=== PATIENT | female | born 1970 | race Caucasian/White ===

== ENCOUNTER → 2016-08-19 | Outpatient (CLI) | payer OTHER ==
--- NOTE | 2016-08-19 14:10 | MM ---
Reason for exam: history of breast augmentation, asymptomatic. Last mammogram was performed 2 years and 6 months ago. History: Family history of breast cancer in aunt at age 55. Pre-pectoral silicone gel implants, 1990. Took hormonal contraceptives for 3 months beginning at age 18. Physical Findings: Nurse did not find any significant physical abnormalities on exam. MG Diag Mamm Implants IRVIN w CAD Bilateral CC and MLO view(s) were taken. ID view(s) were taken of the right breast. Prior study comparison: February 04, 2014, bilateral MG screening mammo w CAD. There are scattered fibroglandular densities. There is chronic nodularity bilaterally, greater in the left breast. Implants are calcified. There is increased density in the left breast, can be compatible with ruptured implant, this is stable from 2013. These results were verbally communicated with the patient and result sheet given to the patient on 08/19/16. ASSESSMENT: Benign, BI-RAD 2 RECOMMENDATION: Routine screening mammogram of both breasts in 1 year.
== END | disposition home or self-care (01) ==
LOC: RADMAMWWP 13:03
PROVIDERS: ATTEND Family Medicine
DX: R92.8 Other abnormal and inconclusive findings on diagnostic imaging of breast (principal); T85.41XA Breakdown (mechanical) of breast prosthesis and implant, initial encounter; Z98.82 Breast implant status

== ENCOUNTER 2017-08-30 08:10 | Inpatient (IN) | payer OTHER ==
[2017-08-30] MEDS ORDERED: SODIUM CHLORIDE 0.9% 1,000 ML IV STA (08:13)
[2017-08-30] MEDS ORDERED: PANTOPRAZOLE 40 MG/10 ML VIAL IVP STA (08:13)
[2017-08-30 08:36] LABS: Basophils % (A) 0 %; Eosinophils # (A) 0.1 k/uL (0-0.7); Eosinophils % (A) 0 %; HCT 22.7 % (34.0-46.0); HGB 7.7 gm/dL (11.4-16.0); Lymphocytes # (A) 4.1 k/uL (1.0-4.8); Lymphocytes % (A) 17 %; MCH 31.7 pg (25.0-35.0); MCHC 33.7 g/dL (31.0-37.0); MCV 94.1 fL (80.0-100.0); Mean Platelet Volume 8.5; Monocytes # (A) 0.7 k/uL (0-1.0); Monocytes % (A) 3 %; Neutrophils # (A) 19.5 k/uL (1.3-7.7); Neutrophils % (A) 80 %; Platelet Count 301 k/uL (150-450); RBC 2.42 m/uL (3.80-5.40); WBC 24.6 k/uL (3.8-10.6)
--- NOTE | 2017-08-30 08:38 | ED ---
General Adult HPI - General Stated complaint: GI Bleed Time Seen by Provider: 08/30/17 08:10 Source: RN notes reviewed - History of Present Illness Initial comments: This is a 47-year-old female who presents to the emergency department complaining of having black stool since last evening. Patient states her abdomen is mildly tender but no specific area of tenderness. Patient denies any nausea or vomiting. Patient states she has never had any rectal bleeding before. Patient denies being any blood thinners. Patient denies smoking marijuana. Patient denies any history of having a colonoscopy. Patient denies any chest pain difficult breathing or shortness of breath. Patient has not had any recent antibiotics patient is not any recent fever or chills. Patient has not had any recent diarrhea - Related Data Home Medications Medication Instructions Recorded Confirmed ARIPiprazole [Abilify] 5 mg PO DAILY 02/27/17 08/30/17 Ascorbic Acid [Vitamin C] 500 mg PO DAILY 02/27/17 08/30/17 Desvenlafaxine Succinate [Pristiq] 100 mg PO DAILY 02/27/17 08/30/17 HYDROcodone/APAP 7.5-325MG [[place] 1 tab PO QID PRN 02/27/17 08/30/17 7.5-325] LORazepam [Ativan] 2 mg PO TID 02/27/17 08/30/17 Pseudoephedrine 12Hr [Sudafed 12Hr] 120 mg PO Q12H PRN 08/30/17 08/30/17 Allergies Allergy/AdvReac Type Severity Reaction Status Date / Time lamotrigine [From Lamictal] Allergy Unknown Verified 08/30/17 10:19 lavender (Lavandula Allergy Unknown Verified 08/30/17 08:43 angustifolia) Sulfa (Sulfonamide Allergy Unknown Verified 08/30/17 08:43 Antibiotics) Review of Systems ROS Statement: Those systems with pertinent positive or pertinent negative responses have been documented in the HPI. ROS Other: All systems not noted in ROS Statement are negative. Past Medical History Past Medical History: No Reported History History of Any Multi-Drug Resistant Organisms: None Reported Past Surgical History: Breast Surgery, Section Past Psychological History: Anxiety, Depression Smoking Status: Current every day smoker Past Alcohol Use History: Abuse Past Drug Use History: None Reported General Exam - General Exam Comments Initial Comments: GENERAL: Patient is well-developed and well-nourished. Patient is nontoxic and well- hydrated and is in mild distress. ENT: Neck is soft and supple. No significant lymphadenopathy is noted. Oropharynx is clear. Moist mucous membranes. EYES: The sclera were anicteric and conjunctiva were pink and moist. Extraocular movements were intact and pupils were equal round and reactive to light. Eyelids were unremarkable. PULMONARY: Unlabored respirations. Good breath sounds bilaterally. No audible rales rhonchi or wheezing was noted. CARDIOVASCULAR: There is a regular rate and rhythm without any murmurs gallops or rubs. ABDOMEN: Soft and nontender with normal bowel sounds. SKIN: Skin is very pale. NEUROLOGIC: Patient is alert and oriented x3. Cranial nerves II through XII are grossly intact. Motor and sensory are also intact. Normal speech, volume and content. Symmetrical smile. MUSCULOSKELETAL: Normal extremities with adequate strength and full range of motion. No lower extremity swelling or edema. No calf tenderness. LYMPHATICS: No significant lymphadenopathy is noted PSYCHIATRIC: Normal psychiatric evaluation. Normal interpersonal interactions appears functionally intact in deals appropriately with others. No signs of depression. No signs of anxiety. Course Vital Signs 08/30/17 08/30/17 08/30/17 08:13 08:34 09:24 Temperature 97.2 F L 97.2 F L Pulse Rate 110 H 112 H 108 H Respiratory 17 17 17 Rate Blood Pressure 125/74 115/54 145/59 O2 Sat by Pulse 96 100 100 Oximetry 08/30/17 08/30/17 08/30/17 09:35 09:45 10:15 Temperature 97.2 F L 97.3 F L 97.5 F L Pulse Rate 107 H 107 H 110 H Respiratory 17 16 16 Rate Blood Pressure 135/63 122/72 175/98 O2 Sat by Pulse 100 100 100 Oximetry 08/30/17 10:57 Temperature Pulse Rate 125 H Respiratory 17 Rate Blood Pressure 158/65 O2 Sat by Pulse 100 Oximetry Medical Decision Making - Medical Decision Making EKG shows sinus tachycardia at 112 bpm MO interval is 128 QRS 78 QT interval 350 QTC is 477. Patient's EKG shows no ST elevation or depression or T wave abnormalities are noted. Patient received one unit of blood in the emergency department secondary to the fact that she was having black stools which were guaiac positive. Patient also received 2 L of normal saline. Patient's blood pressure remained within normal range throughout her stay in the emergency department. Patient also is tachycardic and feeling very weak. I spoke with [facility] admit the patient I wrote admitting orders I consult the GI and he continued doing serial CBCs. CT showed no acute abnormality. - Lab Data Result diagrams: 08/30/17 08:20 08/30/17 08:20 Lab Results 08/30/17 08/30/17 08/30/17 Range/Units 08:20 08:20 08:20 WBC 24.6 H (3.8-10.6) k/uL RBC 2.42 L (3.80-5.40) m/uL Hgb 7.7 L (11.4-16.0) gm/dL Hct 22.7 L (34.0-46.0) % MCV 94.1 (80.0-100.0) fL MCH 31.7 (25.0-35.0) pg MCHC 33.7 (31.0-37.0) g/dL RDW 13.0 (11.5-15.5) % Plt Count 301 (150-450) k/uL Neutrophils % 80 % Lymphocytes % 17 % Monocytes % 3 % Eosinophils % 0 % Basophils % 0 % Neutrophils # 19.5 H (1.3-7.7) k/uL Lymphocytes # 4.1 (1.0-4.8) k/uL Monocytes # 0.7 (0-1.0) k/uL Eosinophils # 0.1 (0-0.7) k/uL Basophils # 0.0 (0-0.2) k/uL PT (9.0-12.0) sec INR (<1.2) APTT (22.0-30.0) sec Sodium (137-145) mmol/L Potassium (3.5-5.1) mmol/L Chloride (98-107) mmol/L Carbon Dioxide (22-30) mmol/L Anion Gap mmol/L BUN (7-17) mg/dL Creatinine (0.52-1.04) mg/dL Est GFR (CKD-EPI)AfAm (>60 ml/min/1.73 sqM) Est GFR (CKD-EPI)NonAf (>60 ml/min/1.73 sqM) Glucose (74-99) mg/dL Calcium (8.4-10.2) mg/dL Magnesium (1.6-2.3) mg/dL Total Bilirubin (0.2-1.3) mg/dL AST (14-36) U/L ALT (9-52) U/L Alkaline Phosphatase (38-126) U/L Total Creatine Kinase 48 (30-135) U/L CK-MB (CK-2) 1.5 (0.0-2.4) ng/mL CK-MB (CK-2) Rel Index 3.1 Troponin I 0.039 H* (0.000-0.034) ng/mL Total Protein (6.3-8.2) g/dL Albumin (3.5-5.0) g/dL Stool Occult Blood (Negative) Blood Type O Negative Blood Type Recheck No Antibody Screen NEGATIVE Crossmatch See Detail Spec Expiration Date 09/02/2017 - 231908/30/17 08/30/17 08/30/17 Range/Units 08:20 08:20 08:25 WBC (3.8-10.6) k/uL RBC (3.80-5.40) m/uL Hgb (11.4-16.0) gm/dL Hct (34.0-46.0) % MCV (80.0-100.0) fL MCH (25.0-35.0) pg MCHC (31.0-37.0) g/dL RDW (11.5-15.5) % Plt Count (150-450) k/uL Neutrophils % % Lymphocytes % % Monocytes % % Eosinophils % % Basophils % % Neutrophils # (1.3-7.7) k/uL Lymphocytes # (1.0-4.8) k/uL Monocytes # (0-1.0) k/uL Eosinophils # (0-0.7) k/uL Basophils # (0-0.2) k/uL PT 10.2 (9.0-12.0) sec INR 1.0 (<1.2) APTT 19.0 L (22.0-30.0) sec Sodium 140 (137-145) mmol/L Potassium 3.6 (3.5-5.1) mmol/L Chloride 101 (98-107) mmol/L Carbon Dioxide 21 L (22-30) mmol/L Anion Gap 18 mmol/L BUN 54 H (7-17) mg/dL Creatinine 0.85 (0.52-1.04) mg/dL Est GFR (CKD-EPI)AfAm >90 (>60 ml/min/1.73 sqM) Est GFR (CKD-EPI)NonAf 81 (>60 ml/min/1.73 sqM) Glucose 132 H (74-99) mg/dL Calcium 8.8 (8.4-10.2) mg/dL Magnesium 2.0 (1.6-2.3) mg/dL Total Bilirubin 0.1 L (0.2-1.3) mg/dL AST 19 (14-36) U/L ALT 16 (9-52) U/L Alkaline Phosphatase 46 (38-126) U/L Total Creatine Kinase (30-135) U/L CK-MB (CK-2) (0.0-2.4) ng/mL CK-MB (CK-2) Rel Index Troponin I (0.000-0.034) ng/mL Total Protein 5.1 L (6.3-8.2) g/dL Albumin 3.3 L (3.5-5.0) g/dL Stool Occult Blood Positive H (Negative) Blood Type Blood Type Recheck Antibody Screen Crossmatch Spec Expiration Date Critical Care Time Critical Care Time: Yes Total Critical Care Time: 35 Disposition Clinical Impression: GI bleed Disposition: ADMITTED IP TO THIS [facility] Referrals: Bjorn Joy III, MD [Primary Care Provider] - 1-2 days Time of Disposition: 09:52
[2017-08-30 08:48] LABS: ALT 16 U/L (9-52); AST 19 U/L (14-36); Albumin 3.3 g/dL (3.5-5.0); Alkaline Phosphatase 46 U/L (38-126); Anion Gap 18 mmol/L; Blood Urea Nitrogen 54 mg/dL (7-17); Calcium 8.8 mg/dL (8.4-10.2); Carbon Dioxide 21 mmol/L (22-30); Chloride 101 mmol/L (98-107); Glucose 132 mg/dL (74-99); Potassium 3.6 mmol/L (3.5-5.1); Sodium 140 mmol/L (137-145); Total Bilirubin 0.1 mg/dL (0.2-1.3); Total Protein 5.1 g/dL (6.3-8.2)
[2017-08-30 08:51] LABS: Prothrombin Time 10.2 sec (9.0-12.0)
[2017-08-30 09:04] LABS: Creatine Kinase MB 1.5 ng/mL (0.0-2.4)
[2017-08-30 09:10] LABS: Troponin I 0.039 ng/mL (0.000-0.034)
[2017-08-30] MEDS ORDERED: RX INFO: IV CONTRAST WAS GIVEN 1 EACH MISC MISCELLANE PRN (09:55)
--- NOTE | 2017-08-30 10:58 | CT ---
EXAMINATION TYPE: CT abdomen pelvis w con DATE OF EXAM: 08/30/2017 COMPARISON: NONE HISTORY: GI bleed CT DLP: 915.60 mGycm CONTRAST: CT scan of the abdomen and pelvis is performed without Oral Contrast and with IV Contrast, patient in jected with 100 ml mL of Isovue 300. FINDINGS: LUNG BASES-: No visible nodule. No infiltrate. LIVER/GB: No calcified gallstones. No space occupying hepatic lesion. Biliary tree is of normal ca liber. PANCREAS: No inflammation. No distinct mass. SPLEEN: No splenic enlargement. No lesion seen. ADRENALS: Left adrenal nodule measuring 2.2 cm is nonspecific. Right adrenal gland is unremarkable. C orrelate for adenoma. KIDNEYS/BLADDER: No hydronephrosis. No nephrolithiasis. No distinct renal mass. Urinary bladder g rossly unremarkable. BOWEL: Normal appendix. Mild distention of jejunal loops of wall thickening may reflect enteritis. Th e remainder of the small and large bowel appear to be unremarkable. There is scattered colonic divert iculosis without diverticulitis. GENITAL ORGANS: No gross abnormality. LYMPH NODES: No greater than 1cm abdominal or pelvic lymph nodes are appreciated. AORTA: No significant abnormality. OSSEOUS STRUCTURES: No significant abnormality is seen. OTHER: No significant additional abnormality is seen. IMPRESSION: 1. Correlate for jejunal enteritis. 2. Scattered colonic diverticulosis without diverticulitis. 3. Left adrenal nodule may reflect adenoma.
[2017-08-30] MEDS ORDERED: SODIUM CHLORIDE 0.9% 1,000 ML IV ONE (11:05)
[2017-08-30 12:18] VITALS: BMI 30.4
[2017-08-30] MEDS: DESVENLAFAXINE SUCCINATE 50 MG TAB.ER.24H PO SCH (17:53)
[2017-08-30] MEDS: ARIPiprazole 5 MG TAB PO SCH (17:53)
[2017-08-30] MEDS: LORazepam 1 MG TAB PO PRN (18:08)
[2017-08-30] MEDS: SODIUM CHLORIDE 0.9% 1,000 ML IV SCH (18:10)
[2017-08-30 18:43] LABS: Anisocytosis Slight; HCT 23.3 % (34.0-46.0); HGB 8.1 gm/dL (11.4-16.0); MCH 30.8 pg (25.0-35.0); MCHC 34.9 g/dL (31.0-37.0); Mean Platelet Volume 8.5; Platelet Count 229 k/uL (150-450); RBC 2.63 m/uL (3.80-5.40); WBC 19.2 k/uL (3.8-10.6)
[2017-08-30 18:50] LABS: MCV 88.4 fL (80.0-100.0)
[2017-08-30] MEDS: HYDROcodone/APAP 7.5-325MG 1 EACH TAB PO PRN (19:41)
[2017-08-30] MEDS: PANTOPRAZOLE 40 MG/10 ML VIAL IVP SCH (21:13)
[2017-08-30 21:40] LABS: Basophils % (A) 0 %; Eosinophils # (A) 0.1 k/uL (0-0.7); Eosinophils % (A) 1 %; Lymphocytes # (A) 4.6 k/uL (1.0-4.8); Lymphocytes % (A) 35 %; MCH 29.8 pg (25.0-35.0); MCHC 34.1 g/dL (31.0-37.0); MCV 87.4 fL (80.0-100.0); Mean Platelet Volume 7.8; Monocytes # (A) 0.4 k/uL (0-1.0); Monocytes % (A) 3 %; Neutrophils # (A) 7.8 k/uL (1.3-7.7); Neutrophils % (A) 59 %; Platelet Count 195 k/uL (150-450); RBC 2.16 m/uL (3.80-5.40); WBC 13.2 k/uL (3.8-10.6)
[2017-08-30 21:45] LABS: HGB 6.4 gm/dL (11.4-16.0)
[2017-08-30 21:46] LABS: HCT 18.8 % (34.0-46.0)
[2017-08-30] MEDS ORDERED: FUROSEMIDE 10 MG/ML 2 ML VIAL IV PRN ×2 (21:53)
[2017-08-30] MEDS ORDERED: LORazepam 1 MG TAB PO SCH (22:00)
--- NOTE | 2017-08-30 22:21 | HP ---
HISTORY AND PHYSICAL DATE OF SERVICE: 08/30/2017. CHIEF COMPLAINT: GI bleed and anemia. HISTORY OF PRESENT ILLNESS: This 47-year-old woman with a past medical history of multiple medical problems including history of anxiety and depression, being followed by Dr. Joy in the outpatient setting, also had breast surgery and section also. The patient apparently had diarrhea for 3 to 4 days. Subsequently patient was vomiting and subsequently patient noted black tarry stools. The patient came to [facility]. Hemoglobin was found to be 7.7 and then subsequently 8.1. WBC 24.6. CT scan showed possible enteritis. Troponin inconclusive. The patient was complaining of tiredness and weakness. The patient was admitted for further evaluation and treatment. Gastroenterology evaluation is in progress at this time. PAST MEDICAL HISTORY: History of anxiety and depression, history of nicotine dependence and breast surgery, history of section. MEDICATIONS: 1. Sudafed 120 mg p.o. b.i.d. 2. Ativan 0 2 mg t.i.d. 3. [place] 7.5 q.i.d. p.r.n. 4. Pristiq 100 mg daily. 5. Vitamin C 575 mg p.o. daily. 6. Abilify 5 mg daily. ALLERGIES: Lamictal, lavender, sulfa. FAMILY HISTORY: History of Crohn disease. SOCIAL HISTORY: History of smoking. No history of alcohol intake. REVIEW OF SYSTEMS: ENT: No diminished vision. CARDIOVASCULAR: No angina. RESPIRATORY: No cough. GI: As mentioned earlier. : No dysuria. NERVOUS SYSTEM: No numbness or weakness. ALLERGY: None. MUSCULOSKELETAL: As mentioned earlier. HEMATOLOGY/ONCOLOGY: No history of anemia. ENDOCRINE: No history of diabetes. CONSTITUTIONAL: No fever. DERMATOLOGY: None. PSYCH: As mentioned earlier. PHYSICAL EXAM: Alert, oriented x3. Pulse is 118, blood pressure 148/60, respirations 16, temperature 97 degrees, pulse ox 97% on room air. HEENT: Conjunctivae normal. Oral mucosa moist. NECK: No jugular venous distention. No lymph node enlargement. CARDIOVASCULAR: S1 and S2. LUNGS: Breath sounds diminished at the bases. No rhonchi no crackles. ABDOMEN: Soft, nontender. No mass palpable. LEGS: No edema. NERVOUS SYSTEM: Higher functions as mentioned. No focal motor deficits. LYMPHATIC: No lymph nodes palpable. SKIN: No ulcer, rash or bleeding. LABS: WBC 19.8, hemoglobin is 8.1. Troponin noted. ASSESSMENT: 1. Lower gastrointestinal bleeding with acute blood loss anemia with a hemoglobin of 7.7. 2. Increased WBC. 3. Possibly jejunal enteritis. 4. Troponin 0.039, indeterminate. 5. Anxiety and depression. 6. History of nicotine dependence. 7. History of EtOH. RECOMMENDATIONS: This 47-year-old gentleman with multiple complex medical issues, will monitor the patient closely, continue the current management, GI evaluation. Possible endoscope. Monitor closely. Avoid antiplatelet agents. Resume the home medications. Otherwise we will follow the patient closely. Further recommendations to follow. Proton pump inhibitors will be given also. I would also recommend a sedimentation rate and CRP also. MMODL / IJN: [id number] /
[2017-08-30 22:22] LABS: Erythrocyte Sedimentation Rate 3 mm/hr (0-20)
[2017-08-31] MEDS: HYDROcodone/APAP 7.5-325MG 1 EACH TAB PO PRN ×4 (00:44→22:08)
[2017-08-31] MEDS: LORazepam 1 MG TAB PO PRN ×3 (02:28→22:08)
[2017-08-31] MEDS: SODIUM CHLORIDE 0.9% 1,000 ML IV SCH (06:13)
[2017-08-31] MEDS ORDERED: SODIUM CHLORIDE 0.9% 1,000 ML IV SCH (06:15)
--- NOTE | 2017-08-31 07:33 | P.CONS ---
History of Present Illness - Reason for Consult Consult date: 08/31/17 GI bleed melena and anemia Requesting physician: Jeremías Motta - History of Present Illness 47-year-old female admitted with hematemesis and black colored bowel movements that started Tuesday. Tuesday evening should increased nausea with multiple emesis that were red blood-tinged followed by multiple black colored bowel movements. Her last black colored bowel movement was yesterday afternoon. She had increased shortness of breath fatigue weakness but denies chest pain. No history of GI bleed. No history of peptic ulcer disease. No NSAIDs aspirin or alcohol. Denies fever or chills. Denies hematochezia. No history of EGD colonoscopy. Admission hemoglobin 7.7 decreased to 6.4 yesterday evening she's received a total of 2 units of blood. Platelet 195. INR 1.0. BUN 54. Creatinine 0.8. White 24.6 presently 13.2. Denies epigastric abdominal pain. No history of gastric or bowel surgeries. CT abdomen and pelvis colonic diverticulosis without diverticulitis. Possible jejunal enteritis. Review of Systems Constitutional: Denies fever, chills, sweats, weight gain, or loss. HEENT: Negative for migraines, blurred vision or loss, earaches, drainage, tinnitus, oral mucosal lesions, dysphagia, or odynophagia. CARDIAC: Negative for chest pain, arrhythmias, or palpitation. RESPIRATORY: Admitted with shortness of breath, denies hemoptysis, cough, or sputum production. GI: See HPI for pertinent findings. : Negative for hematuria, urgency, frequency, polyuria, or dysuria. GYNc: Denies possibility of . Negative vaginal discharge. MUSCULOSKELETAL: Negative for muscle aches, swelling, arthritis, and arthralgias. NEUROLOGIC: Negative for stroke or TIA. ENDOCRINE: Negative for thyroid problems. SKIN: Negative for rash or itching. PSYCHIATRIC: Negative history for depression and anxiety Past Medical History Past Medical History: No Reported History History of Any Multi-Drug Resistant Organisms: None Reported Past Surgical History: Breast Surgery, Section Past Psychological History: Anxiety, Depression Smoking Status: Current every day smoker Past Alcohol Use History: Abuse Past Drug Use History: None Reported - Past Family History Son(s) Additional Family Medical History / Comment(s): at at 18 years from crohns Medications and Allergies Home Medications Medication Instructions Recorded Confirmed Type ARIPiprazole [Abilify] 5 mg PO DAILY 02/27/17 08/30/17 History Ascorbic Acid [Vitamin C] 500 mg PO DAILY 02/27/17 08/30/17 History Desvenlafaxine Succinate [Pristiq] 100 mg PO DAILY 02/27/17 08/30/17 History HYDROcodone/APAP 7.5-325MG [[place] 1 tab PO QID PRN 02/27/17 08/30/17 History 7.5-325] LORazepam [Ativan] 2 mg PO TID 02/27/17 08/30/17 History Pseudoephedrine 12Hr [Sudafed 12Hr] 120 mg PO Q12H PRN 08/30/17 08/30/17 History Allergies Allergy/AdvReac Type Severity Reaction Status Date / Time lamotrigine [From Lamictal] Allergy chávez Verified 08/30/17 12:02 [place] lavender (Lavandula Allergy Itching Verified 08/30/17 12:02 angustifolia) Sulfa (Sulfonamide Allergy Swelling Verified 08/30/17 12:02 Antibiotics) Physical Exam Vitals: Vital Signs Temp Pulse Pulse Resp BP BP Pulse Ox 08/31/17 06:11 98.7 F 99 20 105/57 98 08/31/17 05:38 97.2 F L 103 H 18 110/58 98 08/31/17 03:38 98.0 F 100 20 116/55 100 08/31/17 03:18 98.5 F 95 20 117/60 98 08/31/17 03:08 97.6 F 95 20 115/59 99 08/31/17 02:33 97.7 F 101 H 20 112/50 100 08/30/17 23:40 97.9 F 99 20 110/50 100 08/30/17 23:20 98.1 F 98 20 115/52 100 08/30/17 23:10 97.7 F 100 20 115/53 99 08/30/17 22:45 98.6 F 103 H 18 105/64 100 08/30/17 15:00 98.2 F 115 H 20 133/66 100 08/30/17 13:21 97.0 F L 115 H 16 140/81 97 08/30/17 12:26 97.0 F L 118 H 16 140/81 08/30/17 11:54 97.0 F L 118 H 16 140/81 99 08/30/17 11:29 98.9 F 123 H 17 129/76 100 08/30/17 10:57 125 H 17 158/65 100 08/30/17 10:15 97.5 F L 110 H 16 175/98 100 08/30/17 09:45 97.3 F L 107 H 16 122/72 100 08/30/17 09:35 97.2 F L 107 H 17 135/63 100 08/30/17 09:24 97.2 F L 108 H 17 145/59 100 08/30/17 08:34 112 H 17 115/54 100 08/30/17 08:13 97.2 F L 110 H 17 125/74 96 Intake and Output 08/30/17 08/31/17 08/31/17 22:59 06:59 14:59 Intake Total 620 Balance 620 Intake: Blood Product 620 Rc As-3 Unit 310 [id number] Rc Pheresis 2 As3 Unit 310 [id number] Other: Voiding Method Toilet # Voids 1 3 General appearance: The patient is alert, oriented, in no acute distress. HET: Head is normocephalic and atraumatic. Pupils are equal and reactive. Oropharynx is clear without lesions. Neck: Supple without lymphadenopathy. Trachea midline. Heart: S1 S2. Regular rate and rhythm. Lungs: No crackles or wheezes are heard. Abdomen: Soft, nontender, nondistended with bowel sounds. No peritoneal signs. No palpable organomegaly or masses. Extremities: Normal skin color and turgor. No cyanosis, rash, ulceration, clubbing, or edema. Radial and pedal pulses are 2/4 bilaterally. Neurological: No focal deficits. Strength and sensation are grossly intact. Results CBC & Chem 7: 08/30/17 21:32 08/30/17 08:20 Labs: Abnormal Lab Results - Last 24 Hours (Table) 08/30/17 08/30/17 08/30/17 Range/Units 08:20 08:20 08:20 WBC 24.6 H (3.8-10.6) k/uL RBC 2.42 L (3.80-5.40) m/uL Hgb 7.7 L (11.4-16.0) gm/dL Hct 22.7 L (34.0-46.0) % RDW (11.5-15.5) % Neutrophils # 19.5 H (1.3-7.7) k/uL APTT (22.0-30.0) sec Carbon Dioxide (22-30) mmol/L BUN (7-17) mg/dL Glucose (74-99) mg/dL Total Bilirubin (0.2-1.3) mg/dL Troponin I 0.039 H* (0.000-0.034) ng/mL C-Reactive Protein (<10.0) mg/L Total Protein (6.3-8.2) g/dL Albumin (3.5-5.0) g/dL Stool Occult Blood (Negative) Crossmatch See Detail 08/30/17 08/30/17 08/30/17 Range/Units 08:20 08:20 08:20 WBC (3.8-10.6) k/uL RBC (3.80-5.40) m/uL Hgb (11.4-16.0) gm/dL Hct (34.0-46.0) % RDW (11.5-15.5) % Neutrophils # (1.3-7.7) k/uL APTT 19.0 L (22.0-30.0) sec Carbon Dioxide 21 L (22-30) mmol/L BUN 54 H (7-17) mg/dL Glucose 132 H (74-99) mg/dL Total Bilirubin 0.1 L (0.2-1.3) mg/dL Troponin I (0.000-0.034) ng/mL C-Reactive Protein 42.1 H (<10.0) mg/L Total Protein 5.1 L (6.3-8.2) g/dL Albumin 3.3 L (3.5-5.0) g/dL Stool Occult Blood (Negative) Crossmatch 08/30/17 08/30/17 08/30/17 Range/Units 08:25 18:21 21:32 WBC 19.2 H 13.2 H (3.8-10.6) k/uL RBC 2.63 L 2.16 L (3.80-5.40) m/uL Hgb 8.1 L 6.4 L* D (11.4-16.0) gm/dL Hct 23.3 L 18.8 L* (34.0-46.0) % RDW 16.0 H 16.0 H (11.5-15.5) % Neutrophils # 7.8 H (1.3-7.7) k/uL APTT (22.0-30.0) sec Carbon Dioxide (22-30) mmol/L BUN (7-17) mg/dL Glucose (74-99) mg/dL Total Bilirubin (0.2-1.3) mg/dL Troponin I (0.000-0.034) ng/mL C-Reactive Protein (<10.0) mg/L Total Protein (6.3-8.2) g/dL Albumin (3.5-5.0) g/dL Stool Occult Blood Positive H (Negative) Crossmatch CT scan - abdomen: report reviewed (Dr. Andrade) Assessment and Plan (1) Hematemesis with nausea Narrative/Plan: Possible peptic ulcer disease Current Visit: Yes Status: Acute Code(s): K92.0 - HEMATEMESIS SNOMED Code( s): 0569270 (2) Melena Current Visit: Yes Status: Acute Code(s): K92.1 - MELENA SNOMED Code(s): 7122444 (3) Acute blood loss anemia Current Visit: Yes Status: Acute Code(s): D62 - ACUTE POSTHEMORRHAGIC ANEMIA SNOMED Code(s): 413571450 (4) Symptomatic anemia Current Visit: Yes Status: Acute Code(s): D64.9 - ANEMIA, UNSPECIFIED SNOMED Code(s): 462761194 (5) GI bleed Current Visit: Yes Status: Acute Code(s): K92.2 - GASTROINTESTINAL HEMORRHAGE, UNSPECIFIED SNOMED Code(s): 20971539 Plan: 1. Nothing by mouth except medications. EGD evaluation. Protonix 40 mg IV every 12. CBC every 6 hours. The clinical trials nurse has discussed the risks, benefits and alternative therapies for the above-mentioned procedure and for both sedation/analgesia as well as necessary blood product administration, if indicated, as they pertain to this patient. The patient has indicated understanding and acceptance of the risks and procedures discussed. Thank you for this kind referral and the opportunity to participate in the care of your patient. This consultation was discussed with Dr. Andrade. The impression and plan of care have been directed as dictated.
[2017-08-31 08:05] LABS: Anisocytosis Slight; Basophils % (A) 0 %; Eosinophils # (A) 0.1 k/uL (0-0.7); Eosinophils % (A) 1 %; HCT 29.3 % (34.0-46.0); Lymphocytes # (A) 2.9 k/uL (1.0-4.8); Lymphocytes % (A) 29 %; MCH 29.9 pg (25.0-35.0); MCHC 34.5 g/dL (31.0-37.0); MCV 86.6 fL (80.0-100.0); Mean Platelet Volume 7.8; Monocytes # (A) 0.4 k/uL (0-1.0); Monocytes % (A) 4 %; Neutrophils # (A) 6.5 k/uL (1.3-7.7); Neutrophils % (A) 66 %; Platelet Count 188 k/uL (150-450); RBC 3.38 m/uL (3.80-5.40); RDW 16.3 % (11.5-15.5); WBC 9.9 k/uL (3.8-10.6)
[2017-08-31 08:10] LABS: HGB 10.1 gm/dL (11.4-16.0)
[2017-08-31] MEDS: ARIPiprazole 5 MG TAB PO SCH (08:11)
[2017-08-31] MEDS: DESVENLAFAXINE SUCCINATE 50 MG TAB.ER.24H PO SCH (08:11)
[2017-08-31] MEDS: PANTOPRAZOLE 40 MG/10 ML VIAL IVP SCH ×2 (08:12→20:25)
[2017-08-31 08:21] LABS: Anion Gap 11 mmol/L; Blood Urea Nitrogen 12 mg/dL (7-17); Calcium 8.1 mg/dL (8.4-10.2); Carbon Dioxide 27 mmol/L (22-30); Chloride 103 mmol/L (98-107); Glucose 96 mg/dL (74-99); Potassium 3.1 mmol/L (3.5-5.1); Sodium 141 mmol/L (137-145)
[2017-08-31] MEDS ORDERED: IV FLUID CONTINUATION 1,000 ML IV ONE (11:56)
[2017-08-31] MEDS ORDERED: LIDOCAINE 1% INJ 10MG/ML (20 ML MDV) ONE (12:01)
[2017-08-31] MEDS ORDERED: MIDAZOLAM 2 MG/2 ML VIAL ONE (12:01)
[2017-08-31] MEDS ORDERED: PROPOFOL 10 MG/ML 20 ML VIAL IV ONE (12:01)
--- NOTE | 2017-08-31 12:14 | P.PCN ---
Date of Procedure: 08/31/17 Procedure(s) Performed: BRIEF HISTORY: Patient is a 47-year-old, pleasant, white female, admitted to the hospital with hematemesis and black tarry stools of 2 days' duration. Her hemoglobin was 6.5 g/dL requiring 2 units of blood transfusion. She is hence scheduled for an upper endoscopy to evaluate further. PROCEDURE PERFORMED: Esophagogastroduodenoscopy with biopsy. PREOPERATIVE DIAGNOSIS: Acute upper GI bleed. IV sedation per anesthesia. PROCEDURE: After informed consent was obtained, the patient was brought into the endoscopy unit. IV sedation was administered by Anesthesia under continuous monitoring. Initially the Olympus GIF-140 video endoscope was inserted into the mouth. Esophagus intubated without any difficulty. It was gradually advanced into the stomach and duodenum and carefully examined. The bulb and the second part of the duodenum appeared normal. The scope at this time was withdrawn to the stomach, adequately insufflated with air, and upon careful examination, mucosa of the antrum, had scattered erosions but no active bleeding. Biopsies were done from antrum. The body, cardia and the fundus appeared normal. The scope was then withdrawn into the esophagus. The GE junction was located at 39 cm from the incisors. There was a isolated deep linear ulceration in the distal esophagus extending from 37-39 cm from the incisors with no active bleeding but appears to be the source of recent bleed. The rest of the esophagus appeared normal and the patient tolerated the procedure well. IMPRESSION: 1. 2 cm linear deep ulceration in the distal esophagus with no active bleeding. 2. Antral erosive gastritis. RECOMMENDATIONS: The findings of this examination were discussed with the patient. She was advised to follow with the biopsy results. She will continue with Protonix 40 mg twice daily and diet will be advanced as tolerated.
[2017-08-31] MEDS ORDERED: Potassium Replacement Protocol 1 EACH MISC MISCELLANE PRN (12:42)
[2017-08-31] MEDS: ASCORBIC ACID 500 MG TAB PO SCH (12:45)
[2017-08-31] MEDS: POTASSIUM CHLORIDE ER 20 MEQ TAB.ER PO SCH ×2 (13:07→15:43)
--- NOTE | 2017-08-31 13:36 | P.CRDCN ---
History of Present Illness Consult date: 08/31/17 History of present illness: Mrs. Moncada is a pleasant 47-year-old female past medical history significant for anxiety, depression, contained dependence. She denies history of coronary artery disease, hypertension, dyslipidemia or diabetes. Patient has to see her in consultation secondary to elevated troponin. She presented to the hospital yesterday morning after having black stools multiple times starting on Tuesday. She states she is also been vomiting dark red colored emesis. She states that she when she initially presented to the hospital she was extremely short of breath and felt as if her chest was tight. She has experienced symptoms like this in the past with shortness of breath and chest tightness and typically takes ativan and the symptoms subside. she was found to have hgb 7.7 and was quiac positive. She has received 3 units of PRBC's with hgg going down as low as 6.4 last night. This morning is 10.1. GI has been consulted and is planning for EGD today. She has had no further symptoms of chest pain or shortness of breath since admission. EKG reveals sinus tachycardia with no acute ST abnormalities and non-specific T- wave abnormalities. CT abdomen and pelvis related for jejunal enteritis, scattered colonic diverticulosis without diverticulitis and left adrenal nodule. Laboratory data reviewed, hemoglobin today 10.1, platelets 188, sodium 141, INR 1.0, potassium 3.1, creatinine 0.52, troponin on admission 0.039, CRP 42.1. Review of Systems At the time of my exam: CONSTITUTIONAL: Denies fever. Denies chills. EYES: Denies blurred vision. Denies vision changes. Denies eye pain. EARS, NOSE, MOUTH & THROAT: Denies headache. Denies sore throat. Denies ear pain. CARDIOVASCULAR: Denies chest pain. Denies shortness of breath. Denies orthopnea. Denies PND. Denies palpitations. RESPIRATORY: Denies cough. GASTROINTESTINAL: Denies abdominal pain. Denies diarrhea. Denies constipation. Denies nausea. Denies vomiting. MUSCULOSKELETAL: Denies myalgias. INTEGUMENTARY: Denies pruitis. Denies rash. NEUROLOGIC: Denies numbness. Denies tingling. Denies weakness. PSYCHIATRIC: Denies anxiety. Denies depression. ENDOCRINE: Denies fatigue. Denies weight change. Denies polydipsia. Denies polyurina. GENITOURINARY: Denies burning, hematuria or urgency with micturation. HEMATOLOGIC: Denies history of anemia. Complains of rectal bleeding. Past Medical History Past Medical History: No Reported History History of Any Multi-Drug Resistant Organisms: None Reported Past Surgical History: Breast Surgery, Section Past Psychological History: Anxiety, Depression Smoking Status: Current every day smoker Past Alcohol Use History: Abuse Past Drug Use History: None Reported - Past Family History Son(s) Additional Family Medical History / Comment(s): at at 18 years from crohns Medications and Allergies Home Medications Medication Instructions Recorded Confirmed Type ARIPiprazole [Abilify] 5 mg PO DAILY 02/27/17 08/30/17 History Ascorbic Acid [Vitamin C] 500 mg PO DAILY 02/27/17 08/30/17 History Desvenlafaxine Succinate [Pristiq] 100 mg PO DAILY 02/27/17 08/30/17 History HYDROcodone/APAP 7.5-325MG [[place] 1 tab PO QID PRN 02/27/17 08/30/17 History 7.5-325] LORazepam [Ativan] 2 mg PO TID 02/27/17 08/30/17 History Pseudoephedrine 12Hr [Sudafed 12Hr] 120 mg PO Q12H PRN 08/30/17 08/30/17 History Allergies Allergy/AdvReac Type Severity Reaction Status Date / Time lamotrigine [From Lamictal] Allergy chávez Verified 08/30/17 12:02 johnsons lavender (Lavandula Allergy Itching Verified 08/30/17 12:02 angustifolia) Sulfa (Sulfonamide Allergy Swelling Verified 08/30/17 12:02 Antibiotics) Physical Exam Vitals: Vital Signs Temp Pulse Pulse Resp BP BP Pulse Ox 08/31/17 06:11 98.7 F 99 20 105/57 98 08/31/17 05:38 97.2 F L 103 H 18 110/58 98 08/31/17 03:38 98.0 F 100 20 116/55 100 08/31/17 03:18 98.5 F 95 20 117/60 98 08/31/17 03:08 97.6 F 95 20 115/59 99 08/31/17 02:33 97.7 F 101 H 20 112/50 100 05/08/18 23:40 97.9 F 99 20 110/50 100 08/30/17 23:20 98.1 F 98 20 115/52 100 08/30/17 23:10 97.7 F 100 20 115/53 99 08/30/17 22:45 98.6 F 103 H 18 105/64 100 08/30/17 15:00 98.2 F 115 H 20 133/66 100 08/30/17 13:21 97.0 F L 115 H 16 140/81 97 08/30/17 12:26 97.0 F L 118 H 16 140/81 08/30/17 11:54 97.0 F L 118 H 16 140/81 99 08/30/17 11:29 98.9 F 123 H 17 129/76 100 Intake and Output 08/30/17 08/31/17 08/31/17 22:59 06:59 14:59 Intake Total 620 Balance 620 Intake: Blood Product 620 Rc As-3 Unit 310 [id number] Rc Pheresis 2 As3 Unit 310 [id number] Other: Voiding Method Toilet # Voids 1 3 Blood pressure 105/57 heart rate 99 afebrile maintaining oxygen saturation on room air GENERAL: This is a 47-year-old female in no apparent distress at the time of my examination. Obese. HEENT: Head is atraumatic, normocephalic. Pupils are equal, round. Sclerae anicteric. Conjunctivae are clear. Mucous membranes of the mouth are moist. Neck is supple. There is no jugular venous distention. No carotid bruit is heard. LUNGS: Clear to auscultation no wheezes, rales or rhonchi. No chest wall tenderness is noted on palpation or with deep breathing. HEART: Regular rate and rhythm without murmurs, rubs or gallops. S1 and S2 heard. ABDOMEN: Soft, nontender. Bowel sounds are heard. No organomegaly noted. EXTREMITIES: No evidence of peripheral edema and no calf tenderness noted. VASCULAR: Radial and dorsalis pedis pulses palpated, no evidence of clubbing. NEUROLOGIC: Patient is awake, alert and oriented x3. Results 08/31/17 07:56 08/31/17 07:51 CBC 08/30/17 08/30/17 08/31/17 Range/Units 18:21 21:32 07:56 WBC 19.2 H 13.2 H 9.9 (3.8-10.6) k/uL RBC 2.63 L 2.16 L 3.38 L (3.80-5.40) m/uL Hgb 8.1 L 6.4 L* D 10.1 L D (11.4-16.0) gm/dL Hct 23.3 L 18.8 L* 29.3 L (34.0-46.0) % Plt Count 229 195 188 (150-450) k/uL Comprehensive Metabolic Panel 08/31/17 Range/Units 07:51 Sodium 141 (137-145) mmol/L Potassium 3.1 L (3.5-5.1) mmol/L Chloride 103 (98-107) mmol/L Carbon Dioxide 27 (22-30) mmol/L BUN 12 (7-17) mg/dL Creatinine 0.52 (0.52-1.04) mg/dL Glucose 96 (74-99) mg/dL Calcium 8.1 L (8.4-10.2) mg/dL Current Medications Generic Name Dose Route Start Last Admin Trade Name Freq PRN Reason Stop Dose Admin Hydrocodone Bitart/Acetaminophen 1 each 08/30/17 16:46 08/31/17 08:11 [place] 7.5-325 PO 1 each QID PRN Administration Pain Aripiprazole 5 mg 08/30/17 17:00 08/31/17 08:11 Abilify PO 5 mg DAILY VANESSA Administration Ascorbic Acid 500 mg 08/31/17 09:00 Vitamin C PO DAILY VANESSA Desvenlafaxine Succinate 100 mg 08/30/17 17:00 08/31/17 08:11 Pristiq Er PO 100 mg DAILY VANESSA Administration Sodium Chloride 1,000 mls @ 60 mls/hr 08/31/17 06:15 08/31/17 08:17 Saline 0.9% IV 60 mls/hr .[id number] VANESSA Administration Lorazepam 2 mg 08/30/17 18:01 08/31/17 02:28 Ativan PO 2 mg TID PRN Administration Anxiety Miscellaneous Information 1 each 08/30/17 09:55 Rx Info: Iv Contrast Was Given MISCELLANE 09/01/17 09:55 DAILY PRN Per Protocol Pantoprazole Sodium 40 mg 08/30/17 21:00 08/31/17 08:12 Protonix IVP 40 mg BID VANESSA Administration Intake and Output 08/30/17 08/31/17 08/31/17 22:59 06:59 14:59 Intake Total 620 Balance 620 Intake: Blood Product 620 Rc As-3 Unit 310 [id number] Rc Pheresis 2 As3 Unit 310 [id number] Other: Voiding Method Toilet # Voids 1 3 08/31/17 07:56 08/31/17 07:51 Assessment and Plan Assessment: ASSESSMENT 1. Mild troponin leak 2. Hematemesis 3. Melena 4. Symptomatic anemia secondary to melena and hematemesis 5. History of anxiety 6. Nicotine dependence PLAN Mild troponin elevation is not indicative of acute coronary event in the picture of acute blood loss anemia. This is most likely secondary to the acute blood loss. Obtain 2-D echocardiogram and Doppler study to assess cardiac structure and function. Ongoing medical management of GI bleeding. Thank you kindly for this consultation. Nurse Practitioner note has been reviewed, I agree with a documented findings and plan of care. Patient was seen and examined.
[2017-08-31] MEDS ORDERED: POTASSIUM CHLORIDE ER 20 MEQ TAB.ER PO STA (14:29)
[2017-08-31] MEDS ORDERED: SODIUM CHLORIDE 0.9% 1,000 ML with POTASSIUM CHLORIDE 40 MEQ IV SCH ×2 (14:30)
--- NOTE | 2017-08-31 15:31 | PN ---
PROGRESS NOTE DATE OF SERVICE: 08/31/2017 INTERVAL HISTORY: This 47-year-old woman was admitted with GI bleed, had multiple transfusions and the hemoglobin has come up to 10.1 after 2 transfusions from 6.4. The patient has significant severe symptomatic anemia. Dr. Andrade performed an EGD, showed a 2 cm linear deep ulceration in the distal esophagus with no active bleeding and erosive gastritis also noted. No chest pain. No palpitations. No fever. PHYSICAL EXAM: Alert and oriented x3. On exam, alert and oriented x3, pulse 103, blood pressure 110/50, respiration 18, temperature 97.8, pulse ox 98% on room air. HEENT: Conjunctivae normal. NECK: No jugular venous distension. CARDIOVASCULAR: S1, S2 was normal. NECK: No jugular venous distension. RESPIRATORY: Breath sounds diminished at the bases, no rhonchi, no crackles. Abdomen is soft, nontender. LEGS: No edema. NERVOUS SYSTEM: No focal deficits. LABS WBC 9.2, hemoglobin is 10.8, potassium 3.1. ASSESSMENT: 1. Upper gastrointestinal bleeding with acute blood loss anemia, status post EGD showing 2 cm linear deep ulceration of the distal esophageal hiatus with no active bleeding with antral erosive gastritis. 2. Increased WBC. 3. Possible jejunal enteritis. 4. Troponin 0.039 indeterminate. 5. Anxiety, depression. 6. History of nicotine dependence. 7. History of remote history of EtOH. RECOMMENDATION: Recommend to continue current medications, monitor symptomatic treatment. Otherwise at this time, I would recommend follow the patient closely and now avoid NSAIDs. Continue with Protonix. Otherwise, repeat labs are ordered. Guarded prognosis. Further recommendations to follow. MMODL / IJN: [id number] /
--- NOTE | 2017-08-31 15:39 | ECHOF ---
Referral Reason:sob MEASUREMENTS -------- HEIGHT: 162.6 cm WEIGHT: 78.0 kg BP: RVIDd: 2.9 cm (< 3.3) IVSd: 0.9 cm (0.6 - 1.1) LVIDd: 3.9 cm (3.9 - 5.3) LVPWd: 1.0 cm (0.6 - 1.1) IVSs: 1.3 cm LVIDs: 2.9 cm LVPWs: 1.0 cm LA Diam: 2.9 cm (2.7 - 3.8) Ao Diam: 3.2 cm (2.0 - 3.7) AV Cusp: 1.7 cm (1.5 - 2.6) LA Diam: 2.4 cm (2.7 - 3.8) MV EXCURSION: 15.618 mm (> 18.000) MV EF SLOPE: 90 mm/s (70 - 150) EPSS: 0.2 cm MV E Yunior: 0.91 m/s MV DecT: 228 ms MV A Yunior: 0.78 m/s MV E/A Ratio: 1.16 AR PHT: 377 ms FINDINGS -------- Sinus rhythm. This was a technically good study. LV size, wall thickness and systolic function are normal, with an EF greater than 55%. The left ishmael tricular size is normal. The right ventricle is normal in size. The left atrial size is normal. The right atrial size is normal. There is mild aortic regurgitation. Mild mitral annular calcification present. Mild mitral regurgitation is present. No regurgitation noted There is no evidence of pulmonary hypertension. The right ventricular syst olic pressure, as measured by Doppler, is {RVSP}. There is no pulmonic regurgitation present. The aortic root size is normal. There is no pericardial effusion. CONCLUSIONS -------- 1. LV size, wall thickness and systolic function are normal, with an EF greater than 55%. 2. The left ventricular size is normal. 3. There is mild aortic regurgitation. 4. Mild mitral annular calcification present. 5. Mild mitral regurgitation is present. 6. No regurgitation noted 7. There is no evidence of pulmonary hypertension. 8. The right ventricular systolic pressure, as measured by Doppler, is {RVSP}. 9. There is no pulmonic regurgitation present. 10. The aortic root size is normal. 11. There is no pericardial effusion. LOCAL [employer]IVER: Cleo Lovelace RDCS
[2017-08-31] MEDS: 0.9% NACL WITH KCL 40 MEQ/L 1,000 ML IV SCH (15:43)
[2017-08-31] MEDS: SUCRALFATE 1 GM TAB PO SCH ×2 (16:58→20:25)
[2017-09-01 01:16] VITALS: RESP 20
[2017-09-01] MEDS: LORazepam 1 MG TAB PO PRN (06:25)
[2017-09-01] MEDS: HYDROcodone/APAP 7.5-325MG 1 EACH TAB PO PRN (06:25)
[2017-09-01 06:35] VITALS: BP 137/69; PULSE 86; TEMP 97.5
[2017-09-01] MEDS: DESVENLAFAXINE SUCCINATE 50 MG TAB.ER.24H PO SCH (07:38)
[2017-09-01] MEDS: PANTOPRAZOLE 40 MG/10 ML VIAL IVP SCH (07:38)
[2017-09-01] MEDS: ARIPiprazole 5 MG TAB PO SCH (07:39)
[2017-09-01] MEDS: ASCORBIC ACID 500 MG TAB PO SCH (07:39)
[2017-09-01] MEDS: SUCRALFATE 1 GM TAB PO SCH ×2 (07:39→11:27)
[2017-09-01] MEDS: 0.9% NACL WITH KCL 40 MEQ/L 1,000 ML IV SCH (08:14)
[2017-09-01 10:07] LABS: Anisocytosis Slight; Basophils % (A) 0 %; Eosinophils # (A) 0.1 k/uL (0-0.7); Eosinophils % (A) 2 %; HCT 28.1 % (34.0-46.0); HGB 9.3 gm/dL (11.4-16.0); Lymphocytes # (A) 2.4 k/uL (1.0-4.8); Lymphocytes % (A) 30 %; MCH 29.4 pg (25.0-35.0); MCHC 33.1 g/dL (31.0-37.0); MCV 88.9 fL (80.0-100.0); Mean Platelet Volume 9.5; Monocytes # (A) 0.3 k/uL (0-1.0); Monocytes % (A) 4 %; Neutrophils # (A) 5.1 k/uL (1.3-7.7); Neutrophils % (A) 64 %; Platelet Count 190 k/uL (150-450); RBC 3.16 m/uL (3.80-5.40); RDW 16.1 % (11.5-15.5)
[2017-09-01 10:17] LABS: Anion Gap 14 mmol/L; Blood Urea Nitrogen 4 mg/dL (7-17); Carbon Dioxide 20 mmol/L (22-30); Chloride 108 mmol/L (98-107); Glucose 109 mg/dL (74-99); Sodium 142 mmol/L (137-145)
--- NOTE | 2017-09-01 11:05 | P.PN ---
Subjective Mrs. Moncada is a pleasant 47-year-old female past medical history significant for anxiety, depression, contained dependence. She denies history of coronary artery disease, hypertension, dyslipidemia or diabetes. Patient has to see her in consultation secondary to elevated troponin. She presented to the hospital yesterday morning after having black stools multiple times starting on Tuesday. She states she is also been vomiting dark red colored emesis. She states that she when she initially presented to the hospital she was extremely short of breath and felt as if her chest was tight. She has experienced symptoms like this in the past with shortness of breath and chest tightness and typically takes ativan and the symptoms subside. she was found to have hgb 7.7 and was quiac positive. She has received 3 units of PRBC's with hgg going down as low as 6.4 last night. This morning is 10.1. GI has been consulted and is planning for EGD today. She has had no further symptoms of chest pain or shortness of breath since admission. EKG reveals sinus tachycardia with no acute ST abnormalities and non-specific T- wave abnormalities. CT abdomen and pelvis related for jejunal enteritis, scattered colonic diverticulosis without diverticulitis and left adrenal nodule. Laboratory data reviewed, hemoglobin today 10.1, platelets 188, sodium 141, INR 1.0, potassium 3.1, creatinine 0.52, troponin on admission 0.039, CRP 42.1. 09/01/2017 Mrs. Moncada is seen and examined today in follow-up. She underwent EGD yesterday that revealed erosive gastritis and a deep ulceration of the distal esophagus with no active bleedings. Echocardiogram was obtained yesterday that reveals preserved LV systolic function with EF 55%, mild AR, mild MR. Blood pressure 137/69 heart rate 86 afebrile maintaining oxygen saturation on room air. She denies any further bleeding in the stool or vomiting. She denies symptoms of chest pain, shortness of breath, dizziness, diaphoresis or palpitations. Hgb 9.3, plt 190, potassium 4.0, sodium 142. Objective - Vital Signs Vital signs: Vital Signs Temp 97.5 F L 09/01/17 06:00 Pulse 86 09/01/17 06:00 Resp 20 09/01/17 06:00 BP 137/69 09/01/17 06:00 Pulse Ox 97 09/01/17 06:00 Intake & Output 08/31/17 09/01/17 09/01/17 18:59 06:59 18:59 Intake Total 100 500 600 Balance 100 500 600 Intake: IV 100 Oral 500 600 Other: Voiding Method Toilet # Voids 1 1 - Exam GENERAL: Well-appearing, well-nourished and in no acute distress. NECK: Supple without JVD or thyromegaly. LUNGS: Breath sounds clear to auscultation bilaterally. Respiration equal and unlabored. No wheezes, rales or rhonchi. HEART: Regular rate and rhythm without murmurs, rubs or gallops. S1 and S2 heard. EXTREMITIES: Normal range of motion, no edema. No clubbing or cyanosis. Peripheral pulses intact and strong. - Labs CBC & Chem 7: 09/01/17 08:07 09/01/17 08:07 Labs: Abnormal Lab Results - Last 24 Hours (Table) 09/01/17 09/01/17 Range/Units 08:07 08:07 RBC 3.16 L (3.80-5.40) m/uL Hgb 9.3 L (11.4-16.0) gm/dL Hct 28.1 L (34.0-46.0) % RDW 16.1 H (11.5-15.5) % Chloride 108 H (98-107) mmol/L Carbon Dioxide 20 L (22-30) mmol/L BUN 4 L (7-17) mg/dL Creatinine 0.50 L (0.52-1.04) mg/dL Glucose 109 H (74-99) mg/dL Calcium 8.0 L (8.4-10.2) mg/dL Assessment and Plan Assessment: ASSESSMENT 1. Mild troponin leak 2. Hematemesis 3. Melena 4. Symptomatic anemia secondary to melena and hematemesis 5. History of anxiety 6. Nicotine dependence PLAN Stable from a cardiac perspective. Follow up with Dr. Mccoy in 2-3 weeks for outpatient stress testing. Nurse Practitioner note has been reviewed, I agree with a documented findings and plan of care. Patient was seen and examined.
--- NOTE | 2017-09-01 11:47 | P.PN ---
Subjective Progress Note Date: 09/01/17 Principal diagnosis: GI bleed Status post EGD to [facility] [place] linear deep ulceration midesophagus with no active bleeding. No recurrent melena or hematemesis. Feels well. Interest pain discharge. Tolerating regular diet. Hemoglobin 9.3. Denies abdominal pain. Afebrile. Objective - Vital Signs Vital signs: Vital Signs Temp 97.5 F L 09/01/17 06:00 Pulse 86 09/01/17 06:00 Resp 20 09/01/17 06:00 BP 137/69 09/01/17 06:00 Pulse Ox 97 09/01/17 06:00 Intake & Output 08/31/17 09/01/17 09/01/17 18:59 06:59 18:59 Intake Total 100 500 600 Balance 100 500 600 Intake: IV 100 Oral 500 600 Other: Voiding Method Toilet # Voids 1 1 - Exam General appearance: The patient is alert, oriented, in no acute distress. HET: Head is normocephalic and atraumatic. Pupils are equal and reactive. Oropharynx is clear without lesions. Neck: Supple without lymphadenopathy. Trachea midline. Heart: S1 S2. Regular rate and rhythm. Lungs: No crackles or wheezes are heard. Abdomen: Soft, nontender, nondistended with bowel sounds. No peritoneal signs. No palpable organomegaly or masses. Extremities: Normal skin color and turgor. No cyanosis, rash, ulceration, clubbing, or edema. Radial and pedal pulses are 2/4 bilaterally. Neurological: No focal deficits. Strength and sensation are grossly intact. - Labs CBC & Chem 7: 09/01/17 08:07 09/01/17 08:07 Labs: Abnormal Lab Results - Last 24 Hours (Table) 09/01/17 09/01/17 Range/Units 08:07 08:07 RBC 3.16 L (3.80-5.40) m/uL Hgb 9.3 L (11.4-16.0) gm/dL Hct 28.1 L (34.0-46.0) % RDW 16.1 H (11.5-15.5) % Chloride 108 H (98-107) mmol/L Carbon Dioxide 20 L (22-30) mmol/L BUN 4 L (7-17) mg/dL Creatinine 0.50 L (0.52-1.04) mg/dL Glucose 109 H (74-99) mg/dL Calcium 8.0 L (8.4-10.2) mg/dL Assessment and Plan (1) Hematemesis with nausea Narrative/Plan: Esophageal ulceration Current Visit: Yes Status: Acute Code(s): K92.0 - HEMATEMESIS SNOMED Code( s): 3894447 (2) Melena Current Visit: Yes Status: Acute Code(s): K92.1 - MELENA SNOMED Code(s): 5406402 (3) Acute blood loss anemia Current Visit: Yes Status: Acute Code(s): D62 - ACUTE POSTHEMORRHAGIC ANEMIA SNOMED Code(s): 611329054 (4) Symptomatic anemia Current Visit: Yes Status: Acute Code(s): D64.9 - ANEMIA, UNSPECIFIED SNOMED Code(s): 972409756 (5) GI bleed Current Visit: Yes Status: Acute Code(s): K92.2 - GASTROINTESTINAL HEMORRHAGE, UNSPECIFIED SNOMED Code(s): 80806396 Plan: 1. Discharge per medicine. Protonix 20 mg twice daily. Return to office in 2- 3 weeks for reevaluation. Assessment and plan a care discussed with Dr. Andrade
--- NOTE | 2017-09-01 23:08 | DS ---
DISCHARGE SUMMARY DATE OF SERVICE: 09/01/2017 FINAL DIAGNOSES: 1. Upper gastrointestinal bleeding with acute blood loss anemia, status post esophagogastroduodenoscopy showing a 2 cm linear deep ulceration of the distal esophagus and hiatus with no active bleeding and antral erosive gastritis. 2. Increased white count. 3. Possible jejunal enteritis. 4. Troponin 0.039, indeterminate. 5. Anxiety and depression. 6. History of nicotine dependence. 7. Remote history of ethanol. DISCHARGE DISPOSITION: The patient will be discharged in stable condition with guarded prognosis. HISTORY OF PRESENT ILLNESS: This 47-year-old woman with a past medical history of multiple medical problems was admitted with GI bleed. The EGD showed a 2 cm linear deep ulceration. Treated symptomatically. Improved significantly. Gastroenterology cleared the patient for discharge. On exam, vitals are stable. CARDIOVASCULAR SYSTEM: S1, S2 muffled. ABDOMEN: Soft. NERVOUS SYSTEM: No focal deficit. Hemoglobin is 9.3 at the time of discharge. DISCHARGE ADVICE AND MEDICATIONS: 1. Diet is cardiac. 2. Activity limited until followup. 3. Follow up with Dr. Joy in 2-3 days. 4. Follow up with Dr. Andrade and Dr. Mccoy as advised. 5. Avoid antiplatelets, anticoagulants, NSAIDs. 6. Abilify 5 mg p.o. daily. 7. Pristiq 100 mg p.o. daily. 8. [place] 7.5 q.i.d. p.r.n. 9. Ativan 2 mg p.o. t.i.d. 10.Protonix 40 mg p.o. b.i.d. 11.Pseudoephedrine (Sudafed) 120 mg p.o. b.i.d. 12.Carafate 1 gram p.o. with each meal and at bedtime. 13.Follow-up labs with Dr. Joy, CBC, BMP. MMODL / IJN: [id number] /
[2017-09-02] MEDS ORDERED: PANTOPRAZOLE 40 MG TABLET PO SCH (09:00)
== END 2017-09-01 13:36 | disposition home or self-care (01) | DRG 381 ==
LOC: EC 08:10 → 4MS4W 11:05
PROVIDERS: ADMIT Hospitalist; ATTEND Hospitalist
PROC: 0DB78ZX Excision of Stomach, Pylorus, Via Natural or Artificial Opening Endoscopic, Diagnostic (ICD-10-PCS; principal; 2017-08-31 07:50)
DX: K22.10 Ulcer of esophagus without bleeding (principal); D62 Acute posthemorrhagic anemia; F17.200 Nicotine dependence, unspecified, uncomplicated; F32.9 Major depressive disorder, single episode, unspecified; F41.9 Anxiety disorder, unspecified; K29.60 Other gastritis without bleeding; K52.9 Noninfective gastroenteritis and colitis, unspecified; K57.30 Diverticulosis of large intestine without perforation or abscess without bleeding; Z79.899 Other long term (current) drug therapy; Z79.891 Long term (current) use of opiate analgesic; Z88.2 Allergy status to sulfonamides; Z88.8 Allergy status to other drugs, medicaments and biological substances; Z91.09 Other allergy status, other than to drugs and biological substances
CPT/HCPCS: 36415; 43239; 74177; 80048; 80053; 81025; 82272; 82550; 82553; 83735; 84484; 85025; 85027; 85610; 85652; 85730; 86140; 86850; 86900; 86901; 86920; 88305; 88342; 93005; 93306; 96361; 96374; 99291

== ENCOUNTER → 2018-11-03 | Day surgery (SDC) | payer OTHER ==
[2018-11-01 11:49] VITALS: BMI 31.8
[~2018-11-03] MED LIST: LIDOCAINE 1% 20 ML VIAL (10MG/ML) FOR IV START INTRADERMA ONE; LIDOCAINE 1% INJ 10MG/ML (20 ML MDV) ONE; MIDAZOLAM 2 MG/2 ML VIAL ONE; PROPOFOL 10 MG/ML 20 ML VIAL IV ONE
[2018-11-03 12:34] VITALS: TEMP 97.6
[2018-11-03] MEDS: LACTATED RINGERS 1,000 ML IV SCH ×2 (12:48→13:00)
--- NOTE | 2018-11-03 13:29 | P.PCN ---
Date of Procedure: 11/03/18 Procedure(s) Performed: BRIEF HISTORY: Patient is a 48-year-old pleasant female, scheduled for an elective colonoscopy as a part of screening for colorectal neoplasia. PROCEDURE PERFORMED: Colonoscopy. PREOPERATIVE DIAGNOSIS: Screening for colon cancer. IV sedation per Anesthesia. PROCEDURE: After informed consent was obtained, the patient, was brought into the endoscopy unit. IV sedation was administered by Anesthesia under continuous monitoring. Digital rectal examination was normal. Initially the Olympus CF-160 flexible video colonoscope was then inserted in the rectum, gradually advanced into the cecum without any difficulty. Careful examination was performed as the scope was gradually being withdrawn. Ileocecal valve and the appendiceal orifice were visualized and appeared normal. Prep was excellent. Mucosa of the cecum, ascending colon, transverse colon, descending colon, sigmoid colon, and rectum appeared normal. Scattered sigmoid diverticulosis seen. Retroflexion was performed in the rectum and no lesions were seen. The patient tolerated the procedure well. IMPRESSION: Normal-appearing colon from rectum to cecum with no evidence of colorectal neoplasia Scattered sigmoid diverticulosis. RECOMMENDATIONS: Findings of this examination were discussed with the patient a s well as her family. She was advised to have a repeat screening colonoscopy in 10 years..
[2018-11-03 13:46] VITALS: BP 122/72; PULSE 72; RESP 17
== END ==
LOC: ORWHC2ENDO 11:57
PROVIDERS: ATTEND Internal Medicine Gastroenterology
DX: Z12.11 Encounter for screening for malignant neoplasm of colon (principal); K57.30 Diverticulosis of large intestine without perforation or abscess without bleeding; F32.9 Major depressive disorder, single episode, unspecified; Z87.891 Personal history of nicotine dependence; Z79.899 Other long term (current) drug therapy; Z88.2 Allergy status to sulfonamides; Z88.8 Allergy status to other drugs, medicaments and biological substances
CPT/HCPCS: 45378; 81025; J2250; J2001; J2704

== ENCOUNTER 2019-06-10 09:02 | Emergency (ER) | payer OTHER ==
[2019-06-10] MEDS ORDERED: MORPHINE SULFATE 4 MG/ML SYRINGE IV STA (09:24)
[2019-06-10] MEDS ORDERED: IPRATROPIUM-ALBUTEROL 3 ML NEB INHALATION STA (09:24)
--- NOTE | 2019-06-10 09:27 | ED ---
General Adult HPI - General Chief complaint: Upper Respiratory Infection Stated complaint: SOB Time Seen by Provider: 06/10/19 09:11 Source: patient, family, RN notes reviewed Mode of arrival: wheelchair Limitations: no limitations - History of Present Illness Initial comments: Patient is a pleasant 48-year-old female presenting to the emergency Department with cough and congestion. Symptoms have been occurring for over 2 weeks now. Patient states she has had myalgias and subjective fevers as she feels hot and cold. Patient does have cough with chest congestion however cough is nonproductive. Patient also has sinus congestion and sore throat and nasal drainage. Patient does have some discomfort of her right upper back with cough only. No chest pain. No leg pain or leg swelling. - Related Data Home Medications Medication Instructions Recorded Confirmed ARIPiprazole [Abilify] 5 mg PO HS 02/27/17 11/03/18 Desvenlafaxine Succinate [Pristiq] 100 mg PO DAILY 02/27/17 11/03/18 HYDROcodone/APAP 7.5-325MG [[place] 1 tab PO QID PRN 02/27/17 11/03/18 7.5-325] LORazepam [Ativan] 2 mg PO TID 02/27/17 11/03/18 Pantoprazole [Protonix] 40 mg PO DAILY 11/01/18 11/03/18 Sucralfate [Carafate] 1 gm PO BID 11/01/18 11/03/18 Previous Rx's Medication Instructions Recorded Albuterol Inhaler [Ventolin Hfa 2 puff INHALATION Q4HR PRN #1 06/10/19 Inhaler] inhaler predniSONE [Deltasone] 20 mg PO BID #10 tab 06/10/19 Allergies Allergy/AdvReac Type Severity Reaction Status Date / Time lamotrigine [From Lamictal] Allergy chávez Verified 06/10/19 09:06 johnsons lavender (Lavandula Allergy Itching Verified 06/10/19 09:06 angustifolia) Sulfa (Sulfonamide Allergy Swelling Verified 06/10/19 09:06 Antibiotics) Review of Systems ROS Statement: Those systems with pertinent positive or pertinent negative responses have been documented in the HPI. ROS Other: All systems not noted in ROS Statement are negative. Constitutional: Reports: as per HPI, fever Eyes: Denies: eye pain ENT: Denies: ear pain Respiratory: Reports: cough, dyspnea Cardiovascular: Denies: chest pain Endocrine: Denies: fatigue Gastrointestinal: Denies: abdominal pain Genitourinary: Denies: dysuria Musculoskeletal: Reports: as per HPI Skin: Denies: rash Neurological: Denies: weakness Past Medical History Past Medical History: GERD/Reflux Additional Past Medical History / Comment(s): HX GASTRIC BLEED 2017 History of Any Multi-Drug Resistant Organisms: None Reported Past Surgical History: Breast Surgery, Section Additional Past Surgical History / Comment(s): BREAT IMPLANTS AGE 19. RT KNEE SX X 3 Past Anesthesia/Blood Transfusion Reactions: No Reported Reaction Additional Past Anesthesia/Blood Transfusion Reaction / Comment(s): HAD BLOOD TRANSFUSION 08/2017 NO PROBLEMS Past Psychological History: Anxiety, Depression Smoking Status: Former smoker Past Alcohol Use History: None Reported Past Drug Use History: None Reported - Past Family History Son(s) Additional Family Medical History / Comment(s): at AGE 20 years from crohns General Exam Limitations: no limitations General appearance: alert, in no apparent distress Head exam: Present: normocephalic Eye exam: Present: normal appearance, PERRL ENT exam: Present: other (Mild pharyngeal erythema) Neck exam: Present: normal inspection Respiratory exam: Present: rhonchi. Absent: respiratory distress Cardiovascular Exam: Present: regular rate, normal rhythm Expanded Peripheral pulses: 2+: Radial (R), Radial (L), Posterior Tibialis (R), Posterior Tibialis (L), Dorsalis Pedis (R), Dorsalis Pedis (L) GI/Abdominal exam: Present: soft. Absent: tenderness Extremities exam: Present: normal inspection. Absent: pedal edema, calf tenderness Back exam: Present: normal inspection. Absent: tenderness Neurological exam: Present: alert Psychiatric exam: Present: normal affect, normal mood Skin exam: Present: normal color Course Vital Signs 06/10/19 06/10/19 06/10/19 09:06 09:45 09:50 Temperature 97.8 F Pulse Rate 101 H 82 Respiratory 18 26 H Rate Blood Pressure 171/109 O2 Sat by Pulse 98 Oximetry 06/10/19 06/10/19 09:55 10:00 Temperature 98.7 F Pulse Rate 90 98 Respiratory 26 H Rate Blood Pressure 171/110 O2 Sat by Pulse 94 L Oximetry Medical Decision Making - Medical Decision Making Patient reevaluated and resting comfortably in bed. Patient did get improvement. Patient and family updated on results. - Lab Data Lab Results 06/10/19 06/10/19 06/10/19 Range/Units 09:33 09:33 09:33 D-Dimer 0.27 (<0.60) mg/L FEU Influenza Type A RNA Not Detected (Not Detectd) Influenza Type B (PCR) Not Detected (Not Detectd) Group A Strep Rapid Negative (Negative) - Radiology Data Radiology results: image reviewed (Chest x-ray shows no acute process) Disposition Clinical Impression: Bronchitis Disposition: HOME SELF-CARE Condition: Stable Instructions (If sedation given, give patient instructions): Acute Bronchitis (ED) Additional Instructions: Please follow-up with primary care physician in the next couple days for recheck. Return for difficulty breathing, uncontrolled fevers, worsening symptoms or other concerns. Prescription sent to [facility] pharmacy Prescriptions: predniSONE [Deltasone] 20 mg PO BID #10 tab Albuterol Inhaler [Ventolin Hfa Inhaler] 2 puff INHALATION Q4HR PRN #1 inhaler PRN Reason: Dyspnea Is patient prescribed a controlled substance at d/c from ED?: No Referrals: Bjorn Joy III, MD [Primary Care Provider] - 1-2 days Time of Disposition: 10:28
[2019-06-10 10:01] VITALS: TEMP 98.7
--- NOTE | 2019-06-10 10:13 | XR ---
EXAMINATION TYPE: XR chest 2V DATE OF EXAM: 06/10/2019 HISTORY: Cough and dyspnea. REFERENCE: NONE. FINDINGS: The lungs are clear. Pleural space are clear. The heart is not enlarged. IMPRESSION: NO ACTIVE INTRATHORACIC DISEASE.
[2019-06-10] MEDS ORDERED: ENALAPRILAT 1.25 MG/ML 1 ML VIAL IVP STA (10:40)
[2019-06-10 10:45] VITALS: RESP 20
[2019-06-10 10:52] VITALS: BP 154/78; PULSE 85
== END 2019-06-10 10:48 | disposition home or self-care (01) ==
LOC: EC 09:02
DX: J40 Bronchitis, not specified as acute or chronic (principal); F41.9 Anxiety disorder, unspecified; F32.9 Major depressive disorder, single episode, unspecified; K21.9 Gastro-esophageal reflux disease without esophagitis; Z79.899 Other long term (current) drug therapy; Z88.2 Allergy status to sulfonamides; Z91.048 Other nonmedicinal substance allergy status; Z88.8 Allergy status to other drugs, medicaments and biological substances; Z87.19 Personal history of other diseases of the digestive system; Z87.891 Personal history of nicotine dependence
CPT/HCPCS: 36415; 94640; 85379; 87081; 87430; 87502; 71046; 99285; 96374; J2270

== ENCOUNTER 2020-05-25 12:30 | Emergency (ER) | payer OTHER ==
[2020-05-25] MEDS ORDERED: SODIUM CHLORIDE 0.9% 1,000 ML IV STA (12:49)
[2020-05-25] MEDS ORDERED: LORazepam 2 MG/ML INJ IV STA (12:49)
--- NOTE | 2020-05-25 13:04 | ED ---
Anxiety HPI - General Chief Complaint: Anxiety Stated Complaint: anxiety Time Seen by Provider: 05/25/20 12:37 Source: patient Mode of arrival: ambulatory - History of Present Illness Initial Comments: Patient is a 49-year-old female presenting to the emergency Department with co mplaints of anxiety. Patient states she takes Ativan for anxiety and has done so for couple years now. Patient states she ran out about 4 days ago and is experiencing increasing anxiety, tension, nausea. She is complaining of some chest tightness as well. She states she feels mildly short of breath but she just feels like it's from the anxiety. She denies any fever or chills, no coughing or congestion. She denies any abdominal pain, no vomiting or diarrhea. Patient states she is unable to refill her Ativan prescription for 2 more days. She has no further complaints at this time. Upon arrival to the ER, she has tachycardia at 118, blood pressure is up at 174/108, rest of vitals are normal. - Related Data Home Medications: Home Medications Medication Instructions Recorded Confirmed Desvenlafaxine Succinate [Pristiq] 100 mg PO DAILY 02/27/17 05/25/20 HYDROcodone/APAP 7.5-325MG [[place] 1 tab PO QID PRN 02/27/17 05/25/20 7.5-325] Pantoprazole [Protonix] 40 mg PO DAILY 11/01/18 05/25/20 Sucralfate [Carafate] 1 gm PO BID-W/MEALS 11/01/18 05/25/20 ARIPiprazole [Abilify] 15 mg PO DAILY 05/25/20 05/25/20 Melatonin 10 mg PO HS 05/25/20 05/25/20 Mirtazapine [Remeron] 30 mg PO DAILY 05/25/20 05/25/20 Previous Rx's Medication Instructions Recorded LORazepam [Ativan] 2 mg PO QID PRN #6 tab 05/25/20 Allergies/Adverse Reactions: Allergies Allergy/AdvReac Type Severity Reaction Status Date / Time lamotrigine [From Lamictal] Allergy chávez Verified 05/25/20 13:26 johnsons lavender (Lavandula Allergy Itching Verified 05/25/20 13:26 angustifolia) Sulfa (Sulfonamide Allergy Swelling Verified 01/31/21 13:26 Antibiotics) Review of Systems ROS Statement: Those systems with pertinent positive or pertinent negative responses have been documented in the HPI. ROS Other: All systems not noted in ROS Statement are negative. Past Medical History Past Medical History: GERD/Reflux Additional Past Medical History / Comment(s): HX GASTRIC BLEED 2017, History of Any Multi-Drug Resistant Organisms: None Reported Past Surgical History: Breast Surgery, Section Additional Past Surgical History / Comment(s): BREAT IMPLANTS AGE 19. RT KNEE SX X 3 Past Anesthesia/Blood Transfusion Reactions: No Reported Reaction Additional Past Anesthesia/Blood Transfusion Reaction / Comment(s): HAD BLOOD TRANSFUSION 08/2017 NO PROBLEMS Past Psychological History: Anxiety, Depression Smoking Status: Former smoker Past Alcohol Use History: None Reported Past Drug Use History: None Reported - Past Family History Son(s) Additional Family Medical History / Comment(s): at AGE 20 years from crohns General Exam - General Exam Comments Initial Comments: GENERAL: Patient is well-developed and well-nourished. Patient is nontoxic and in no acute distress, does appear anxious.. HEAD: Atraumatic, normocephalic. EYES: Pupils equal round and reactive to light, extraocular movements intact, sclera anicteric, conjunctiva are normal. Eyelids were unremarkable. ENT: TMs normal, nares patent, oropharynx clear without exudates. Moist mucous membranes. NECK: Normal range of motion, supple without lymphadenopathy or JVD. LUNGS: Unlabored respirations. Breath sounds clear to auscultation bilaterally and equal. No wheezes rales or rhonchi. HEART: Tachycardia rate and rhythm without murmurs, rubs or gallops. ABDOMEN: Soft, nontender, normoactive bowel sounds. No guarding, no rebound. No masses appreciated. : Deferred MUSCULOSKELETAL: Normal extremities with adequate strength and normal range of motion, no pitting or edema. No clubbing or cyanosis. NEUROLOGICAL: Patient is alert and oriented x 3. Motor and sensory are also intact. Cranial nerves II through XII grossly intact. Symmetrical smile. Normal speech, normal gait. PSYCH: Normal mood, anxiety SKIN: Warm, Dry, normal turgor, no rashes or lesions noted. Limitations: no limitations Course Vital Signs 05/25/20 05/25/20 05/25/20 12:33 13:05 14:00 Temperature 97.6 F Pulse Rate 118 H 102 H 95 Respiratory 20 18 20 Rate Blood Pressure 174/108 160/100 162/79 O2 Sat by Pulse 99 96 Oximetry Medical Decision Making - Medical Decision Making Patient is a 49-year-old female with history of anxiety presenting with increasing anxiety. She ran out of her Ativan medication about 4 days ago and her symptoms have been progressing. She is unable to refill her prescription for another 2 days. She is afebrile. EKG shows sinus tach, no other acute abnormalities. Labs show slight leukocytosis, at 14, symmetrically reactive. Patient's sodium is lower at 127, she states this has happened in the past. Give her 1 L of fluids here in the ER. Rest the patient's labs are stable, troponin 0.016. Patient received fluids and Ativan reports improvement in her symptoms. I discussed these findings with the patient. The patient is stable for discharge at this time. I do recommend following up with her PCP in one to 3 days to recheck sodium levels. Patient is in agreement with this plan and care. I'll also give her a few tablets of Ativan to go home with until she can refill her prescription in 2 days. Strict return parameters were discussed with the patient and she verbalized understanding. Case discussed with Dr. Cuello who is in agreement with this plan of care. - Lab Data Result diagrams: 05/25/20 12:56 05/25/20 12:56 Lab Results 05/25/20 05/25/20 05/25/20 Range/Units 12:56 12:56 12:56 WBC 14.0 H (3.8-10.6) k/uL RBC 4.91 (3.80-5.40) m/uL Hgb 15.4 (11.4-16.0) gm/dL Hct 43.7 (34.0-46.0) % MCV 89.0 (80.0-100.0) fL MCH 31.4 (25.0-35.0) pg MCHC 35.3 (31.0-37.0) g/dL RDW 13.6 (11.5-15.5) % Plt Count 345 (150-450) k/uL MPV 7.5 Neutrophils % 72 % Lymphocytes % 22 % Monocytes % 3 % Eosinophils % 1 % Basophils % 0 % Neutrophils # 10.1 H (1.3-7.7) k/uL Lymphocytes # 3.1 (1.0-4.8) k/uL Monocytes # 0.5 (0-1.0) k/uL Eosinophils # 0.1 (0-0.7) k/uL Basophils # 0.0 (0-0.2) k/uL Sodium 127 L (137-145) mmol/L Potassium 3.6 (3.5-5.1) mmol/L Chloride 83 L (98-107) mmol/L Carbon Dioxide 29 (22-30) mmol/L Anion Gap 15 mmol/L BUN 6 L (7-17) mg/dL Creatinine 0.49 L (0.52-1.04) mg/dL Est GFR (CKD-EPI)AfAm >90 (>60 ml/min/1.73 sqM) Est GFR (CKD-EPI)NonAf >90 (>60 ml/min/1.73 sqM) Glucose 129 H (74-99) mg/dL Calcium 10.9 H (8.4-10.2) mg/dL Total Bilirubin 0.7 (0.2-1.3) mg/dL AST 34 (14-36) U/L ALT 33 (4-34) U/L Alkaline Phosphatase 92 (38-126) U/L Troponin I 0.016 (0.000-0.034) ng/mL Total Protein 8.8 H (6.3-8.2) g/dL Albumin 5.2 H (3.5-5.0) g/dL - EKG Data EKG Comments: Sinus tachycardia, no signs of an acute ischemia. Ventricular rate 107, RI interval 142, QT 360. Similar to previous EKG and 08/30/2017. Disposition Clinical Impression: Acute anxiety, Hyponatremia Disposition: HOME SELF-CARE Condition: Stable Instructions (If sedation given, give patient instructions): Generalized Anxi ety Disorder (ED) Additional Instructions: Please return to the Emergency Department if symptoms worsen or any other concerns. Please make sure to drink plenty of fluids, regular diet. Follow-up with your PCP in 1-3 days to recheck sodium levels. Prescriptions: LORazepam [Ativan] 2 mg PO QID PRN #6 tab PRN Reason: Anxiety Is patient prescribed a controlled substance at d/c from ED?: Yes When asked, does pt state using other controlled substances?: No If prescribed controlled substance>3 days was MAPS reviewed?: Prescribed <3 Days Referrals: Bjorn Joy III, MD [Primary Care Provider] - 1-2 days
[2020-05-25 13:16] LABS: Basophils % (A) 0 %; Eosinophils # (A) 0.1 k/uL (0-0.7); Eosinophils % (A) 1 %; HCT 43.7 % (34.0-46.0); HGB 15.4 gm/dL (11.4-16.0); Lymphocytes # (A) 3.1 k/uL (1.0-4.8); Lymphocytes % (A) 22 %; MCH 31.4 pg (25.0-35.0); MCHC 35.3 g/dL (31.0-37.0); Mean Platelet Volume 7.5; Monocytes # (A) 0.5 k/uL (0-1.0); Monocytes % (A) 3 %; Neutrophils # (A) 10.1 k/uL (1.3-7.7); Neutrophils % (A) 72 %; Platelet Count 345 k/uL (150-450); RBC 4.91 m/uL (3.80-5.40); RDW 13.6 % (11.5-15.5)
[2020-05-25 13:25] LABS: ALT 33 U/L (4-34); AST 34 U/L (14-36); African American GFR (CKD) >90 (>60 ml/min/1.73 sqM); Albumin 5.2 g/dL (3.5-5.0); Alkaline Phosphatase 92 U/L (38-126); Anion Gap 15 mmol/L; Blood Urea Nitrogen 6 mg/dL (7-17); Calcium 10.9 mg/dL (8.4-10.2); Carbon Dioxide 29 mmol/L (22-30); Chloride 83 mmol/L (98-107); Glucose 129 mg/dL (74-99); Non-African American GFR(CKD) >90 (>60 ml/min/1.73 sqM); Potassium 3.6 mmol/L (3.5-5.1); Sodium 127 mmol/L (137-145); Total Bilirubin 0.7 mg/dL (0.2-1.3); Total Protein 8.8 g/dL (6.3-8.2)
--- NOTE | 2020-05-25 13:27 | XR ---
EXAMINATION TYPE: XR chest 2V DATE OF EXAM: 05/25/2020 COMPARISON: NONE HISTORY: Chest pain TECHNIQUE: Frontal and lateral views of the chest are obtained. FINDINGS: There is no focal air space opacity, pleural effusion, or pneumothorax seen. The cardiac silhouette size is within normal limits. The osseous structures are intact. IMPRESSION: No acute cardiopulmonary process.
[2020-05-25 14:02] VITALS: RESP 20
[2020-05-25 15:42] VITALS: BP 155/88; PULSE 90; TEMP 98.1
== END 2020-05-25 14:40 | disposition home or self-care (01) ==
LOC: EC 12:30
DX: F41.9 Anxiety disorder, unspecified (principal); E87.1 Hypo-osmolality and hyponatremia; R06.02 Shortness of breath; R00.0 Tachycardia, unspecified; K21.9 Gastro-esophageal reflux disease without esophagitis; F32.9 Major depressive disorder, single episode, unspecified; Z79.899 Other long term (current) drug therapy; Z88.2 Allergy status to sulfonamides; Z88.8 Allergy status to other drugs, medicaments and biological substances; Z91.048 Other nonmedicinal substance allergy status; Z87.891 Personal history of nicotine dependence
CPT/HCPCS: 36415; 93005; 80053; 84484; 85025; 71046; 99283; 96374; 96361; J2060

== ENCOUNTER → 2021-12-02 | Outpatient (CLI) | payer OTHER ==
--- NOTE | 2021-12-02 16:21 | NM ---
EXAMINATION TYPE: NM stress cardiolite complete DATE OF EXAM: 12/02/2021 COMPARISON: NONE HISTORY: Chest pain TECHNIQUE: After the intravenous administration of 9.54 mCi Tc 99m Sestamibi - Cardiolite resting SP ECT images acquired 45 minutes post injection. At peak stress 26.1 mCi Tc 99m Sestamibi - Stress images obtained 25 minutes post injection The patient was stressed with 0.4mg Lexiscan. FINDINGS: There is some mild inferior wall diminished radiotracer accumulation on both resting and stress image s this appears to be matched. Artifact is suspected in the diaphragm. Prior infarct could be consider ed. Correlate EKG changes. No reversible stress defects on Spect images Wall motion is normal Ejection fraction is calculated to be 59 %. IMPRESSION: 1. Suspected artifact inferior wall. Prior infarct could be considered. 2. No suspicious stress-induced ischemic changes current exam.
== END | disposition home or self-care (01) ==
LOC: RADNMMAIN 08:24
PROVIDERS: ATTEND Family Medicine
DX: R07.9 Chest pain, unspecified (principal)
CPT/HCPCS: 93017; 78452; A9500

== ENCOUNTER → 2022-01-25 | Outpatient (CLI) | payer OTHER ==
--- NOTE | 2022-01-25 08:16 | MM ---
Reason for Exam: Clinical finding. Last mammogram was performed 5 year(s) and 6 month(s) ago. Patient History: Menarche at age 12. First Full-Term at age 17. Hormonal Contraceptives for 3 months starting at age 18. 1990, Implant(s). Maternal aunt had breast cancer, age 55. Risk Values: Analy 5 year model risk: 0.7%. NCI Lifetime model risk: 5.7%. Prior Study Comparison: 01/25/2008 Bilateral Diagnostic Mammogram, [facility]. 02/04/2014 Bilateral Screening Mammogram, [facility]. 08/19/2016 Bilateral Diagnostic Mammogram, [facility]. Tissue Density: The breast tissue is heterogeneously dense. This may lower the sensitivity of mammography. Findings: Analyzed By CAD. Bilateral silicone breast implants. Previous left breast silicone rupture as seen on prior imaging. Multiple calcifications are seen along the capsule most pronounced on the right. Slightly deformed contour to the left implant. Overall Assessment: Benign, BI-RAD 2 Management: Screening Mammogram of both breasts in 1 year. A clinical breast exam by your physician is recommended on an annual basis and results should be correlated with mammographic findings. This exam should not preclude additional follow-up of suspicious palpable abnormalities. Results were given to the patient verbally at the time of exam. Electronically signed and approved by: Manan Husain DO
--- NOTE | 2022-01-25 08:47 | USB ---
Patient History: Menarche at age 12. First Full-Term at age 17. Hormonal Contraceptives for 3 months starting at age 18. 1991, Implant(s). Maternal aunt had breast cancer, age 55. Risk Values: Naaly 5 year model risk: 0.7%. NCI Lifetime model risk: 5.7%. Prior Study Comparison: 01/25/2008 Bilateral Diagnostic Mammogram, [facility]. 02/04/2014 Bilateral Screening Mammogram, [facility]. 08/19/2016 Bilateral Diagnostic Mammogram, [facility]. Findings: The area of palpable concern of the right breast, the axilla of the right breast and the retroareolar of the right breast were scanned. A complete US of all four quadrants of the breast and retro-areolar region were reviewed. Right breast in the area of palpable abnormality at 4:00 4 cm from the nipple demonstrates a 7 mm anechoic cyst with posterior acoustic enhancement. Additional smaller anechoic cystic areas are also seen measuring up to 4 mm with posterior acoustic enhancement at the 5:00 and 3 submitted images from the nipple. Overall Assessment: Benign, BI-RAD 2 Management: Screening Mammogram of both breasts in 1 year. A clinical breast exam by your physician is recommended on an annual basis and results should be correlated with mammographic findings. Electronically signed and approved by: Manan Husain DO
== END | disposition home or self-care (01) ==
LOC: RADMAMWWP 07:29
PROVIDERS: ATTEND Family Medicine
DX: N63.14 Unspecified lump in the right breast, lower inner quadrant (principal); Z80.3 Family history of malignant neoplasm of breast
CPT/HCPCS: 77066

== ENCOUNTER 2022-03-21 12:18 | Emergency (ER) | payer OTHER ==
[2022-03-21 12:24] VITALS: BP 181/88; PULSE 119; RESP 24; TEMP 98.5
--- NOTE | 2022-03-21 12:51 | ED ---
General Adult HPI - General Chief complaint: Anxiety Stated complaint: Med refill, anxiety Time Seen by Provider: 03/21/22 12:25 Source: patient Mode of arrival: ambulatory Limitations: no limitations - History of Present Illness Initial comments: Dictation was produced using [employer] dictation software. please excuse any grammatical, word or spelling errors. Chief Complaint: 51-year-old female presents emergency department for running out of [place] and Ativan History of Present Illness: 51-year-old female she has multiple comorbidities fishes history chronic pain and anxiety. She ran out of her prescribed [place]'s and Ativan's 3 or 4 days ago. These medications are prescribed by her pharmacist. Patient has no other complaints per she has an appointment with her primary care doctor tomorrow. The ROS documented in this emergency department record has been reviewed and confirmed by me. Those systems with pertinent positive or negative responses have been documented in the HPI. All other systems are other negative and/or noncontributory. PHYSICAL EXAM: General Impression: Alert and oriented x3, not in acute distress HEENT: Normocephalic atraumatic, extra-ocular movements intact, pupils equal and reactive to light bilaterally, mucous membranes moist. Cardiovascular: Heart regular rate and rhythm Chest: Able to complete full sentences, no retractions, no tachypnea Musculoskeletal: no peripheral edema Motor: no focal deficits noted Neurological: CN II-XII grossly intact, no focal motor or sensory deficits noted Skin: Intact with no visualized rashes Psych: Normal affect and mood ED course: 51-year-old female presents to the emergency department for running out of her [place] and Ativan prescriptions. She has an appointment with a primary care doctor tomorrow. MAPS report was reviewed. Patient was prescribed 30 day supply of [place] on February 19. She is also prescribed 30 day supply of lorazepam on February 18. Patient given one day supply discharge. Told to follow up with primary care doctor. Chart review was performed Critical Care: no Critical Care time: n/a - Related Data Home Medications Medication Instructions Recorded Confirmed Desvenlafaxine Succinate [Pristiq] 100 mg PO DAILY 02/27/17 05/25/20 HYDROcodone/APAP 7.5-325MG [[place] 1 tab PO QID PRN 02/27/17 05/25/20 7.5-325] Pantoprazole [Protonix] 40 mg PO DAILY 11/01/18 05/25/20 Sucralfate [Carafate] 1 gm PO BID-W/MEALS 11/01/18 05/25/20 ARIPiprazole [Abilify] 15 mg PO DAILY 05/25/20 05/25/20 Melatonin [Melatonin ER] 10 mg PO HS 05/25/20 05/25/20 Mirtazapine [Remeron] 30 mg PO DAILY 05/25/20 05/25/20 Previous Rx's Medication Instructions Recorded LORazepam [Ativan] 2 mg PO QID PRN #6 tab 05/25/20 HYDROcodone/APAP 7.5-325MG [[place] 1 tab PO Q6HR PRN 1 Days #6 tab 03/21/22 7.5-325] LORazepam 2 mg PO ONCE PRN 1 Days #1 tab 03/21/22 Allergies Allergy/AdvReac Type Severity Reaction Status Date / Time lamotrigine [From Lamictal] Allergy chávez Verified 03/21/22 12:23 johnsons lavender (Lavandula Allergy Itching Verified 03/21/22 12:23 angustifolia) Sulfa (Sulfonamide Allergy Swelling Verified 03/21/22 12:23 Antibiotics) Review of Systems ROS Statement: Those systems with pertinent positive or pertinent negative responses have been documented in the HPI. ROS Other: All systems not noted in ROS Statement are negative. Past Medical History Past Medical History: GERD/Reflux Additional Past Medical History / Comment(s): HX GASTRIC BLEED 2017, History of Any Multi-Drug Resistant Organisms: None Reported Past Surgical History: Breast Surgery, Section, Orthopedic Surgery Additional Past Surgical History / Comment(s): BREAT IMPLANTS AGE 19. RT KNEE SX X 3 Past Anesthesia/Blood Transfusion Reactions: No Reported Reaction Additional Past Anesthesia/Blood Transfusion Reaction / Comment(s): HAD BLOOD TRANSFUSION 08/2017 NO PROBLEMS Past Psychological History: Anxiety, Depression Smoking Status: Former smoker Past Alcohol Use History: None Reported Past Drug Use History: None Reported - Past Family History Son(s) Additional Family Medical History / Comment(s): at AGE 20 years from crohns General Exam Limitations: no limitations Course Vital Signs 03/21/22 12:19 Temperature 98.5 F Pulse Rate 119 H Respiratory 24 Rate Blood Pressure 181/88 O2 Sat by Pulse 98 Oximetry Disposition Clinical Impression: Medication refill Disposition: HOME SELF-CARE Condition: Good Instructions (If sedation given, give patient instructions): Generalized Anxiety Disorder (ED) Prescriptions: LORazepam 2 mg PO ONCE PRN 1 Days #1 tab PRN Reason: Anxiety HYDROcodone/APAP 7.5-325MG [[place] 7.5-325] 1 tab PO Q6HR PRN 1 Days #6 tab PRN Reason: Pain Is patient prescribed a controlled substance at d/c from ED?: Yes If prescribed controlled substance>3 days was MAPS reviewed?: Prescribed <3 Days Referrals: Bjorn Joy III, MD [Primary Care Provider] - 1-2 days Time of Disposition: 12:51
== END 2022-03-21 13:43 | disposition home or self-care (01) ==
LOC: EC 12:18
DX: F41.9 Anxiety disorder, unspecified (principal); F32.A Depression, unspecified; K21.9 Gastro-esophageal reflux disease without esophagitis; Z76.0 Encounter for issue of repeat prescription; Z79.1 Long term (current) use of non-steroidal anti-inflammatories (NSAID); Z88.8 Allergy status to other drugs, medicaments and biological substances; Z91.048 Other nonmedicinal substance allergy status; Z88.2 Allergy status to sulfonamides; Z87.891 Personal history of nicotine dependence
CPT/HCPCS: 99282

== ENCOUNTER 2022-04-24 16:29 | Emergency (ER) | payer OTHER ==
[2022-04-24 16:34] VITALS: TEMP 96.8
[2022-04-24] MEDS ORDERED: LORazepam 1 MG TAB PO STA ×3 (17:03→19:23)
--- NOTE | 2022-04-24 17:07 | ED ---
Chest Pain HPI - General Chief Complaint: Chest Pain Stated Complaint: Med refill, Confusion, chest pressure Time Seen by Provider: 04/24/22 16:52 Source: patient, RN notes reviewed Mode of arrival: ambulatory Limitations: no limitations - History of Present Illness Initial Comments: 51 3 days ago and will not be able get a prescription until 2 days from now who presents with complaints of feeling very anxious some chest discomfort she feels like she is withdrawing from the lorazepam. No fevers chills nausea vomiting sweats no cough some shakiness. MD Complaint: chest pain - Related Data Home Medications Medication Instructions Recorded Confirmed Desvenlafaxine Succinate [Pristiq] 100 mg PO DAILY 02/27/17 05/25/20 HYDROcodone/APAP 7.5-325MG [[place] 1 tab PO QID PRN 02/27/17 05/25/20 7.5-325] Pantoprazole [Protonix] 40 mg PO DAILY 11/01/18 05/25/20 Sucralfate [Carafate] 1 gm PO BID-W/MEALS 11/01/18 05/25/20 ARIPiprazole [Abilify] 15 mg PO DAILY 05/25/20 05/25/20 Melatonin [Melatonin ER] 10 mg PO HS 05/25/20 05/25/20 Mirtazapine [Remeron] 30 mg PO DAILY 05/25/20 05/25/20 Previous Rx's Medication Instructions Recorded LORazepam [Ativan] 2 mg PO QID PRN #6 tab 05/25/20 HYDROcodone/APAP 7.5-325MG [[place] 1 tab PO Q6HR PRN 1 Days #6 tab 03/21/22 7.5-325] LORazepam 2 mg PO ONCE PRN 1 Days #1 tab 03/21/22 Allergies Allergy/AdvReac Type Severity Reaction Status Date / Time lamotrigine [From Lamictal] Allergy chávez Verified 04/24/22 16:34 johnsons lavender (Lavandula Allergy Itching Verified 04/24/22 16:34 angustifolia) Sulfa (Sulfonamide Allergy Swelling Verified 04/24/22 16:34 Antibiotics) Review of Systems ROS Statement: Those systems with pertinent positive or pertinent negative responses have been documented in the HPI. ROS Other: All systems not noted in ROS Statement are negative. EKG Findings - EKG Results: EKG: interpreted by ERMD (EKG interpreted by me shows normal sinus rhythm of 70 and appear interval 156 QRS duration 80 daily since QTC 42/[address]-T wave changes some artifact present) Past Medical History Past Medical History: GERD/Reflux Additional Past Medical History / Comment(s): HX GASTRIC BLEED 2017, History of Any Multi-Drug Resistant Organisms: None Reported Past Surgical History: Breast Surgery, Section, Orthopedic Surgery Additional Past Surgical History / Comment(s): BREAT IMPLANTS AGE 19. RT KNEE SX X 3 Past Anesthesia/Blood Transfusion Reactions: No Reported Reaction Additional Past Anesthesia/Blood Transfusion Reaction / Comment(s): HAD BLOOD TRANSFUSION 08/2017 NO PROBLEMS Past Psychological History: Anxiety, Depression Smoking Status: Former smoker Past Alcohol Use History: None Reported Past Drug Use History: None Reported - Past Family History Son(s) Additional Family Medical History / Comment(s): at AGE 20 years from crohns General Exam - General Exam Comments Initial Comments: This is a follow-up well-nourished awake alert oriented 2 female Limitations: no limitations General appearance: alert, anxious Head exam: Present: atraumatic, normocephalic, normal inspection Eye exam: Present: normal appearance, PERRL, EOMI. Absent: scleral icterus, conjunctival injection, periorbital swelling ENT exam: Present: normal exam, mucous membranes moist Neck exam: Present: normal inspection, full ROM, other (No stridor JVD or bruits). Absent: tenderness, meningismus, lymphadenopathy Respiratory exam: Present: normal lung sounds bilaterally. Absent: respiratory distress, wheezes, rales, rhonchi, stridor, chest wall tenderness Cardiovascular Exam: Present: regular rate, normal rhythm, normal heart sounds. Absent: systolic murmur, diastolic murmur, rubs, gallop, clicks GI/Abdominal exam: Present: soft, normal bowel sounds. Absent: distended, tenderness, guarding, rebound, rigid Extremities exam: Present: normal inspection, full ROM, normal capillary refill. Absent: tenderness, pedal edema, joint swelling, calf tenderness Back exam: Present: normal inspection Neurological exam: Present: alert, oriented X3, CN II-XII intact Psychiatric exam: Present: normal affect, anxious Skin exam: Present: warm, dry, intact, normal color. Absent: rash Course Vital Signs 04/24/22 16:30 Temperature 96.8 F L Pulse Rate 93 Respiratory 16 Rate Blood Pressure 154/90 O2 Sat by Pulse 99 Oximetry Chest Pain MDM - MDM Imaging interpreted by me shows no acute findings. Patient's presentation is consistent with withdrawal reaction to Ativan. She will she was given oral medication here she will be able to crop picker her prescription in 2 days. She is in agreement with this. Was pt. sent in by a medical professional or institution? @ No-[by , [facility], ZIPPER REPAIRER, urgent care, hospital, or halfway] Did you speak to anyone other than the patient for history? @ No -[EMS, parent, family, police, friend?] Did you review nursing and triage notes? @ Yes I agree -[agree or disagree, why?] Were old charts reviewed? @ No-[outside hosp., previous admissions, EMS record, old EKG, old radiological studies, urgent care reports/EKGs, halfway records?] Differential Diagnosis? @ Chest pain secondary to pulmonary disease, coronary artery disease, withdrawal reaction-[chest pain, altered mental status abdominal pain women, abdominal pain men, vaginal bleeding, weakness, fever, dyspnea, syncope, headache, dizziness, GI bleed, back pain, seizure] EKG interpreted by me (3pts min.)? @ Yes read by me normal sinus-[none] X-rays interpreted by me (1pt min.)? @ Yes interpreted by me normal-[none] CT interpreted by me (1pt min.)? @ -[none] U/S interpreted by me (1pt. min.)? @ -[none] What testing was considered but not performed? (CT, X-rays, U/S, labs)? Why? @ No [CT, X-rays, U/S, labs? Why?] What meds were considered but not given? Why? @ -[none] Did you discuss the management of the patient with other professionals? @ No-[professionals i.e. [facility]SON Galvez, ZIPPER REPAIRER, Lab, RT, Psych Nurse, Revenue Audit Clerk, Fabrication Supervisor, Teacher, All Source Intelligence Technician, manager case management? Give summary] Did you reconcile home meds? @ -[none] Was smoking cessation discussed for >3mins.? @ -[none] Was critical care preformed (if so, how long)? @ -[none] Were there social determinants of health that impacted care today? How? (Homelessness, low income, unemployed, alcoholism, drug addiction, transportation, low edu. Level, literacy, decrease access to med. care, halfway, rehab)? @ No-[Homelessness, low income, unemployed, alcoholism, drug addiction, transportation, low edu. Level, literacy, decrease access to med. care, halfway, rehab?] Was there de-escalation of care discussed even if they declined? (Discuss DNR or withdrawal of care, Hospice)? @ -[Discuss DNR or withdrawal of care, Hospice?] What co-morbidities impacted this encounter? (DM, HTN, Smoking, COPD, CAD, Cancer, CVA, Hep., AIDS, mental health diagnosis, sleep apnea, morbid obesity)? @ Not applicable-[DM, HTN, Smoking, COPD, CAD, Cancer, CVA, Hep., AIDS, mental health diagnosis, sleep apnea, morbid obesity?] Was patient admitted / discharged? @ No patient was discharged-[hospital course] Undiagnosed new problem with uncertain prognosis? @ No-[none] Drug Therapy requiring intensive monitoring for toxicity (Heparin, Nitro, Insulin, Cardizem)? @ -[none] Were any procedures done? @ -[none] Diagnosis/symptom? @ Atypical chest pain, benzodiazepine withdrawal-[default] Acute, or Chronic, or Acute on Chronic? @ -[default] Uncomplicated (without systemic symptoms) or Complicated (systemic symptoms)? @ -[default] Side effects of treatment? @ -[none] Exacerbation, Progression, or Severe Exacerbation] @ -[no] Poses a threat to life or bodily function? @ -[no] Disposition Clinical Impression: Atypical chest pain, Benzodiazepine withdrawal Disposition: HOME SELF-CARE Condition: Good Instructions (If sedation given, give patient instructions): Chest Pain (ED) Additional Instructions: Picture. Prescription as planned in 2 days Is patient prescribed a controlled substance at d/c from ED?: No Referrals: Bjorn Joy III, MD [Primary Care Provider] - 1-2 days Decision Date: 04/24/22 Decision Time: 19:23
[2022-04-24 17:38] LABS: Basophils % (A) 1 %; Eosinophils # (A) 0.2 k/uL (0-0.7); Eosinophils % (A) 4 %; HGB 12.3 gm/dL (11.4-16.0); Lymphocytes # (A) 2.2 k/uL (1.0-4.8); Lymphocytes % (A) 35 %; MCH 31.4 pg (25.0-35.0); MCHC 34.1 g/dL (31.0-37.0); MCV 92.2 fL (80.0-100.0); Monocytes # (A) 0.2 k/uL (0-1.0); Monocytes % (A) 4 %; Neutrophils # (A) 3.3 k/uL (1.3-7.7); Neutrophils % (A) 55 %; Platelet Count 276 k/uL (150-450); RBC 3.91 m/uL (3.80-5.40); RDW 13.1 % (11.5-15.5); WBC 6.1 k/uL (3.8-10.6)
[2022-04-24 17:50] LABS: ALT 23 U/L (4-34); AST 25 U/L (14-36); African American GFR (CKD) >90 (>60 ml/min/1.73 sqM); Albumin 4.2 g/dL (3.5-5.0); Alkaline Phosphatase 82 U/L (38-126); Anion Gap 6 mmol/L; Blood Urea Nitrogen 6 mg/dL (7-17); Calcium 8.6 mg/dL (8.4-10.2); Carbon Dioxide 29 mmol/L (22-30); Chloride 98 mmol/L (98-107); Glucose 82 mg/dL (74-99); Lipase 33 U/L (23-300); Magnesium 2.2 mg/dL (1.6-2.3); Non-African American GFR(CKD) >90 (>60 ml/min/1.73 sqM); Sodium 133 mmol/L (137-145); Total Bilirubin 0.2 mg/dL (0.2-1.3); Total Protein 6.6 g/dL (6.3-8.2)
[2022-04-24 18:00] LABS: INR 0.9 (<1.2); Partial Thromboplastin Time 27.3 sec (22.0-30.0); Prothrombin Time 9.6 sec (9.0-12.0)
--- NOTE | 2022-04-24 18:18 | XR ---
EXAMINATION TYPE: XR chest 2V DATE OF EXAM: 04/24/2022 COMPARISON: 05/25/2020 HISTORY: Chest pain TECHNIQUE: FINDINGS: There is no heart failure. There is mild atelectasis right lung base. Left lung is clear. T here are chest leads. Bony thorax is intact. IMPRESSION: Mild atelectasis at the right lung base which is similar to old exam. Normal heart.
[2022-04-24 20:06] VITALS: BP 143/90; PULSE 89; RESP 18
== END 2022-04-24 20:08 | disposition home or self-care (01) ==
LOC: EC 16:29
DX: R07.89 Other chest pain (principal); F13.239 Sedative, hypnotic or anxiolytic dependence with withdrawal, unspecified; K21.9 Gastro-esophageal reflux disease without esophagitis; F32.A Depression, unspecified; F41.9 Anxiety disorder, unspecified; Z88.1 Allergy status to other antibiotic agents; Z88.2 Allergy status to sulfonamides; Z87.891 Personal history of nicotine dependence; Z79.899 Other long term (current) drug therapy
CPT/HCPCS: 36415; 71046; 80053; 83690; 83735; 83880; 84484; 85025; 85379; 85610; 85730; 93005; 99285

== ENCOUNTER 2022-07-28 13:32 | Emergency (ER) | payer OTHER ==
[2022-07-28 13:43] VITALS: PULSE 97; RESP 18; TEMP 97.9
[2022-07-28] MEDS ORDERED: HYDROcodone/APAP 7.5-325MG 1 EACH TAB PO ONE ×2 (13:46→14:01)
--- NOTE | 2022-07-28 14:01 | ED ---
General Adult HPI - General Chief complaint: Recheck/Abnormal Lab/Rx Stated complaint: medication needed Time Seen by Provider: 07/28/22 13:45 Source: patient, RN notes reviewed, old records reviewed Mode of arrival: ambulatory - History of Present Illness Initial comments: 51-year-old female with chronic pain presenting for medication refill. Patient was informed by her primary care physician that her prescription for Media had been called in. When she spoke with the pharmacy they indicated that that prescription was not available and her doctor's office was closed today. She does have chronic knee pain which is unchanged, no recent fall. She also has hypertension and takes her blood pressure pills in the evening. She has not taken them yet today and her blood pressure is quite high in the emergency department. no Chest pain, no difficulty breathing. - Related Data Home Medications Medication Instructions Recorded Confirmed Desvenlafaxine Succinate [Pristiq] 100 mg PO DAILY 02/27/17 05/25/20 HYDROcodone/APAP 7.5-325MG [[place] 1 tab PO QID PRN 02/27/17 05/25/20 7.5-325] Pantoprazole [Protonix] 40 mg PO DAILY 11/01/18 05/25/20 Sucralfate [Carafate] 1 gm PO BID-W/MEALS 11/01/18 05/25/20 ARIPiprazole [Abilify] 15 mg PO DAILY 05/25/20 05/25/20 Melatonin [Melatonin ER] 10 mg PO HS 05/25/20 05/25/20 Mirtazapine [Remeron] 30 mg PO DAILY 05/25/20 05/25/20 Previous Rx's Medication Instructions Recorded LORazepam [Ativan] 2 mg PO QID PRN #6 tab 05/25/20 HYDROcodone/APAP 7.5-325MG [[place] 1 tab PO Q6HR PRN 1 Days #6 tab 03/21/22 7.5-325] LORazepam 2 mg PO ONCE PRN 1 Days #1 tab 03/21/22 Allergies Allergy/AdvReac Type Severity Reaction Status Date / Time lamotrigine [From Lamictal] Allergy chávez Verified 07/28/22 13:43 johnsons lavender (Lavandula Allergy Itching Verified 07/28/22 13:43 angustifolia) Sulfa (Sulfonamide Allergy Swelling Verified 07/28/22 13:43 Antibiotics) Review of Systems ROS Statement: Those systems with pertinent positive or pertinent negative responses have been documented in the HPI. ROS Other: All systems not noted in ROS Statement are negative. Past Medical History Past Medical History: GERD/Reflux Additional Past Medical History / Comment(s): HX GASTRIC BLEED 2017, History of Any Multi-Drug Resistant Organisms: None Reported Past Surgical History: Breast Surgery, Section, Orthopedic Surgery Additional Past Surgical History / Comment(s): BREAT IMPLANTS AGE 19. RT KNEE SX X 3 Past Anesthesia/Blood Transfusion Reactions: No Reported Reaction Additional Past Anesthesia/Blood Transfusion Reaction / Comment(s): HAD BLOOD TRANSFUSION 08/2017 NO PROBLEMS Past Psychological History: Anxiety, Depression Smoking Status: Former smoker Past Alcohol Use History: None Reported Past Drug Use History: None Reported - Past Family History Son(s) Additional Family Medical History / Comment(s): at AGE 20 years from crohns General Exam General appearance: alert, in no apparent distress Head exam: Present: atraumatic, normocephalic Eye exam: Present: normal appearance, PERRL Neck exam: Present: normal inspection. Absent: tenderness, meningismus Respiratory exam: Present: normal lung sounds bilaterally. Absent: respiratory distress, wheezes Cardiovascular Exam: Present: regular rate, normal rhythm GI/Abdominal exam: Present: soft. Absent: distended, tenderness Extremities exam: Present: normal inspection, normal capillary refill. Absent: pedal edema Back exam: Present: normal inspection Neurological exam: Present: alert, oriented X3, CN II-XII intact. Absent: motor sensory deficit, reflexes normal Psychiatric exam: Present: normal affect, normal mood Skin exam: Present: warm, dry, intact. Absent: cyanosis, diaphoretic Course Vital Signs 07/28/22 13:37 Temperature 97.9 F Pulse Rate 97 Respiratory 18 Rate Blood Pressure 181/119 O2 Sat by Pulse 99 Oximetry Medical Decision Making - Medical Decision Making 51-year-old female for medication refill. Was pt. sent in by a medical professional or institution (, PA, DATABASE PROGRAMMER ANALYST, urgent care, hospital, or skilled nursing...) When possible be specific @ -No Did you speak to anyone other than the patient for history (EMS, parent, family, police, friend...)? What history was obtained from this source @ -No Did you review nursing and triage notes (agree or disagree)? Why? @ -I reviewed and agree with nursing and triage notes Were old charts reviewed (outside hosp., previous admission, EMS record, old EKG, old radiological studies, urgent care reports/EKG's, skilled nursing records)? Report findings @ -No old charts were reviewed Differential Diagnosis (chest pain, altered mental status, abdominal pain women, abdominal pain men, vaginal bleeding, weakness, fever, dyspnea, syncope, headache, dizziness, GI bleed, back pain, seizure, CVA, palpatations, mental health, musculoskeletal)? @ -Medication refill, chronic pain EKG interpreted by me (3pts min.). @ -As above X-rays interpreted by me (1pt min.). @ -None done CT interpreted by me (1pt min.). @ -None done U/S interpreted by me (1pt. min.). @ -None done What testing was considered but not performed or refused? (CT, X-rays, U/S, labs)? Why? @ -None What meds were considered but not given or refused? Why? @ -None Did you discuss the management of the patient with other professionals (professionals i.e. , PA, DATABASE PROGRAMMER ANALYST, lab, RT, psych nurse, social work professor, crusher loader equipment operator, teacher, aviation ordnance officer, case technician)? Give summary @ -No Was smoking cessation discussed for >3mins.? @ -No Was critical care preformed (if so, how long)? @ -No Were there social determinants of health that impacted care today? How? (Homelessness, low income, unemployed, alcoholism, drug addiction, transportation, low edu. Level, literacy, decrease access to med. care, [facility], rehab)? @ -No Was there de-escalation of care discussed even if they declined (Discuss DNR or withdrawal of care, Hospice)? DNR status @ -No What co-morbidities impacted this encounter? (DM, HTN, Smoking, COPD, CAD, Cancer, CVA, ARF, Chemo, Hep., AIDS, mental health diagnosis, sleep apnea, morbid obesity)? @ -None Was patient admitted / discharged? Hospital course, mention meds given and route, prescriptions, significant lab abnormalities, going to OR and other pertinent info. @ -51-year-old female with chronic pain requesting medication refill. Patient given 1 dose in the emergency department and given a second dose to go home with for this evening. She can contact her doctor tomorrow morning which she is planning on doing. Her blood pressure is elevated but this is likely secondary to pain and there is no other acute issues. She will monitor closely at home. Undiagnosed new problem with uncertain prognosis? @ -No Drug Therapy requiring intensive monitoring for toxicity (Heparin, Nitro, Insulin, Cardizem)? @ -No Were any procedures done? @ -No Diagnosis/symptom? @ -[chronic pain Acute, or Chronic, or Acute on Chronic? @ -Chronic Uncomplicated (without systemic symptoms) or Complicated (systemic symptoms)? @ -Uncomplicated Side effects of treatment? @ -No Exacerbation, Progression, or Severe Exacerbation? @ -No Poses a threat to life or bodily function? How? (Chest pain, [place], [place], pneumonia, PE, COPD, DKA, ARF, appy, cholecystitis, CVA, Diverticulitis, Homicidal, Suicidal, threat to staff... and all critical care pts) @ -No Disposition Clinical Impression: Encounter for medication refill Disposition: HOME SELF-CARE Condition: Fair Instructions (If sedation given, give patient instructions): Medicine Refill (ED), Chronic Pain (ED) Is patient prescribed a controlled substance at d/c from ED?: No Referrals: Bjorn Joy III, MD [Primary Care Provider] - 1-2 days Time of Disposition: 14:01
[2022-07-28 14:47] VITALS: BP 141/82
== END 2022-07-28 14:58 | disposition home or self-care (01) ==
LOC: EC 13:32
DX: Z76.0 Encounter for issue of repeat prescription (principal); I10 Essential (primary) hypertension; K21.9 Gastro-esophageal reflux disease without esophagitis; F32.A Depression, unspecified; F41.9 Anxiety disorder, unspecified; Z87.891 Personal history of nicotine dependence; Z79.899 Other long term (current) drug therapy; Z88.1 Allergy status to other antibiotic agents; Z88.2 Allergy status to sulfonamides
CPT/HCPCS: 99283

== ENCOUNTER 2022-07-30 10:50 | Emergency (ER) | payer OTHER ==
[2022-07-30 11:11] VITALS: RESP 18; TEMP 98
[2022-07-30] MEDS ORDERED: HYDROcodone/APAP 7.5-325MG 1 EACH TAB PO ONE (11:45)
--- NOTE | 2022-07-30 12:22 | ED ---
General Adult HPI - General Chief complaint: Recheck/Abnormal Lab/Rx Stated complaint: medication refill Time Seen by Provider: 07/30/22 11:34 Source: patient Mode of arrival: ambulatory Limitations: no limitations - History of Present Illness Initial comments: Patient is a 51-year-old female who presents to the emergency department for medication refill. Patient was here 2 days ago for this same request. States Dr. Joy prescribes her [place] every month. This month her prescription was sent to [facility] and she had issues with her insurance when she went to pick it up. Patient states on Tuesday she called Dr. Joy's office to get the prescription sent to [facility]. She was told her prescription will be available for pickup on however it was not there. She states she called Dr. Joy's office today with no answer. She then drove to the office and saw a closed for Easter sign on the door. Patient is seeking [place] prescription for her chronic knee pain. She states she has been taking the Estherwood as directed. She denies any new injury or falls. Patient is very anxious about getting through the weekend without her Estherwood as she has been prescribed this medication for a long time. - Related Data Home Medications Medication Instructions Recorded Confirmed Desvenlafaxine Succinate [Pristiq] 100 mg PO DAILY 02/27/17 05/25/20 HYDROcodone/APAP 7.5-325MG [[place] 1 tab PO QID PRN 02/27/17 05/25/20 7.5-325] Pantoprazole [Protonix] 40 mg PO DAILY 11/01/18 05/25/20 Sucralfate [Carafate] 1 gm PO BID-W/MEALS 11/01/18 05/25/20 ARIPiprazole [Abilify] 15 mg PO DAILY 05/25/20 05/25/20 Melatonin [Melatonin ER] 10 mg PO HS 05/25/20 05/25/20 Mirtazapine [Remeron] 30 mg PO DAILY 05/25/20 05/25/20 Previous Rx's Medication Instructions Recorded LORazepam [Ativan] 2 mg PO QID PRN #6 tab 05/25/20 HYDROcodone/APAP 7.5-325MG [[place] 1 tab PO Q6HR PRN 1 Days #6 tab 03/21/22 7.5-325] LORazepam 2 mg PO ONCE PRN 1 Days #1 tab 03/21/22 Cyclobenzaprine [Flexeril] 5 mg PO TID PRN #15 tablet 07/30/22 HYDROcodone/APAP 7.5-325MG [[place] 1 tab PO Q4HR PRN 2 Days #12 tab 07/30/22 7.5-325] Allergies Allergy/AdvReac Type Severity Reaction Status Date / Time lamotrigine [From Lamictal] Allergy chávez Verified 07/30/22 11:11 johnsons lavender (Lavandula Allergy Itching Verified 07/30/22 11:11 angustifolia) Sulfa (Sulfonamide Allergy Swelling Verified 07/30/22 11:11 Antibiotics) Review of Systems ROS Statement: Those systems with pertinent positive or pertinent negative responses have been documented in the HPI. ROS Other: All systems not noted in ROS Statement are negative. Past Medical History Past Medical History: GERD/Reflux Additional Past Medical History / Comment(s): HX GASTRIC BLEED 2017, History of Any Multi-Drug Resistant Organisms: None Reported Past Surgical History: Breast Surgery, Section, Orthopedic Surgery Additional Past Surgical History / Comment(s): BREAT IMPLANTS AGE 19. RT KNEE SX X 3 Past Anesthesia/Blood Transfusion Reactions: No Reported Reaction Additional Past Anesthesia/Blood Transfusion Reaction / Comment(s): HAD BLOOD TRANSFUSION 08/2017 NO PROBLEMS Past Psychological History: Anxiety, Depression Smoking Status: Former smoker Past Alcohol Use History: None Reported Past Drug Use History: None Reported - Past Family History Son(s) Additional Family Medical History / Comment(s): at AGE 20 years from [place] General Exam Limitations: no limitations General appearance: alert, in no apparent distress Head exam: Present: atraumatic, normocephalic, normal inspection Respiratory exam: Present: normal lung sounds bilaterally. Absent: respiratory distress, wheezes, rales, rhonchi, stridor Cardiovascular Exam: Present: regular rate, normal rhythm, normal heart sounds. Absent: systolic murmur, diastolic murmur, rubs, gallop, clicks Extremities exam: Present: normal inspection, full ROM. Absent: tenderness Neurological exam: Present: alert, oriented X3, CN II-XII intact Psychiatric exam: Present: normal affect, normal mood Skin exam: Present: warm, dry, intact, normal color. Absent: rash Course Vital Signs 07/30/22 07/30/22 11:05 12:51 Temperature 98 F Pulse Rate 101 H 88 Respiratory 18 18 Rate Blood Pressure 172/89 133/91 O2 Sat by Pulse 95 97 Oximetry Medical Decision Making - Medical Decision Making Was pt. sent in by a medical professional or institution (JACKSON Wallace, EYELET ROW MARKER, urgent care, hospital, or long-term...) When possible be specific @ -No Did you speak to anyone other than the patient for history (EMS, parent, family, police, friend...)? What history was obtained from this source @ -No Did you review nursing and triage notes (agree or disagree)? Why? @ -I reviewed and agree with nursing and triage notes Were old charts reviewed (outside hosp., previous admission, EMS record, old EKG, old radiological studies, urgent care reports/EKG's, long-term records)? Report findings @ -No old charts were reviewed Differential Diagnosis (chest pain, altered mental status, abdominal pain women, abdominal pain men, vaginal bleeding, weakness, fever, dyspnea, syncope, headache, dizziness, GI bleed, back pain, seizure, CVA, palpatations, mental health)? @ -not applicable EKG interpreted by me (3pts min.). @ -As above X-rays interpreted by me (1pt min.). @ -None done CT interpreted by me (1pt min.). @ -None done U/S interpreted by me (1pt. min.). @ -None done What testing was considered but not performed or refused? (CT, X-rays, U/S, labs)? Why? @ -None What meds were considered but not given or refused? Why? @ -None Did you discuss the management of the patient with other professionals (professionals i.e. JACKSON Wallace, EYELET ROW MARKER, lab, RT, psych nurse, social media assistant, barrel lathe operator inside, teacher, credit compliance officer, community case manager)? Give summary @ -No Was smoking cessation discussed for >3mins.? @ -No Was critical care preformed (if so, how long)? @ -No Were there social determinants of health that impacted care today? How? (Homelessness, low income, unemployed, alcoholism, drug addiction, transportation, low edu. Level, literacy, decrease access to med. care, shelter, rehab)? @ -No Was there de-escalation of care discussed even if they declined (Discuss DNR or withdrawal of care, Hospice)? DNR status @ -No What co-morbidities impacted this encounter? (DM, HTN, Smoking, COPD, CAD, Cancer, CVA, ARF, Chemo, Hep., AIDS, mental health diagnosis, sleep apnea, morbid obesity)? @ -None Was patient admitted / discharged? Hospital course, mention meds given and route, prescriptions, significant lab abnormalities, going to OR and other pertinent info. @Patient presenting for medication refill, I called [facility] personally who does not have patient's Esther[place] prescription. I then called [facility]. [facility] does have the prescription however they state per Dr. Joy the prescription cannot be filled after 07/25 and as today is 07/30, the prescription has . I did review patient's MAPS score. Patient is prescribed Estherwood monthly. It does not appear that she gets her prescriptions from other providers. There is no evidence of patient abusing her Estherwood prescription. With this as well as is taking opioid withdrawal into consideration, I will prescribe patient 2 days worth of Estherwood. Patient is aware that she will need to use these sparingly. She will need to follow up with Dr. Joy in the office on Tuesday and we cannot continue to give her this medication in the emergency department. Patient verbalizes understanding and is satisfied with today's visit. Undiagnosed new problem with uncertain prognosis? @ -No Drug Therapy requiring intensive monitoring for toxicity (Heparin, Nitro, Insulin, Cardizem)? @ -No Were any procedures done? @ -No Diagnosis/symptom? @ -encounter medication refill Acute, or Chronic, or Acute on Chronic? @acute Uncomplicated (without systemic symptoms) or Complicated (systemic symptoms)? @ -uncomplicated Side effects of treatment? @ -No Exacerbation, Progression, or Severe Exacerbation? @ -No Poses a threat to life or bodily function? How? (Chest pain, USA, [place], pneumonia, PE, COPD, DKA, ARF, appy, cholecystitis, CVA, Diverticulitis, Homicidal, Suicidal, threat to staff... and all critical care pts) @ -[No] Dr. Guzman is my attending Disposition Clinical Impression: Encounter for medication refill Disposition: HOME SELF-CARE Condition: Good Instructions (If sedation given, give patient instructions): Narcotic Safety (ED) Additional Instructions: Take medication as directed. Do not take Esther[place] and Flexeril together as they can cause drowsiness. Do not drive or drink alcohol while taking either of these medications. Follow-up with Dr. Joy on Tuesday as planned. Return to emergency department if you experience new, concerning, or worsening symptoms. Prescriptions: Cyclobenzaprine [Flexeril] 5 mg PO TID PRN #15 tablet PRN Reason: Muscle Spasm HYDROcodone/APAP 7.5-325MG [Esther[place] 7.5-325] 1 tab PO Q4HR PRN 2 Days #12 tab PRN Reason: Pain Is patient prescribed a controlled substance at d/c from ED?: No Referrals: Bjorn Joy III, MD [Primary Care Provider] - 1-2 days
[2022-07-30 12:53] VITALS: BP 133/91; PULSE 88
== END 2022-07-30 12:52 | disposition home or self-care (01) ==
LOC: EC 10:50
DX: Z76.0 Encounter for issue of repeat prescription (principal); K21.9 Gastro-esophageal reflux disease without esophagitis; F41.9 Anxiety disorder, unspecified; F32.A Depression, unspecified; Z88.2 Allergy status to sulfonamides; Z87.891 Personal history of nicotine dependence
CPT/HCPCS: 99283

== ENCOUNTER → 2022-08-19 | Outpatient (CLI) | payer OTHER ==
--- NOTE | 2022-08-24 08:10 | MR ---
EXAMINATION TYPE: MR ankle LT wo con DATE OF EXAM: 08/19/2022 COMPARISON: NONE HISTORY: 52-year-old female S86.312A STRAIN MUSC/TEND PERONEAL GROUP AT LOW LEG, Left ankle pain x 3 mos, hx plantar fasciitis. TECHNIQUE: Multiplanar, multisequence images of the left ankle were obtained without IV contrast. FINDINGS: There is focal moderate to severe osteoarthritic change at the level of the medial cuneiform navicula r joint with reactive subchondral marrow signal change. There is also mild edema involving a qixfc-hn-exfizguk sized plantar heel spur and adjacent soft tiss ues where the origin of the plantar fascia is thickened up to 7 mm and shows a small partial-thicknes s tear of the deep fibers of just under 50% thickness. Smooth delineation of the Achilles tendon. Small tibiotalar joint effusion, likely physiologic. There is a small 4 x 3 mm focal area of osteoart hritic change along the mid medial talar dome characterized by some overlying cartilage thinning and subchondral signal change. Subtalar joint is aligned. Preserved fatty signal within the sinus tarsi. The tarsal tunnel is clear. The anterior extensor tendons and syndesmosis are intact. The medial flexor tendons are intact but with mild tenosynovial fluid along the posterior tibial tend on. Deltoid spring ligament complex appears intact. The lateral ligamentous complex and peroneal tendons appear intact though also with mild thecal synov ial fluid along the tendon sheaths. Mild bimalleolar subcutaneous soft tissue swelling.. Subtalar joint is aligned. IMPRESSION: 1. Findings compatible with plantar fasciitis. Fascial origin thickened up to 7 mm with associated so ft tissue and mild osseous edema. Small partial-thickness tear of the deep fibers. 2. Small 4 x 3 mm area of focal osteoarthritic change along the mid medial talar dome. 3. 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 4. Mild tenosynovial fluid along the peroneal tendons as well as the posterior tibial tendon may be p hysiologic or could reflect mild tenosynovitis. 5. Mild bimalleolar subcutaneous soft tissue swelling.
== END | disposition home or self-care (01) ==
LOC: RADMRIMAIN 11:44
PROVIDERS: ATTEND Podiatrist Foot & Ankle Surgery
DX: S86.312A Strain of muscle(s) and tendon(s) of peroneal muscle group at lower leg level, left leg, initial encounter (principal); M19.072 Primary osteoarthritis, left ankle and foot; R60.0 Localized edema

== ENCOUNTER 2022-09-01 15:33 | Emergency (ER) | payer OTHER ==
[2022-09-01 15:40] VITALS: BP 173/85; PULSE 107; RESP 18; TEMP 98
--- NOTE | 2022-09-01 17:09 | ED ---
General Adult HPI - General Chief complaint: Recheck/Abnormal Lab/Rx Stated complaint: Medication issues Time Seen by Provider: 09/01/22 16:04 Source: patient, RN notes reviewed Mode of arrival: ambulatory Limitations: no limitations - History of Present Illness Initial comments: 52-year-old female presents to the emergency department chief complaint of being unable to fill her pain medication prescription. Patient states that she takes [place] 7.5 as needed for knee and back pain. This is managed by her primary care provider. Patient states that her normal pharmacy that she uses did not have the [place] in stock. She called Dr. Joy's office just to have the medication sent to another pharmacy which she states was going to but the medication was not at the new pharmacy. Based on the medication bottle, per the medication was last filled on and the patient is out of her medication. Patient has been here before for this same scenario. - Related Data Home Medications Medication Instructions Recorded Confirmed Desvenlafaxine Succinate [Pristiq] 100 mg PO DAILY 02/27/17 05/25/20 HYDROcodone/APAP 7.5-325MG [[place] 1 tab PO QID PRN 02/27/17 05/25/20 7.5-325] Pantoprazole [Protonix] 40 mg PO DAILY 11/01/18 05/25/20 Sucralfate [Carafate] 1 gm PO BID-W/MEALS 11/01/18 05/25/20 ARIPiprazole [Abilify] 15 mg PO DAILY 05/25/20 05/25/20 Melatonin [Melatonin ER] 10 mg PO HS 05/25/20 05/25/20 Mirtazapine [Remeron] 30 mg PO DAILY 05/25/20 05/25/20 Previous Rx's Medication Instructions Recorded LORazepam [Ativan] 2 mg PO QID PRN #6 tab 05/25/20 HYDROcodone/APAP 7.5-325MG [[place] 1 tab PO Q6HR PRN 1 Days #6 tab 03/21/22 7.5-325] LORazepam 2 mg PO ONCE PRN 1 Days #1 tab 03/21/22 Cyclobenzaprine [Flexeril] 5 mg PO TID PRN #15 tablet 07/30/22 HYDROcodone/APAP 7.5-325MG [[place] 1 tab PO Q4HR PRN 2 Days #12 tab 04/07/23 7.5-325] Allergies Allergy/AdvReac Type Severity Reaction Status Date / Time lamotrigine [From Lamictal] Allergy chávez Verified 09/01/22 15:40 johnsons lavender (Lavandula Allergy Itching Verified 09/01/22 15:40 angustifolia) Sulfa (Sulfonamide Allergy Swelling Verified 09/01/22 15:40 Antibiotics) Review of Systems ROS Statement: Those systems with pertinent positive or pertinent negative responses have been documented in the HPI. ROS Other: All systems not noted in ROS Statement are negative. Past Medical History Past Medical History: GERD/Reflux Additional Past Medical History / Comment(s): HX GASTRIC BLEED 2017, History of Any Multi-Drug Resistant Organisms: None Reported Past Surgical History: Breast Surgery, Section, Orthopedic Surgery Additional Past Surgical History / Comment(s): BREAT IMPLANTS AGE 19. RT KNEE SX X 3 Past Anesthesia/Blood Transfusion Reactions: No Reported Reaction Additional Past Anesthesia/Blood Transfusion Reaction / Comment(s): HAD BLOOD TRANSFUSION 08/2017 NO PROBLEMS Past Psychological History: Anxiety, Depression Smoking Status: Former smoker Past Alcohol Use History: None Reported Past Drug Use History: None Reported - Past Family History Son(s) Additional Family Medical History / Comment(s): at AGE 20 years from [place] General Exam Limitations: no limitations General appearance: alert, in no apparent distress Head exam: Present: atraumatic, normocephalic, normal inspection Eye exam: Present: normal appearance Neck exam: Present: normal inspection. Absent: tenderness, meningismus, lymphadenopathy Respiratory exam: Present: normal lung sounds bilaterally. Absent: respiratory distress, wheezes, rales, rhonchi, stridor Cardiovascular Exam: Present: regular rate, normal rhythm, normal heart sounds. Absent: systolic murmur, diastolic murmur, rubs, gallop, clicks GI/Abdominal exam: Present: soft, normal bowel sounds. Absent: distended, tend erness, guarding, rebound, rigid Extremities exam: Present: normal inspection, full ROM, normal capillary refill. Absent: tenderness, pedal edema, joint swelling, calf tenderness Back exam: Present: normal inspection Neurological exam: Present: alert, oriented X3 Psychiatric exam: Present: anxious Skin exam: Present: warm, dry, intact, normal color. Absent: rash Course Vital Signs 09/01/22 15:36 Temperature 98 F Pulse Rate 107 H Respiratory 18 Rate Blood Pressure 173/85 O2 Sat by Pulse 99 Oximetry Medical Decision Making - Medical Decision Making Was pt. sent in by a medical professional or institution (JACKSON Wallace, ASSURANCE ASSISTANT, urgent care, hospital, or custodial...) When possible be specific @ -No Did you speak to anyone other than the patient for history (EMS, parent, family, police, friend...)? What history was obtained from this source @ -No Did you review nursing and triage notes (agree or disagree)? Why? @ -I reviewed and agree with nursing and triage notes Were old charts reviewed (outside hosp., previous admission, EMS record, old EKG, old radiological studies, urgent care reports/EKG's, custodial records)? Report findings @ -No old charts were reviewed Differential Diagnosis (chest pain, altered mental status, abdominal pain women, abdominal pain men, vaginal bleeding, weakness, fever, dyspnea, syncope, headache, dizziness, GI bleed, back pain, seizure, CVA, palpatations, mental health, musculoskeletal)? @ -not applicable EKG interpreted by me (3pts min.). @ -None X-rays interpreted by me (1pt min.). @ -None done CT interpreted by me (1pt min.). @ -None done U/S interpreted by me (1pt. min.). @ -None done What testing was considered but not performed or refused? (CT, X-rays, U/S, labs)? Why? @ -None What meds were considered but not given or refused? Why? @ -None Did you discuss the management of the patient with other professionals (professionals i.e. JACKSON Wallace, ASSURANCE ASSISTANT, lab, RT, psych nurse, social work case manager, broom man, teacher, equal employment opportunity officer, case packer and sealer)? Give summary @ -No Was smoking cessation discussed for >3mins.? @ -No Was critical care preformed (if so, how long)? @ -No Were there social determinants of health that impacted care today? How? (Homelessness, low income, unemployed, alcoholism, drug addiction, transportation, low edu. Level, literacy, decrease access to med. care, [facility] [facility], rehab)? @ -No Was there de-escalation of care discussed even if they declined (Discuss DNR or withdrawal of care, Hospice)? DNR status @ -No What co-morbidities impacted this encounter? (DM, HTN, Smoking, COPD, CAD, Cancer, CVA, ARF, Chemo, Hep., AIDS, mental health diagnosis, sleep apnea, morbid obesity)? @ -Chronic pain Was patient admitted / discharged? Hospital course, mention meds given and route, prescriptions, significant lab abnormalities, going to OR and other pertinent info. @ -Discharged. Patient presented to emergency department with chief complaint of "I ran out of the medication." On examination, patient is well-appearing but anxious. Discussed with patient that we cannot continue to give her narcotic pain medication in the emergency department. Case was discussed with Dr. Amado who recommended that I not give her pain medication. Patient discharged stable condition Undiagnosed new problem with uncertain prognosis? @ -No Drug Therapy requiring intensive monitoring for toxicity (Heparin, Nitro, Insulin, Cardizem)? @ -No Were any procedures done? @ -No Diagnosis/symptom? @ -Medication management Acute, or Chronic, or Acute on Chronic? @ -Chronic Uncomplicated (without systemic symptoms) or Complicated (systemic symptoms)? @ -Uncomplicated Side effects of treatment? @ -No Exacerbation, Progression, or Severe Exacerbation? @ -No Poses a threat to life or bodily function? How? (Chest pain, [place], [place], pneumonia, PE, COPD, DKA, ARF, appy, cholecystitis, CVA, Diverticulitis, Homicidal, Suicidal, threat to staff... and all critical care pts) @ -No Disposition Clinical Impression: Encounter for medication refill Disposition: HOME SELF-CARE Condition: Stable Additional Instructions: Please return to the Emergency Department if symptoms worsen or any other concerns. Is patient prescribed a controlled substance at d/c from ED?: No Referrals: Bjorn Joy III, MD [Primary Care Provider] - 1-2 days Time of Disposition: 17:09
== END 2022-09-01 17:01 | disposition home or self-care (01) ==
LOC: EC 15:33
DX: Z76.0 Encounter for issue of repeat prescription (principal); K21.9 Gastro-esophageal reflux disease without esophagitis; F41.9 Anxiety disorder, unspecified; F32.A Depression, unspecified; Z87.891 Personal history of nicotine dependence; Z88.2 Allergy status to sulfonamides; Z91.048 Other nonmedicinal substance allergy status; Z88.8 Allergy status to other drugs, medicaments and biological substances; Z79.899 Other long term (current) drug therapy
CPT/HCPCS: 99281

== ENCOUNTER 2023-02-04 14:43 | Emergency (ER) | payer OTHER ==
[2023-02-04 14:53] VITALS: RESP 18
[2023-02-04] MEDS ORDERED: methylPREDNISolone SOD SUCCI 125 MG/2 ML VIAL IV STA (15:36)
[2023-02-04] MEDS ORDERED: diphenhydrAMINE 50 MG CAP PO STA (15:36)
[2023-02-04] MEDS ORDERED: SODIUM CHLORIDE 0.9% 1,000 ML IV STA (15:36)
[2023-02-04] MEDS ORDERED: KETOROLAC 15 MG/ML 1 ML VIAL IVP STA (15:36)
[2023-02-04] MEDS ORDERED: HYDROcodone/APAP 7.5-325MG 1 EACH TAB PO ONE (15:44)
--- NOTE | 2023-02-04 15:50 | ED ---
General Adult HPI - General Chief complaint: Recheck/Abnormal Lab/Rx Stated complaint: reaction to medication Time Seen by Provider: 02/04/23 15:21 Source: patient Mode of arrival: ambulatory - History of Present Illness Initial comments: Patient is a 52-year-old female who presents to the emergency department for possible medication reaction. Patient bleed she is having a reaction to Wellbutrin which she started on 01/26. States her mouth feels raw with significant pain and itching. She denies throat pain, upper respiratory symptoms. Denies fever and chills. Denies chest pain and shortness of breath. 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 Patient also expresses concern about home prescription of [place]. States Dr. Joy shut his practice down and she has been unable to get her [place] prescription. Patient reports chronic right knee pain after multiple surgeries. Denies reinjury states she has been unable to sleep due to pain. - Related Data Home Medications Medication Instructions Recorded Confirmed Desvenlafaxine Succinate [Pristiq] 100 mg PO HS 02/27/17 02/04/23 Pantoprazole [Protonix] 40 mg PO BID 11/01/18 02/04/23 Sucralfate [Carafate] 1 gm PO TID-W/MEALS 11/01/18 02/04/23 ARIPiprazole [Abilify] 15 mg PO HS 05/25/20 02/04/23 Albuterol Sulfate [Albuterol 2 puff PO RT-Q4H PRN 02/04/23 02/04/23 Sulfate Hfa] Cyclobenzaprine [Flexeril] 10 mg PO TID PRN 02/04/23 02/04/23 Fluticasone/Umeclidin/Vilanter 1 puff INHALATION RT-DAILY 02/04/23 02/04/23 [Trelegy Ellipta 100-62.5-25] LORazepam [Ativan] 2 mg PO TID PRN 02/04/23 02/04/23 Naloxone HCl [Narcan] 4 mg NASAL DIRECTED PRN 02/04/23 02/04/23 Olmesartan Medoxomil [Benicar] 20 mg PO HS 02/04/23 02/04/23 Previous Rx's Medication Instructions Recorded HYDROcodone/APAP 7.5-325MG [[place] 1 tab PO Q6HR PRN 1 Days #6 tab 03/21/22 7.5-325] HYDROcodone/APAP 5-325MG [[place] 5] 1 each PO Q6HR PRN #18 tab 02/04/23 Ibuprofen [Motrin] 800 mg PO Q8HR PRN #30 tab 02/04/23 Allergies Allergy/AdvReac Type Severity Reaction Status Date / Time bupropion [From Wellbutrin] Allergy fabian Verified 02/04/23 16:20 johnsons lamotrigine [From Lamictal] Allergy fabian Verified 02/04/23 16:20 johnsons lavender (Lavandula Allergy Itching Verified 02/04/23 16:20 angustifolia) Sulfa (Sulfonamide Allergy Swelling Verified 02/04/23 16:20 Antibiotics) sulfamethoxazole Allergy Swelling Verified 02/04/23 16:20 [From Bactrim] trimethoprim [From Bactrim] Allergy Swelling Verified 02/04/23 16:20 Review of Systems ROS Statement: Those systems with pertinent positive or pertinent negative responses have been documented in the HPI. ROS Other: All systems not noted in ROS Statement are negative. Past Medical History Past Medical History: GERD/Reflux Additional Past Medical History / Comment(s): HX GASTRIC BLEED 2017, History of Any Multi-Drug Resistant Organisms: None Reported Past Surgical History: Breast Surgery, Section, Orthopedic Surgery Additional Past Surgical History / Comment(s): BREAT IMPLANTS AGE 19. RT KNEE SX X 3 Past Anesthesia/Blood Transfusion Reactions: No Reported Reaction Additional Past Anesthesia/Blood Transfusion Reaction / Comment(s): HAD BLOOD TRANSFUSION 08/2017 NO PROBLEMS Past Psychological History: Anxiety, Depression Smoking Status: Former smoker Past Alcohol Use History: None Reported Past Drug Use History: None Reported - Past Family History Son(s) Additional Family Medical History / Comment(s): at AGE 20 years from [place] General Exam General appearance: alert, anxious Head exam: Present: atraumatic, normocephalic, normal inspection Eye exam: Present: normal appearance, PERRL, EOMI. Absent: scleral icterus, conjunctival injection, periorbital swelling ENT exam: Present: normal oropharynx Respiratory exam: Present: normal lung sounds bilaterally. Absent: respiratory distress, wheezes, rales, rhonchi, stridor Cardiovascular Exam: Present: regular rate, normal rhythm, normal heart sounds. Absent: systolic murmur, diastolic murmur, rubs, gallop, clicks Extremities exam: Present: normal inspection, full ROM, normal capillary refill. Absent: tenderness Neurological exam: Present: alert Psychiatric exam: Present: normal affect, anxious. Absent: normal mood Skin exam: Present: warm, dry, intact, normal color. Absent: rash Course Vital Signs 02/04/23 14:45 Temperature 98.1 F Pulse Rate 106 H Respiratory 18 Rate Blood Pressure 158/95 O2 Sat by Pulse 99 Oximetry Medical Decision Making - Medical Decision Making Was pt. sent in by a medical professional or institution (, [facility], SANDAL PARTS ASSEMBLER, urgent care, hospital, or usp...) When possible be specific @ -No Did you speak to anyone other than the patient for history (EMS, parent, family, police, friend...)? What history was obtained from this source @ -No Did you review nursing and triage notes (agree or disagree)? Why? @ -I reviewed and agree with nursing and triage notes Were old charts reviewed (outside hosp., previous admission, EMS record, old EKG, old radiological studies, urgent care reports/EKG's, usp records)? Report findings @ -No old charts were reviewed Differential Diagnosis (chest pain, altered mental status, abdominal pain women, abdominal pain men, vaginal bleeding, weakness, fever, dyspnea, syncope, headache, dizziness, GI bleed, back pain, seizure, CVA, palpatations, mental health)? @ - medication reaction, ALLERGIC reaction, EKG interpreted by me (3pts min.). @ -As above X-rays interpreted by me (1pt min.). @ -None done CT interpreted by me (1pt min.). @ -None done U/S interpreted by me (1pt. min.). @ -None done What testing was considered but not performed or refused? (CT, X-rays, U/S, labs)? Why? @ -None What meds were considered but not given or refused? Why? @ -None Did you discuss the management of the patient with other professionals (professionals i.e. [facility]SON Wallace, SANDAL PARTS ASSEMBLER, lab, RT, psych nurse, social worker delinquency prevention, data integration analyst, teacher, accounting officer, pillowcase maker)? Give summary @ -No Was smoking cessation discussed for >3mins.? @ -No Was critical care preformed (if so, how long)? @ -No Were there social determinants of health that impacted care today? How? (Homelessness, low income, unemployed, alcoholism, drug addiction, transportation, low edu. Level, literacy, decrease access to med. care, halfway, rehab)? @ -No Was there de-escalation of care discussed even if they declined (Discuss DNR or withdrawal of care, Hospice)? DNR status @ -No What co-morbidities impacted this encounter? (DM, HTN, Smoking, COPD, CAD, Cancer, CVA, ARF, Chemo, Hep., AIDS, mental health diagnosis, sleep apnea, morbid obesity)? @ -None Was patient admitted / discharged? Hospital course, mention meds given and route, prescriptions, significant lab abnormalities, going to OR and other per tinent info. @ 52-year-old presenting for possible medication reaction. No evidence of airway involvement. Patient given ALLERGIC reaction cocktail with improvement of symptoms. Patient in stable medical condition for discharge. She will stop taking Wellbutrin. Patient is trying to find a new primary care provider and is very anxious about chronic pain at home which has been refractory to Tylenol and Motrin. I will prescribe her a short course of [place] for severe pain which she'll use sparingly. Discussed sedating effects of [place]. Patient discharged in stable condition. Undiagnosed new problem with uncertain prognosis? @ -No Drug Therapy requiring intensive monitoring for toxicity (Heparin, Nitro, Insulin, Cardizem)? @ -No Were any procedures done? @ -No Diagnosis/symptom? @ -medication reaction, chronic pain Acute, or Chronic, or Acute on Chronic? @ -acute Uncomplicated (without systemic symptoms) or Complicated (systemic symptoms)? @ -uncomplicated Side effects of treatment? @ -No Exacerbation, Progression, or Severe Exacerbation? @ -No Poses a threat to life or bodily function? How? (Chest pain, USA, [place], pneumonia, PE, COPD, DKA, ARF, appy, cholecystitis, CVA, Diverticulitis, Homicidal, Suicidal, threat to staff... and all critical care pts) @ -No Dr. Edwards is my attending Disposition Clinical Impression: Medication reaction, Chronic pain Disposition: HOME SELF-CARE Condition: Good Instructions (If sedation given, give patient instructions): Chronic Pain (ED) Additional Instructions: Take medication as directed. Alternate Tylenol and Motrin every 3-4 hours for pain. Use [place] sparingly for severe pain. Do not drink alcohol or operate mac hinery while taking [place]. Take benadryl for itching. Follow up with primary care provider in one to 2 days. Return to the emergency department if you experience new concerning or worsening symptoms. Prescriptions: Ibuprofen [Motrin] 800 mg PO Q8HR PRN #30 tab PRN Reason: Pain HYDROcodone/APAP 5-325MG [[place] 5] 1 each PO Q6HR PRN #18 tab PRN Reason: Pain Is patient prescribed a controlled substance at d/c from ED?: Yes Referrals: Madyson Golden MD [STAFF PHYSICIAN] - 1-2 days Ney Garza MD [STAFF PHYSICIAN] - 1-2 days Hilary Garza DO [REFERRING] - 1-2 days Roberto Arguello MD [STAFF PHYSICIAN] - 1-2 days None,Stated [Primary Care Provider] - 1-2 days Ambreen Uribe MD [STAFF PHYSICIAN] - 1-2 days Ashwin Quintana DO [Doctor of Osteopathic Medicine] - 1-2 days Roberto Mcadams MD [STAFF PHYSICIAN] - 1-2 days Leonard Brown MD [STAFF PHYSICIAN] - 1-2 days Jeffery Vergara MD [REFERRING] - 1-2 days
[2023-02-04 17:23] VITALS: BP 137/84; PULSE 89; TEMP 98
== END 2023-02-04 17:10 | disposition home or self-care (01) ==
LOC: EC 14:43
DX: G89.29 Other chronic pain (principal); M25.561 Pain in right knee; L29.9 Pruritus, unspecified; T43.295A Adverse effect of other antidepressants, initial encounter; K21.9 Gastro-esophageal reflux disease without esophagitis; F32.A Depression, unspecified; F41.9 Anxiety disorder, unspecified; Z88.1 Allergy status to other antibiotic agents; Z88.2 Allergy status to sulfonamides; Z91.048 Other nonmedicinal substance allergy status; Z88.8 Allergy status to other drugs, medicaments and biological substances; Z79.899 Other long term (current) drug therapy; Z87.891 Personal history of nicotine dependence
CPT/HCPCS: 99283; 96374; 96375; 96361; J2930; J1885

== ENCOUNTER → 2023-02-14 | Outpatient (CLI) | payer OTHER ==
[2023-02-14 13:21] VITALS: BP 168/105; PULSE 111; RESP 16
--- NOTE | 2023-02-14 14:21 | P.PAINPG ---
PQRS Measure Charge Sheet Comment: HISTORY OF PRESENT ILLNESS: A 52 yr old female as a referral from Dr Tran presents today w severe and chronic R knee pain secondary to post arthroplasty for evaluation. Pt states pain level is provoked at 8/10 in intensity, constant, localized in the R knee, sharp in character without shooting pain. Pain is provoked by walking for periods of 20 min or more. Pain is alleviated by medications (Tyl, Ibu, [place] 7.5/325mg #120), PT integrated w massage x 10 wks in Oct 2022, ice, repositioning and rest. PMH: OA, GERD, GI Bleed (2017), MDD/ Anxiety PSH: Breast Implants (1989), Section, R Knee Surgery x3 SH: Former tobacco user, No ETOH abuse, No illicit drug use FH: Son- Crohn's Disease/ at age 20. All: See list Meds: See list REVIEW OF ORGAN SYSTEMS: CONSTITUTIONAL: No fevers or chills. No recent weight loss. NEUROLOGICAL: + numbness and tingling along the distal extremities. No seizure disorders or headaches. MUSCULOSKELETAL: + pain PSYCHIATRIC: Denies current depression or suicidal thoughts. Physical Examinations : Constitutional : Cooperative , not in acute distress . Neurologic : Cranial nerve II to XII intact. No focal neurological deficits. Psychiatric : alert & oriented x 3. Matching mood & appropriate affect. Judgment & insight intact. Musculoskeletal : Cervical Spine Motor strength in the deltoid and biceps: Normal right side. Normal Left side Motor strength biceps and the wrist extensors: Normal right side . Normal left side Motor strength in the triceps muscle: Normal right side. Normal left side Deep tendon reflexes: Normal at the biceps. Normal at Brachioradialis. Normal at triceps Vertebral body tenderness to deep palpation over Cervical facet loading test: positive bilaterally Spurling test: positive bilaterally Neck distraction test: positive bilaterally Trell sign: positive bilaterally Lumbar spine +R diffuse TTP, incisional scars intact Motor strength lower extremities ,thigh and legs 5/5 Right side , 5/5 Left side Deep tendon reflexes : Normal Knee Jerk. Normal Ankle Jerk Vertebral body tenderness over Elizondo Test positive Lumbar facet Loading Test: positive Right / positive Left Range of motion of the lumbar spine Flexion 30 degrees, extension 10 degrees Straight Leg Raise test: Left/ Right positive at degree Georgiana test: positive right / positive left. Severe tenderness over the Sacroiliac joint on the Right / Left sides Gaenslen test: positive bilaterally Seated flexion test: positive bilaterally. Sacral spine : Severe tenderness over the Sacroiliac joint: right side / left side Range of motion: Flexion of the lumbar spine <60 degrees Range of motion: Extension of the lumbar spine <20 degrees Gaenslen's Test positive Ho's Test positive Georgiana test: positive right side / left side Thigh Thrust Test Sacral Thrust Test Imaging: R knee x ray reviewed Assessment/ Plan : R knee post arthroplasty Recommendation of intraarticular injection however pt is interested in medication management instead. Risks, benefits of procedure discussed and patient verbalized understanding. All questions answered. I have spent greater than 30 minutes on patient care today. Dr Lizama was available by phone for the evaluation of this patient. The time was used to review the medical records including relevant urine studies and Prescription history (MAPs), review of the available imaging, evaluation and examination of the patient, coordination of care with the medical staff and if applicable referring physicians, as well as creation of the medical record PQRS Narrative: Smoking Status Former smoker Home Medications: Ambulatory Orders Desvenlafaxine Succinate [Pristiq] 100 mg PO HS 02/27/17 Pantoprazole [Protonix] 40 mg PO BID 11/01/18 Sucralfate [Carafate] 1 gm PO TID-W/MEALS 11/01/18 ARIPiprazole [Abilify] 15 mg PO HS 05/25/20 HYDROcodone/APAP 7.5-325MG [[place] 7.5-325] 1 tab PO Q6HR PRN 1 Days #6 tab 03/21/22 Albuterol Sulfate [Albuterol Sulfate Hfa] 2 puff PO RT-Q4H PRN 02/04/23 Cyclobenzaprine [Flexeril] 10 mg PO TID PRN 02/04/23 Fluticasone/Umeclidin/Vilanter [Trelegy Ellipta 100-62.5-25] 1 puff INHALATION RT-DAILY 02/04/23 HYDROcodone/APAP 5-325MG [[place] 5] 1 each PO Q6HR PRN #18 tab 02/04/23 Ibuprofen [Motrin] 800 mg PO Q8HR PRN #30 tab 02/04/23 LORazepam [Ativan] 2 mg PO TID PRN 02/04/23 Naloxone HCl [Narcan] 4 mg NASAL DIRECTED PRN 02/04/23 Olmesartan Medoxomil [Benicar] 20 mg PO HS 02/04/23 Controlled Substance Measures - Controlled Substance Measures Is patient prescribed a controlled substance at discharge?: No
== END ==
LOC: PNWHC3 08:00
PROVIDERS: ATTEND Specialist
DX: G89.4 Chronic pain syndrome (principal); M19.90 Unspecified osteoarthritis, unspecified site; K21.9 Gastro-esophageal reflux disease without esophagitis; F32.9 Major depressive disorder, single episode, unspecified; F41.9 Anxiety disorder, unspecified; Z87.891 Personal history of nicotine dependence; Z88.2 Allergy status to sulfonamides; Z91.041 Radiographic dye allergy status; Z88.1 Allergy status to other antibiotic agents; Z88.8 Allergy status to other drugs, medicaments and biological substances; Z96.651 Presence of right artificial knee joint
CPT/HCPCS: 99211

== ENCOUNTER 2023-02-16 15:07 | Emergency (ER) | payer OTHER ==
[2023-02-16] MEDS ORDERED: HYDROmorphone 1 MG/ML 1 ML SYRINGE IM STA (16:24)
[2023-02-16] MEDS ORDERED: diphenhydrAMINE 50 MG CAP PO STA (16:24)
[2023-02-16] MEDS ORDERED: diazePAM 5 MG TAB PO STA (16:24)
--- NOTE | 2023-02-16 16:26 | ED ---
Recheck HPI - General Chief Complaint: Recheck/Abnormal Lab/Rx Stated Complaint: withdrawl symp Time Seen by Provider: 02/16/23 15:47 Source: patient, RN notes reviewed, old records reviewed Mode of arrival: ambulatory Limitations: no limitations - History of Present Illness Initial Comments: This is a 52-year-old female DF for evaluation today. Patient Dese for evaluation medicine refill. She has no other complaints aside from pain chronic pain MD Complaint: medication refill request -: days(s) Returns Today for: persistent/worsening pain related to initial visit Symptoms Since Prior Visit: worsening pain Context: ran out of medication Treatments Prior to Arrival: other medications, Given Pain Meds on - Related Data Home Medications Medication Instructions Recorded Confirmed Desvenlafaxine Succinate [Pristiq] 100 mg PO HS 02/27/17 02/04/23 Pantoprazole [Protonix] 40 mg PO BID 11/01/18 02/04/23 Sucralfate [Carafate] 1 gm PO TID-W/MEALS 11/01/18 02/04/23 ARIPiprazole [Abilify] 15 mg PO HS 05/25/20 02/04/23 Albuterol Sulfate [Albuterol 2 puff PO RT-Q4H PRN 02/04/23 02/04/23 Sulfate Hfa] Cyclobenzaprine [Flexeril] 10 mg PO TID PRN 02/04/23 02/04/23 Fluticasone/Umeclidin/Vilanter 1 puff INHALATION RT-DAILY 02/04/23 02/04/23 [Trelegy Ellipta 100-62.5-25] LORazepam [Ativan] 2 mg PO TID PRN 02/04/23 02/04/23 Naloxone HCl [Narcan] 4 mg NASAL DIRECTED PRN 02/04/23 02/04/23 Olmesartan Medoxomil [Benicar] 20 mg PO HS 02/04/23 02/04/23 Previous Rx's Medication Instructions Recorded HYDROcodone/APAP 7.5-325MG [[place] 1 tab PO Q6HR PRN 1 Days #6 tab 03/21/22 7.5-325] HYDROcodone/APAP 5-325MG [[place] 5] 1 each PO Q6HR PRN #18 tab 02/04/23 Ibuprofen [Motrin] 800 mg PO Q8HR PRN #30 tab 02/04/23 HYDROcodone/APAP 7.5-325MG [[place] 1 tab PO Q6HR PRN #12 tab 02/16/23 7.5-325] HYDROcodone/APAP 7.5-325MG [[place] 1 tab PO Q6HR PRN 3 Days #12 tab 02/22/23 7.5-325] Allergies Allergy/AdvReac Type Severity Reaction Status Date / Time bupropion [From Wellbutrin] Allergy chávez Verified 02/22/23 19:54 johnsons lamotrigine [From Lamictal] Allergy chávez Verified 02/22/23 19:54 johnsons lavender (Lavandula Allergy Itching Verified 02/22/23 19:54 angustifolia) Sulfa (Sulfonamide Allergy Swelling Verified 02/22/23 19:54 Antibiotics) sulfamethoxazole Allergy Swelling Verified 02/22/23 19:54 [From Bactrim] trimethoprim [From Bactrim] Allergy Swelling Verified 02/22/23 19:54 Review of Systems ROS Statement: Those systems with pertinent positive or pertinent negative responses have been documented in the HPI. ROS Other: All systems not noted in ROS Statement are negative. Past Medical History Past Medical History: GERD/Reflux, Hypertension Additional Past Medical History / Comment(s): HX GASTRIC BLEED 2017, History of Any Multi-Drug Resistant Organisms: None Reported Past Surgical History: Breast Surgery, Section, Orthopedic Surgery Additional Past Surgical History / Comment(s): BREAT IMPLANTS AGE 19. RT KNEE SX X 3 Past Anesthesia/Blood Transfusion Reactions: No Reported Reaction Additional Past Anesthesia/Blood Transfusion Reaction / Comment(s): HAD BLOOD TRANSFUSION 08/2017 NO PROBLEMS Past Psychological History: Anxiety, Depression Smoking Status: Former smoker Past Alcohol Use History: None Reported Past Drug Use History: None Reported - Past Family History Son(s) Additional Family Medical History / Comment(s): at AGE 20 years from crohns General Exam Limitations: no limitations General appearance: alert, in no apparent distress, anxious Head exam: Present: atraumatic, normocephalic, normal inspection Eye exam: Present: normal appearance, PERRL, EOMI. Absent: scleral icterus, conjunctival injection, periorbital swelling ENT exam: Present: normal exam, mucous membranes moist Neck exam: Present: normal inspection. Absent: tenderness, meningismus, lymphadenopathy Respiratory exam: Present: normal lung sounds bilaterally. Absent: respiratory distress, wheezes, rales, rhonchi, stridor Cardiovascular Exam: Present: regular rate, normal rhythm, normal heart sounds. Absent: systolic murmur, diastolic murmur, rubs, gallop, clicks GI/Abdominal exam: Present: soft, normal bowel sounds. Absent: distended, tenderness, guarding, rebound, rigid Extremities exam: Present: normal inspection, full ROM, normal capillary refill. Absent: tenderness, pedal edema, joint swelling, calf tenderness Back exam: Present: normal inspection Neurological exam: Present: alert, oriented X3, CN II-XII intact Psychiatric exam: Present: normal affect, normal mood Skin exam: Present: warm, dry, intact, normal color. Absent: rash Course Vital Signs 02/16/23 02/16/23 02/16/23 15:18 16:43 17:08 Temperature 98.3 F 97.9 F Pulse Rate 108 H 104 H 92 Respiratory 18 20 18 Rate Blood Pressure 186/94 193/103 186/94 O2 Sat by Pulse 97 98 98 Oximetry - Reevaluation(s) Reevaluation #1: Medical record is reviewed Reevaluation #2: Patient symptoms are unchanged Reevaluation #3: Patient informed results and questions answered Reevaluation #4: Was pt. sent in by a medical professional or institution (, PA, GAS APPLIANCE ADJUSTER, urgent care, hospital, or residential...) When possible be specific @ -no Did you speak to anyone other than the patient for history (EMS, parent, family, police, friend...)? What history was obtained from this source @ -no Did you review nursing and triage notes (agree or disagree)? Why? @ -agree Are old charts reviewed (outside hosp., previous admission, EMS record, old EKG, old radiological studies, urgent care reports/EKG's, residential records)? Report findings @ -yes Differential Diagnosis (chest pain, altered mental status, abdominal pain women, abdominal pain men, vaginal bleeding, weakness, fever, dyspnea, syncope, headache, dizziness, GI bleed, back pain, seizure, CVA, palpatations, mental health, musculoskeletal)? @ -prior EKG interpreted by me (3pts min.). @ -yno X-rays interpreted by me (1pt min.). @ -no CT interpreted by me (1pt min.). @ -no U/S interpreted by me (1pt. min.). @ -no What testing was considered but not performed or refused? (CT, X-rays, U/S, labs)? Why? @ -none What meds were considered but not given or refused? Why? @ -none Did you discuss the management of the patient with other professionals (professionals i.e. , PA, GAS APPLIANCE ADJUSTER, lab, RT, psych nurse, director social service, special events manager, teacher, chief growth officer, director case)? Give summary @ -no Was smoking cessation discussed for >3mins.? @ -no Was critical care preformed (if so, how long)? @ -no Were there social determinants of health that impacted care today? How? (Homelessness, low income, unemployed, alcoholism, drug addiction, transportation, low edu. Level, literacy, decrease access to med. care, fpc, rehab)? @ -none Was there de-escalation of care discussed even if they declined (Discuss DNR or withdrawal of care, Hospice)? DNR status @ -no What co-morbidities impacted this encounter? (DM, HTN, Smoking, COPD, CAD, Cancer, CVA, ARF, Chemo, Hep., AIDS, mental health diagnosis, sleep apnea, morbid obesity)? @ -none Was patient admitted / discharged? Hospital course, mention meds given and route, prescriptions, significant lab abnormalities, going to OR and other pertinent info. @ - 52 female to the emergency department for evaluation for medicine refill. Patient will be prescribed her pain medications to be discharged home to follow- up as an outpatient for further management Discharge Undiagnosed new problem with uncertain prognosis? @ -no Drug Therapy requiring intensive monitoring for toxicity (Heparin, Nitro, Insulin, Cardizem)? @ -no Were any procedures done? @ -no Diagnosis/symptom? @ -Chronic pain, medicine refill Acute, or Chronic, or Acute on Chronic? @ -Acute Uncomplicated (without systemic symptoms) or Complicated (systemic symptoms)? @ -Complicated Side effects of treatment? @ -no Exacerbation, Progression, or Severe Exacerbation? @ -exacerbation Poses a threat to life or bodily function? How? (Chest pain, USA, [place], pneumonia, PE, COPD, DKA, ARF, appy, cholecystitis, CVA, Diverticulitis, Homicidal, Suicidal, threat to staff... and all critical care pts) @ -yes with medication withdrawal Medical Decision Making - Medical Decision Making 52 female to the emergency department for evaluation of medication refill. Patient has prescriptions refilled here in the ER and can be discharged home Disposition Clinical Impression: Encounter for medication refill Disposition: HOME SELF-CARE Condition: Fair Instructions (If sedation given, give patient instructions): Medicine Refill (ED) Prescriptions: HYDROcodone/APAP 7.5-325MG [[place] 7.5-325] 1 tab PO Q6HR PRN #12 tab PRN Reason: Pain Is patient prescribed a controlled substance at d/c from ED?: No Referrals: Margarita Tran [Primary Care Provider] - 1-2 days Ney Garza MD [STAFF PHYSICIAN] - 1-2 days Philip Singletary MD [REFERRING] - 1-2 days Time of Disposition: 16:25
[2023-02-16] MEDS ORDERED: PROCHLORPERAZINE 5 MG TAB PO STA (16:31)
[2023-02-16] MEDS ORDERED: cloNIDine 0.3 MG/24HR PATCH TRANSDERM STA (16:32)
[2023-02-16 17:25] VITALS: BP 186/94; PULSE 92; RESP 18; TEMP 97.9
== END 2023-02-16 17:08 | disposition home or self-care (01) ==
LOC: EC 15:07
DX: Z76.0 Encounter for issue of repeat prescription (principal); I10 Essential (primary) hypertension; K21.9 Gastro-esophageal reflux disease without esophagitis; F41.9 Anxiety disorder, unspecified; F32.A Depression, unspecified; Z87.891 Personal history of nicotine dependence; Z79.899 Other long term (current) drug therapy; Z88.2 Allergy status to sulfonamides; Z88.8 Allergy status to other drugs, medicaments and biological substances
CPT/HCPCS: 99284; 96372; S0183; J1170

== ENCOUNTER 2023-02-22 19:34 | Emergency (ER) | payer OTHER ==
[2023-02-22 20:06] VITALS: BP 131/68; PULSE 115; RESP 20; TEMP 98.2
--- NOTE | 2023-02-22 20:21 | ED ---
General Adult HPI - General Chief complaint: Recheck/Abnormal Lab/Rx Stated complaint: chronic pain Time Seen by Provider: 02/22/23 20:15 Source: patient Mode of arrival: ambulatory Limitations: no limitations - History of Present Illness Initial comments: A 52-year-old female presenting to the ED with a chief complaint of chronic pain. Patient notes she has chronic pain. Reports that she typically sees her physician Dr. Joy however notes that he recently retired. Notes that she is establishing primary care however is unable to follow with her new primary care provider. States that she has run out of her chronic pain medications. Also notes that she is attempting to find a touch up painter. At this time, reports pain that she is experiencing is consistent with her chronic pain. Denies any new pain. No chest pain or shortness of breath. No other complaints. - Related Data Home Medications Medication Instructions Recorded Confirmed Desvenlafaxine Succinate [Pristiq] 100 mg PO HS 02/27/17 02/04/23 Pantoprazole [Protonix] 40 mg PO BID 11/01/18 02/04/23 Sucralfate [Carafate] 1 gm PO TID-W/MEALS 11/01/18 02/04/23 ARIPiprazole [Abilify] 15 mg PO HS 05/25/20 02/04/23 Albuterol Sulfate [Albuterol 2 puff PO RT-Q4H PRN 02/04/23 02/04/23 Sulfate Hfa] Cyclobenzaprine [Flexeril] 10 mg PO TID PRN 02/04/23 02/04/23 Fluticasone/Umeclidin/Vilanter 1 puff INHALATION RT-DAILY 02/04/23 02/04/23 [Trelegy Ellipta 100-62.5-25] LORazepam [Ativan] 2 mg PO TID PRN 02/04/23 02/04/23 Naloxone HCl [Narcan] 4 mg NASAL DIRECTED PRN 02/04/23 02/04/23 Olmesartan Medoxomil [Benicar] 20 mg PO HS 02/04/23 02/04/23 Previous Rx's Medication Instructions Recorded HYDROcodone/APAP 7.5-325MG [Killdeer 1 tab PO Q6HR PRN 1 Days #6 tab 03/21/22 7.5-325] HYDROcodone/APAP 5-325MG [Kil[place]eer 5] 1 each PO Q6HR PRN #18 tab 02/04/23 Ibuprofen [Motrin] 800 mg PO Q8HR PRN #30 tab 02/04/23 HYDROcodone/APAP 7.5-325MG [[place] 1 tab PO Q6HR PRN #12 tab 02/16/23 7.5-325] HYDROcodone/APAP 7.5-325MG [[place]eer 1 tab PO Q6HR PRN 3 Days #12 tab 02/22/23 7.5-325] Allergies Allergy/AdvReac Type Severity Reaction Status Date / Time bupropion [From Wellbutrin] Allergy chávez Verified 02/22/23 19:54 johnsons lamotrigine [From Lamictal] Allergy chávez Verified 02/22/23 19:54 johnsons lavender (Lavandula Allergy Itching Verified 02/22/23 19:54 angustifolia) Sulfa (Sulfonamide Allergy Swelling Verified 02/22/23 19:54 Antibiotics) sulfamethoxazole Allergy Swelling Verified 02/22/23 19:54 [From Bactrim] trimethoprim [From Bactrim] Allergy Swelling Verified 02/22/23 19:54 Review of Systems ROS Statement: Those systems with pertinent positive or pertinent negative responses have been documented in the HPI. ROS Other: All systems not noted in ROS Statement are negative. Past Medical History Past Medical History: GERD/Reflux, Hypertension Additional Past Medical History / Comment(s): HX GASTRIC BLEED 2017, History of Any Multi-Drug Resistant Organisms: None Reported Past Surgical History: Breast Surgery, Section, Orthopedic Surgery Additional Past Surgical History / Comment(s): BREAT IMPLANTS AGE 19. RT KNEE SX X 3 Past Anesthesia/Blood Transfusion Reactions: No Reported Reaction Additional Past Anesthesia/Blood Transfusion Reaction / Comment(s): HAD BLOOD TRANSFUSION 08/2017 NO PROBLEMS Past Psychological History: Anxiety, Depression Smoking Status: Former smoker Past Alcohol Use History: None Reported Past Drug Use History: None Reported - Past Family History Son(s) Additional Family Medical History / Comment(s): at AGE 20 years from crohns General Exam Limitations: no limitations General appearance: alert, in no apparent distress Neck exam: Present: normal inspection Respiratory exam: Present: normal lung sounds bilaterally Cardiovascular Exam: Present: regular rate, normal rhythm GI/Abdominal exam: Present: soft Neurological exam: Present: alert, oriented X3 Skin exam: Present: warm, dry Course Vital Signs 02/22/23 19:52 Temperature 98.2 F Pulse Rate 115 H Respiratory 20 Rate Blood Pressure 131/68 O2 Sat by Pulse 96 Oximetry Medical Decision Making - Medical Decision Making Was pt. sent in by a medical professional or institution (, [place], LUMBER GRADER, urgent care, hospital, or fdc...) When possible be specific @ -No Did you speak to anyone other than the patient for history (EMS, parent, family, police, friend...)? What history was obtained from this source @ -No Did you review nursing and triage notes (agree or disagree)? Why? @ -I reviewed and agree with nursing and triage notes Were old charts reviewed (outside hosp., previous admission, EMS record, old EKG, old radiological studies, urgent care reports/EKG's, fdc records)? Report findings @ -No old charts were reviewed Differential Diagnosis (chest pain, altered mental status, abdominal pain women, abdominal pain men, vaginal bleeding, weakness, fever, dyspnea, syncope, headache, dizziness, GI bleed, back pain, seizure, CVA, palpatations, mental health, musculoskeletal)? @ -Differential Musculoskeletal Muscular strain, contusion, ligament sprain, fracture, arthritis, septic arthritis, bursitis, cellulitis, muscle spasm, nerve compression, DVT, arterial occlusion, herpes zoster, electrolyte abnormality, tumor.... This is not meant to be in all inclusive list EKG interpreted by me (3pts min.). @ -None X-rays interpreted by me (1pt min.). @ -None done CT interpreted by me (1pt min.). @ -None done U/S interpreted by me (1pt. min.). @ -None done What testing was considered but not performed or refused? (CT, X-rays, U/S, labs)? Why? @ -None What meds were considered but not given or refused? Why? @ -None Did you discuss the management of the patient with other professionals (professionals i.e. JACKSON Wallace, LUMBER GRADER, lab, RT, psych nurse, social worker psychiatric, attorney lawyer, teacher, policy officer, manager of case)? Give summary @ -No Was smoking cessation discussed for >3mins.? @ -No Was critical care preformed (if so, how long)? @ -No Were there social determinants of health that impacted care today? How? (Homelessness, low income, unemployed, alcoholism, drug addiction, transportation, low edu. Level, literacy, decrease access to med. care, alf, rehab)? @ -No Was there de-escalation of care discussed even if they declined (Discuss DNR or withdrawal of care, Hospice)? DNR status @ -No What co-morbidities impacted this encounter? (DM, HTN, Smoking, COPD, CAD, Cancer, CVA, ARF, Chemo, Hep., AIDS, mental health diagnosis, sleep apnea, morbid obesity)? @ -None Was patient admitted / discharged? Hospital course, mention meds given and route, prescriptions, significant lab abnormalities, going to OR and other pertinent info. @ -Discharge 52-year-old female with a past medical history significant for chronic pain presenting to the ED due to running out of pain medications. MAPS reviewed. Last prescribed Killdeer 7.5 on 02/17/23 for 3 day supply, consistent with patient's provided history. Provided three-day supply of Killdeer 7.5 and additional referral to see Dr. Lizama of pain management. Discharged home in stable condition. Discussed return precautions patient verbalizes agreement. Undiagnosed new problem with uncertain prognosis? @ -No Drug Therapy requiring intensive monitoring for toxicity (Heparin, Nitro, Insulin, Cardizem)? @ -No Were any procedures done? @ -No Diagnosis/symptom? @ -Chronic pain, medication refill Acute, or Chronic, or Acute on Chronic? @ -Chronic Uncomplicated (without systemic symptoms) or Complicated (systemic symptoms)? @ -Uncomplicated Side effects of treatment? @ -No Exacerbation, Progression, or Severe Exacerbation? @ -No Poses a threat to life or bodily function? How? (Chest pain, [place], [place], pneumonia, PE, COPD, DKA, ARF, appy, cholecystitis, CVA, Diverticulitis, Homicidal, Suicidal, threat to staff... and all critical care pts) @ -No Disposition Clinical Impression: Chronic pain Disposition: HOME SELF-CARE Condition: Good Additional Instructions: Please return to the Emergency Department if symptoms worsen or any other concerns. Please follow-up with pain management. Prescriptions: HYDROcodone/APAP 7.5-325MG [Killdeer 7.5-325] 1 tab PO Q6HR PRN 3 Days #12 tab PRN Reason: Pain Is patient prescribed a controlled substance at d/c from ED?: Yes When asked, does pt state using other controlled substances?: Yes If prescribed controlled substance>3 days was MAPS reviewed?: Prescribed <3 Days If opioid is for acute pain is fill amount 7 days or less?: Yes If Rx opioid, was Start Talking consent form obtained?: Yes Referrals: Margarita Tran [Primary Care Provider] - 1-2 days Melchor Lizama MD [STAFF PHYSICIAN] - 1-2 days Time of Disposition: 20:19
== END 2023-02-22 20:45 | disposition home or self-care (01) ==
LOC: EC 19:34
DX: G89.29 Other chronic pain (principal); K21.9 Gastro-esophageal reflux disease without esophagitis; I10 Essential (primary) hypertension; F32.A Depression, unspecified; F41.9 Anxiety disorder, unspecified; Z87.891 Personal history of nicotine dependence; Z88.2 Allergy status to sulfonamides; Z88.8 Allergy status to other drugs, medicaments and biological substances; Z79.899 Other long term (current) drug therapy
CPT/HCPCS: 99283

== ENCOUNTER → 2023-03-31 | Outpatient (CLI) | payer OTHER ==
--- NOTE | 2023-04-04 19:23 | MM ---
Reason for Exam: Screening (asymptomatic). Last mammogram was performed 1 year(s) and 2 month(s) ago. Patient History: Menarche at age 12. First Full-Term at age 17. Postmenopausal. Hormonal Contraceptives for 3 months starting at age 18. 1990, Implant(s). Maternal aunt had breast cancer, age 55. Risk Values: Analy 5 year model risk: 0.7%. NCI Lifetime model risk: 5.6%. Prior Study Comparison: 02/04/2014 Bilateral Screening Mammogram, LOCATED WITHIN [facility]. 08/19/2016 Bilateral Diagnostic Mammogram, LOCATED [facility]IN [facility]. 01/25/2022 Bilateral MG diag mamm implants IRVIN w CAD, LOCATED WITHIN [facility]. Tissue Density: The breast tissue is heterogeneously dense. This may lower the sensitivity of mammography. Findings: Analyzed By CAD. There are prepectoral silicone implants. Hypodensity adjacent to the bilateral implants compatible with extracapsular silicone rupture. On the right, the finding is new compared to the 2017 exam. On the left, the findings are more remote. The high density material limits the overall evaluation. There is no suspicious group of microcalcifications or new suspicious mass in either breast. Overall Assessment: Benign, BI-RAD 2 Management: Screening Mammogram of both breasts in 1 year. Note bilateral extracapsular silicone implant ruptures. Consider surgical evaluation. The high density material limits the overall evaluation. Patient should continue monthly self-breast exams. A clinical breast exam by your physician is recommended on an annual basis. This exam should not preclude additional follow-up of suspicious palpable abnormalities. Note on Analy scores and lifetime risk: 1. A Analy score greater than 3% is considered moderate risk. If this is the case, consider specialist referral to assess eligibility for a risk reducing agent. 2. If overall lifetime risk for the development of breast cancer is 20% or higher, the patient may qualify for future screening with alternating mammogram and breast MRI. Electronically signed and approved by: Daija Stevens M.D. Radiologist
== END | disposition home or self-care (01) ==
LOC: RADMAMWWP 15:04
PROVIDERS: ATTEND Student in an Organized Health Care Education/Training Program
DX: Z12.31 Encounter for screening mammogram for malignant neoplasm of breast (principal); Z80.3 Family history of malignant neoplasm of breast; Z78.0 Asymptomatic menopausal state; Z98.82 Breast implant status
CPT/HCPCS: 77063; 77067

== ENCOUNTER 2023-04-30 14:28 | Emergency (ER) | payer OTHER ==
--- NOTE | 2023-04-30 14:53 | ED ---
General Adult HPI <Son Cortés - Last Filed: 04/30/23 14:50> <Zac Ponce - Last Filed: 05/01/23 04:03> - General Stated complaint: rapid heart beat - History of Present Illness Initial comments: Quick note: Patient states she ran out of her Slocomb 2 days ago. She has been trying to call her doctor's office to get a refill but kept getting hung up on. Now she feels like her heart is beating quickly like it is going to pop through her chest and she is shaky and can't sleep. (Son Cortés) 52-year-old female requesting medication refill. Patient ran out of her Slocomb 2 days ago, which she takes for her chronic knee and back pain that has been difficult to tolerate these last 2 days. She states that she is prescribed this through her neurologist office, states that she was calling the office this week by they were not answering phones. Patient feels like she is withdrawing, which she has done in the past. States it feels like her heart is beating quickly and she is admitting to some chest discomfort. She admits to nausea with no vomiting. She states that she feels shaky and cannot sleep. No shortness of breath, fever, chills, cough, congestion, sore throat, vomiting, abdominal pain. (Zac Ponce) - Related Data Home Medications Medication Instructions Recorded Confirmed Desvenlafaxine Succinate [Pristiq] 100 mg PO HS 02/27/17 02/04/23 Pantoprazole [Protonix] 40 mg PO BID 11/01/18 02/04/23 Sucralfate [Carafate] 1 gm PO TID-W/MEALS 11/01/18 02/04/23 ARIPiprazole [Abilify] 15 mg PO HS 05/25/20 02/04/23 Albuterol Sulfate [Albuterol 2 puff PO RT-Q4H PRN 02/04/23 02/04/23 Sulfate Hfa] Cyclobenzaprine [Flexeril] 10 mg PO TID PRN 02/04/23 02/04/23 Fluticasone/Umeclidin/Vilanter 1 puff INHALATION RT-DAILY 02/04/23 02/04/23 [Trelegy Ellipta 100-62.5-25] LORazepam [Ativan] 2 mg PO TID PRN 02/04/23 02/04/23 Naloxone HCl [Narcan] 4 mg NASAL DIRECTED PRN 02/04/23 02/04/23 Olmesartan Medoxomil [Benicar] 20 mg PO HS 02/04/23 02/04/23 Previous Rx's Medication Instructions Recorded HYDROcodone/APAP 7.5-325MG [Slocomb 1 tab PO Q6HR PRN 1 Days #6 tab 03/21/22 7.5-325] HYDROcodone/APAP 5-325MG [Slocomb 5] 1 each PO Q6HR PRN #18 tab 02/04/23 Ibuprofen [Motrin] 800 mg PO Q8HR PRN #30 tab 02/04/23 HYDROcodone/APAP 7.5-325MG [[place] 1 tab PO Q6HR PRN #12 tab 02/16/23 7.5-325] HYDROcodone/APAP 7.5-325MG [S[place]omb 1 tab PO Q6HR PRN 3 Days #12 tab 02/22/23 7.5-325] HYDROcodone/APAP 7.5-325MG [Slocomb 1 tab PO TID PRN 3 Days #9 tab 04/30/23 7.5-325] Allergies Allergy/AdvReac Type Severity Reaction Status Date / Time bupropion [From Wellbutrin] Allergy chávez Verified 04/30/23 15:20 johnsons lamotrigine [From Lamictal] Allergy chávez Verified 04/30/23 15:20 johnsons lavender (Lavandula Allergy Itching Verified 04/30/23 15:20 angustifolia) Sulfa (Sulfonamide Allergy Swelling Verified 04/30/23 15:20 Antibiotics) sulfamethoxazole Allergy Swelling Verified 04/30/23 15:20 [From Bactrim] trimethoprim [From Bactrim] Allergy Swelling Verified 04/30/23 15:20 Review of Systems ROS Other: All systems not noted in ROS Statement are negative. <Son Cortés - Last Filed: 04/30/23 14:50> ROS Other: All systems not noted in ROS Statement are negative. <Zac Ponce - Last Filed: 05/01/23 04:03> ROS Statement: Those systems with pertinent positive or pertinent negative responses have been documented in the HPI. Past Medical History Past Medical History: GERD/Reflux, Hypertension Additional Past Medical History / Comment(s): HX GASTRIC BLEED 2017, History of Any Multi-Drug Resistant Organisms: None Reported Past Surgical History: Breast Surgery, Section, Orthopedic Surgery Additional Past Surgical History / Comment(s): BREAT IMPLANTS AGE 19. RT KNEE SX X 3 Past Anesthesia/Blood Transfusion Reactions: No Reported Reaction Additional Past Anesthesia/Blood Transfusion Reaction / Comment(s): HAD BLOOD TRANSFUSION 08/2017 NO PROBLEMS Past Psychological History: Anxiety, Depression Smoking Status: Former smoker Past Alcohol Use History: None Reported Past Drug Use History: None Reported - Past Family History Son(s) Additional Family Medical History / Comment(s): at AGE 20 years from crohns <Son Cortés - Last Filed: 04/30/23 14:50> General Exam <Son Cortés - Last Filed: 04/30/23 14:50> General appearance: alert, anxious Head exam: Present: atraumatic, normocephalic Eye exam: Present: normal appearance Neck exam: Present: normal inspection Respiratory exam: Present: normal lung sounds bilaterally. Absent: respiratory distress, wheezes, rales, rhonchi, stridor Cardiovascular Exam: Present: regular rate, normal rhythm, normal heart sounds. Absent: systolic murmur, diastolic murmur, rubs, gallop, clicks Neurological exam: Present: alert, oriented X3 Psychiatric exam: Present: anxious Skin exam: Present: warm, dry <Zac Ponce - Last Filed: 05/01/23 04:03> - General Exam Comments Initial Comments: Visual physical exam: well appearing, no acute distress. No respiratory distress, airways patent. (Son Cortés) Course Vital Signs 04/30/23 04/30/23 04/30/23 15:17 17:18 19:23 Temperature 98.4 F 98.1 F Pulse Rate 102 H 96 86 Respiratory 20 18 18 Rate Blood Pressure 155/94 164/101 O2 Sat by Pulse 96 98 99 Oximetry Medical Decision Making <Son Cortés - Last Filed: 04/30/23 14:50> - Lab Data Result diagrams: 04/30/23 17:30 04/30/23 17:30 <Zac Ponce - Last Filed: 05/01/23 04:03> - Medical Decision Making Verbally signed by Son Cortés 04/30/22 1452 (Son Cortés) Was pt. sent in by a medical professional or institution (JACKSON Wallace, TAIL WORKER, urgent care, hospital, or penitentiary...) When possible be specific @ -No Did you speak to anyone other than the patient for history (EMS, parent, family, police, friend...)? What history was obtained from this source @ -No Did you review nursing and triage notes (agree or disagree)? Why? @ -I reviewed and agree with nursing and triage notes Were old charts reviewed (outside hosp., previous admission, EMS record, old EKG, old radiological studies, urgent care reports/EKG's, penitentiary records)? Report findings @ -No old charts were reviewed Differential Diagnosis (chest pain, altered mental status, abdominal pain women, abdominal pain men, vaginal bleeding, weakness, fever, dyspnea, syncope, headache, dizziness, GI bleed, back pain, seizure, CVA, palpatations, mental health, musculoskeletal)? @ -Differential Palpitations Ventricular arrhythmias, atrial arrhythmias, myocardial infarction, anemia, thyrotoxicosis, electrolyte imbalance, hypokalemia, pulmonary embolism, pulmonary disease, drugs, alcohol, anxiety, stress.... This is not meant to be an all-inclusive list. EKG interpreted by me (3pts min.). @ -Sinus rhythm ventricular rate 98. NE interval 143. QRS 92. QT 334. QTc 389. X-rays interpreted by me (1pt min.). @ -Chest x-ray shows hyperinflation may related To inspiration her underlying emphysema. Otherwise no acute process seen. Bilateral breast implants. CT interpreted by me (1pt min.). @ -None done U/S interpreted by me (1pt. min.). @ -None done What testing was considered but not performed or refused? (CT, X-rays, U/S, labs)? Why? @ -None What meds were considered but not given or refused? Why? @ -None Did you discuss the management of the patient with other professionals (professionals i.e. JACKSON Wallace, TAIL WORKER, lab, RT, psych nurse, social media marketing specialist, electric detector operator, teacher, student liaison officer, case management director)? Give summary @ -No Was smoking cessation discussed for >3mins.? @ -No Was critical care preformed (if so, how long)? @ -No Were there social determinants of health that impacted care today? How? (Homelessness, low income, unemployed, alcoholism, drug addiction, transportation, low edu. Level, literacy, decrease access to med. care, senior living, rehab)? @ -No Was there de-escalation of care discussed even if they declined (Discuss DNR or withdrawal of care, Hospice)? DNR status @ -No What co-morbidities impacted this encounter? (DM, HTN, Smoking, COPD, CAD, Cancer, CVA, ARF, Chemo, Hep., AIDS, mental health diagnosis, sleep apnea, morbid obesity)? @ -None Was patient admitted / discharged? Hospital course, mention meds given and route, prescriptions, significant lab abnormalities, going to OR and other pertinent info. @ -52-year-old female requesting medication refill. Patient is out of her Slocomb which she takes for chronic knee and back pain, which has been difficult to tolerate. She states that she feels like she is withdrawing, she is familiar this sensation. She was to palpitations. History and physical exam were conducted. Lab work requires no action. Chest x-ray shows no acute process. EKG shows sinus rhythm with no ischemic changes. Heart score is 2, under 3 may follow up outpatient. Patient is provided with a short course of her pain medication. She is instructed to follow-up with her PCP and neurologist.Follow- up with PCP. Report back to ER with any new or worsening symptoms. Discussed return parameters and answered all questions. Patient conveyed verbal understanding and agreed to the plan. I discussed this case in detail with my attending Dr. Chaves Undiagnosed new problem with uncertain prognosis? @ -No Drug Therapy requiring intensive monitoring for toxicity (Heparin, Nitro, Insulin, Cardizem)? @ -No Were any procedures done? @ -No Diagnosis/symptom? @ -Medication refill, opioid withdrawal Acute, or Chronic, or Acute on Chronic? @ -Acute Uncomplicated (without systemic symptoms) or Complicated (systemic symptoms)? @ -Complicated Side effects of treatment? @ -No Exacerbation, Progression, or Severe Exacerbation? @ -No (Zac Ponce) - Lab Data Lab Results 04/30/23 04/30/23 04/30/23 Range/Units 17:30 17:30 17:30 WBC 7.9 (3.8-10.6) k/uL RBC 4.42 (3.80-5.40) m/uL Hgb 13.9 (11.4-16.0) gm/dL Hct 41.5 (34.0-46.0) % MCV 93.8 (80.0-100.0) fL MCH 31.5 (25.0-35.0) pg MCHC 33.6 (31.0-37.0) g/dL RDW 13.6 (11.5-15.5) % Plt Count 282 (150-450) k/uL MPV 7.6 Neutrophils % 74 % Lymphocytes % 20 % Monocytes % 3 % Eosinophils % 2 % Basophils % 0 % Neutrophils # 5.8 (1.3-7.7) k/uL Lymphocytes # 1.6 (1.0-4.8) k/uL Monocytes # 0.3 (0-1.0) k/uL Eosinophils # 0.1 (0-0.7) k/uL Basophils # 0.0 (0-0.2) k/uL PT 9.5 L (10.0-12.5) sec INR 0.8 (<1.2) APTT 24.8 (22.0-30.0) sec Sodium 134 L (137-145) mmol/L Potassium 4.4 (3.5-5.1) mmol/L Chloride 97 L (98-107) mmol/L Carbon Dioxide 24 (22-30) mmol/L Anion Gap 13 mmol/L BUN 7 (7-17) mg/dL Creatinine 0.50 L (0.52-1.04) mg/dL Est GFR (CKD-EPI)AfAm >90 (>60 ml/min/1.73 sqM) Est GFR (CKD-EPI)NonAf >90 (>60 ml/min/1.73 sqM) Glucose 111 H (74-99) mg/dL Calcium 9.9 (8.4-10.2) mg/dL Magnesium 2.1 (1.6-2.3) mg/dL Total Bilirubin 0.5 (0.2-1.3) mg/dL AST 26 (14-36) U/L ALT 33 (4-34) U/L Alkaline Phosphatase 123 (38-126) U/L Troponin I (0.000-0.034) ng/mL Total Protein 7.1 (6.3-8.2) g/dL Albumin 4.7 (3.5-5.0) g/dL 04/30/23 Range/Units 17:30 WBC (3.8-10.6) k/uL RBC (3.80-5.40) m/uL Hgb (11.4-16.0) gm/dL Hct (34.0-46.0) % MCV (80.0-100.0) fL MCH (25.0-35.0) pg MCHC (31.0-37.0) g/dL RDW (11.5-15.5) % Plt Count (150-450) k/uL MPV Neutrophils % % Lymphocytes % % Monocytes % % Eosinophils % % Basophils % % Neutrophils # (1.3-7.7) k/uL Lymphocytes # (1.0-4.8) k/uL Monocytes # (0-1.0) k/uL Eosinophils # (0-0.7) k/uL Basophils # (0-0.2) k/uL PT (10.0-12.5) sec INR (<1.2) APTT (22.0-30.0) sec Sodium (137-145) mmol/L Potassium (3.5-5.1) mmol/L Chloride (98-107) mmol/L Carbon Dioxide (22-30) mmol/L Anion Gap mmol/L BUN (7-17) mg/dL Creatinine (0.52-1.04) mg/dL Est GFR (CKD-EPI)AfAm (>60 ml/min/1.73 sqM) Est GFR (CKD-EPI)NonAf (>60 ml/min/1.73 sqM) Glucose (74-99) mg/dL Calcium (8.4-10.2) mg/dL Magnesium (1.6-2.3) mg/dL Total Bilirubin (0.2-1.3) mg/dL AST (14-36) U/L ALT (4-34) U/L Alkaline Phosphatase (38-126) U/L Troponin I <0.012 (0.000-0.034) ng/mL Total Protein (6.3-8.2) g/dL Albumin (3.5-5.0) g/dL Disposition <Son Cortés - Last Filed: 04/30/23 14:50> Is patient prescribed a controlled substance at d/c from ED?: Yes If prescribed controlled substance>3 days was MAPS reviewed?: Prescribed <3 Days Time of Disposition: 19:14 <Zac Ponce - Last Filed: 05/01/23 04:03> Clinical Impression: Medication refill, Opioid withdrawal Disposition: HOME SELF-CARE Condition: Fair Instructions (If sedation given, give patient instructions): Opioid Withdrawal (ED) Additional Instructions: Follow-up with PCP. Report back to ER with any new or worsening symptoms. Prescriptions: HYDROcodone/APAP 7.5-325MG [S[place]omb 7.5-325] 1 tab PO TID PRN 3 Days #9 tab PRN Reason: Pain Referrals: Margarita Tran [Primary Care Provider] - 1-2 days
[2023-04-30] MEDS ORDERED: SODIUM CHLORIDE 0.9% 1,000 ML IV STA (16:45)
[2023-04-30] MEDS ORDERED: ASPIRIN 81 MG PO STA (16:45)
[2023-04-30 17:36] VITALS: RESP 18; TEMP 98.1
[2023-04-30 18:01] LABS: Basophils % (A) 0 %; Eosinophils # (A) 0.1 k/uL (0-0.7); Eosinophils % (A) 2 %; HCT 41.5 % (34.0-46.0); HGB 13.9 gm/dL (11.4-16.0); Lymphocytes # (A) 1.6 k/uL (1.0-4.8); Lymphocytes % (A) 20 %; MCH 31.5 pg (25.0-35.0); MCHC 33.6 g/dL (31.0-37.0); MCV 93.8 fL (80.0-100.0); Mean Platelet Volume 7.6; Monocytes # (A) 0.3 k/uL (0-1.0); Monocytes % (A) 3 %; Neutrophils # (A) 5.8 k/uL (1.3-7.7); Neutrophils % (A) 74 %; Platelet Count 282 k/uL (150-450); RBC 4.42 m/uL (3.80-5.40); RDW 13.6 % (11.5-15.5); WBC 7.9 k/uL (3.8-10.6)
[2023-04-30 18:06] LABS: ALT 33 U/L (4-34); AST 26 U/L (14-36); African American GFR (CKD) >90 (>60 ml/min/1.73 sqM); Albumin 4.7 g/dL (3.5-5.0); Alkaline Phosphatase 123 U/L (38-126); Anion Gap 13 mmol/L; Blood Urea Nitrogen 7 mg/dL (7-17); Calcium 9.9 mg/dL (8.4-10.2); Carbon Dioxide 24 mmol/L (22-30); Chloride 97 mmol/L (98-107); Glucose 111 mg/dL (74-99); Magnesium 2.1 mg/dL (1.6-2.3); Non-African American GFR(CKD) >90 (>60 ml/min/1.73 sqM); Potassium 4.4 mmol/L (3.5-5.1); Sodium 134 mmol/L (137-145); Total Bilirubin 0.5 mg/dL (0.2-1.3); Total Protein 7.1 g/dL (6.3-8.2)
[2023-04-30 18:09] LABS: INR 0.8 (<1.2); Partial Thromboplastin Time 24.8 sec (22.0-30.0); Prothrombin Time 9.5 sec (10.0-12.5)
--- NOTE | 2023-04-30 18:38 | XR ---
EXAMINATION TYPE: XR chest 2V DATE OF EXAM: 04/30/2023 COMPARISON: 04/24/2022 HISTORY: 52-year-old female with chest pain TECHNIQUE: PA and lateral views FINDINGS: Heart normal size. Hyperinflation. Breast implants noted. No consolidation or pleural effusion. IMPRESSION: Hyperinflation may relate to depth of inspiration or underlying emphysema. Otherwise, no acute proces s seen. Bilateral breast implants.
[2023-04-30 19:45] VITALS: BP 164/101; PULSE 86
== END 2023-04-30 19:27 | disposition home or self-care (01) ==
LOC: EC 14:28
DX: F11.23 Opioid dependence with withdrawal (principal); Z76.0 Encounter for issue of repeat prescription; I10 Essential (primary) hypertension; K21.9 Gastro-esophageal reflux disease without esophagitis; F41.9 Anxiety disorder, unspecified; F32.A Depression, unspecified; Z87.891 Personal history of nicotine dependence; Z79.899 Other long term (current) drug therapy; Z88.2 Allergy status to sulfonamides; Z88.8 Allergy status to other drugs, medicaments and biological substances
CPT/HCPCS: 36415; 71046; 80053; 83735; 84484; 85025; 85610; 85730; 93005; 96360; 99285

== ENCOUNTER 2023-05-19 15:07 | Inpatient (IN) | payer MEDICAID, OTHER ==
--- NOTE | 2023-05-19 15:29 | ED ---
Psych HPI - General Source: patient, family, RN notes reviewed Mode of arrival: ambulatory Limitations: no limitations <Ashwin Cates - Last Filed: 05/19/23 15:27> - General Source: RN notes reviewed, old records reviewed Mode of arrival: ambulatory Limitations: no limitations - History of Present Illness MD Complaint: suicidal ideation, feels depressed, altered mental status Associated Psychiatric Symptoms: depression, suicidal ideation History of same: Yes Quality: constant Improves With: none Worsens With: none <Timoteo Mahmood - Last Filed: 05/23/23 07:51> - General Chief Complaint: Psychiatric Symptoms Stated Complaint: mental health Time Seen by Provider: 05/19/23 15:27 - History of Present Illness Initial Comments: 52-year-old female presents emergency department with chief complaint of depression, suicidal. Patient states she needs a psychiatric evaluation. She states 2 weeks ago she took over 100 pills of almost relaxer and something else. She states that she needs to be admitted to psychiatric services. Denies any physical complaints. She is very anxious, tearful. (Ashwin Cates) This is a 52-year-old female to ER with severe depression and suicidal thoughts here in the emergency room and taking an overdose about 2 weeks ago and has had persistent psychiatric and depression with suicidal thoughts (Timoteo Mahmood) - Related Data Home Medications Medication Instructions Recorded Confirmed Pantoprazole [Protonix] 40 mg PO BID 11/01/18 05/19/23 Sucralfate [Carafate] 1 gm PO TID-W/MEALS 11/01/18 05/19/23 Albuterol Sulfate [Albuterol 2 puff PO RT-Q4H PRN 02/04/23 05/19/23 Sulfate Hfa] Cyclobenzaprine [Flexeril] 10 mg PO BID PRN 02/04/23 05/19/23 Fluticasone/Umeclidin/Vilanter 1 puff INHALATION RT-DAILY 02/04/23 05/19/23 [Trelegy Ellipta 100-62.5-25] LORazepam [Ativan] 1 mg PO TID PRN 02/04/23 05/19/23 Olmesartan Medoxomil [Benicar] 20 mg PO HS 02/04/23 05/19/23 Albuterol Nebulized [Ventolin 2.5 mg INHALATION RT-Q6H PRN 05/19/23 05/19/23 Nebulized] Previous Rx's Medication Instructions Recorded HYDROcodone/APAP 7.5-325MG [[place] 1 tab PO Q6HR PRN 3 Days #12 tab 02/22/23 7.5-325] Allergies Allergy/AdvReac Type Severity Reaction Status Date / Time brexpiprazole [From Rexulti] Allergy mouth sores Verified 05/19/23 17:15 bupropion [From Wellbutrin] Allergy fabian Verified 05/19/23 17:15 johnsons lamotrigine [From Lamictal] Allergy fabian Verified 05/19/23 17:15 johnsons lavender (Lavandula Allergy Itching Verified 05/19/23 17:15 angustifolia) Sulfa (Sulfonamide Allergy Fabian-Raad Verified 05/19/23 17:15 Antibiotics) syndrome sulfamethoxazole Allergy Fabian-Raad Verified 05/19/23 17:15 [From Bactrim] syndrome trimethoprim [From Bactrim] Allergy Fabian-Raad Verified 05/19/23 17:15 syndrome vortioxetine Allergy joint Verified 05/19/23 17:15 [From Trintellix] pain, rash/hives Review of Systems ROS Other: All systems not noted in ROS Statement are negative. <Ashwin Cates - Last Filed: 05/19/23 15:27> ROS Other: All systems not noted in ROS Statement are negative. <Timoteo Mahmood - Last Filed: 05/23/23 07:51> ROS Statement: Those systems with pertinent positive or pertinent negative responses have been documented in the HPI. Past Medical History Past Medical History: GERD/Reflux, Hypertension Additional Past Medical History / Comment(s): HX GASTRIC BLEED 2017, History of Any Multi-Drug Resistant Organisms: None Reported Past Surgical History: Breast Surgery, Section, Orthopedic Surgery Additional Past Surgical History / Comment(s): BREAT IMPLANTS AGE 19. RT KNEE SX X 3 Past Anesthesia/Blood Transfusion Reactions: No Reported Reaction Additional Past Anesthesia/Blood Transfusion Reaction / Comment(s): HAD BLOOD TRANSFUSION 08/2017 NO PROBLEMS Past Psychological History: Anxiety, Depression Smoking Status: Former smoker Past Alcohol Use History: None Reported Past Drug Use History: None Reported - Past Family History Son(s) Additional Family Medical History / Comment(s): at AGE 20 years from crohns <LoanAshwin Xuan - Last Filed: 05/19/23 15:27> General Exam Limitations: no limitations <LoanAshwin Govea - Last Filed: 05/19/23 15:27> General appearance: alert, in no apparent distress Head exam: Present: atraumatic, normocephalic, normal inspection Eye exam: Present: normal appearance, PERRL, EOMI. Absent: scleral icterus, conjunctival injection, periorbital swelling ENT exam: Present: normal exam, mucous membranes moist Neck exam: Present: normal inspection. Absent: tenderness, meningismus, lymphadenopathy Respiratory exam: Present: normal lung sounds bilaterally. Absent: respiratory distress, wheezes, rales, rhonchi, stridor Cardiovascular Exam: Present: regular rate, normal rhythm, normal heart sounds. Absent: systolic murmur, diastolic murmur, rubs, gallop, clicks GI/Abdominal exam: Present: soft, normal bowel sounds. Absent: distended, tenderness, guarding, rebound, rigid Extremities exam: Present: normal inspection, full ROM, normal capillary refill. Absent: tenderness, pedal edema, joint swelling, calf tenderness Back exam: Present: normal inspection Neurological exam: Present: alert, oriented X3, CN II-XII intact Psychiatric exam: Present: normal affect, normal mood Skin exam: Present: warm, dry, intact, normal color. Absent: rash <Timoteo Mahmood - Last Filed: 05/23/23 07:51> - General Exam Comments Initial Comments: Visual Physical Exam Vital signs reviewed General: Well-appearing, nontoxic, no acute distress. Head: Normocephalic, atraumatic Eyes: PERRLA, EOMI ENT: Airway patent Chest: Nonlabored breathing Skin: No visual rash, normal skin tone Neuro: Alert and oriented 3 Musculoskeletal: No gross abnormalities (Ashwin Cates) Course <Timoteo Mahmood - Last Filed: 05/23/23 07:51> Vital Signs 05/19/23 05/19/23 15:23 21:09 Temperature 97.6 F 97.9 F Pulse Rate 114 H 118 H Respiratory 16 18 Rate Blood Pressure 133/77 195/96 O2 Sat by Pulse 94 L 97 Oximetry - Reevaluation(s) Reevaluation #1: 05/19/23 20:20 Medical records reviewed (Timoteo Mahmood) Reevaluation #2: 05/19/23 20:20 Medical clear for psychiatric evaluation (Timoteo Mahmood) Medical Decision Making <Ashwin Cates - Last Filed: 05/19/23 15:27> - Lab Data Result diagrams: 05/19/23 15:43 05/19/23 15:43 <Timoteo Mahmood - Last Filed: 05/23/23 07:51> - Medical Decision Making I completed the quick note portion of this chart signed Ashwin Cates PA-C (Ashwin Cates) 52 female will be admitted for psychiatric evaluation and treatment (Timoteo Mahmood) - Lab Data Lab Results 05/19/23 05/19/23 05/19/23 Range/Units 15:43 15:43 15:43 WBC 10.5 (3.8-10.6) k/uL RBC 4.47 (3.80-5.40) m/uL Hgb 13.6 (11.4-16.0) gm/dL Hct 41.7 (34.0-46.0) % MCV 93.2 (80.0-100.0) fL MCH 30.3 (25.0-35.0) pg MCHC 32.6 (31.0-37.0) g/dL RDW 13.9 (11.5-15.5) % Plt Count 490 H (150-450) k/uL MPV 8.0 Neutrophils % 60 % Lymphocytes % 31 % Monocytes % 5 % Eosinophils % 1 % Basophils % 0 % Neutrophils # 6.3 (1.3-7.7) k/uL Lymphocytes # 3.3 (1.0-4.8) k/uL Monocytes # 0.5 (0-1.0) k/uL Eosinophils # 0.1 (0-0.7) k/uL Basophils # 0.0 (0-0.2) k/uL Sodium 141 (137-145) mmol/L Potassium 4.3 (3.5-5.1) mmol/L Chloride 109 H (98-107) mmol/L Carbon Dioxide 23 (22-30) mmol/L Anion Gap 9 mmol/L BUN 6 L (7-17) mg/dL Creatinine 0.48 L (0.52-1.04) mg/dL Est GFR (CKD-EPI)AfAm >90 (>60 ml/min/1.73 sqM) Est GFR (CKD-EPI)NonAf >90 (>60 ml/min/1.73 sqM) Glucose 102 H (74-99) mg/dL Estimated Ave Glu mg/dL mg/dL Hemoglobin A1c (<=6.0) % Calcium 9.1 (8.4-10.2) mg/dL Total Bilirubin 0.2 (0.2-1.3) mg/dL AST 40 H (14-36) U/L ALT 37 H (4-34) U/L Alkaline Phosphatase 101 (38-126) U/L Total Protein 7.2 (6.3-8.2) g/dL Albumin 4.5 (3.5-5.0) g/dL TSH (0.465-4.680) mIU/L Urine Color Urine Appearance (Clear) Urine pH (5.0-8.0) Ur Specific [place] (1.001-1.035) Urine Protein (Negative) Urine Glucose (UA) (Negative) Urine Ketones (Negative) Urine Blood (Negative) Urine Nitrite (Negative) Urine Bilirubin (Negative) Urine Urobilinogen (<2.0) mg/dL Ur Leukocyte Esterase (Negative) Urine Opiates Screen (NotDetected) Ur Oxycodone Screen (NotDetected) Urine Methadone Screen (NotDetected) Ur Barbiturates Screen (NotDetected) U Tricyclic Antidepress (NotDetected) Ur Phencyclidine Scrn (NotDetected) Ur Amphetamines Screen (NotDetected) U Methamphetamines Scrn (NotDetected) U Benzodiazepines Scrn (NotDetected) Urine Cocaine Screen (NotDetected) U Marijuana (THC) Screen (NotDetected) SARS-CoV-2 (PCR) Not Detected (Not Detectd) 05/19/23 05/19/23 05/19/23 Range/Units 15:43 15:43 16:23 WBC (3.8-10.6) k/uL RBC (3.80-5.40) m/uL Hgb (11.4-16.0) gm/dL Hct (34.0-46.0) % MCV (80.0-100.0) fL MCH (25.0-35.0) pg MCHC (31.0-37.0) g/dL RDW (11.5-15.5) % Plt Count (150-450) k/uL MPV Neutrophils % % Lymphocytes % % Monocytes % % Eosinophils % % Basophils % % Neutrophils # (1.3-7.7) k/uL Lymphocytes # (1.0-4.8) k/uL Monocytes # (0-1.0) k/uL Eosinophils # (0-0.7) k/uL Basophils # (0-0.2) k/uL Sodium (137-145) mmol/L Potassium (3.5-5.1) mmol/L Chloride (98-107) mmol/L Carbon Dioxide (22-30) mmol/L Anion Gap mmol/L BUN (7-17) mg/dL Creatinine (0.52-1.04) mg/dL Est GFR (CKD-EPI)AfAm (>60 ml/min/1.73 sqM) Est GFR (CKD-EPI)NonAf (>60 ml/min/1.73 sqM) Glucose (74-99) mg/dL Estimated Ave Glu mg/dL 126 mg/dL Hemoglobin A1c 6.0 (<=6.0) % Calcium (8.4-10.2) mg/dL Total Bilirubin (0.2-1.3) mg/dL AST (14-36) U/L ALT (4-34) U/L Alkaline Phosphatase (38-126) U/L Total Protein (6.3-8.2) g/dL Albumin (3.5-5.0) g/dL TSH 0.564 (0.465-4.680) mIU/L Urine Color Colorless Urine Appearance Clear (Clear) Urine pH 5.5 (5.0-8.0) Ur Specific [place] 1.015 (1.001-1.035) Urine Protein Negative (Negative) Urine Glucose (UA) Negative (Negative) Urine Ketones Negative (Negative) Urine Blood Negative (Negative) Urine Nitrite Negative (Negative) Urine Bilirubin Negative (Negative) Urine Urobilinogen <2.0 (<2.0) mg/dL Ur Leukocyte Esterase Negative (Negative) Urine Opiates Screen Detected H (NotDetected) Ur Oxycodone Screen Not Detected (NotDetected) Urine Methadone Screen Not Detected (NotDetected) Ur Barbiturates Screen Not Detected (NotDetected) U Tricyclic Antidepress Detected H (NotDetected) Ur Phencyclidine Scrn Not Detected (NotDetected) Ur Amphetamines Screen Not Detected (NotDetected) U Methamphetamines Scrn Not Detected (NotDetected) U Benzodiazepines Scrn Not Detected (NotDetected) Urine Cocaine Screen Not Detected (NotDetected) U Marijuana (THC) Screen Not Detected (NotDetected) SARS-CoV-2 (PCR) (Not Detectd) Disposition <Ashwin Cates M - Last Filed: 05/19/23 15:27> Is patient prescribed a controlled substance at d/c from ED?: No <Timoteo Mahmood - Last Filed: 05/23/23 07:51> Clinical Impression: Acute anxiety, Depression, Suicidal ideation, Attempted suicide, Adjustment reaction of adult life, Opioid withdrawal Disposition: TRANSFER TO PSYCH HOSP/UNIT Condition: Fair
[2023-05-19 16:16] LABS: ALT 37 U/L (4-34); AST 40 U/L (14-36); African American GFR (CKD) >90 (>60 ml/min/1.73 sqM); Albumin 4.5 g/dL (3.5-5.0); Alkaline Phosphatase 101 U/L (38-126); Anion Gap 9 mmol/L; Blood Urea Nitrogen 6 mg/dL (7-17); Calcium 9.1 mg/dL (8.4-10.2); Carbon Dioxide 23 mmol/L (22-30); Chloride 109 mmol/L (98-107); Glucose 102 mg/dL (74-99); Non-African American GFR(CKD) >90 (>60 ml/min/1.73 sqM); Potassium 4.3 mmol/L (3.5-5.1); Sodium 141 mmol/L (137-145); Total Bilirubin 0.2 mg/dL (0.2-1.3); Total Protein 7.2 g/dL (6.3-8.2)
[2023-05-19 16:25] LABS: Basophils % (A) 0 %; Eosinophils # (A) 0.1 k/uL (0-0.7); Eosinophils % (A) 1 %; HCT 41.7 % (34.0-46.0); HGB 13.6 gm/dL (11.4-16.0); Lymphocytes # (A) 3.3 k/uL (1.0-4.8); Lymphocytes % (A) 31 %; MCH 30.3 pg (25.0-35.0); MCHC 32.6 g/dL (31.0-37.0); MCV 93.2 fL (80.0-100.0); Monocytes # (A) 0.5 k/uL (0-1.0); Monocytes % (A) 5 %; Neutrophils # (A) 6.3 k/uL (1.3-7.7); Neutrophils % (A) 60 %; Platelet Count 490 k/uL (150-450); RBC 4.47 m/uL (3.80-5.40); RDW 13.9 % (11.5-15.5); WBC 10.5 k/uL (3.8-10.6)
[2023-05-19 16:43] LABS: Appearance,Urine Clear (Clear); Bilirubin,Urine Negative (Negative); Blood,Urine Negative (Negative); Color,Urine Colorless; Glucose,Urine (UA) Negative (Negative); Ketones,Urine Negative (Negative); Leukocyte Esterase,Urine Negative (Negative); Nitrite,Urine Negative (Negative); PH, Urine 5.5 (5.0-8.0); Protein,Urine Negative (Negative); Specific Gravity,Urine 1.015 (1.001-1.035); Urobilinogen,Urine <2.0 mg/dL (<2.0)
[2023-05-19 17:53] LABS: Cocaine Screen,Urine Not Detected (NotDetected); Opiate Screen,Urine Detected (NotDetected); Phencyclidine Screen,Urine Not Detected (NotDetected); Urn Cannabinoid Scrn Not Detected (NotDetected)
[2023-05-19 17:54] LABS: Amphetamine Screen,Urine Not Detected (NotDetected); Barbiturate Screen,Urine Not Detected (NotDetected); Benzodiazepines Screen,Urine Not Detected (NotDetected); Methadone Screen, Urine Not Detected (NotDetected); Oxycodone Screen, Urine Not Detected (NotDetected); Tricyclic Antidepressant,Urine Detected (NotDetected)
[2023-05-19] MEDS ORDERED: MAGNESIUM HYDROXIDE 2,400 MG/30 ML CUP PO PRN (20:16)
[2023-05-19] MEDS ORDERED: MAG HYDROX/AL HYDROX/SIMETH 30 ML CUP PO PRN (20:16)
[2023-05-19] MEDS ORDERED: ALBUTEROL INHALER 60 PUFF/8 GM INHALER (MHU) INHALATION PRN (20:19)
[2023-05-19] MEDS ORDERED: haloperidoL 5 MG TAB PO PRN (20:23)
[2023-05-19] MEDS ORDERED: LORazepam 2 MG/ML INJ IM PRN (20:23)
[2023-05-19] MEDS ORDERED: HALOPERIDOL LACTATE 5 MG/ML 1 ML VIAL IM PRN (20:23)
[2023-05-19] MEDS ORDERED: LORazepam 1 MG TAB PO STA (20:24)
[2023-05-19] MEDS ORDERED: MIRTAZAPINE 15 MG TAB PO SCH (21:00)
[2023-05-19] MEDS: HYDROcodone/APAP 7.5-325MG 1 EACH TAB PO PRN (21:47)
[2023-05-19] MEDS: PANTOPRAZOLE 40 MG TABLET PO SCH (21:47)
[2023-05-19] MEDS: LORazepam 1 MG TAB PO PRN (21:49)
[2023-05-19] MEDS: LOSARTAN 50 MG TAB PO SCH (23:46)
[2023-05-19] MEDS: TRELEGY ELLIPTA INHALATION SCH (23:47)
[2023-05-20] MEDS ORDERED: IPRATROPIUM 0.5 MG/2.5 ML NEBU INHALATION SCH (08:00)
[2023-05-20] MEDS: SUCRALFATE 1 GM TAB PO SCH ×3 (08:29→17:38)
[2023-05-20] MEDS: PANTOPRAZOLE 40 MG TABLET PO SCH ×2 (08:29→17:38)
[2023-05-20] MEDS: NICOTINE 14MG/24HR PATCH TRANSDERM SCH (08:29)
[2023-05-20] MEDS: LORazepam 1 MG TAB PO PRN ×2 (08:31→20:46)
[2023-05-20] MEDS: HYDROcodone/APAP 7.5-325MG 1 EACH TAB PO PRN ×2 (08:31→16:26)
[2023-05-20] MEDS: METOPROLOL TARTRATE 25 MG TAB PO SCH ×2 (08:51→20:45)
[2023-05-20] MEDS ORDERED: DESVENLAFAXINE SUCCINATE 50 MG TAB.ER.24H PO SCH (09:00)
[2023-05-20] MEDS ORDERED: LORazepam 0.5 MG TAB PO PRN (13:54)
[2023-05-20] MEDS: hydrOXYzine pamoate 25 MG CAP PO PRN (14:29)
[2023-05-20] MEDS: DULoxetine HCL 30 MG CAPSULE.DR PO SCH ×2 (14:29→20:44)
--- NOTE | 2023-05-20 14:56 | P.HP ---
Psychiatric H&P - . H&P Date: 05/20/23 History & Physical: Allergies Allergy/AdvReac Type Severity Reaction Status Date / Time brexpiprazole from Rexulti Allergy mouth sores Verified 05/19/23 17:15 bupropion from Wellbutrin Allergy chávez Verified 05/19/23 17:15 johnsons lamotrigine from Lamictal Allergy chávez Verified 05/19/23 17:15 johnsons lavender (Lavandula Allergy Itching Verified 05/19/23 17:15 angustifolia) Sulfa (Sulfonamide Allergy Rui-Raad Verified 05/19/23 17:15 Antibiotics) syndrome sulfamethoxazole Allergy Rui-Raad Verified 05/19/23 17:15 From Bactrim syndrome trimethoprim from Bactrim Allergy Rui-Raad Verified 05/19/23 17:15 syndrome vortioxetine Allergy joint Verified 05/19/23 17:15 From Trintellix pain, rash/hives Vital Signs Temp 97 F L 05/20/23 06:41 Pulse 118 H 05/20/23 14:31 Resp 16 05/20/23 06:41 BP 147/77 05/20/23 14:31 Pulse Ox 99 05/19/23 23:47 FiO2 Intake & Output 05/19/23 05/20/23 05/20/23 18:59 06:59 18:59 Weight 93.44 kg 90.889 kg Laboratory Last Values WBC 10.5 k/uL (3.8-10.6) 05/19/23 15:43 RBC 4.47 m/uL (3.80-5.40) 05/19/23 15:43 Hgb 13.6 gm/dL (11.4-16.0) 05/19/23 15:43 Hct 41.7 % (34.0-46.0) 05/19/23 15:43 MCV 93.2 fL (80.0-100.0) 05/19/23 15:43 MCH 30.3 pg (25.0-35.0) 05/19/23 15:43 MCHC 32.6 g/dL (31.0-37.0) 05/19/23 15:43 RDW 13.9 % (11.5-15.5) 05/19/23 15:43 Plt Count 490 k/uL (150-450) H 05/19/23 15:43 MPV 8.0 05/19/23 15:43 Neutrophils % 60 % 05/19/23 15:43 Lymphocytes % 31 % 05/19/23 15:43 Monocytes % 5 % 05/19/23 15:43 Eosinophils % 1 % 05/19/23 15:43 Basophils % 0 % 05/19/23 15:43 Neutrophils # 6.3 k/uL (1.3-7.7) 05/19/23 15:43 Lymphocytes # 3.3 k/uL (1.0-4.8) 05/19/23 15:43 Monocytes # 0.5 k/uL (0-1.0) 05/19/23 15:43 Eosinophils # 0.1 k/uL (0-0.7) 05/19/23 15:43 Basophils # 0.0 k/uL (0-0.2) 05/19/23 15:43 Sodium 141 mmol/L (137-145) 05/19/23 15:43 Potassium 4.3 mmol/L (3.5-5.1) 05/19/23 15:43 Chloride 109 mmol/L (98-107) H 05/19/23 15:43 Carbon Dioxide 23 mmol/L (22-30) 05/19/23 15:43 Anion Gap 9 mmol/L 05/19/23 15:43 BUN 6 mg/dL (7-17) L 05/19/23 15:43 Creatinine 0.48 mg/dL (0.52-1.04) L 05/19/23 15:43 Est GFR (CKD-EPI)AfAm >90 (>60 ml/min/1.73 sqM) 05/19/23 15:43 Est GFR (CKD-EPI)NonAf >90 (>60 ml/min/1.73 sqM) 05/19/23 15:43 Glucose 102 mg/dL (74-99) H 05/19/23 15:[address] Glu mg/dL 126 mg/dL 05/19/23 15:43 Hemoglobin A1c 6.0 % (<=6.0) 05/19/23 15:43 Calcium 9.1 mg/dL (8.4-10.2) 05/19/23 15:43 Total Bilirubin 0.2 mg/dL (0.2-1.3) 05/19/23 15:43 AST 40 U/L (14-36) H 05/19/23 15:43 ALT 37 U/L (4-34) H 05/19/23 15:43 Alkaline Phosphatase 101 U/L (38-126) 05/19/23 15:43 Total Protein 7.2 g/dL (6.3-8.2) 05/19/23 15:43 Albumin 4.5 g/dL (3.5-5.0) 05/19/23 15:43 TSH 0.564 mIU/L (0.465-4.680) 05/19/23 15:43 Urine Color Colorless 05/19/23 16:23 Urine Appearance Clear (Clear) 05/19/23 16:23 Urine pH 5.5 (5.0-8.0) 05/19/23 16:23 Ur Specific [place] 1.015 (1.001-1.035) 05/19/23 16:23 Urine Protein Negative (Negative) 05/19/23 16:23 Urine Glucose (UA) Negative (Negative) 05/19/23 16:23 Urine Ketones Negative (Negative) 05/19/23 16:23 Urine Blood Negative (Negative) 05/19/23 16:23 Urine Nitrite Negative (Negative) 05/19/23 16:23 Urine Bilirubin Negative (Negative) 05/19/23 16:23 Urine Urobilinogen <2.0 mg/dL (<2.0) 05/19/23 16:23 Ur Leukocyte Esterase Negative (Negative) 05/19/23 16:23 Urine Opiates Screen Detected (NotDetected) H 05/19/23 16:23 Ur Oxycodone Screen Not Detected (NotDetected) 05/19/23 16:23 Urine Methadone Screen Not Detected (NotDetected) 05/19/23 16:23 Ur Barbiturates Screen Not Detected (NotDetected) 05/19/23 16:23 U Tricyclic Antidepress Detected (NotDetected) H 05/19/23 16:23 Ur Phencyclidine Scrn Not Detected (NotDetected) 05/19/23 16:23 Ur Amphetamines Screen Not Detected (NotDetected) 05/19/23 16:23 U Methamphetamines Scrn Not Detected (NotDetected) 05/19/23 16:23 U Benzodiazepines Scrn Not Detected (NotDetected) 05/19/23 16:23 Urine Cocaine Screen Not Detected (NotDetected) 05/19/23 16:23 U Marijuana (THC) Screen Not Detected (NotDetected) 05/19/23 16:23 SARS-CoV-2 (PCR) Not Detected (Not Detectd) 05/19/23 15:43 05/20/23 14:48 IDENTIFYING DATA: Patient is a 52-year-old female, current is with her mother in a house, she is [place], she had collects Social Security disability. HPI: Patient presented to the hospital yesterday complaining of depression and suicidal ideations. Patient apparently stated in the ER that about 2 weeks ago she took over 100 pills and was requesting to be admitted to the psychiatric unit. Patient apparently was tearful, appeared anxious. She claims that she has been receiving her Ativan and pain medications from her primary care doctor. States that with little notice her primary care doctor close's office. She states that she has been having difficulty following up with other doctors in the area to get her medications. She was mainly focused on her controlled medications. Claims that her liver functions test were elevated, urine analysis was negative. Urine drug screen is positive for opiates and TCAs. Patient did claim that she has been having more stressors at home, states that she is finding it difficult to live with her mother, states that her anxiety has been more elevated recently, claims that she is dealing with chronic back and knee pain. States that her only child, her son about 15 years ago. States that this has been difficult for her to deal with. States that she does have a depression history, currently depression has been worse. States that her meds have been changed around recently by the nurse practitioner. States that her sleep has been on and off, appetite has been fair. Patient denies any suicidal or homicidal ideations intent or plan. At this time patient denies any auditory or visual hallucinations. Patient denies any flight of ideas racing thoughts and increased in goal directed behavior. Patient admits to using alcohol occasionally, smokes nicotine products. PAST PSYCHIATRIC HISTORY: Patient states that she has history of depression, anxiety. Patient is currently on Remeron, Ativan, used to be on Abilify, recently discontinued Rexulti. States that her last psychiatric hospitalization was at the age of [age] years old when she was hospitalized in [place]. Claims that she follows up at peer psychiatry with a nurse practitioner. Claims that she does have a history of cutting when she was 18 years old. PMH: As per medicine H&P ALLERGIES: as per EMR CHEMICAL DEPENDENCY HISTORY: as per HPI FAMILY PSYCHIATRIC/SUBSTANCE USE HISTORY: Claims that her aunt had schizophrenia SOCIAL HISTORY: Patient was born and raised in [place] and then moved to [place] at a young age. States that she completed up to the ninth grade and dropped out of school. States that she worked several jobs in the past. Currently collect Social Security disability. Currently lives with her mother, is single. Denies any legal history. MENTAL STATUS EXAM: General Appearance: Patient appears to be mildly overweight, stated age is alert, directable, and attempts to cooperate. Patient appears to have poor h ygiene and grooming. Behavior: Patient is seated without any agitated behavior. Appears to be fairly anxious, overwhelmed. Speech: Patient's speech is fluent and nonpressured. Hesitant Mood/Affect: Patient reports their mood is depressed and anxious, affect is congruent Suicidality/Homicidality: Patient denies having any homicidal ideation intent or plan. Denies any suicidal ideations intent or plan Perceptions: Patient denies any visual hallucinations and denies any auditory hallucinations Though content/process: There is no evidence of any delusional thought content and thought process is linear and goal-directed. Focused on medications Memory and concentration: AOX3, grossly intact for the purposes of this session. Can spell "WORLD" backwards Judgment and insight: Poor STRENGTHS/WEAKNESSES: strength is that patient is resilient. Weakness is that patient has poor judgment and is impulsive INTELLECT: Average IMPRESSIONS: Major depressive disorder without psychotic features Anxiety disorder unspecified Benzodiazepine dependence, currently in withdrawal Nicotine dependence PLAN: -Patient is admitted under voluntary status to MHU for stabilization of psychiatric symptoms and safety. Patient has signed adult voluntary form and medication consent and is placed in patient's chart. -Medications : Will start patient on Cymbalta 30 mg twice daily for anxiety/mood. Seroquel 50 mg nightly for mood stabilization/insomnia/anxiety. Vistaril as needed for anxiety. -Ativan and Haldol PRN for agitation/aggression -Librium scheduled taper for benzodiazepine withdrawal. -CIWA protocol with Ativan PRN for ETOH withdrawal -Patient was counselled on substance abuse and desired to cut back on use -Patient was informed of the risks, benefits and side effects of the medication and patient verbally consented to taking the medications. Patient signed med consent form and was placed in chart. -Internal Medicine consult to perform medical evaluation and physical. -NRT -nicotine patch -SW on board for discharge planning. Encourage patient to participate in groups to work on coping skills. 05/20/23 14:55
[2023-05-20] MEDS: chlordiazePOXIDE 25 MG CAP PO SCH ×2 (16:25→20:45)
[2023-05-20] MEDS: LOSARTAN 50 MG TAB PO SCH (20:44)
[2023-05-20] MEDS: QUEtiapine 50 MG TAB PO SCH (20:45)
[2023-05-20] MEDS: TRELEGY ELLIPTA INHALATION SCH (20:54)
[2023-05-21] MEDS: NICOTINE 14MG/24HR PATCH TRANSDERM SCH (08:15)
[2023-05-21] MEDS: PANTOPRAZOLE 40 MG TABLET PO SCH ×2 (08:16→17:34)
[2023-05-21] MEDS: SUCRALFATE 1 GM TAB PO SCH ×3 (08:16→17:34)
[2023-05-21] MEDS: DULoxetine HCL 30 MG CAPSULE.DR PO SCH ×2 (08:16→21:12)
[2023-05-21] MEDS: METOPROLOL TARTRATE 25 MG TAB PO SCH ×2 (08:16→21:12)
[2023-05-21] MEDS: HYDROcodone/APAP 7.5-325MG 1 EACH TAB PO PRN ×2 (08:17→16:44)
[2023-05-21] MEDS: chlordiazePOXIDE 25 MG CAP PO SCH ×3 (08:17→21:12)
[2023-05-21] MEDS: LORazepam 1 MG TAB PO PRN ×3 (08:18→21:23)
--- NOTE | 2023-05-21 11:08 | P.PN ---
Progress Note - Text Interval history: States that she feels "frightened". States that the anxiety is making her "very shaky" depression appears to be improving At this time patient denies any suicidal or homicidal ideations intent or plan. Denies any Auditory or visual hallucinations. Patient denies any side effects from the medications and has been compliant with meds. Mental status exam: General Appearance: [Patient appears to be older than stated age is alert, directable, and cooperative.] Behavior: [No agitated behavior. Patient is calm and directable] Speech: Patient's speech is fluent and nonpressured. Mood/Affect: Mood is improving mildly, affect is congruent and constricted. Suicidality/Homicidality: Patient denies having any suicidal or homicidal ideation intent or plan. Perceptions: Patient denies any auditory or visual hallucinations. Though content/process: [There is no evidence of any delusional thought content and thought process is linear and goal-directed.] Memory and concentration: AOX3, grossly intact for the purposes of this session Judgment and insight: improving mildly Assessment/Plan: Continue with current diagnosis. Patient continues to meet criteria for inpatient psychiatric admission for symptom stabilization and safety.[Patient will be maintained on current psychotropic medication regimen.] Monitor for medication compliance and for any psychotropic medication side effects. Will continue to monitor ongoing response to treatment. Encouraged participation in milieu.
[2023-05-21] MEDS: hydrOXYzine pamoate 25 MG CAP PO PRN (12:44)
[2023-05-21] MEDS: IBUPROFEN 600 MG TAB PO PRN (12:44)
--- NOTE | 2023-05-21 15:32 | P.CONS ---
History of Present Illness - History of Present Illness this is a pleasant 52 yo female with past medical history of GERD/Reflux, Hypertension, herniated disc and chronic back pain and she is f/u with [facility] and recently she lost her pcp and started f/u with , she saw her twice and wants to keep following up with her she is admitted to the hospital, was signs symptoms of depression, anxiety to the mental health unit Medical consult requested for routine medical management Patient is sitting at the site of the chair, fully awake and oriented, she says that she has chronic back pain related to herniated disc and chronic right knee pain with previous surgery in her right knee She denies chest pain or dyspnea, no abdominal pain or vomiting or diarrhea. No urinary complaints. No headache dizziness weakness or numbness. Patient does not smoke cigarettes but she very nicotine, no alcohol or illicit drugs. Review of Systems Review of systems CONSTITUTIONAL: No fever, no malaise, no fatigue. HEENT: No recent visual problems or hearing problems. Denied any sore throat. CARDIOVASCULAR: No orthopnea, PND, no palpitations, no syncope. PULMONARY: No shortness of breath, no cough, no hemoptysis. GASTROINTESTINAL: No diarrhea, no nausea, no vomiting, no abdominal pain. Normoactive bowel sounds. NEUROLOGICAL: No headaches, no weakness, no numbness. HEMATOLOGICAL: Denies any bleeding or petechiae. GENITOURINARY: Denies any burning micturition, frequency, or urgency. MUSCULOSKELETAL/RHEUMATOLOGICAL: Denies any joint pain, swelling, or any muscle pain. ENDOCRINE: Denies any polyuria or polydipsia. Past Medical History Past Medical History: GERD/Reflux, Hypertension Additional Past Medical History / Comment(s): HX GASTRIC BLEED 2017, History of Any Multi-Drug Resistant Organisms: None Reported Past Surgical History: Breast Surgery, Section, Orthopedic Surgery Additional Past Surgical History / Comment(s): BREAT IMPLANTS AGE 19. RT KNEE SX X 3 Past Anesthesia/Blood Transfusion Reactions: No Reported Reaction Additional Past Anesthesia/Blood Transfusion Reaction / Comm: HAD BLOOD TRANSFUSION 08/2017 NO PROBLEMS Past Psychological History: Anxiety, Depression Smoking Status: Vaper Past Alcohol Use History: None Reported Past Drug Use History: None Reported - Past Family History Son(s) Additional Family Medical History / Comment(s): at AGE 20 years from crohns Medications and Allergies Home Medications Medication Instructions Recorded Confirmed Type Pantoprazole [Protonix] 40 mg PO BID 11/01/18 05/19/23 History Sucralfate [Carafate] 1 gm PO TID-W/MEALS 11/01/18 05/19/23 History Albuterol Sulfate [Albuterol 2 puff PO RT-Q4H PRN 02/04/23 05/19/23 History Sulfate Hfa] Cyclobenzaprine [Flexeril] 10 mg PO BID PRN 02/04/23 05/19/23 History Fluticasone/Umeclidin/Vilanter 1 puff INHALATION RT-DAILY 02/04/23 05/19/23 History [Trelegy Ellipta 100-62.5-25] LORazepam [Ativan] 1 mg PO TID PRN 02/04/23 05/19/23 History Olmesartan Medoxomil [Benicar] 20 mg PO HS 02/04/23 05/19/23 History HYDROcodone/APAP 7.5-325MG [Shelby 1 tab PO Q6HR PRN 3 Days #12 tab 02/22/23 05/19/23 Rx 7.5-325] Albuterol Nebulized [Ventolin 2.5 mg INHALATION RT-Q6H PRN 05/19/23 05/19/23 History Nebulized] Allergies Allergy/AdvReac Type Severity Reaction Status Date / Time brexpiprazole [From Rexulti] Allergy mouth sores Verified 05/19/23 17:15 bupropion [From Wellbutrin] Allergy fabian Verified 05/19/23 17:15 johnsons lamotrigine [From Lamictal] Allergy fabian Verified 05/19/23 17:15 johnsons lavender (Lavandula Allergy Itching Verified 05/19/23 17:15 angustifolia) Sulfa (Sulfonamide Allergy Fabian-Raad Verified 05/19/23 17:15 Antibiotics) syndrome sulfamethoxazole Allergy Fabian-Raad Verified 05/19/23 17:15 [From Bactrim] syndrome trimethoprim [From Bactrim] Allergy Fabian-Raad Verified 05/19/23 17:15 syndrome vortioxetine Allergy joint Verified 05/19/23 17:15 [From Trintellix] pain, rash/hives Physical Exam Vitals: Vital Signs Temp Pulse Resp BP 05/21/23 08:15 124 H 124/79 05/21/23 06:46 97.0 F L 92 16 146/76 05/21/23 00:00 97.1 F L 78 15 122/56 05/20/23 20:48 98.0 F 136 H 15 142/100 05/20/23 14:31 118 H 147/77 -GENERAL: The patient is alert and oriented x3, not in any acute distress. Obeseually HEENT: Pupils are round and equally reacting to light. EOMI. No scleral icterus. No conjunctival pallor. Normocephalic, atraumatic. No pharyngeal erythema. No thyromegaly. CARDIOVASCULAR: S1 and S2 present. No murmurs, rubs, or gallops. PULMONARY: Chest is clear to auscultation, no wheezing , no crackles. ABDOMEN: Soft, nontender, nondistended, normoactive bowel sounds. No palpable organomegaly. MUSCULOSKELETAL: No joint swelling or deformity. EXTREMITIES: No cyanosis, clubbing, or pedal edema. NEUROLOGICAL: Gross neurological examination did not reveal any focal deficits. SKIN: No rashes. no petechiae. Results CBC & Chem 7: 05/19/23 15:43 05/19/23 15:43 Assessment and Plan Assessment: Anxiety depression and other psych illnesses, management per psychiatry primary team Chronic back pain secondary to degenerative disc disease and herniated disc Chronic osteoarthritis of the right knee on chronic pain medication Obesity with BMI of 35.5 Benzodiazepine withdrawal Chronic diarrhea nicotine dependence, she visits Plan: Continue with mental health management as per primary psychiatric team Continue with pain medication, patient currently on Shelby 7.5 every 8 hours and she was counseled about the risks including but not limited to the risk of respiratory depression and/or , she does not want to lower the dose of narcotic or stop it and she agrees to the risks. Patient follow-up with [place] [facility] for pain management and she can follow up upon discharge in 1 -2 weeks Continue with nicotine patch Continue with management of benzodiazepine withdrawal and tapering as per psychiatric team Patient is mobile and low risk for DVT No need for GI prophylaxis as patient is asymptomatic Patient follow-up with PCP in one week after discharge and she was instructed with the same Follow-up with [place] [facility] in 1-2 weeks after discharge. Patient was instructed with the same
[2023-05-21] MEDS: TRELEGY ELLIPTA INHALATION SCH (21:11)
[2023-05-21] MEDS: QUEtiapine 50 MG TAB PO SCH (21:12)
[2023-05-21] MEDS: LOSARTAN 50 MG TAB PO SCH (21:12)
[2023-05-22] MEDS: HYDROcodone/APAP 7.5-325MG 1 EACH TAB PO PRN ×4 (00:38→23:40)
[2023-05-22] MEDS: NICOTINE 14MG/24HR PATCH TRANSDERM SCH (08:10)
[2023-05-22] MEDS: DULoxetine HCL 30 MG CAPSULE.DR PO SCH ×2 (08:10→20:43)
[2023-05-22] MEDS: PANTOPRAZOLE 40 MG TABLET PO SCH ×2 (08:10→17:47)
[2023-05-22] MEDS: METOPROLOL TARTRATE 25 MG TAB PO SCH ×2 (08:10→20:55)
[2023-05-22] MEDS: SUCRALFATE 1 GM TAB PO SCH ×3 (08:10→17:47)
[2023-05-22] MEDS: LORazepam 1 MG TAB PO PRN ×2 (08:13→20:42)
--- NOTE | 2023-05-22 09:24 | P.PN ---
Progress Note - Text Interval history: Patient was seen in her room and was directable and agreeable to speak with proposal writer. Reports improvement of depression and anxiety. States that she is also sleeping well.. At this time patient denies any suicidal or homicidal ideations intent or plan. Denies any Auditory or visual hallucinations. Patient denies any side effects from the medications and has been compliant with meds. Mental status exam: General Appearance: [Patient appears to be older than stated age is alert, directable, and cooperative.] Behavior: [No agitated behavior. Patient is calm and directable] Speech: Patient's speech is fluent and nonpressured. Mood/Affect: Mood is improving mildly, affect is congruent and constricted. Suicidality/Homicidality: Patient denies having any suicidal or homicidal ideation intent or plan. Perceptions: Patient denies any auditory or visual hallucinations. Though content/process: [There is no evidence of any delusional thought content and thought process is linear and goal-directed.] Memory and concentration: AOX3, grossly intact for the purposes of this session Judgment and insight: improving mildly Assessment/Plan: Continue with current diagnosis. Patient continues to meet criteria for inpatient psychiatric admission for symptom stabilization and safety.[Patient will be maintained on current psychotropic medication regimen.] Monitor for medication compliance and for any psychotropic medication side effects. Will continue to monitor ongoing response to treatment. Encouraged participation in milieu.
[2023-05-22] MEDS: IBUPROFEN 600 MG TAB PO PRN ×2 (13:35→20:59)
[2023-05-22] MEDS: QUEtiapine 50 MG TAB PO SCH (20:42)
[2023-05-22] MEDS: LOSARTAN 50 MG TAB PO SCH (20:43)
[2023-05-22] MEDS: TRELEGY ELLIPTA INHALATION SCH (20:44)
[2023-05-22] MEDS: ACETAMINOPHEN TAB 325 MG TAB PO PRN (21:01)
[2023-05-23] MEDS: NICOTINE 14MG/24HR PATCH TRANSDERM SCH (08:22)
[2023-05-23] MEDS: METOPROLOL TARTRATE 25 MG TAB PO SCH (08:23)
[2023-05-23] MEDS: DULoxetine HCL 30 MG CAPSULE.DR PO SCH (08:23)
[2023-05-23] MEDS: PANTOPRAZOLE 40 MG TABLET PO SCH ×2 (08:23→18:11)
[2023-05-23] MEDS: IBUPROFEN 600 MG TAB PO PRN (08:23)
[2023-05-23] MEDS: SUCRALFATE 1 GM TAB PO SCH ×3 (08:23→18:11)
[2023-05-23] MEDS: HYDROcodone/APAP 7.5-325MG 1 EACH TAB PO PRN ×3 (08:24→23:44)
[2023-05-23] MEDS: CYCLOBENZAPRINE 10 MG TAB PO PRN ×2 (09:13→21:21)
--- NOTE | 2023-05-23 10:33 | P.PN ---
Progress Note - Text Progress Note Date: 05/23/23 Interval History: Patient was seen today in her room and was agreeable to speak to designer/writer in the office. she continues to focus on Ativan and obtainign benzos. continues to state that she is feeling anxious at times during the day, claims that her mood is mildly improving. claims that she is going to some groups. claims that she feels the bed is not very compfrtable for her and her back pain. She continues to ask various questions about her medications. We continue to speak about the risk that she has added for potential overdose being on the Ativan and also the opiates. She states that she still having high blood pressure at times and racing heart. We spoke about adding on propranolol to help with this which she is okay with. Tire Design Engineer also reminded her of Vistaril as needed for anxiety. States that her sleep has been better with the Seroquel. At this time she is denying any suicidal homicidal ideations intent or plan. Denying any auditory or visual hallucinations. Not reporting any side effects from her medications. MENTAL STATUS EXAM: General Appearance: Patient appears to be mildly overweight, stated age is alert, directable, and attempts to cooperate. Patient appears to have improving hygiene and grooming. Behavior: Patient is seated without any agitated behavior. Appears to be fairly anxious, improving mildly. Tearful at times Speech: Patient's speech is fluent and nonpressured. Hesitant, improving Mood/Affect: Patient reports their mood is "mostly anxious now", affect is congruent Suicidality/Homicidality: Patient denies having any homicidal ideation intent or plan. Denies any suicidal ideations intent or plan Perceptions: Patient denies any visual hallucinations and denies any auditory hallucinations Though content/process: There is no evidence of any delusional thought content and thought process is linear and goal-directed. Focused on medications Memory and concentration: AOX3, grossly intact for the purposes of this session Judgment and insight: Poor, improving mildly IMPRESSIONS: Major depressive disorder without psychotic features Anxiety disorder unspecified Benzodiazepine dependence, currently in withdrawal Nicotine dependence PLAN: -Patient is admitted under voluntary status to [facility] for stabilization of psychiatric symptoms and safety. Patient has signed adult voluntary form and medication consent and is placed in patient's chart. -Medications : Increase Cymbalta 30 mg + 60 mg qhs for anxiety/mood. Seroquel 50 mg nightly for mood stabilization/insomnia/anxiety. Vistaril as needed for anxiety. added propranolol 20 mg bid for anxiety/BP and HR. -Ativan and Haldol PRN for agitation/aggression -Librium scheduled taper for benzodiazepine withdrawal, will be tapered off tuesday night. -CIWA protocol with Ativan PRN for ETOH withdrawal -NRT -nicotine patch -SW on board for discharge planning. Encourage patient to participate in groups to work on coping skills. likely discharge in 2-3 days if patient is improving
[2023-05-23] MEDS: PROPRANOLOL 20 MG TAB PO SCH ×2 (10:36→21:18)
[2023-05-23] MEDS: LORazepam 0.5 MG TAB PO PRN ×2 (11:16→21:21)
[2023-05-23] MEDS: ACETAMINOPHEN TAB 325 MG TAB PO PRN (13:29)
[2023-05-23] MEDS: TRELEGY ELLIPTA INHALATION SCH (21:18)
[2023-05-23] MEDS: QUEtiapine 50 MG TAB PO SCH (21:18)
[2023-05-23] MEDS: DULoxetine HCL 60 MG CAPSULE.DR PO SCH (21:18)
[2023-05-23] MEDS: LOSARTAN 50 MG TAB PO SCH (21:18)
[2023-05-24 06:52] VITALS: TEMP 97.3
[2023-05-24] MEDS: NICOTINE 14MG/24HR PATCH TRANSDERM SCH (08:33)
[2023-05-24] MEDS: PANTOPRAZOLE 40 MG TABLET PO SCH ×2 (08:33→17:48)
[2023-05-24] MEDS: PROPRANOLOL 20 MG TAB PO SCH (08:33)
[2023-05-24] MEDS: SUCRALFATE 1 GM TAB PO SCH ×3 (08:34→17:48)
[2023-05-24] MEDS: CYCLOBENZAPRINE 10 MG TAB PO PRN ×2 (08:35→21:55)
[2023-05-24] MEDS: HYDROcodone/APAP 7.5-325MG 1 EACH TAB PO PRN ×2 (08:35→16:08)
[2023-05-24] MEDS ORDERED: DULoxetine HCL 30 MG CAPSULE.DR PO SCH (09:00)
[2023-05-24] MEDS: LORazepam 0.5 MG TAB PO PRN ×2 (10:41→21:53)
[2023-05-24] MEDS: IBUPROFEN 600 MG TAB PO PRN (10:41)
[2023-05-24] MEDS ORDERED: DULoxetine HCL 30 MG CAPSULE.DR PO ONE (11:07)
[2023-05-24] MEDS ORDERED: PROPRANOLOL 10 MG TAB PO STA (11:08)
--- NOTE | 2023-05-24 11:16 | P.PN ---
Progress Note - Text Progress Note Date: 05/24/23 Interval History: Patient was seen today in her room and was agreeable to speak to ad copy writer in the office. Patient was less focused today on Ativan. She appears to be more brighter in her affect today. States that she is going to groups and participating. She claims that her anxiety is still fluctuating, claims that the medications overall have been helping so far. Claims that her mood is improving, she is more future oriented. We spoke more about medication adjustments. Apparently patient had an increase in blood pressure last night. Fisher Terrapin also reminded her of Vistaril as needed for anxiety. States that her sleep has been better. At this time she is denying any suicidal homicidal ideations intent or plan. Denying any auditory or visual hallucinations. Not reporting any side effects from her medications. MENTAL STATUS EXAM: General Appearance: Patient appears to be mildly overweight, stated age is alert, directable, and attempts to cooperate. Patient appears to have improving hygiene and grooming. Behavior: Patient is seated without any agitated behavior. Appears to be less anxious, improving mildly. Speech: Patient's speech is fluent and nonpressured. Hesitant, improving Mood/Affect: Patient reports their mood is "better", affect is congruent, improving mildly Suicidality/Homicidality: Patient denies having any homicidal ideation intent or plan. Denies any suicidal ideations intent or plan Perceptions: Patient denies any visual hallucinations and denies any auditory hallucinations Though content/process: There is no evidence of any delusional thought content and thought process is linear and goal-directed. Memory and concentration: AOX3, grossly intact for the purposes of this session Judgment and insight: improving mildly IMPRESSIONS: Major depressive disorder without psychotic features Generalized anxiety with panic attacks Benzodiazepine dependence, currently in withdrawal Nicotine dependence PLAN: -Patient is admitted under voluntary status to [facility] for stabilization of psychiatric symptoms and safety. Patient has signed adult voluntary form and medication consent and is placed in patient's chart. -Medications : Increase Cymbalta 60 mg + 60 mg qhs for anxiety/mood. Seroquel 50 mg nightly for mood stabilization/insomnia/anxiety. Vistaril as needed for anxiety. Increase propranolol 30 mg bid for anxiety/BP and HR. -Ativan and Haldol PRN for agitation/aggression -Librium scheduled taper for benzodiazepine withdrawal, will be tapered off tuesday night. -CIWA protocol with Ativan PRN for ETOH withdrawal -NRT -nicotine patch - on board for discharge planning. Encourage patient to participate in groups to work on coping skills. likely discharge in tomorrow back home
[2023-05-24] MEDS: ACETAMINOPHEN TAB 325 MG TAB PO PRN (13:56)
[2023-05-24] MEDS: hydrOXYzine pamoate 25 MG CAP PO PRN (13:57)
[2023-05-24] MEDS: PROPRANOLOL 10 MG TAB PO SCH (21:53)
[2023-05-24] MEDS: DULoxetine HCL 60 MG CAPSULE.DR PO SCH (21:53)
[2023-05-24] MEDS: QUEtiapine 50 MG TAB PO SCH (21:53)
[2023-05-24] MEDS: LOSARTAN 50 MG TAB PO SCH (21:53)
[2023-05-24] MEDS: TRELEGY ELLIPTA INHALATION SCH (21:54)
[2023-05-25] MEDS: HYDROcodone/APAP 7.5-325MG 1 EACH TAB PO PRN ×2 (00:33→08:40)
[2023-05-25 07:06] VITALS: RESP 16
[2023-05-25] MEDS: NICOTINE 14MG/24HR PATCH TRANSDERM SCH (08:38)
[2023-05-25] MEDS: PROPRANOLOL 10 MG TAB PO SCH (08:39)
[2023-05-25] MEDS: SUCRALFATE 1 GM TAB PO SCH (08:39)
[2023-05-25] MEDS: PANTOPRAZOLE 40 MG TABLET PO SCH (08:39)
[2023-05-25] MEDS: DULoxetine HCL 60 MG CAPSULE.DR PO SCH (08:39)
[2023-05-25] MEDS: CYCLOBENZAPRINE 10 MG TAB PO PRN (08:41)
[2023-05-25] MEDS ORDERED: DULoxetine HCL 60 MG CAPSULE.DR PO SCH (09:00)
--- NOTE | 2023-05-25 11:09 | P.DS ---
Providers Date of admission: 05/19/23 19:48 Expected date of discharge: 05/25/23 Attending physician: Rodolfo Coombs MD Consults: 05/19/23 20:16 Consult Physician Routine Consulting Provider: [facility] Consult Reason/Comments: H&P Do you want consulting provider notified?: Yes Primary care physician: Margarita Tran - Discharge Diagnosis(es) (1) Major depressive disorder without psychotic features Current Visit: Yes Status: Acute Priority: High (2) Generalized anxiety disorder with panic attacks Current Visit: Yes Status: Acute Priority: High (3) Benzodiazepine dependence Current Visit: Yes Status: Acute Priority: High (4) Nicotine dependence Current Visit: Yes Status: Acute Priority: Low Hospital Course: Admission HPI: Admission note was completed by repairer typewriter "[Patient is a 52-year-old female, current is with her mother in a house, she is Greek, she had collects Social Security disability. Patient presented to the hospital yesterday complaining of depression and suicidal ideations. Patient apparently stated in the ER that about 2 weeks ago she took over 100 pills and was requesting to be admitted to the psychiatric unit. Patient apparently was tearful, appeared anxious. She claims that she has been receiving her Ativan and pain medications from her primary care doctor. States that with little notice her primary care doctor close's office. She states that she has been having difficulty following up with other doctors in the area to get her medications. She was mainly focused on her controlled medications. Claims that her liver functions test were elevated, urine analysis was negative. Urine drug screen is positive for opiates and TCAs. Patient did claim that she has been having more stressors at home, states that she is finding it difficult to live with her mother, states that her anxiety has been more elevated recently, claims that she is dealing with chronic back and knee pain. States that her only child, her son about 15 years ago. States that this has been difficult for her to deal with. States that she does have a depression history, currently depression has been worse. States that her meds have been changed around recently by the nurse practitioner. States that her sleep has been on and off, appetite has been fair. Patient denies any suicidal or homicidal ideations intent or plan. At this time patient denies any auditory or visual hallucinations. Patient denies any flight of ideas racing thoughts and increased in goal directed behavior. Patient admits to using alcohol occasionally, smokes nicotine products." Hospital course: Upon admission to the unit patient was directable and agreeable to commence treatment and signed adult voluntary form. Patient was initially fairly anxious, depressed however with time treatment she eventually got along well with other patients on the unit and followed unit protocol. Patient was compliant with the medications and denied any side effects throughout hospital course. Patient was started on Cymbalta and increase the dose of 60 mg twice daily for anxiety/mood, Seroquel started and continued at 50 mg nightly for mood stabilization/insomnia/anxiety, Vistaril as needed for anxiety, propranolol increased her dose of 40 mg twice daily for anxiety/blood pressure and heart rate. Patient spoke of her stressors and engaged in therapy both group and individual. Patient was also seen by medical team for history and physical exam. Patient did have fluctuations in her blood pressure, likely secondary to benzodiazepine withdrawal, propranolol was increased to accommodate for this. Patient was on CIWA protocol with as needed Ativan during her hospitalization. She was also placed on a Librium taper for benzodiazepine withdrawal. throughout the course of the hospitalization patient gradually improved with regards to mood, anxiety, panic attacks, sleep and became more future oriented with improved insight and judgment. On the day of discharge patient denied any suicidal or homicidal ideations intent or plan denied any auditory or visual hallucinations. Patient endorsed wanting to live for their health and family. The patient denied any access to guns or weapons. Patient denied any paranoia and did not endorse any delusions. Patient does not have a significant history of substance abuse and was counseled on abstaining from all substances including alcohol and marijuana. Patient was also counseled on the medications and need for regular compliance and was encouraged to follow-up with their outpatient appointment for mental health and also for primary care. Prior to discharge a family meeting will be arranged by social work specialist to answer any questions and ensure safety upon discharge incuding making sure that guns/weapons are either removed from the home or locked away. Patient will be discharged back home to her mother's house today. Mental status exam: General Appearance: Patient appears to be mildly overweight, stated age is alert, pleasant, and cooperative. Patient is in no acute distress and has improved hygiene and grooming Behavior: Patient is calmly seated without any agitated behavior. Speech: Patient's speech is fluent and nonpressured. Mood/Affect: Patient reports their mood is "better", affect is congruent and euthymic. Suicidality/Homicidality: Patient denies having any suicidal or homicidal ideation intent or plan. Perceptions: Patient denies any auditory or visual hallucinations. Though content/process: There is no evidence of any delusional thought content and thought process is linear and goal-directed. More future oriented Memory and concentration: AOX3, grossly intact for the purposes of this session. Can spell "WORLD" backwards correctly. Judgment and insight: improved with guarded prognosis Impression: Major depressive disorder Withour psychotic features Generalized anxiety disorder with panic attacks Benzodiazopine dependence Nicotine dependence Plan: -Continue with discharge today as patient has improved and stabilized psychiatrically and is not currently an imminent threat to themself and/or others. -Continue medications: Cymbalta 60 mg twice daily for anxiety/mood, Seroquel 50 mg nightly for mood stabilization/insomnia/anxiety, Vistaril 50 mg twice daily as needed for anxiety, propranolol 40 mg twice daily for anxiety/blood pressure and heart rate. -Patient was counseled on the need for medication compliance and appropriate follow-up at mental health and also primary care for medical issues. Patient verbalized understanding and agreed. -Social work to arrange for and conduct family meeting to ensure safety upon discharge and answer any questions/concerns and also to ensure safe home environment that guns/weapons are either removed from the home or locked away. Social work also to arrange for patients follow up appointments with [facility] for psychiatric care along with follow up with primary care provider. -Patient counseled on abstaining from recreational drugs and marijuana and alcohol. Was informed/educated on the adverse effects on their physical and mental health. Patient verbally agreed and understood. -Patient will also be following up closely with her primary care doctor within 1 week and will be regularly checking her blood pressure at home. -Patient was instructed to return to the hospital or seek immediate medical care if their psychiatric or medical symptoms do worsen or reoccur. Allergies Allergy/AdvReac Type Severity Reaction Status Date / Time brexpiprazole [From Rexulti] Allergy mouth sores Verified 05/19/23 17:15 bupropion [From Wellbutrin] Allergy fabian Verified 05/19/23 17:15 johnsons lamotrigine [From Lamictal] Allergy fabian Verified 05/19/23 17:15 johnsons lavender (Lavandula Allergy Itching Verified 05/19/23 17:15 angustifolia) Sulfa (Sulfonamide Allergy Fabian-Raad Verified 05/19/23 17:15 Antibiotics) syndrome sulfamethoxazole Allergy Fabian-Raad Verified 05/19/23 17:15 [From Bactrim] syndrome trimethoprim [From Bactrim] Allergy Fabian-Raad Verified 05/19/23 17:15 syndrome vortioxetine Allergy joint Verified 05/19/23 17:15 [From Trintellix] pain, rash/hives Laboratory Results WBC 10.5 k/uL (3.8-10.6) 05/19/23 15:43 RBC 4.47 m/uL (3.80-5.40) 05/19/23 15:43 Hgb 13.6 gm/dL (11.4-16.0) 05/19/23 15:43 Hct 41.7 % (34.0-46.0) 05/19/23 15:43 MCV 93.2 fL (80.0-100.0) 05/19/23 15:43 MCH 30.3 pg (25.0-35.0) 05/19/23 15:43 MCHC 32.6 g/dL (31.0-37.0) 05/19/23 15:43 RDW 13.9 % (11.5-15.5) 05/19/23 15:43 Plt Count 490 k/uL (150-450) H 05/19/23 15:43 MPV 8.0 05/19/23 15:43 Neutrophils % 60 % 05/19/23 15:43 Lymphocytes % 31 % 05/19/23 15:43 Monocytes % 5 % 05/19/23 15:43 Eosinophils % 1 % 05/19/23 15:43 Basophils % 0 % 05/19/23 15:43 Neutrophils # 6.3 k/uL (1.3-7.7) 05/19/23 15:43 Lymphocytes # 3.3 k/uL (1.0-4.8) 05/19/23 15:43 Monocytes # 0.5 k/uL (0-1.0) 05/19/23 15:43 Eosinophils # 0.1 k/uL (0-0.7) 05/19/23 15:43 Basophils # 0.0 k/uL (0-0.2) 05/19/23 15:43 Sodium 141 mmol/L (137-145) 05/19/23 15:43 Potassium 4.3 mmol/L (3.5-5.1) 05/19/23 15:43 Chloride 109 mmol/L (98-107) H 05/19/23 15:43 Carbon Dioxide 23 mmol/L (22-30) 05/19/23 15:43 Anion Gap 9 mmol/L 05/19/23 15:43 BUN 6 mg/dL (7-17) L 05/19/23 15:43 Creatinine 0.48 mg/dL (0.52-1.04) L 05/19/23 15:43 Est GFR (CKD-EPI)AfAm >90 (>60 ml/min/1.73 sqM) 05/19/23 15:43 Est GFR (CKD-EPI)NonAf >90 (>60 ml/min/1.73 sqM) 05/19/23 15:43 Glucose 102 mg/dL (74-99) H 05/19/23 15:[address] Glu mg/dL 126 mg/dL 05/19/23 15:43 Hemoglobin A1c 6.0 % (<=6.0) 05/19/23 15:43 Calcium 9.1 mg/dL (8.4-10.2) 05/19/23 15:43 Total Bilirubin 0.2 mg/dL (0.2-1.3) 05/19/23 15:43 AST 40 U/L (14-36) H 05/19/23 15:43 ALT 37 U/L (4-34) H 05/19/23 15:43 Alkaline Phosphatase 101 U/L (38-126) 05/19/23 15:43 Total Protein 7.2 g/dL (6.3-8.2) 05/19/23 15:43 Albumin 4.5 g/dL (3.5-5.0) 05/19/23 15:43 TSH 0.564 mIU/L (0.465-4.680) 05/19/23 15:43 Urine Color Colorless 05/19/23 16:23 Urine Appearance Clear (Clear) 05/19/23 16:23 Urine pH 5.5 (5.0-8.0) 05/19/23 16:23 Ur Specific [place] 1.015 (1.001-1.035) 05/19/23 16:23 Urine Protein Negative (Negative) 05/19/23 16:23 Urine Glucose (UA) Negative (Negative) 05/19/23 16:23 Urine Ketones Negative (Negative) 05/19/23 16:23 Urine Blood Negative (Negative) 05/19/23 16:23 Urine Nitrite Negative (Negative) 05/19/23 16:23 Urine Bilirubin Negative (Negative) 05/19/23 16:23 Urine Urobilinogen <2.0 mg/dL (<2.0) 05/19/23 16:23 Ur Leukocyte Esterase Negative (Negative) 05/19/23 16:23 Urine Opiates Screen Detected (NotDetected) H 05/19/23 16:23 Ur Oxycodone Screen Not Detected (NotDetected) 05/19/23 16:23 Urine Methadone Screen Not Detected (NotDetected) 05/19/23 16:23 Ur Barbiturates Screen Not Detected (NotDetected) 05/19/23 16:23 U Tricyclic Antidepress Detected (NotDetected) H 05/19/23 16:23 Ur Phencyclidine Scrn Not Detected (NotDetected) 05/19/23 16:23 Ur Amphetamines Screen Not Detected (NotDetected) 05/19/23 16:23 U Methamphetamines Scrn Not Detected (NotDetected) 05/19/23 16:23 U Benzodiazepines Scrn Not Detected (NotDetected) 05/19/23 16:23 Urine Cocaine Screen Not Detected (NotDetected) 05/19/23 16:23 U Marijuana (THC) Screen Not Detected (NotDetected) 05/19/23 16:23 SARS-CoV-2 (PCR) Not Detected (Not Detectd) 05/19/23 15:43 Vital Signs Temp 97.3 F L 05/25/23 06:41 Pulse 107 H 05/25/23 08:44 Resp 16 05/25/23 06:41 BP 152/73 05/25/23 08:44 Pulse Ox 99 05/24/23 08:39 FiO2 Patient Condition at Discharge: Stable Plan - Discharge Summary New Discharge Prescriptions: New Propranolol [Inderal] 40 mg PO BID 30 Days #60 tab QUEtiapine [SEROquel] 50 mg PO HS 30 Days #30 tab Losartan [Cozaar] 100 mg PO HS 30 Days #60 tab DULoxetine HCL [Cymbalta] 60 mg PO BID 30 Days #60 cap Nicotine 14Mg/24Hr Patch [Habitrol] 1 patch TRANSDERM DAILY 14 Days #14 patch hydrOXYzine pamoate [Vistaril] 50 mg PO BID PRN 30 Days #60 cap PRN Reason: Anxiety Continue Sucralfate [Carafate] 1 gm PO TID-W/MEALS Fluticasone/Umeclidin/Vilanter [Trelegy Ellipta 100-62.5-25] 1 puff INHALATION RT-DAILY HYDROcodone/APAP 7.5-325MG [[place] 7.5-325] 1 tab PO Q6HR PRN 3 Days #12 tab PRN Reason: Pain Albuterol Sulfate [Albuterol Sulfate Hfa] 2 puff PO RT-Q4H PRN PRN Reason: Shortness Of Breath Magnesium Oxide [Magox 400] 400 mg PO HS Cyclobenzaprine [Flexeril] 10 mg PO BID PRN 14 Days #14 tab PRN Reason: Muscle Pain Pantoprazole [Protonix] 40 mg PO BID 30 Days #60 tab Discontinued LORazepam [Ativan] 1 mg PO TID PRN PRN Reason: Anxiety Olmesartan Medoxomil [Benicar] 20 mg PO HS Albuterol Nebulized [Ventolin Nebulized] 2.5 mg INHALATION RT-Q6H PRN PRN Reason: Shortness Of Breath Discharge Medication List Sucralfate [Carafate] 1 gm PO TID-W/MEALS 11/01/18 [History] Albuterol Sulfate [Albuterol Sulfate Hfa] 2 puff PO RT-Q4H PRN 02/04/23 [History] Fluticasone/Umeclidin/Vilanter [Trelegy Ellipta 100-62.5-25] 1 puff INHALATION RT-DAILY 02/04/23 [History] HYDROcodone/APAP 7.5-325MG [[place] 7.5-325] 1 tab PO Q6HR PRN 3 Days #12 tab 02/22/23 [Rx] Magnesium Oxide [Magox 400] 400 mg PO HS 05/24/23 [History] Cyclobenzaprine [Flexeril] 10 mg PO BID PRN 14 Days #14 tab 05/25/23 [Rx] DULoxetine HCL [Cymbalta] 60 mg PO BID 30 Days #60 cap 05/25/23 [Rx] Losartan [Cozaar] 100 mg PO HS 30 Days #60 tab 05/25/23 [Rx] Nicotine 14Mg/24Hr Patch [Habitrol] 1 patch TRANSDERM DAILY 14 Days #14 patch 05/25/23 [Rx] Pantoprazole [Protonix] 40 mg PO BID 30 Days #60 tab 05/25/23 [Rx] Propranolol [Inderal] 40 mg PO BID 30 Days #60 tab 05/25/23 [Rx] QUEtiapine [SEROquel] 50 mg PO HS 30 Days #30 tab 05/25/23 [Rx] hydrOXYzine pamoate [Vistaril] 50 mg PO BID PRN 30 Days #60 cap 05/25/23 [Rx] Follow up Appointment(s)/Referral(s): Margarita Tran [Primary Care Provider] - 1-2 days Patient Instructions/Handouts: How to Stop Smoking (DC), Depression (DC) Activity/Diet/Wound Care/Special Instructions: Avoid the use of street drugs and alcohol. Take all medications as prescribed. When you are in need of refills on your medications, please contact your medical provider and/or outpatient psychiatrist/provider to have this done. Please go to your scheduled outpatient appointment for aftercare treatment. If symptoms return or become worse, call the crisis line at and/or go to the nearest emergency room for evaluation. National Suicide Hotline 725. Discharge Disposition: HOME SELF-CARE
[2023-05-25] MEDS: LORazepam 0.5 MG TAB PO PRN (11:57)
[2023-05-25 12:23] VITALS: BP 177/81; PULSE 72
[2023-05-25] MEDS ORDERED: MAGNESIUM OXIDE 400 MG TAB PO SCH (21:00)
[2023-05-25] MEDS ORDERED: PROPRANOLOL 40 MG TAB PO SCH (21:00)
== END 2023-05-25 12:55 | disposition home or self-care (01) | DRG 754 ==
LOC: EC 15:07 → 3MHU 19:48
PROVIDERS: ADMIT Psychiatry & Neurology Psychiatry; ATTEND Psychiatry & Neurology Psychiatry
DX: F32.9 Major depressive disorder, single episode, unspecified (principal); R45.851 Suicidal ideations; I10 Essential (primary) hypertension; F13.239 Sedative, hypnotic or anxiolytic dependence with withdrawal, unspecified; E66.9 Obesity, unspecified; Z68.35 Body mass index [BMI] 35.0-35.9, adult; Z81.8 Family history of other mental and behavioral disorders; Z11.52 Encounter for screening for COVID-19; F41.0 Panic disorder [episodic paroxysmal anxiety]; F41.1 Generalized anxiety disorder; G89.29 Other chronic pain; M17.11 Unilateral primary osteoarthritis, right knee; G47.00 Insomnia, unspecified; K52.9 Noninfective gastroenteritis and colitis, unspecified; K21.9 Gastro-esophageal reflux disease without esophagitis; F17.290 Nicotine dependence, other tobacco product, uncomplicated; Z71.6 Tobacco abuse counseling; Z79.899 Other long term (current) drug therapy; Z79.51 Long term (current) use of inhaled steroids; Z71.41 Alcohol abuse counseling and surveillance of alcoholic; Z71.51 Drug abuse counseling and surveillance of drug abuser; Z88.1 Allergy status to other antibiotic agents; Z88.2 Allergy status to sulfonamides; Z88.8 Allergy status to other drugs, medicaments and biological substances
CPT/HCPCS: 36415; 80053; 80306; 81003; 82075; 83036; 84443; 85025; 87635; 93005; 99285

== ENCOUNTER 2023-05-27 12:21 | Emergency (ER) | payer OTHER ==
[2023-05-27 13:11] VITALS: BP 169/96; PULSE 96; RESP 16; TEMP 97.6
[2023-05-27] MEDS ORDERED: LORazepam 1 MG TAB PO STA ×2 (13:36→13:41)
--- NOTE | 2023-05-27 13:41 | ED ---
General Adult HPI - General Chief complaint: Anxiety Stated complaint: Med withdrawal Time Seen by Provider: 05/27/23 12:59 Source: patient, family, RN notes reviewed Mode of arrival: ambulatory Limitations: no limitations - History of Present Illness Initial comments: Patient is a pleasant 52-year-old female present to the emergency department with concerns for anxiety. Patient recently discharged from [facility] and was weaned off of Ativan at this time. Last Ativan was 2 days ago. Patient feels anxious not having it and requests Ativan until she can see her doctor on Tuesday. No suicidal thoughts. - Related Data Home Medications Medication Instructions Recorded Confirmed Sucralfate [Carafate] 1 gm PO TID-W/MEALS 11/01/18 05/19/23 Albuterol Sulfate [Albuterol 2 puff PO RT-Q4H PRN 02/04/23 05/19/23 Sulfate Hfa] Fluticasone/Umeclidin/Vilanter 1 puff INHALATION RT-DAILY 02/04/23 05/19/23 [Trelegy Ellipta 100-62.5-25] Magnesium Oxide [Magox 400] 400 mg PO HS 05/24/23 05/24/23 Previous Rx's Medication Instructions Recorded HYDROcodone/APAP 7.5-325MG [[place] 1 tab PO Q6HR PRN 3 Days #12 tab 02/22/23 7.5-325] Cyclobenzaprine [Flexeril] 10 mg PO BID PRN 14 Days #14 tab 05/25/23 DULoxetine HCL [Cymbalta] 60 mg PO BID 30 Days #60 cap 05/25/23 Losartan [Cozaar] 100 mg PO HS 30 Days #60 tab 05/25/23 Nicotine 14Mg/24Hr Patch [Habitrol] 1 patch TRANSDERM DAILY 14 Days 05/25/23 #14 patch Pantoprazole [Protonix] 40 mg PO BID 30 Days #60 tab 05/25/23 Propranolol [Inderal] 40 mg PO BID 30 Days #60 tab 05/25/23 QUEtiapine [SEROquel] 50 mg PO HS 30 Days #30 tab 05/25/23 hydrOXYzine pamoate [Vistaril] 50 mg PO BID PRN 30 Days #60 cap 05/25/23 Allergies Allergy/AdvReac Type Severity Reaction Status Date / Time brexpiprazole [From Rexulti] Allergy mouth sores Verified 05/27/23 12:35 bupropion [From Wellbutrin] Allergy fabian Verified 05/27/23 12:35 johnsons lamotrigine [From Lamictal] Allergy fabian Verified 05/27/23 12:35 johnsons lavender (Lavandula Allergy Itching Verified 05/27/23 12:35 angustifolia) Sulfa (Sulfonamide Allergy Fabian-Raad Verified 05/27/23 12:35 Antibiotics) syndrome sulfamethoxazole Allergy Fabian-Raad Verified 05/27/23 12:35 [From Bactrim] syndrome trimethoprim [From Bactrim] Allergy Fabian-Raad Verified 05/27/23 12:35 syndrome vortioxetine Allergy joint Verified 05/27/23 12:35 [From Trintellix] pain, rash/hives Review of Systems ROS Statement: Those systems with pertinent positive or pertinent negative responses have been documented in the HPI. ROS Other: All systems not noted in ROS Statement are negative. Constitutional: Denies: fever Eyes: Denies: eye pain ENT: Denies: ear pain Psychiatric: Reports: anxiety. Denies: homicidal thoughts, suicidal thoughts Past Medical History Past Medical History: GERD/Reflux, Hypertension Additional Past Medical History / Comment(s): HX GASTRIC BLEED 2017, History of Any Multi-Drug Resistant Organisms: None Reported Past Surgical History: Breast Surgery, Section, Orthopedic Surgery Additional Past Surgical History / Comment(s): BREAT IMPLANTS AGE 19. RT KNEE SX X 3 Past Anesthesia/Blood Transfusion Reactions: No Reported Reaction Additional Past Anesthesia/Blood Transfusion Reaction / Comment(s): HAD BLOOD TRANSFUSION 08/2017 NO PROBLEMS Past Psychological History: Anxiety, Depression Smoking Status: Vaper Past Alcohol Use History: None Reported Past Drug Use History: None Reported - Past Family History Son(s) Additional Family Medical History / Comment(s): at AGE 20 years from crohns General Exam Limitations: no limitations General appearance: alert, in no apparent distress Head exam: Present: normocephalic Eye exam: Present: normal appearance Respiratory exam: Present: normal lung sounds bilaterally Cardiovascular Exam: Present: regular rate, normal rhythm Neurological exam: Present: alert Psychiatric exam: Present: anxious. Absent: homicidal ideation, suicidal ideation Skin exam: Present: normal color Course Vital Signs 05/27/23 05/27/23 12:30 13:05 Temperature 98.0 F 97.6 F Pulse Rate 70 96 Respiratory 20 16 Rate Blood Pressure 157/87 169/96 O2 Sat by Pulse 99 94 L Oximetry Medical Decision Making - Medical Decision Making Was pt. sent in by a medical professional or institution (, JACKSON, SUEDING MACHINE OPERATOR, urgent care, hospital, or [facility]...) When possible be specific @ -No Did you speak to anyone other than the patient for history (EMS, parent, family, police, friend...)? What history was obtained from this source @ -Mother is present and provides additional history of chronic Ativan use. Did you review nursing and triage notes (agree or disagree)? Why? @ -I reviewed and agree with nursing and triage notes Were old charts reviewed (outside hosp., previous admission, EMS record, old EKG, old radiological studies, urgent care reports/EKG's, [facility] records)? Report findings @ -No old charts were reviewed Differential Diagnosis (chest pain, altered mental status, abdominal pain women, abdominal pain men, vaginal bleeding, weakness, fever, dyspnea, syncope, headache, dizziness, GI bleed, back pain, seizure, CVA, palpatations, mental health, musculoskeletal)? @ -Differential Mental Health Depression, anxiety, bipolar, psychosis, schizophrenia, borderline personality, situational depression, adjustment disorder, behavioral disorder, brain tumor, malingering, substance abuse, encephalopathy, medication reaction, dementia, hypothyroidism, degenerative neurologic disorder, lupus.... This is not meant to be all-inclusive list EKG interpreted by me (3pts min.). @ -As above X-rays interpreted by me (1pt min.). @ -None done CT interpreted by me (1pt min.). @ -None done U/S interpreted by me (1pt. min.). @ -None done What testing was considered but not performed or refused? (CT, X-rays, U/S, labs)? Why? @ -None What meds were considered but not given or refused? Why? @ -None Did you discuss the management of the patient with other professionals (professionals i.e. JACKSON Wallace, SUEDING MACHINE OPERATOR, lab, RT, psych nurse, licensed master social worker, aircraft maintenance director, teacher, chief technical officer, case mgr)? Give summary @ -No Was smoking cessation discussed for >3mins.? @ -No Was critical care preformed (if so, how long)? @ -No Were there social determinants of health that impacted care today? How? (Home lessness, low income, unemployed, alcoholism, drug addiction, transportation, low edu. Level, literacy, decrease access to med. care, penitentiary, rehab)? @ -No Was there de-escalation of care discussed even if they declined (Discuss DNR or withdrawal of care, Hospice)? DNR status @ -No What co-morbidities impacted this encounter? (DM, HTN, Smoking, COPD, CAD, Cancer, CVA, ARF, Chemo, Hep., AIDS, mental health diagnosis, sleep apnea, morbid obesity)? @ -None Was patient admitted / discharged? Hospital course, mention meds given and route, prescriptions, significant lab abnormalities, going to OR and other pertinent info. @ -Patient will be discharged following Ativan 1 here and 1 to take home. Patient will to her follow-up Tuesday as planned. Undiagnosed new problem with uncertain prognosis? @ -No Drug Therapy requiring intensive monitoring for toxicity (Heparin, Nitro, Insulin, Cardizem)? @ -No Were any procedures done? @ -No Diagnosis/symptom? @ -Anxiety Acute, or Chronic, or Acute on Chronic? @ -Acute Uncomplicated (without systemic symptoms) or Complicated (systemic symptoms)? @ -Default Side effects of treatment? @ -No Exacerbation, Progression, or Severe Exacerbation? @ -No Poses a threat to life or bodily function? How? (Chest pain, [place], [place], pneumonia, PE, COPD, DKA, ARF, appy, cholecystitis, CVA, Diverticulitis, Homicidal, Suicidal, threat to staff... and all critical care pts) @ -No Disposition Clinical Impression: Acute anxiety Disposition: HOME SELF-CARE Condition: Stable Instructions (If sedation given, give patient instructions): Generalized Anxiety Disorder (ED) Additional Instructions: Please follow-up with your doctor as planned on Tuesday. Return for thoughts of self-harm, worsening symptoms or other concerns. Is patient prescribed a controlled substance at d/c from ED?: No Referrals: Margarita Tran [Primary Care Provider] - 1-2 days Time of Disposition: 13:41
== END 2023-05-27 13:53 | disposition home or self-care (01) ==
LOC: EC 12:21
DX: F41.9 Anxiety disorder, unspecified (principal); I10 Essential (primary) hypertension; F17.290 Nicotine dependence, other tobacco product, uncomplicated; Z88.2 Allergy status to sulfonamides; Z88.6 Allergy status to analgesic agent; Z88.1 Allergy status to other antibiotic agents; Z88.8 Allergy status to other drugs, medicaments and biological substances
CPT/HCPCS: 99283

== ENCOUNTER 2023-06-25 19:00 | Emergency (ER) | payer OTHER ==
[2023-06-25 19:24] VITALS: BP 136/85; PULSE 70; RESP 28; TEMP 98.2
--- NOTE | 2023-06-25 19:24 | ED ---
SOB HPI - General Source: patient, family, RN notes reviewed Mode of arrival: ambulatory Limitations: no limitations <Jessica Rodriguez - Last Filed: 06/25/23 19:23> - General Source: patient, RN notes reviewed, old records reviewed <Jorge Vang - Last Filed: 06/25/23 22:08> - General Chief Complaint: Shortness of Breath Stated Complaint: SOB Time Seen by Provider: 06/25/23 19:23 - History of Present Illness Initial Comments: Patient is a 52-year-old female presented to ER with chief complaint of shortness of breath. Patient states she ran out of her anxiety medications. Family reports she has been paranoid. (Jessica Rodriguez) Is a 52-year-old female who presents emergency department complaining of anxiety. Has a history of anxiety has been without her Cymbalta, Ativan, as well as her chronic [place] for 2 days. States she missed her appointment on Tuesday to get a refill. Last refill was early last month. Presents for further evaluation at this time is requesting refills of medications. She states she feels very anxious. Denies any paranoia. Is asking for refills at least, short-term refills, on her medications. Denies chest pain, fevers, chills, cough, abdominal pain.Patient originally evaluated as a quick note. I evaluated her in [facility] when her workup was completed. (Jorge Vang) - Related Data Home Medications Medication Instructions Recorded Confirmed Sucralfate [Carafate] 1 gm PO TID-W/MEALS 11/01/18 05/19/23 Albuterol Sulfate [Albuterol 2 puff PO RT-Q4H PRN 02/04/23 05/19/23 Sulfate Hfa] Fluticasone/Umeclidin/Vilanter 1 puff INHALATION RT-DAILY 02/04/23 05/19/23 [Trelegy Ellipta 100-62.5-25] Magnesium Oxide [Magox 400] 400 mg PO HS 05/24/23 05/24/23 Previous Rx's Medication Instructions Recorded HYDROcodone/APAP 7.5-325MG [[place] 1 tab PO Q6HR PRN 3 Days #12 tab 02/22/23 7.5-325] Cyclobenzaprine [Flexeril] 10 mg PO BID PRN 14 Days #14 tab 05/25/23 DULoxetine HCL [Cymbalta] 60 mg PO BID 30 Days #60 cap 05/25/23 Losartan [Cozaar] 100 mg PO HS 30 Days #60 tab 05/25/23 Nicotine 14Mg/24Hr Patch [Habitrol] 1 patch TRANSDERM DAILY 14 Days 05/25/23 #14 patch Pantoprazole [Protonix] 40 mg PO BID 30 Days #60 tab 05/25/23 Propranolol [Inderal] 40 mg PO BID 30 Days #60 tab 05/25/23 QUEtiapine [SEROquel] 50 mg PO HS 30 Days #30 tab 05/25/23 hydrOXYzine pamoate [Vistaril] 50 mg PO BID PRN 30 Days #60 cap 05/25/23 DULoxetine HCL [Cymbalta] 60 mg PO BID 7 Days #7 cap 06/25/23 HYDROcodone/APAP 7.5-325MG [[place] 1 tab PO Q6HR PRN 3 Days #12 tab 06/25/23 7.5-325] LORazepam [Ativan] 1 mg PO TID 7 Days #21 tab 06/25/23 Allergies Allergy/AdvReac Type Severity Reaction Status Date / Time brexpiprazole [From Rexulti] Allergy mouth sores Verified 05/27/23 12:35 bupropion [From Wellbutrin] Allergy fabian Verified 05/27/23 12:35 johnsons lamotrigine [From Lamictal] Allergy fabian Verified 05/27/23 12:35 johnsons lavender (Lavandula Allergy Itching Verified 05/27/23 12:35 angustifolia) Sulfa (Sulfonamide Allergy Fabian-Raad Verified 05/27/23 12:35 Antibiotics) syndrome sulfamethoxazole Allergy Fabian-Raad Verified 05/27/23 12:35 [From Bactrim] syndrome trimethoprim [From Bactrim] Allergy Fabian-Raad Verified 05/27/23 12:35 syndrome vortioxetine Allergy joint Verified 05/27/23 12:35 [From Trintellix] pain, rash/hives Review of Systems ROS Other: All systems not noted in ROS Statement are negative. <Jessica Rodriguez - Last Filed: 06/25/23 19:23> ROS Other: All systems not noted in ROS Statement are negative. <Jorge Vang - Last Filed: 06/25/23 22:08> ROS Statement: Those systems with pertinent positive or pertinent negative responses have been documented in the HPI. Review of Systems: CONST: Endorses anxiety EYES: Denies blurry vision ENT: Denies nasal congestion C/V: Denies Chest pain RESP: Denies shortness of breath GI: Denies abdominal pain : Denies dysuria SKIN: Denies rash. MSK: Denies joint pain. NEURO: Denies headache (Jorge Vang) Past Medical History Past Medical History: GERD/Reflux, Hypertension Additional Past Medical History / Comment(s): HX GASTRIC BLEED 2017, History of Any Multi-Drug Resistant Organisms: None Reported Past Surgical History: Breast Surgery, Section, Orthopedic Surgery Additional Past Surgical History / Comment(s): BREAT IMPLANTS AGE 19. RT KNEE SX X 3 Past Anesthesia/Blood Transfusion Reactions: No Reported Reaction Additional Past Anesthesia/Blood Transfusion Reaction / Comment(s): HAD BLOOD TRANSFUSION 08/2017 NO PROBLEMS Past Psychological History: Anxiety, Depression Smoking Status: Vaper Past Alcohol Use History: None Reported Past Drug Use History: None Reported - Past Family History Son(s) Additional Family Medical History / Comment(s): at AGE 20 years from crohns <Jessica Rodriguez - Last Filed: 06/25/23 19:23> General Exam Limitations: no limitations <Jessica Rodriguez - Last Filed: 06/25/23 19:23> <Jogre Vang - Last Filed: 06/25/23 22:08> - General Exam Comments Initial Comments: Visual Physical Exam Vital signs reviewed General: Anxious, nontoxic, hyperventilating Head: Normocephalic, atraumatic Eyes: PERRLA, EOMI ENT: Airway patent Chest: Nonlabored breathing Skin: No visual rash, normal skin tone Neuro: Alert and oriented 3 Musculoskeletal: No gross abnormalities (Jessica Rodriguez) General: Appears anxious, is hyperventilating. HEAD: Normal with no signs of head trauma. EYES: PERRLA, EOMI, conjunctiva normal, no discharge. ENT: Hearing grossly intact, normal oropharynx. RESPIRATORY: Clear breath sounds bilaterally. No wheezes, rales, or rhonchi. No hypoxia. Hyperventilation. C/V: Regular rate and rhythm. S1 and S2 auscultated, no edema, peripheral pulses 2+ and intact throughout ABD: Abd is soft, nontender, nondistended EXT: Normal range of motion, no obvious deformity SKIN: No rashes or lesions observed on exposed skin. NEURO: Alert and oriented x 4. (Jorge Vang) Course Vital Signs 06/25/23 19:08 Temperature 98.2 F Pulse Rate 70 Respiratory 28 H Rate Blood Pressure 136/85 O2 Sat by Pulse 98 Oximetry Medical Decision Making - Lab Data Result diagrams: 06/25/23 20:38 06/25/23 20:38 - EKG Data -: EKG Interpreted by Me <Jorge Vang - Last Filed: 06/25/23 22:08> - Medical Decision Making Was pt. sent in by a medical professional or institution (, PA, BOX COVERING MACHINE OPERATOR, urgent care, hospital, or [facility]...) When possible be specific @ -No Did you speak to anyone other than the patient for history (EMS, parent, family, police, friend...)? What history was obtained from this source @ -No Did you review nursing and triage notes (agree or disagree)? Why? @ -I reviewed and agree with nursing and triage notes Were old charts reviewed (outside hosp., previous admission, EMS record, old EKG, old radiological studies, urgent care reports/EKG's, [facility] records)? Report findings @ -Old charts and maps reviewed. Differential Diagnosis (chest pain, altered mental status, abdominal pain women, abdominal pain men, vaginal bleeding, weakness, fever, dyspnea, syncope, head ache, dizziness, GI bleed, back pain, seizure, CVA, palpatations, mental health, musculoskeletal)? @ -Medication refill, anxiety, electrolyte abnormality. This list is not all inclusive. EKG interpreted by me (3pts min.). @ -As above X-rays interpreted by me (1pt min.). @ -Chest x-ray shows no obvious acute cardiopulmonary process. CT interpreted by me (1pt min.). @ -None done U/S interpreted by me (1pt. min.). @ -None done What testing was considered but not performed or refused? (CT, X-rays, U/S, labs)? Why? @ -None What meds were considered but not given or refused? Why? @ -None Did you discuss the management of the patient with other professionals (professionals i.e. , PA, BOX COVERING MACHINE OPERATOR, lab, RT, psych nurse, social service manager, public relations professional, teacher, chief program officer, field nurse case manager)? Give summary @ -No Was smoking cessation discussed for >3mins.? @ -No Was critical care preformed (if so, how long)? @ -No Were there social determinants of health that impacted care today? How? (Homelessness, low income, unemployed, alcoholism, drug addiction, transportation, low edu. Level, literacy, decrease access to med. care, usp, rehab)? @ -No Was there de-escalation of care discussed even if they declined (Discuss DNR or withdrawal of care, Hospice)? DNR status @ -No What co-morbidities impacted this encounter? (DM, HTN, Smoking, COPD, CAD, Cancer, CVA, ARF, Chemo, Hep., AIDS, mental health diagnosis, sleep apnea, morbid obesity)? @ -Anxiety Was patient admitted / discharged? Hospital course, mention meds given and route, prescriptions, significant lab abnormalities, going to OR and other pertinent info. @ -Patient presents for medication refill as well as anxiety. Has been without her medications for multiple days. Has no other acute complaints. Patient originally seen as a quick note. Vital signs remarkable for hyperventilation but otherwise unremarkable. Basic labs obtained which were within acceptable limits at this time. EKG showed no signs of acute ischemia. Chest x-ray unremarkable. On reevaluation, I evaluated the patient. She has some improvement of her anxie ty but she is asking for medication refills of her Cymbalta, Ativan, [place]. I did review maps and she has not filled any for the last month. She is due to follow-up with her provider this week. I recommend she continue with that appointment I will provide her with short-term prescriptions of all 3 medications. Patient was in agreement this plan. Prior to discharge she will be given a dose of Ativan as well as [place]. Patient was in agreement this plan. I will provide the patient with a prescription for Ativan, [place], Cymbalta. I instructed the patient to follow up with their PCP in the next 1-3 days.. I explained that the patient should return to the emergency department if they experience any worsening symptoms. Strict return precautions were discussed with the patient. The patient expressed understanding of these instructions. I answered all questions that the patient had. The patient was discharged home in good condition with their prescriptions and follow up information. Undiagnosed new problem with uncertain prognosis? @ -No Drug Therapy requiring intensive monitoring for toxicity (Heparin, Nitro, Insulin, Cardizem)? @ -No Were any procedures done? @ -No Diagnosis/symptom? @ -Anxiety, medication refill Acute, or Chronic, or Acute on Chronic? @ -Acute Uncomplicated (without systemic symptoms) or Complicated (systemic symptoms)? @ -Uncomplicated Side effects of treatment? @ -No Exacerbation, Progression, or Severe Exacerbation? @ -No Poses a threat to life or bodily function? How? (Chest pain, [place], [place], pneumonia, PE, COPD, DKA, ARF, appy, cholecystitis, CVA, Diverticulitis, Homicidal, Suicidal, threat to staff... and all critical care pts) @ -No (Jorge Vang) - Lab Data Lab Results 06/25/23 06/25/23 Range/Units 20:38 20:38 WBC 10.8 H (3.8-10.6) k/uL RBC 4.33 (3.80-5.40) m/uL Hgb 13.4 (11.4-16.0) gm/dL Hct 39.3 (34.0-46.0) % MCV 90.9 (80.0-100.0) fL MCH 31.0 (25.0-35.0) pg MCHC 34.1 (31.0-37.0) g/dL RDW 13.2 (11.5-15.5) % Plt Count 463 H (150-450) k/uL MPV 7.2 Sodium 125 L (137-145) mmol/L Potassium 4.3 (3.5-5.1) mmol/L Chloride 90 L (98-107) mmol/L Carbon Dioxide 28 (22-30) mmol/L Anion Gap 7 mmol/L BUN 7 (7-17) mg/dL Creatinine 0.48 L (0.52-1.04) mg/dL Est GFR (CKD-EPI)AfAm >90 (>60 ml/min/1.73 sqM) Est GFR (CKD-EPI)NonAf >90 (>60 ml/min/1.73 sqM) Glucose 118 H (74-99) mg/dL Calcium 8.6 (8.4-10.2) mg/dL Total Bilirubin 0.7 (0.2-1.3) mg/dL AST 38 H (14-36) U/L ALT 35 H (4-34) U/L Alkaline Phosphatase 95 (38-126) U/L Total Protein 7.0 (6.3-8.2) g/dL Albumin 4.6 (3.5-5.0) g/dL - EKG Data EKG Comments: 12-lead Electrocardiogram Interpretation Note EKG was reviewed and interpreted by myself. 12-lead ECG performed at 1923 is interpreted by me as revealing normal sinus rhythm at a rate of 70 beats per minute. [place] is normal. MT interval is 160 ms, QRS duration is 93 ms, QTc is 454 ms. Chronic T wave inversion in lead aVL.. There were no ST or T wave abnormalities to suggest myocardial ischemia or injury. R wave progression across the precordium was satisfactory. By my interpretation this EKG is non- diagnostic for acute ischemia. (Jorge Vang) Disposition <Jessica Rodriguez - Last Filed: 06/25/23 19:23> Is patient prescribed a controlled substance at d/c from ED?: No Time of Disposition: 21:55 <Jorge Vang - Last Filed: 06/25/23 22:08> Clinical Impression: Medication refill, Anxiety Disposition: HOME SELF-CARE Condition: Good Instructions (If sedation given, give patient instructions): Anxiety (ED) Prescriptions: LORazepam [Ativan] 1 mg PO TID 7 Days #21 tab DULoxetine HCL [Cymbalta] 60 mg PO BID 7 Days #7 cap HYDROcodone/APAP 7.5-325MG [[place] 7.5-325] 1 tab PO Q6HR PRN 3 Days #12 tab PRN Reason: Pain Referrals: Margarita Tran [Primary Care Provider] - 1-2 days
[2023-06-25 20:54] LABS: HCT 39.3 % (34.0-46.0); HGB 13.4 gm/dL (11.4-16.0); MCHC 34.1 g/dL (31.0-37.0); MCV 90.9 fL (80.0-100.0); Mean Platelet Volume 7.2; Platelet Count 463 k/uL (150-450); RBC 4.33 m/uL (3.80-5.40); RDW 13.2 % (11.5-15.5); WBC 10.8 k/uL (3.8-10.6)
[2023-06-25 21:02] LABS: ALT 35 U/L (4-34); African American GFR (CKD) >90 (>60 ml/min/1.73 sqM); Albumin 4.6 g/dL (3.5-5.0); Anion Gap 7 mmol/L; Blood Urea Nitrogen 7 mg/dL (7-17); Calcium 8.6 mg/dL (8.4-10.2); Carbon Dioxide 28 mmol/L (22-30); Chloride 90 mmol/L (98-107); Glucose 118 mg/dL (74-99); Non-African American GFR(CKD) >90 (>60 ml/min/1.73 sqM); Sodium 125 mmol/L (137-145); Total Bilirubin 0.7 mg/dL (0.2-1.3)
[2023-06-25 21:11] LABS: AST 38 U/L (14-36); Alkaline Phosphatase 95 U/L (38-126); Potassium 4.3 mmol/L (3.5-5.1)
--- NOTE | 2023-06-25 21:19 | XR ---
EXAMINATION TYPE: XR chest 2V DATE OF EXAM: 06/25/2023 9:05 PM CLINICAL INDICATION:Female, 52 years old with history of hyperventilating; [facility] COMPARISON: Chest radiographs from on 04/30/2023 TECHNIQUE: XR chest 2V Frontal and lateral views of the chest. FINDINGS: Lungs/Pleura: There is no evidence of pleural effusion, focal consolidation, or pneumothorax. Pulmonary vascularity: Unremarkable. Heart/mediastinum: Cardiomediastinal silhouette is unremarkable. Musculoskeletal: No acute osseous pathology. IMPRESSION: No acute cardiopulmonary disease/process.
[2023-06-25] MEDS: LORazepam 1 MG TAB PO STA ×2 (22:23)
[2023-06-25] MEDS: HYDROcodone/APAP 7.5-325MG 1 EACH TAB PO ONE (22:23)
== END 2023-06-25 22:15 | disposition home or self-care (01) ==
LOC: EC 19:00
DX: Z76.0 Encounter for issue of repeat prescription (principal); F41.9 Anxiety disorder, unspecified; I10 Essential (primary) hypertension; F17.290 Nicotine dependence, other tobacco product, uncomplicated; Z86.59 Personal history of other mental and behavioral disorders; Z79.51 Long term (current) use of inhaled steroids; Z88.2 Allergy status to sulfonamides; Z88.8 Allergy status to other drugs, medicaments and biological substances; Z88.1 Allergy status to other antibiotic agents; Z79.899 Other long term (current) drug therapy
CPT/HCPCS: 36415; 71046; 80053; 85027; 93005; 99285

== ENCOUNTER 2023-08-09 17:29 | Emergency (ER) | payer OTHER ==
--- NOTE | 2023-08-09 18:30 | ED ---
General Adult HPI - General Source: patient, RN notes reviewed Mode of arrival: ambulatory Limitations: no limitations <Jessica Rodriguez - Last Filed: 08/09/23 18:34> <Zac Ponce - Last Filed: 08/10/23 03:42> - General Chief complaint: Recheck/Abnormal Lab/Rx Stated complaint: Hypertension Time Seen by Provider: 08/09/23 18:30 - History of Present Illness Initial comments: Note: 52-year-old female presenting to the ER with a chief complaint of hypertension. Patient sent by urgent care. She is endorsing shortness of breath and nausea. She has been out of her antihypertensive and pain medication for about 3 days. She denies any chest pain. (Jessica Rodriguez) 53-year-old female presenting with chief complaint of hypertension. Patient went to urgent care today complaining of headache and overall "not feeling well". She was noted to have an elevated blood pressure urgent care and was advised to report to the ER. Patient has been out of her losartan for the last 3 days. She has also been out of her pain medication. She does admit to some shortness of breath and nausea. No vomiting. No chest pain. No fever. No lower extremity swelling. No abdominal pain. No vision or hearing changes. No numbness, tingling, weakness. (Zac Ponce) - Related Data Home Medications Medication Instructions Recorded Confirmed Sucralfate [Carafate] 1 gm PO TID-W/MEALS 11/01/18 05/19/23 Albuterol Sulfate [Albuterol 2 puff PO RT-Q4H PRN 02/04/23 05/19/23 Sulfate Hfa] Fluticasone/Umeclidin/Vilanter 1 puff INHALATION RT-DAILY 02/04/23 05/19/23 [Trelegy Ellipta 100-62.5-25] Magnesium Oxide [Magox 400] 400 mg PO HS 05/24/23 05/24/23 Previous Rx's Medication Instructions Recorded HYDROcodone/APAP 7.5-325MG [[place] 1 tab PO Q6HR PRN 3 Days #12 tab 02/22/23 7.5-325] Cyclobenzaprine [Flexeril] 10 mg PO BID PRN 14 Days #14 tab 05/25/23 DULoxetine HCL [Cymbalta] 60 mg PO BID 30 Days #60 cap 05/25/23 Losartan [Cozaar] 100 mg PO HS 30 Days #60 tab 05/25/23 Nicotine 14Mg/24Hr Patch [Habitrol] 1 patch TRANSDERM DAILY 14 Days 05/25/23 #14 patch Pantoprazole [Protonix] 40 mg PO BID 30 Days #60 tab 05/25/23 Propranolol [Inderal] 40 mg PO BID 30 Days #60 tab 05/25/23 QUEtiapine [SEROquel] 50 mg PO HS 30 Days #30 tab 05/25/23 hydrOXYzine pamoate [Vistaril] 50 mg PO BID PRN 30 Days #60 cap 05/25/23 DULoxetine HCL [Cymbalta] 60 mg PO BID 7 Days #7 cap 06/25/23 HYDROcodone/APAP 7.5-325MG [[place] 1 tab PO Q6HR PRN 3 Days #12 tab 06/25/23 7.5-325] LORazepam [Ativan] 1 mg PO TID 7 Days #21 tab 06/25/23 HYDROcodone/APAP 7.5-325MG [[place] 1 tab PO Q6HR PRN 3 Days #12 tab 08/09/23 7.5-325] Losartan [Cozaar] 100 mg PO HS #30 tab 08/09/23 Ipratropium-Albuterol Nebulize 3 ml INHALATION Q6HR PRN #90 ml 08/10/23 [Duoneb 0.5 mg-3 mg/3 ml Soln] Allergies Allergy/AdvReac Type Severity Reaction Status Date / Time brexpiprazole [From Rexulti] Allergy mouth sores Verified 08/09/23 17:50 bupropion [From Wellbutrin] Allergy fabian Verified 08/09/23 17:50 johnsons lamotrigine [From Lamictal] Allergy fabian Verified 08/09/23 17:50 johnsons lavender (Lavandula Allergy Itching Verified 08/09/23 17:50 angustifolia) Sulfa (Sulfonamide Allergy Fabian-Raad Verified 08/09/23 17:50 Antibiotics) syndrome sulfamethoxazole Allergy Fabian-Raad Verified 08/09/23 17:50 [From Bactrim] syndrome trimethoprim [From Bactrim] Allergy Fabian-Raad Verified 08/09/23 17:50 syndrome vortioxetine Allergy joint Verified 08/09/23 17:50 [From Trintellix] pain, rash/hives Review of Systems ROS Other: All systems not noted in ROS Statement are negative. <Jessica Rodriguez - Last Filed: 08/09/23 18:34> ROS Other: All systems not noted in ROS Statement are negative. <Zac Ponce - Last Filed: 08/10/23 03:42> ROS Statement: Those systems with pertinent positive or pertinent negative responses have been documented in the HPI. Past Medical History Past Medical History: GERD/Reflux, Hypertension Additional Past Medical History / Comment(s): HX GASTRIC BLEED 2017, History of Any Multi-Drug Resistant Organisms: None Reported Past Surgical History: Breast Surgery, Section, Orthopedic Surgery Additional Past Surgical History / Comment(s): BREAT IMPLANTS AGE 19. RT KNEE SX X 3 Past Anesthesia/Blood Transfusion Reactions: No Reported Reaction Additional Past Anesthesia/Blood Transfusion Reaction / Comment(s): HAD BLOOD TRANSFUSION 08/2017 NO PROBLEMS Past Psychological History: Anxiety, Depression Smoking Status: Vaper Past Alcohol Use History: None Reported Past Drug Use History: None Reported - Past Family History Son(s) Additional Family Medical History / Comment(s): at AGE 20 years from crohns <Jessica Rodriguez - Last Filed: 08/09/23 18:34> General Exam Limitations: no limitations <Jessica Rodriguez - Last Filed: 08/09/23 18:34> Limitations: no limitations General appearance: alert, in no apparent distress Head exam: Present: atraumatic, normocephalic Eye exam: Present: normal appearance, EOMI Neck exam: Present: normal inspection. Absent: meningismus Respiratory exam: Present: normal lung sounds bilaterally. Absent: respiratory distress, wheezes, rales, rhonchi, stridor Cardiovascular Exam: Present: regular rate, normal rhythm, normal heart sounds. Absent: systolic murmur, diastolic murmur, rubs, gallop, clicks Extremities exam: Absent: pedal edema Neurological exam: Present: alert, oriented X3 Psychiatric exam: Present: normal affect, normal mood Skin exam: Present: warm, dry <Zac Ponce - Last Filed: 08/10/23 03:42> - General Exam Comments Initial Comments: Visual Physical Exam Vital signs reviewed General: Well-appearing, nontoxic, no acute distress. Head: Normocephalic, atraumatic Eyes: PERRLA, EOMI ENT: Airway patent Chest: Nonlabored breathing Skin: No visual rash, normal skin tone Neuro: Alert and oriented 3 Musculoskeletal: No gross abnormalities (Jessica Rodriguez) Course Vital Signs 08/09/23 08/09/23 08/09/23 17:48 20:41 21:22 Temperature 97.9 F 98 F Pulse Rate 92 83 87 Respiratory 16 16 18 Rate Blood Pressure 181/104 191/97 192/92 O2 Sat by Pulse 99 98 99 Oximetry 08/09/23 08/09/23 08/09/23 22:56 23:44 23:46 Temperature Pulse Rate 72 72 72 Respiratory 20 18 Rate Blood Pressure 186/77 161/76 O2 Sat by Pulse 96 100 Oximetry 08/09/23 08/10/23 23:50 00:12 Temperature 98.2 F Pulse Rate 74 72 Respiratory 20 Rate Blood Pressure 160/76 O2 Sat by Pulse 100 Oximetry Medical Decision Making <Jessica Rodriguez - Last Filed: 08/09/23 18:34> - Lab Data Result diagrams: 08/09/23 17:52 08/09/23 17:52 <Zac Ponce - Last Filed: 08/10/23 03:42> - Medical Decision Making I performed the quick note portion of this chart. Electronically signed by Jessica Rodriguez PA-C (Jessica Rodriguez) Was pt. sent in by a medical professional or institution ([facility], [employer]RICATOR, urgent care, hospital, or longterm...) When possible be specific @ -Urgent care Did you speak to anyone other than the patient for history (EMS, parent, family, police, friend...)? What history was obtained from this source @ -No Did you review nursing and triage notes (agree or disagree)? Why? @ -I reviewed and agree with nursing and triage notes Were old charts reviewed (outside hosp., previous admission, EMS record, old EKG, old radiological studies, urgent care reports/EKG's, longterm records)? Report findings @ -No old charts were reviewed Differential Diagnosis (chest pain, altered mental status, abdominal pain women, abdominal pain men, vaginal bleeding, weakness, fever, dyspnea, syncope, headache, dizziness, GI bleed, back pain, seizure, CVA, palpatations, mental health, musculoskeletal)? @ -MDM Differential Headache: Migraine, tension, cluster, carbon monoxide, central venous thrombosis, pension karma temporal arteritis, acute closure glaucoma, intercranial hemorrhage, masto iditis, sinusitis, head injury this is not meant to be an all-inclusive list. EKG interpreted by me (3pts min.). @ -EKG shows sinus rhythm ventricular rate 73. CT interval 148. QRS 88. QT 390. QTc 424. X-rays interpreted by me (1pt min.). @ -Chest x-ray shows no acute pulmonary process CT interpreted by me (1pt min.). @ -None done U/S interpreted by me (1pt. min.). @ -None done What testing was considered but not performed or refused? (CT, X-rays, U/S, labs)? Why? @ -None What meds were considered but not given or refused? Why? @ -None Did you discuss the management of the patient with other professionals (professionals i.e. , PA, METAL FABRICATOR, lab, RT, psych nurse, social sciences research scientist, logistics technician, teacher, community relations officer, shoe caser)? Give summary @ -No Was smoking cessation discussed for >3mins.? @ -No Was critical care preformed (if so, how long)? @ -No Were there social determinants of health that impacted care today? How? (Homelessness, low income, unemployed, alcoholism, drug addiction, transportation, low edu. Level, literacy, decrease access to med. care, assisted, rehab)? @ -No Was there de-escalation of care discussed even if they declined (Discuss DNR or withdrawal of care, Hospice)? DNR status @ -No What co-morbidities impacted this encounter? (DM, HTN, Smoking, COPD, CAD, Cancer, CVA, ARF, Chemo, Hep., AIDS, mental health diagnosis, sleep apnea, morbid obesity)? @ -Hypertension Was patient admitted / discharged? Hospital course, mention meds given and route, prescriptions, significant lab abnormalities, going to OR and other pertinent info. @ -53-year-old female presenting with chief complaint of high blood pressure. She also admits to mild headache, as well as some shortness of breath and nausea. Workup is initiated by triage. Lab work shows no leukocytosis or anemia. Negative troponin and EKG shows no new ischemic changes. Chest x-ray shows no acute process. The patient is evaluated by me and ATP, I ordered her blood pressure medication and pain medication that she has been out of for the last 3 days. Her blood pressure remained elevated. Patient was later placed in an exam room. She is given labetalol 20 mg and 1 DuoNeb breathing treatment as the patient has a history of COPD. On reassessment patient reports improvement in her symptoms, she would like to be discharged home. Refill of her losartan is sent to her pharmacy and short course of [place] for her chronic pain is sent to her pharmacy. She has an appointment with her PCP on . Follow-up with PCP. Report back to ER with any new or worsening symptoms. Discussed return parameters and answered all questions. Patient conveyed verbal understanding and agreed to the plan. I discussed this case in detail with my attending Dr. Edwards Undiagnosed new problem with uncertain prognosis? @ -No Drug Therapy requiring intensive monitoring for toxicity (Heparin, Nitro, Insulin, Cardizem)? @ -No Were any procedures done? @ -No Diagnosis/symptom? @ -Hypertension Acute, or Chronic, or Acute on Chronic? @ -Acute on chronic Uncomplicated (without systemic symptoms) or Complicated (systemic symptoms)? @ -Uncomplicated Side effects of treatment? @ -No Exacerbation, Progression, or Severe Exacerbation? @ -No Poses a threat to life or bodily function? How? (Chest pain, [place], [place], pneumonia, PE, COPD, DKA, ARF, appy, cholecystitis, CVA, Diverticulitis, Homicidal, Suicidal, threat to staff... and all critical care pts) @ -Unlikely (Zac Ponce) - Lab Data Lab Results 08/09/23 08/09/23 08/09/23 Range/Units 17:52 17:52 17:52 WBC 7.3 (3.8-10.6) k/uL RBC 4.07 (3.80-5.40) m/uL Hgb 12.6 (11.4-16.0) gm/dL Hct 38.9 (34.0-46.0) % MCV 95.7 (80.0-100.0) fL MCH 31.0 (25.0-35.0) pg MCHC 32.4 (31.0-37.0) g/dL RDW 14.2 (11.5-15.5) % Plt Count 404 (150-450) k/uL MPV 7.7 Neutrophils % 66 % Lymphocytes % 24 % Monocytes % 5 % Eosinophils % 2 % Basophils % 0 % Neutrophils # 4.8 (1.3-7.7) k/uL Lymphocytes # 1.7 (1.0-4.8) k/uL Monocytes # 0.4 (0-1.0) k/uL Eosinophils # 0.2 (0-0.7) k/uL Basophils # 0.0 (0-0.2) k/uL PT 9.6 L (10.0-12.5) sec INR 0.8 (<1.2) APTT 25.7 (22.0-30.0) sec Sodium 135 L (137-145) mmol/L Potassium 4.5 (3.5-5.1) mmol/L Chloride 101 (98-107) mmol/L Carbon Dioxide 26 (22-30) mmol/L Anion Gap 8 mmol/L BUN 11 (7-17) mg/dL Creatinine 0.58 (0.52-1.04) mg/dL Est GFR (CKD-EPI)AfAm >90 (>60 ml/min/1.73 sqM) Est GFR (CKD-EPI)NonAf >90 (>60 ml/min/1.73 sqM) Glucose 120 H (74-99) mg/dL Calcium 9.2 (8.4-10.2) mg/dL Magnesium 2.3 (1.6-2.3) mg/dL Total Bilirubin 0.4 (0.2-1.3) mg/dL AST 25 (14-36) U/L ALT 26 (4-34) U/L Alkaline Phosphatase 83 (38-126) U/L Troponin I (0.000-0.034) ng/mL Total Protein 6.6 (6.3-8.2) g/dL Albumin 4.2 (3.5-5.0) g/dL 08/09/23 Range/Units 17:52 WBC (3.8-10.6) k/uL RBC (3.80-5.40) m/uL Hgb (11.4-16.0) gm/dL Hct (34.0-46.0) % MCV (80.0-100.0) fL MCH (25.0-35.0) pg MCHC (31.0-37.0) g/dL RDW (11.5-15.5) % Plt Count (150-450) k/uL MPV Neutrophils % % Lymphocytes % % Monocytes % % Eosinophils % % Basophils % % Neutrophils # (1.3-7.7) k/uL Lymphocytes # (1.0-4.8) k/uL Monocytes # (0-1.0) k/uL Eosinophils # (0-0.7) k/uL Basophils # (0-0.2) k/uL PT (10.0-12.5) sec INR (<1.2) APTT (22.0-30.0) sec Sodium (137-145) mmol/L Potassium (3.5-5.1) mmol/L Chloride (98-107) mmol/L Carbon Dioxide (22-30) mmol/L Anion Gap mmol/L BUN (7-17) mg/dL Creatinine (0.52-1.04) mg/dL Est GFR (CKD-EPI)AfAm (>60 ml/min/1.73 sqM) Est GFR (CKD-EPI)NonAf (>60 ml/min/1.73 sqM) Glucose (74-99) mg/dL Calcium (8.4-10.2) mg/dL Magnesium (1.6-2.3) mg/dL Total Bilirubin (0.2-1.3) mg/dL AST (14-36) U/L ALT (4-34) U/L Alkaline Phosphatase (38-126) U/L Troponin I <0.012 (0.000-0.034) ng/mL Total Protein (6.3-8.2) g/dL Albumin (3.5-5.0) g/dL Disposition <Jessica Rodriguez - Last Filed: 08/09/23 18:34> Is patient prescribed a controlled substance at d/c from ED?: Yes When asked, does pt state using other controlled substances?: No If prescribed controlled substance>3 days was MAPS reviewed?: Prescribed <3 Days If opioid is for acute pain is fill amount 7 days or less?: Yes Time of Disposition: 00:00 <Zac Ponce - Last Filed: 08/10/23 03:42> Clinical Impression: Hypertension, Chronic pain Disposition: HOME SELF-CARE Condition: Good Instructions (If sedation given, give patient instructions): Chronic Hypertension (ED) Additional Instructions: Report back to ER with any new or worsening symptoms. Follow-up with your PCP this week. Prescriptions: Losartan [Cozaar] 100 mg PO HS #30 tab Ipratropium-Albuterol Nebulize [Duoneb 0.5 mg-3 mg/3 ml Soln] 3 ml INHALATION Q6HR PRN #90 ml PRN Reason: Shortness Of Breath HYDROcodone/APAP 7.5-325MG [[place] 7.5-325] 1 tab PO Q6HR PRN 3 Days #12 tab PRN Reason: Pain Referrals: Margarita Tran [Primary Care Provider] - 1-2 days
[2023-08-09 18:42] LABS: Basophils % (A) 0 %; Eosinophils # (A) 0.2 k/uL (0-0.7); Eosinophils % (A) 2 %; HCT 38.9 % (34.0-46.0); HGB 12.6 gm/dL (11.4-16.0); Lymphocytes # (A) 1.7 k/uL (1.0-4.8); Lymphocytes % (A) 24 %; MCHC 32.4 g/dL (31.0-37.0); MCV 95.7 fL (80.0-100.0); Mean Platelet Volume 7.7; Monocytes # (A) 0.4 k/uL (0-1.0); Monocytes % (A) 5 %; Neutrophils # (A) 4.8 k/uL (1.3-7.7); Neutrophils % (A) 66 %; Platelet Count 404 k/uL (150-450); RBC 4.07 m/uL (3.80-5.40); RDW 14.2 % (11.5-15.5); WBC 7.3 k/uL (3.8-10.6)
[2023-08-09 18:51] LABS: ALT 26 U/L (4-34); AST 25 U/L (14-36); African American GFR (CKD) >90 (>60 ml/min/1.73 sqM); Albumin 4.2 g/dL (3.5-5.0); Alkaline Phosphatase 83 U/L (38-126); Anion Gap 8 mmol/L; Blood Urea Nitrogen 11 mg/dL (7-17); Calcium 9.2 mg/dL (8.4-10.2); Carbon Dioxide 26 mmol/L (22-30); Chloride 101 mmol/L (98-107); Glucose 120 mg/dL (74-99); Magnesium 2.3 mg/dL (1.6-2.3); Non-African American GFR(CKD) >90 (>60 ml/min/1.73 sqM); Potassium 4.5 mmol/L (3.5-5.1); Sodium 135 mmol/L (137-145); Total Bilirubin 0.4 mg/dL (0.2-1.3); Total Protein 6.6 g/dL (6.3-8.2)
--- NOTE | 2023-08-09 18:53 | XR ---
EXAMINATION TYPE: XR chest 2V DATE OF EXAM: 08/09/2023 COMPARISON: 06/25/2023 INDICATION: Chest pain short of breath TECHNIQUE: Frontal and lateral views of the chest are obtained. FINDINGS: The heart size is normal. The pulmonary vasculature is normal. The lungs are clear. IMPRESSION: 1. No acute pulmonary process.
[2023-08-09 19:03] LABS: INR 0.8 (<1.2); Partial Thromboplastin Time 25.7 sec (22.0-30.0); Prothrombin Time 9.6 sec (10.0-12.5)
[2023-08-09] MEDS: HYDROcodone/APAP 7.5-325MG 1 EACH TAB PO ONE (20:40)
[2023-08-09] MEDS: LOSARTAN 50 MG TAB PO STA (20:40)
[2023-08-09] MEDS: LABETALOL 5 MG/ML VIAL MDV IVP STA (21:47)
[2023-08-09 22:56] VITALS: PULSE 72; RESP 20
[2023-08-09] MEDS: IPRATROPIUM-ALBUTEROL 3 ML NEB INHALATION STA (23:42)
[2023-08-10 00:16] VITALS: BP 160/76; TEMP 98.2
== END 2023-08-10 00:14 | disposition home or self-care (01) ==
LOC: EC 17:29
DX: I10 Essential (primary) hypertension (principal); G89.29 Other chronic pain; F17.290 Nicotine dependence, other tobacco product, uncomplicated; Z88.8 Allergy status to other drugs, medicaments and biological substances; Z88.2 Allergy status to sulfonamides; Z88.1 Allergy status to other antibiotic agents
CPT/HCPCS: 36415; 94640; 93005; 80053; 83735; 84484; 85025; 85610; 85730; 71046; 99284; 96374; J1920

== ENCOUNTER 2023-10-25 13:00 | Emergency (ER) | payer OTHER ==
[2023-10-25 13:24] VITALS: TEMP 97.9
[2023-10-25 14:27] LABS: Basophils % (A) 0 %; Eosinophils # (A) 0.1 k/uL (0-0.7); Eosinophils % (A) 1 %; HCT 41.5 % (34.0-46.0); HGB 14.2 gm/dL (11.4-16.0); Lymphocytes # (A) 1.7 k/uL (1.0-4.8); Lymphocytes % (A) 20 %; MCHC 34.2 g/dL (31.0-37.0); MCV 93.4 fL (80.0-100.0); Mean Platelet Volume 7.9; Monocytes # (A) 0.4 k/uL (0-1.0); Monocytes % (A) 4 %; Neutrophils # (A) 6.5 k/uL (1.3-7.7); Neutrophils % (A) 73 %; Platelet Count 383 k/uL (150-450); RBC 4.44 m/uL (3.80-5.40); RDW 12.8 % (11.5-15.5); WBC 8.9 k/uL (3.8-10.6)
[2023-10-25 14:32] LABS: INR 0.9 (<1.2); Prothrombin Time 9.9 sec (10.0-12.5)
--- NOTE | 2023-10-25 15:04 | ED ---
General Adult HPI - General Chief complaint: Recheck/Abnormal Lab/Rx Stated complaint: sob/dizzy Time Seen by Provider: 10/25/23 13:17 Source: patient, RN notes reviewed Mode of arrival: wheelchair Limitations: no limitations - History of Present Illness Initial comments: 53-year-old female presents emergency department from pulmonology office for evaluation. Patient states that she had an abnormal chest x-ray and was sent here. She states her real problem is that she is out of her anxiety medications in which she states that she was on Xanax. She does not have a few days she states she is very anxious like she was having some palpitations. She denies any history of aortic issues. Patient states she does have COPD. Patient denies abdominal pain no back pain no extremity weakness. - Related Data Home Medications Medication Instructions Recorded Confirmed Sucralfate [Carafate] 1 gm PO TID-W/MEALS 11/01/18 05/19/23 Albuterol Sulfate [Albuterol 2 puff PO RT-Q4H PRN 02/04/23 05/19/23 Sulfate Hfa] Fluticasone/Umeclidin/Vilanter 1 puff INHALATION RT-DAILY 02/04/23 05/19/23 [Trelegy Ellipta 100-62.5-25] Magnesium Oxide [Magox 400] 400 mg PO HS 05/24/23 05/24/23 Previous Rx's Medication Instructions Recorded HYDROcodone/APAP 7.5-325MG [[place] 1 tab PO Q6HR PRN 3 Days #12 tab 02/22/23 7.5-325] Cyclobenzaprine [Flexeril] 10 mg PO BID PRN 14 Days #14 tab 05/25/23 DULoxetine HCL [Cymbalta] 60 mg PO BID 30 Days #60 cap 05/25/23 Losartan [Cozaar] 100 mg PO HS 30 Days #60 tab 05/25/23 Nicotine 14Mg/24Hr Patch [Habitrol] 1 patch TRANSDERM DAILY 14 Days 05/25/23 #14 patch Pantoprazole [Protonix] 40 mg PO BID 30 Days #60 tab 05/25/23 Propranolol [Inderal] 40 mg PO BID 30 Days #60 tab 05/25/23 QUEtiapine [SEROquel] 50 mg PO HS 30 Days #30 tab 05/25/23 hydrOXYzine pamoate [Vistaril] 50 mg PO BID PRN 30 Days #60 cap 05/25/23 DULoxetine HCL [Cymbalta] 60 mg PO BID 7 Days #7 cap 06/25/23 HYDROcodone/APAP 7.5-325MG [[place] 1 tab PO Q6HR PRN 3 Days #12 tab 06/25/23 7.5-325] LORazepam [Ativan] 1 mg PO TID 7 Days #21 tab 06/25/23 HYDROcodone/APAP 7.5-325MG [[place] 1 tab PO Q6HR PRN 3 Days #12 tab 08/09/23 7.5-325] Losartan [Cozaar] 100 mg PO HS #30 tab 08/09/23 Ipratropium-Albuterol Nebulize 3 ml INHALATION Q6HR PRN #90 ml 08/10/23 [Duoneb 0.5 mg-3 mg/3 ml Soln] LORazepam [Ativan] 1 mg PO TID 3 Days #9 tab 10/25/23 Allergies Allergy/AdvReac Type Severity Reaction Status Date / Time brexpiprazole [From Rexulti] Allergy mouth sores Verified 10/25/23 13:24 bupropion [From Wellbutrin] Allergy fabian Verified 10/25/23 13:24 johnsons lamotrigine [From Lamictal] Allergy fabian Verified 10/25/23 13:24 johnsons lavender (Lavandula Allergy Itching Verified 10/25/23 13:24 angustifolia) Sulfa (Sulfonamide Allergy Fabian-Raad Verified 10/25/23 13:24 Antibiotics) syndrome sulfamethoxazole Allergy Fabian-Raad Verified 10/25/23 13:24 [From Bactrim] syndrome trimethoprim [From Bactrim] Allergy Fabian-Raad Verified 10/25/23 13:24 syndrome vortioxetine Allergy joint Verified 10/25/23 13:24 [From Trintellix] pain, rash/hives Review of Systems ROS Statement: Those systems with pertinent positive or pertinent negative responses have been documented in the HPI. ROS Other: All systems not noted in ROS Statement are negative. Past Medical History Past Medical History: GERD/Reflux, Hypertension Additional Past Medical History / Comment(s): HX GASTRIC BLEED 2017, History of Any Multi-Drug Resistant Organisms: None Reported Past Surgical History: Breast Surgery, Section, Orthopedic Surgery Additional Past Surgical History / Comment(s): BREAT IMPLANTS AGE 19. RT KNEE SX X 3 Past Anesthesia/Blood Transfusion Reactions: No Reported Reaction Additional Past Anesthesia/Blood Transfusion Reaction / Comment(s): HAD BLOOD TRANSFUSION 08/2017 NO PROBLEMS Past Psychological History: Anxiety, Depression Smoking Status: Vaper Past Alcohol Use History: None Reported Past Drug Use History: None Reported - Past Family History Son(s) Additional Family Medical History / Comment(s): at AGE 20 years from crohns General Exam Limitations: no limitations General appearance: alert, in no apparent distress Head exam: Present: atraumatic, normocephalic, normal inspection Neck exam: Present: normal inspection, full ROM. Absent: tenderness, meningismus, lymphadenopathy Respiratory exam: Present: normal lung sounds bilaterally. Absent: respiratory distress, wheezes, rales, rhonchi, stridor Cardiovascular Exam: Present: regular rate, normal rhythm, normal heart sounds. Absent: systolic murmur, diastolic murmur, rubs, gallop, clicks Neurological exam: Present: alert, oriented X3, CN II-XII intact, reflexes normal. Absent: motor sensory deficit Psychiatric exam: Present: anxious Course Vital Signs 10/25/23 10/25/23 13:20 15:18 Temperature 97.9 F Pulse Rate 92 84 Respiratory 20 20 Rate Blood Pressure 160/95 171/85 O2 Sat by Pulse 100 99 Oximetry EKG Findings - EKG Comments: EKG Findings:: EKG performed at 13: 52 sinus rhythm rate of 87 ND 172 QRS 71 QT/QTc 358/403 - EKG Results: EKG: interpreted by SEAND Medical Decision Making - Medical Decision Making Was pt. 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 What history was obtained from this source @ -No Did you review nursing and triage notes (agree or disagree)? Why? @ -I reviewed and agree with nursing and triage notes Were old charts reviewed (outside hosp., previous admission, EMS record, old EKG, old radiological studies, urgent care reports/EKG's, halfway records)? Report findings @ -No old charts were reviewed Differential Diagnosis (chest pain, altered mental status, abdominal pain women, abdominal pain men, vaginal bleeding, weakness, fever, dyspnea, syncope, headache, dizziness, GI bleed, back pain, seizure, CVA, palpatations, mental health, musculoskeletal)? @ -Differential Mental Health Depression, anxiety, bipolar, psychosis, schizophrenia, borderline personality, situational depression, adjustment disorder, behavioral disorder, brain tumor, malingering, substance abuse, encephalopathy, medication reaction, dementia, hypothyroidism, degenerative neurologic disorder, lupus.... This is not meant to be all-inclusive list EKG interpreted by me (3pts min.). @ -As above X-rays interpreted by me (1pt min.). @ -None done CT interpreted by me (1pt min.). @ -See CT angio thoracic abdominal aorta shows no acute process of ruptured implant noted U/S interpreted by me (1pt. min.). @ -None done What testing was considered but not performed or refused? (CT, X-rays, U/S, labs)? Why? @ -None What meds were considered but not given or refused? Why? @ -None Did you discuss the management of the patient with other professionals (professionals i.e. , PA, CREATIVE COORDINATOR, lab, RT, psych nurse, social sciences research scientist, franchise consultant, teacher, contact officer, telehealth case manager)? Give summary @ -No Was smoking cessation discussed for >3mins.? @ -No Was critical care preformed (if so, how long)? @ -No Were there social determinants of health that impacted care today? How? (Homelessness, low income, unemployed, alcoholism, drug addiction, transportation, low edu. Level, literacy, decrease access to med. care, longterm, rehab)? @ -No Was there de-escalation of care discussed even if they declined (Discuss DNR or withdrawal of care, Hospice)? DNR status @ -No What co-morbidities impacted this encounter? (DM, HTN, Smoking, COPD, CAD, Cancer, CVA, ARF, Chemo, Hep., AIDS, mental health diagnosis, sleep apnea, morbid obesity)? @ -None Was patient admitted / discharged? Hospital course, mention meds given and route, prescriptions, significant lab abnormalities, going to OR and other pertinent info. @ -Discharge patient is admitted for possible wide mediastinum this is not noted on CT patient noted to have rupture of breast implant she has no current sym ptoms patient advised that she needs to have close follow-up. Patient discharged with short prescription of her anxiety medications. Undiagnosed new problem with uncertain prognosis? @ -No Drug Therapy requiring intensive monitoring for toxicity (Heparin, Nitro, Insulin, Cardizem)? @ -No Were any procedures done? @ -No Diagnosis/symptom? @ -Anxiety, Ruptured breast implant Acute, or Chronic, or Acute on Chronic? @ -Acute Uncomplicated (without systemic symptoms) or Complicated (systemic symptoms)? @ -Uncomplicated Side effects of treatment? @ -No Exacerbation, Progression, or Severe Exacerbation? @ -No Poses a threat to life or bodily function? How? (Chest pain, USA, OR, pneumonia, PE, COPD, DKA, ARF, appy, cholecystitis, CVA, Diverticulitis, Homicidal, Suicidal, threat to staff... and all critical care pts) @ -No - Lab Data Result diagrams: 10/25/23 14:08 Lab Results 10/25/23 10/25/23 10/25/23 Range/Units 14:08 14:08 14:08 WBC 8.9 (3.8-10.6) k/uL RBC 4.44 (3.80-5.40) m/uL Hgb 14.2 (11.4-16.0) gm/dL Hct 41.5 (34.0-46.0) % MCV 93.4 (80.0-100.0) fL MCH 32.0 (25.0-35.0) pg MCHC 34.2 (31.0-37.0) g/dL RDW 12.8 (11.5-15.5) % Plt Count 383 (150-450) k/uL MPV 7.9 Neutrophils % 73 % Lymphocytes % 20 % Monocytes % 4 % Eosinophils % 1 % Basophils % 0 % Neutrophils # 6.5 (1.3-7.7) k/uL Lymphocytes # 1.7 (1.0-4.8) k/uL Monocytes # 0.4 (0-1.0) k/uL Eosinophils # 0.1 (0-0.7) k/uL Basophils # 0.0 (0-0.2) k/uL PT 9.9 L (10.0-12.5) sec INR 0.9 (<1.2) APTT 27.0 (22.0-30.0) sec Troponin I <0.012 (0.000-0.034) ng/mL Disposition Clinical Impression: Acute anxiety, Ruptured left breast implant Disposition: HOME SELF-CARE Condition: Stable Instructions (If sedation given, give patient instructions): Anxiety (ED) Additional Instructions: Please return to the Emergency Department if symptoms worsen or any other concerns. Prescriptions: LORazepam [Ativan] 1 mg PO TID 3 Days #9 tab Is patient prescribed a controlled substance at d/c from ED?: Yes When asked, does pt state using other controlled substances?: Yes If prescribed controlled substance>3 days was MAPS reviewed?: Prescribed <3 Days Time of Disposition: 15:51
[2023-10-25] MEDS: LORazepam 2 MG/ML INJ IV STA (15:20)
[2023-10-25] MEDS: SODIUM CHLORIDE 0.9% 1,000 ML IV ONE (15:20)
--- NOTE | 2023-10-25 15:43 | CT ---
EXAMINATION TYPE: CT angio thor/abd CT DLP: 1289.3 mGycm, Automated exposure control for dose reduction was used. DATE OF EXAM: 10/25/2023 3:17 PM COMPARISON: 08/09/2023.. CLINICAL INDICATION:Female, 53 years old with history of Abnormal outpatient x-ray widened mediastinu m; PHH, Abnormal outpatient xray, widened mediastinum, elevated BP, SOB, dizziness. TECHNIQUE: Dissection protocol: Multiple axial CT images of the chest, abdomen, and pelvis were obtai boogie prior and to the administration of IV contrast. 3-D reformats and maximum intensity projection fo rmat were performed on a separate workstation. Contrast used:100 mL of Isovue 370 with IV Contrast, Oral contrast used: FINDINGS: ARTERIAL VASCULATURE: Ascending thoracic aorta and descending thoracic aorta are within normal limits for size. There is no evidence for intramural hematoma within the aorta on noncontrast imaging. Post contrast imaging demonstrates no evidence for dissection. The major vessels of the aortic arch are pa tent. The major vessels of the abdominal aorta are patent. PULMONARY ARTERIAL VASCULATURE: Normal caliber. No evidence of filling defect to suggest pulmonary em bolus. VENOUS SYSTEM: Unremarkable. Lungs/pleura: No focal consolidation, pneumothorax or pleural effusion. No evidence for acute process in the lungs. Heart: Within normal limits. Mediastinum: No gross evidence of adenopathy. Lower Neck: No significant findings. There is a ruptured left implant and intact right implant with capsular calcifications. There is like ly extracapsular rupture on the left. Abdomen: Liver: Diffuse low-attenuation to the liver parenchyma Gallbladder and Bile ducts: Unremarkable. Pancreas: Unremarkable. Spleen: Unremarkable. Adrenal glands: Left adrenal nodular thickening likely representing adenomatous hyperplasia. Kidneys and Ureters: Unremarkable. No hydronephrosis. Bladder: Unremarkable. Reproductive: Unremarkable. Stomach and Bowel: No evidence of bowel obstruction. Scattered colonic diverticula. Peritoneum: No evidence of pneumoperitoneum, free fluid, or adenopathy. Musculoskeletal: The osseous structures appear intact. Lymph nodes: No evidence of lymphadenopathy. Abdominal wall/soft tissues: Unremarkable. IMPRESSION: 1. Mediastinum is not widened. No acute process. 2. Left breast implant extracapsular rupture.. Intact right implant. 3. Colonic diverticulosis. 4. Hepatic steatosis.
[2023-10-25 15:58] LABS: ALT 49 U/L (4-34); AST 36 U/L (14-36); African American GFR (CKD) >90 (>60 ml/min/1.73 sqM); Albumin 4.8 g/dL (3.5-5.0); Alkaline Phosphatase 133 U/L (38-126); Anion Gap 8 mmol/L; Blood Urea Nitrogen 14 mg/dL (7-17); Calcium 9.8 mg/dL (8.4-10.2); Carbon Dioxide 27 mmol/L (22-30); Chloride 104 mmol/L (98-107); Glucose 111 mg/dL (74-99); Non-African American GFR(CKD) >90 (>60 ml/min/1.73 sqM); Potassium 4.3 mmol/L (3.5-5.1); Sodium 139 mmol/L (137-145); Total Bilirubin 0.5 mg/dL (0.2-1.3); Total Protein 7.5 g/dL (6.3-8.2)
[2023-10-25 16:29] VITALS: BP 164/82; PULSE 80; RESP 16
== END 2023-10-25 16:44 | disposition home or self-care (01) ==
LOC: EC 13:00
DX: F41.9 Anxiety disorder, unspecified (principal); K57.30 Diverticulosis of large intestine without perforation or abscess without bleeding; F17.290 Nicotine dependence, other tobacco product, uncomplicated; Z88.2 Allergy status to sulfonamides; Z88.1 Allergy status to other antibiotic agents; Z88.6 Allergy status to analgesic agent; Z88.8 Allergy status to other drugs, medicaments and biological substances; Z98.82 Breast implant status
CPT/HCPCS: 36415; 93005; 80053; 84484; 85025; 85610; 85730; 71275; 74175; 99284; 96374; 96361; J2060

== ENCOUNTER 2023-10-30 19:13 | Emergency (ER) | payer OTHER ==
[2023-10-30 19:34] VITALS: TEMP 98.6
--- NOTE | 2023-10-30 20:35 | ED ---
General Adult HPI - General Chief complaint: Recheck/Abnormal Lab/Rx Stated complaint: Med Refill Time Seen by Provider: 10/30/23 19:45 Source: patient Mode of arrival: ambulatory Limitations: no limitations - History of Present Illness Initial comments: 53-year-old female requesting medication refill. Patient has history of anxiety, normally takes Ativan 1 mg 3 times a day. States that her PCPs office closed unexpectedly and she has an appointment with a new office on the . At this time she is experiencing anxiety symptoms such as heart racing and occasional shortness of breath. Feels consistent with her regular anxiety flareups. - Related Data Home Medications Medication Instructions Recorded Confirmed Sucralfate [Carafate] 1 gm PO TID-W/MEALS 11/01/18 05/19/23 Albuterol Sulfate [Albuterol 2 puff PO RT-Q4H PRN 02/04/23 05/19/23 Sulfate Hfa] Fluticasone/Umeclidin/Vilanter 1 puff INHALATION RT-DAILY 02/04/23 05/19/23 [Trelegy Ellipta 100-62.5-25] Magnesium Oxide [Magox 400] 400 mg PO HS 05/24/23 05/24/23 Previous Rx's Medication Instructions Recorded HYDROcodone/APAP 7.5-325MG [[place] 1 tab PO Q6HR PRN 3 Days #12 tab 02/22/23 7.5-325] Cyclobenzaprine [Flexeril] 10 mg PO BID PRN 14 Days #14 tab 05/25/23 DULoxetine HCL [Cymbalta] 60 mg PO BID 30 Days #60 cap 05/25/23 Losartan [Cozaar] 100 mg PO HS 30 Days #60 tab 05/25/23 Nicotine 14Mg/24Hr Patch [Habitrol] 1 patch TRANSDERM DAILY 14 Days 05/25/23 #14 patch Pantoprazole [Protonix] 40 mg PO BID 30 Days #60 tab 05/25/23 Propranolol [Inderal] 40 mg PO BID 30 Days #60 tab 05/25/23 QUEtiapine [SEROquel] 50 mg PO HS 30 Days #30 tab 05/25/23 hydrOXYzine pamoate [Vistaril] 50 mg PO BID PRN 30 Days #60 cap 05/25/23 DULoxetine HCL [Cymbalta] 60 mg PO BID 7 Days #7 cap 06/25/23 HYDROcodone/APAP 7.5-325MG [[place] 1 tab PO Q6HR PRN 3 Days #12 tab 06/25/23 7.5-325] LORazepam [Ativan] 1 mg PO TID 7 Days #21 tab 06/25/23 HYDROcodone/APAP 7.5-325MG [[place] 1 tab PO Q6HR PRN 3 Days #12 tab 08/09/23 7.5-325] Losartan [Cozaar] 100 mg PO HS #30 tab 08/09/23 Ipratropium-Albuterol Nebulize 3 ml INHALATION Q6HR PRN #90 ml 08/10/23 [Duoneb 0.5 mg-3 mg/3 ml Soln] LORazepam [Ativan] 1 mg PO TID 3 Days #9 tab 10/25/23 LORazepam [Ativan] 1 mg PO TID PRN 3 Days #9 tab 10/30/23 Allergies Allergy/AdvReac Type Severity Reaction Status Date / Time brexpiprazole [From Rexulti] Allergy mouth sores Verified 10/25/23 13:24 bupropion [From Wellbutrin] Allergy fabian Verified 10/25/23 13:24 johnsons lamotrigine [From Lamictal] Allergy fabian Verified 10/25/23 13:24 johnsons lavender (Lavandula Allergy Itching Verified 10/25/23 13:24 angustifolia) Sulfa (Sulfonamide Allergy Fabian-Raad Verified 10/25/23 13:24 Antibiotics) syndrome sulfamethoxazole Allergy Fabian-Raad Verified 10/25/23 13:24 [From Bactrim] syndrome trimethoprim [From Bactrim] Allergy Fabian-Raad Verified 10/25/23 13:24 syndrome vortioxetine Allergy joint Verified 10/25/23 13:24 [From Trintellix] pain, rash/hives Review of Systems ROS Statement: Those systems with pertinent positive or pertinent negative responses have been documented in the HPI. ROS Other: All systems not noted in ROS Statement are negative. Past Medical History Past Medical History: GERD/Reflux, Hypertension Additional Past Medical History / Comment(s): HX GASTRIC BLEED 2017, History of Any Multi-Drug Resistant Organisms: None Reported Past Surgical History: Breast Surgery, Section, Orthopedic Surgery Additional Past Surgical History / Comment(s): BREAT IMPLANTS AGE 19. RT KNEE SX X 3 Past Anesthesia/Blood Transfusion Reactions: No Reported Reaction Additional Past Anesthesia/Blood Transfusion Reaction / Comment(s): HAD BLOOD TRANSFUSION 08/2017 NO PROBLEMS Past Psychological History: Anxiety, Depression Smoking Status: Vaper Past Alcohol Use History: None Reported Past Drug Use History: None Reported - Past Family History Son(s) Additional Family Medical History / Comment(s): at AGE 20 years from crohns General Exam Limitations: no limitations General appearance: alert, in no apparent distress Head exam: Present: atraumatic, normocephalic Eye exam: Present: normal appearance, EOMI Neck exam: Present: normal inspection. Absent: meningismus Respiratory exam: Present: normal lung sounds bilaterally. Absent: respiratory distress, wheezes, rales, rhonchi, stridor Cardiovascular Exam: Present: regular rate, normal rhythm, normal heart sounds. Absent: systolic murmur, diastolic murmur, rubs, gallop, clicks Neurological exam: Present: alert, oriented X3 Psychiatric exam: Present: normal affect, normal mood Skin exam: Present: warm, dry Course Vital Signs 10/30/23 10/30/23 19:30 20:38 Temperature 98.6 F Pulse Rate 107 H 100 Respiratory 24 18 Rate Blood Pressure 173/78 168/70 O2 Sat by Pulse 98 99 Oximetry Medical Decision Making - Medical Decision Making Was pt. sent in by a medical professional or institution (, PA, VETERINARY NURSE, urgent care, hospital, or intermediate...) When possible be specific @ -No Did you speak to anyone other than the patient for history (EMS, parent, family, police, friend...)? What history was obtained from this source @ -No Did you review nursing and triage notes (agree or disagree)? Why? @ -I reviewed and agree with nursing and triage notes Were old charts reviewed (outside hosp., previous admission, EMS record, old EKG, old radiological studies, urgent care reports/EKG's, intermediate records)? Report findings @ -No old charts were reviewed Differential Diagnosis (chest pain, altered mental status, abdominal pain women, abdominal pain men, vaginal bleeding, weakness, fever, dyspnea, syncope, headache, dizziness, GI bleed, back pain, seizure, CVA, palpatations, mental health, musculoskeletal)? @ -Differential includes benzodiazepine withdrawal, panic attack, this is not an all-inclusive list EKG interpreted by me (3pts min.). @ -As above X-rays interpreted by me (1pt min.). @ -None done CT interpreted by me (1pt min.). @ -None done U/S interpreted by me (1pt. min.). @ -None done What testing was considered but not performed or refused? (CT, X-rays, U/S, labs)? Why? @ -None What meds were considered but not given or refused? Why? @ -None Did you discuss the management of the patient with other professionals (professionals i.e. , PA, VETERINARY NURSE, lab, RT, psych nurse, medical social consultant, video systems engineer, teacher, marketing and communications officer, mattress spring encaser)? Give summary @ -No Was smoking cessation discussed for >3mins.? @ -No Was critical care preformed (if so, how long)? @ -No Were there social determinants of health that impacted care today? How? (Homelessness, low income, unemployed, alcoholism, drug addiction, transportation, low edu. Level, literacy, decrease access to med. care, snf, rehab)? @ -No Was there de-escalation of care discussed even if they declined (Discuss DNR or withdrawal of care, Hospice)? DNR status @ -No What co-morbidities impacted this encounter? (DM, HTN, Smoking, COPD, CAD, Cancer, CVA, ARF, Chemo, Hep., AIDS, mental health diagnosis, sleep apnea, morbid obesity)? @ -None Was patient admitted / discharged? Hospital course, mention meds given and route, prescriptions, significant lab abnormalities, going to OR and other pertinent info. @ -53-year-old female requesting medication refill. She is out of her Ativan has an appointment with a new PCP on the . Patient is send 3-day supply of Ativan instructed to follow-up with her PCP. Discharged home. Follow-up with PCP. Report back to ER with any new or worsening symptoms. Discussed return parameters and answered all questions. Patient conveyed verbal understanding and agreed to the plan. I discussed this case in detail with my attending Dr. Mahmood Undiagnosed new problem with uncertain prognosis? @ -No Drug Therapy requiring intensive monitoring for toxicity (Heparin, Nitro, Insulin, Cardizem)? @ -No Were any procedures done? @ -No Diagnosis/symptom? @ -Acute anxiety, medication refill Acute, or Chronic, or Acute on Chronic? @ -Acute Uncomplicated (without systemic symptoms) or Complicated (systemic symptoms)? @ -Uncomplicated Side effects of treatment? @ -No Exacerbation, Progression, or Severe Exacerbation? @ -No Poses a threat to life or bodily function? How? (Chest pain, USA, AR, pneumonia, PE, COPD, DKA, ARF, appy, cholecystitis, CVA, Diverticulitis, Homicidal, [place] icidal, threat to staff... and all critical care pts) @ -No Disposition Clinical Impression: Acute anxiety, Encounter for medication refill Disposition: HOME SELF-CARE Condition: Good Instructions (If sedation given, give patient instructions): Anxiety (ED) Additional Instructions: Follow-up with your new PCP. Report back to ER with any new or worsening symptoms. Prescriptions: LORazepam [Ativan] 1 mg PO TID PRN 3 Days #9 tab PRN Reason: Anxiety Is patient prescribed a controlled substance at d/c from ED?: No Referrals: None,Stated [Primary Care Provider] - 1-2 days Time of Disposition: 20:35
[2023-10-30 20:40] VITALS: BP 168/70; PULSE 100; RESP 18
== END 2023-10-30 20:43 | disposition home or self-care (01) ==
LOC: EC 19:13
DX: F41.9 Anxiety disorder, unspecified (principal); Z76.0 Encounter for issue of repeat prescription; F17.290 Nicotine dependence, other tobacco product, uncomplicated; Z88.1 Allergy status to other antibiotic agents; Z88.2 Allergy status to sulfonamides; Z88.8 Allergy status to other drugs, medicaments and biological substances
CPT/HCPCS: 99281

== ENCOUNTER 2024-01-09 22:04 | Observation (INO) | payer OTHER ==
--- NOTE | 2024-01-09 22:37 | ED ---
Recheck HPI - General Chief Complaint: Extremity Problem,Nontraumatic Stated Complaint: Withdrawls,Leg cramps Time Seen by Provider: 01/09/24 22:33 Source: patient, RN notes reviewed, old records reviewed Mode of arrival: wheelchair Limitations: no limitations - History of Present Illness Initial Comments: This is a 53-year-old female not persistent participating in history of present illness history obtained by mom at bedside who states patient is not acting appropriately sleeping somnolent and issues have been quite going on for quite some time was at primary care's office today and symptoms are persistent here in the ER. Patient herself is somnolent and not feeling well, feels weak may be withdrawing from medications but patient does have low blood pressure here in the ER MD Complaint: other (Pressure and weakness) -: month(s) Returns Today for: request for prescription, persistent/worsening pain related to initial visit Symptoms Since Prior Visit: worsening pain Context: planned re-check Associated Symptoms: shortness of breath, malaise, nausea - Related Data Home Medications Medication Instructions Recorded Confirmed Sucralfate [Carafate] 1 gm PO BID 11/01/18 01/14/24 Benztropine Mesylate [Cogentin] 1 mg PO BID 01/10/24 01/14/24 Budesonide/Formoterol Fumarate 2 puff INHALATION RT-BID 01/10/24 01/14/24 [Symbicort 160-4.5 Mcg Inhaler] Butalb/APAP/Caff 50-325-40Mg 1 tab PO BID PRN 01/10/24 01/14/24 [Fioricet 50-325-40] FLUoxetine HCL [PROzac] 40 mg PO HS 01/10/24 01/14/24 HYDROcodone/APAP 7.5-325MG [[place] 1 tab PO TID PRN 01/10/24 01/14/24 7.5-325] Ipratropium-Albuterol Nebulize 3 ml INHALATION TID PRN 01/10/24 01/14/24 [Duoneb 0.5 mg-3 mg/3 ml Soln] Losartan Potassium [Cozaar] 100 mg PO HS 01/10/24 01/14/24 Montelukast [Singulair] 10 mg PO HS 01/10/24 01/14/24 Ondansetron Odt [Zofran ODT] 4 mg PO Q8HR PRN 01/10/24 01/14/24 Pantoprazole [Protonix] 40 mg PO DAILY 01/10/24 01/14/24 Propranolol HCl [Propranolol HCl 80 mg PO DAILY 01/10/24 01/14/24 ER] cloNIDine HCL [Catapres] 0.1 mg PO BID 01/10/24 01/14/24 hydroCHLOROthiazide [Hydrodiuril] 25 mg PO DAILY 01/10/24 01/14/24 tiZANidine [Zanaflex] 2 mg PO Q8HR PRN 01/10/24 01/14/24 hydrALAZINE HCL [Apresoline] 25 mg PO DAILY 01/14/24 01/14/24 Previous Rx's Medication Instructions Recorded Cyclobenzaprine [Flexeril] 10 mg PO BID PRN 14 Days #14 tab 05/25/23 QUEtiapine [SEROquel] 50 mg PO HS 30 Days #30 tab 05/25/23 Allergies Allergy/AdvReac Type Severity Reaction Status Date / Time brexpiprazole [From Rexulti] Allergy mouth sores Verified 01/14/24 19:03 bupropion [From Wellbutrin] Allergy fabian Verified 01/14/24 19:03 johnsons lamotrigine [From Lamictal] Allergy fabian Verified 01/14/24 19:03 johnsons lavender (Lavandula Allergy Itching Verified 01/14/24 19:03 angustifolia) Sulfa (Sulfonamide Allergy Fabian-Raad Verified 01/14/24 19:03 Antibiotics) syndrome sulfamethoxazole Allergy Fbaian-Raad Verified 01/14/24 19:03 [From Bactrim] syndrome trimethoprim [From Bactrim] Allergy Fabian-Raad Verified 01/14/24 19:03 syndrome vortioxetine Allergy joint Verified 01/14/24 19:03 [From Trintellix] pain, rash/hives Review of Systems ROS Statement: Those systems with pertinent positive or pertinent negative responses have been documented in the HPI. ROS Other: All systems not noted in ROS Statement are negative. Past Medical History Past Medical History: GERD/Reflux, Hypertension Additional Past Medical History / Comment(s): HX GASTRIC BLEED 2017, History of Any Multi-Drug Resistant Organisms: None Reported Past Surgical History: Breast Surgery, Section, Orthopedic Surgery Additional Past Surgical History / Comment(s): BREAT IMPLANTS AGE 19. RT KNEE SX X 3 Past Anesthesia/Blood Transfusion Reactions: No Reported Reaction Additional Past Anesthesia/Blood Transfusion Reaction / Comment(s): HAD BLOOD TRANSFUSION 08/2017 NO PROBLEMS Past Psychological History: Anxiety, Depression Smoking Status: Former smoker, Vaper Past Alcohol Use History: None Reported Past Drug Use History: None Reported - Past Family History Son(s) Additional Family Medical History / Comment(s): at AGE 20 years from crohns General Exam Limitations: altered mental status General appearance: alert, in no apparent distress, anxious Head exam: Present: atraumatic, normocephalic, normal inspection Eye exam: Present: normal appearance, PERRL, EOMI. Absent: scleral icterus, conjunctival injection, periorbital swelling ENT exam: Present: normal exam, mucous membranes moist Neck exam: Present: normal inspection. Absent: tenderness, meningismus, lymphadenopathy Respiratory exam: Present: normal lung sounds bilaterally. Absent: respiratory distress, wheezes, rales, rhonchi, stridor Cardiovascular Exam: Present: regular rate, normal rhythm, normal heart sounds. Absent: systolic murmur, diastolic murmur, rubs, gallop, clicks GI/Abdominal exam: Present: soft, normal bowel sounds. Absent: distended, tenderness, guarding, rebound, rigid Extremities exam: Present: normal inspection, full ROM, normal capillary refill. Absent: tenderness, pedal edema, joint swelling, calf tenderness Back exam: Present: normal inspection Neurological exam: Present: alert, oriented X3, CN II-XII intact Psychiatric exam: Present: normal affect, normal mood Skin exam: Present: warm, dry, intact, normal color. Absent: rash Course Vital Signs 01/09/24 01/09/24 01/10/24 22:08 23:28 00:08 Temperature 97.3 F L 96.9 F L Pulse Rate 78 61 73 Pulse Rate [ Medical Office Manager ] Respiratory 16 18 18 Rate Blood Pressure 71/43 85/45 87/51 Blood Pressure [Left Arm] O2 Sat by Pulse 98 100 100 Oximetry 01/10/24 01/10/24 01/10/24 03:20 03:25 07:56 Temperature 97.6 F 97.6 F Pulse Rate 96 Pulse Rate [ 72 72 Medical Office Manager ] Respiratory 20 20 18 Rate Blood Pressure 123/74 Blood Pressure 119/70 119/70 [Left Arm] O2 Sat by Pulse 99 99 96 Oximetry 01/10/24 12:33 Temperature Pulse Rate 128 H Pulse Rate [ Medical Office Manager ] Respiratory 18 Rate Blood Pressure 175/108 Blood Pressure [Left Arm] O2 Sat by Pulse 95 Oximetry - Reevaluation(s) Reevaluation #1: 01/09/24 23:39 Records reviewed Reevaluation #2: 01/09/24 23:39 Symptoms unchanged Reevaluation #3: 01/09/24 23:39 Informed of results and questions answered Reevaluation #4: Was pt. sent in by a medical professional or institution (, [facility], HISTOLOGY TECH, urgent care, hospital, or intermediate...) When possible be specific @ -no Did you speak to anyone other than the patient for history (EMS, parent, family, police, friend...)? What history was obtained from this source @ -no Did you review nursing and triage notes (agree or disagree)? Why? @ -agree Are old charts reviewed (outside hosp., previous admission, EMS record, old EKG, old radiological studies, urgent care reports/EKG's, intermediate records)? Report findings @ -yes Differential Diagnosis (chest pain, altered mental status, abdominal pain women, abdominal pain men, vaginal bleeding, weakness, fever, dyspnea, syncope, headache, dizziness, GI bleed, back pain, seizure, CVA, palpatations, mental health, musculoskeletal)? @ -prior EKG interpreted by me (3pts min.). @ -yes X-rays interpreted by me (1pt min.). @ -yes negative for acute disease CT interpreted by me (1pt min.). @ -no U/S interpreted by me (1pt. min.). @ -no What testing was considered but not performed or refused? (CT, X-rays, U/S, labs)? Why? @ -none What meds were considered but not given or refused? Why? @ -none Did you discuss the management of the patient with other professionals (professionals i.e. [facility] Wallace, HISTOLOGY TECH, lab, RT, psych nurse, social work specialist, marble polisher hand, teacher, contact officer, adult protective caseworker)? Give summary @ -no Was smoking cessation discussed for >3mins.? @ -no Was critical care preformed (if so, how long)? @ -no Were there social determinants of health that impacted care today? How? (Homelessness, low income, unemployed, alcoholism, drug addiction, transportation, low edu. Level, literacy, decrease access to med. care, [facility], rehab)? @ -none Was there de-escalation of care discussed even if they declined (Discuss DNR or withdrawal of care, Hospice)? DNR status @ -no What co-morbidities impacted this encounter? (DM, HTN, Smoking, COPD, CAD, Cancer, CVA, ARF, Chemo, Hep., AIDS, mental health diagnosis, sleep apnea, morbid obesity)? @ -none Was patient admitted / discharged? Hospital course, mention meds given and route, prescriptions, significant lab abnormalities, going to OR and other pertinent info. @ - 53 female to the ED co weakness admitted for further evaluation management Admitted weakness Undiagnosed new problem with uncertain prognosis? @ -no Drug Therapy requiring intensive monitoring for toxicity (Heparin, Nitro, Insulin, Cardizem)? @ -no Were any procedures done? @ -no Diagnosis/symptom? @ -Weakness Acute, or Chronic, or Acute on Chronic? @ -Acute Uncomplicated (without systemic symptoms) or Complicated (systemic symptoms)? @ -Complicated Side effects of treatment? @ -no Exacerbation, Progression, or Severe Exacerbation? @ -exacerbation Poses a threat to life or bodily function? How? (Chest pain, USA, NC, pneumonia, PE, COPD, DKA, ARF, appy, cholecystitis, CVA, Diverticulitis, Homicidal, Suicidal, threat to staff... and all critical care pts) @ -yes Reevaluation #5: Differential Weakness: Hypoglycemia, shock, sepsis, hyponatremia, anemia, infection, NC, ETOH, adverse medicine reaction, overdose, stroke, this is not meant to be an all-inclusive list. - Consultations Consultation #1: With sound who agrees to admit the patient Medical Decision Making - Medical Decision Making 53 female to the ED co weakness admitted for further evaluation management - Lab Data Result diagrams: 01/10/24 05:44 01/10/24 05:44 Lab Results 01/09/24 01/09/24 01/09/24 Range/Units 23:01 23:01 23:01 WBC 7.1 (3.8-10.6) k/uL RBC 3.70 L (3.80-5.40) m/uL Hgb 11.7 (11.4-16.0) gm/dL Hct 35.0 (34.0-46.0) % MCV 94.7 (80.0-100.0) fL MCH 31.6 (25.0-35.0) pg MCHC 33.4 (31.0-37.0) g/dL RDW 13.0 (11.5-15.5) % Plt Count 352 (150-450) k/uL MPV 6.9 Neutrophils % 60 % Lymphocytes % 31 % Monocytes % 4 % Eosinophils % 1 % Basophils % 0 % Neutrophils # 4.2 (1.3-7.7) k/uL Lymphocytes # 2.2 (1.0-4.8) k/uL Monocytes # 0.3 (0-1.0) k/uL Eosinophils # 0.1 (0-0.7) k/uL Basophils # 0.0 (0-0.2) k/uL PT 10.4 (10.0-12.5) sec INR 0.9 (<1.2) APTT 27.4 (22.0-30.0) sec D-Dimer 0.19 (<0.60) mg/L FEU Sodium 126 L (137-145) mmol/L Potassium 3.7 (3.5-5.1) mmol/L Chloride 91 L (98-107) mmol/L Carbon Dioxide 23 (22-30) mmol/L Anion Gap 12 mmol/L BUN 7 (7-17) mg/dL Creatinine 0.57 (0.52-1.04) mg/dL Est GFR (CKD-EPI)AfAm >90 (>60 ml/min/1.73 sqM) Est GFR (CKD-EPI)NonAf >90 (>60 ml/min/1.73 sqM) Glucose 105 H (74-99) mg/dL Plasma Lactic Acid Darrel (0.7-2.0) mmol/L Calcium 8.7 (8.4-10.2) mg/dL Phosphorus 3.8 (2.5-4.5) mg/dL Magnesium 2.2 (1.6-2.3) mg/dL Total Bilirubin 0.2 (0.2-1.3) mg/dL AST 54 H (14-36) U/L ALT 48 H (4-34) U/L Alkaline Phosphatase 80 (38-126) U/L Creatine Kinase 114 (30-135) U/L Troponin I (0.000-0.034) ng/mL NT-Pro-B Natriuret Pep 84 pg/mL Total Protein 6.1 L (6.3-8.2) g/dL Albumin 4.0 (3.5-5.0) g/dL TSH 0.720 (0.465-4.680) mIU/L Salicylates <1.0 mg/dL Acetaminophen <10.0 ug/mL Serum Alcohol 231 H* mg/dL 01/09/24 01/09/24 Range/Units 23:01 23:01 WBC (3.8-10.6) k/uL RBC (3.80-5.40) m/uL Hgb (11.4-16.0) gm/dL Hct (34.0-46.0) % MCV (80.0-100.0) fL MCH (25.0-35.0) pg MCHC (31.0-37.0) g/dL RDW (11.5-15.5) % Plt Count (150-450) k/uL MPV Neutrophils % % Lymphocytes % % Monocytes % % Eosinophils % % Basophils % % Neutrophils # (1.3-7.7) k/uL Lymphocytes # (1.0-4.8) k/uL Monocytes # (0-1.0) k/uL Eosinophils # (0-0.7) k/uL Basophils # (0-0.2) k/uL PT (10.0-12.5) sec INR (<1.2) APTT (22.0-30.0) sec D-Dimer (<0.60) mg/L FEU Sodium (137-145) mmol/L Potassium (3.5-5.1) mmol/L Chloride (98-107) mmol/L Carbon Dioxide (22-30) mmol/L Anion Gap mmol/L BUN (7-17) mg/dL Creatinine (0.52-1.04) mg/dL Est GFR (CKD-EPI)AfAm (>60 ml/min/1.73 sqM) Est GFR (CKD-EPI)NonAf (>60 ml/min/1.73 sqM) Glucose (74-99) mg/dL Plasma Lactic Acid Darrel 2.1 H* (0.7-2.0) mmol/L Calcium (8.4-10.2) mg/dL Phosphorus (2.5-4.5) mg/dL Magnesium (1.6-2.3) mg/dL Total Bilirubin (0.2-1.3) mg/dL AST (14-36) U/L ALT (4-34) U/L Alkaline Phosphatase (38-126) U/L Creatine Kinase (30-135) U/L Troponin I <0.012 (0.000-0.034) ng/mL NT-Pro-B Natriuret Pep pg/mL Total Protein (6.3-8.2) g/dL Albumin (3.5-5.0) g/dL TSH (0.465-4.680) mIU/L Salicylates mg/dL Acetaminophen ug/mL Serum Alcohol mg/dL - EKG Data -: EKG Interpreted by Me (EKG is sinus 64 GA 171 QRS 105 QTc 454) Disposition Clinical Impression: Depression, Acute anxiety, Dehydration Disposition: ADMITTED IP TO THIS HOSP Condition: Fair Is patient prescribed a controlled substance at d/c from ED?: No Time of Disposition: 23:30
[2024-01-09 23:25] LABS: Basophils % (A) 0 %; Eosinophils # (A) 0.1 k/uL (0-0.7); Eosinophils % (A) 1 %; HGB 11.7 gm/dL (11.4-16.0); Lymphocytes # (A) 2.2 k/uL (1.0-4.8); Lymphocytes % (A) 31 %; MCH 31.6 pg (25.0-35.0); MCHC 33.4 g/dL (31.0-37.0); MCV 94.7 fL (80.0-100.0); Mean Platelet Volume 6.9; Monocytes # (A) 0.3 k/uL (0-1.0); Monocytes % (A) 4 %; Neutrophils # (A) 4.2 k/uL (1.3-7.7); Neutrophils % (A) 60 %; Platelet Count 352 k/uL (150-450); WBC 7.1 k/uL (3.8-10.6)
[2024-01-09 23:26] LABS: INR 0.9 (<1.2); Partial Thromboplastin Time 27.4 sec (22.0-30.0); Prothrombin Time 10.4 sec (10.0-12.5)
[2024-01-09 23:28] LABS: ALT 48 U/L (4-34); AST 54 U/L (14-36); Acetaminophen <10.0 ug/mL; African American GFR (CKD) >90 (>60 ml/min/1.73 sqM); Alkaline Phosphatase 80 U/L (38-126); Anion Gap 12 mmol/L; Blood Urea Nitrogen 7 mg/dL (7-17); Calcium 8.7 mg/dL (8.4-10.2); Carbon Dioxide 23 mmol/L (22-30); Chloride 91 mmol/L (98-107); Creatine Kinase 114 U/L (30-135); Glucose 105 mg/dL (74-99); Magnesium 2.2 mg/dL (1.6-2.3); Non-African American GFR(CKD) >90 (>60 ml/min/1.73 sqM); Phosphorus 3.8 mg/dL (2.5-4.5); Potassium 3.7 mmol/L (3.5-5.1); Salicylate <1.0 mg/dL; Sodium 126 mmol/L (137-145); Total Bilirubin 0.2 mg/dL (0.2-1.3); Total Protein 6.1 g/dL (6.3-8.2)
[2024-01-09] MEDS: SODIUM CHLORIDE 0.9% 1,000 ML IV STA (23:32)
[2024-01-09] MEDS ORDERED: ONDANSETRON 4 MG/2 ML VIAL IVP PRN (23:33)
[2024-01-09] MEDS ORDERED: NALOXONE 0.4 MG/ML 1 ML VIAL IV PRN (23:33)
[2024-01-09 23:34] LABS: NT-Pro-B-Type Natriuretic Pept 84 pg/mL
[2024-01-09 23:45] LABS: Alcohol 231 mg/dL
[2024-01-10 00:12] LABS: Appearance,Urine Clear (Clear); Bilirubin,Urine Negative (Negative); Blood,Urine Negative (Negative); Color,Urine Colorless; Glucose,Urine (UA) Negative (Negative); Ketones,Urine Negative (Negative); Leukocyte Esterase,Urine Negative (Negative); Nitrite,Urine Negative (Negative); PH, Urine 6.5 (5.0-8.0); Protein,Urine Negative (Negative); Specific Gravity,Urine 1.006 (1.001-1.035); Urobilinogen,Urine <2.0 mg/dL (<2.0)
[2024-01-10] MEDS: SODIUM CHLORIDE 0.9% 1,000 ML IV STA (01:45)
--- NOTE | 2024-01-10 02:24 | P.HPIM ---
History of Present Illness H&P Date: 01/10/24 Chief Complaint: alcohol intoxication Patient is a 53-year-old female with anxiety, depression, hypertension presents to the ED with leg cramps and possible withdrawal symptoms. Patient was accompanied by mother at bedside. Complaint of leg cramps and severe headaches that started this morning. She says the leg cramps are constant 10/10 that go on for hours with no aggravating or alleviating factors. She also says she has been having a headache during this time as well. She is also has complaint of tingling sensation in both her distal upper extremities. Patient states she may be withdrawing from the medications she was taking. She states she has not been able to sleep for the past year. She denies any trauma or fall. Patient denies any vomiting or abdominal pain. She admits to shortness of breath with some mild chest pain. Patient also admits to nausea, headache, chills. Review of systems: Pertinent positives and negatives as discussed in HPI, a complete review of systems was performed and all other systems are negative. Physical examination: Vitals: T 97.3 F, MO 73, RR 18, BP 87/51, O2 sat 100% on room air General: non toxic, moderate distress, appears at stated age, normal weight Derm: no unusual rashes/lesions, warm Head: atraumatic, normocephalic, symmetric Eyes: EOMI, anicteric sclera, pupils equal round reactive to light ENT: Nose and ears atraumatic Mouth: no lip lesion, mucus membranes moist Cardiovascular: S1S2 reg, no murmur, positive dorsalis pedis pulse bilateral, no edema Lungs: CTA bilateral, no rhonchi, no rales, no accessory muscle use Abdominal: soft, nontender to palpation, no guarding Ext: muscle strength 5 out of 5 in all 4 extremities grossly, no gross muscle atrophy, no contractures, Neuro: CN II-XI grossly intact, no gross focal neuro deficits Psych: Alert, oriented to person, place, time Assessment/Plan: Patient is a 53-year-old female with anxiety, depression, hypertension presents to the ED with leg cramps and possible withdrawal symptoms. ED documentation reviewed and case discussed with ED provider. #. Acute Alcoholic Intoxication Serum alcohol 231 Patient states last alcoholic beverage was last night, unknown amount Order CXR to rule out aspiration UA unremarkable AST 54, ALT 48 Lactic acid 2.1 Creatine kinase unremarkable Benzo per [facility] protocol Fall precautions Monitor for hypoglycemia Given IV NS bolus in the ED Continue with normal saline at 75 cc/hr #. Moderate hyponatremia Sodium 126 Patient euvolemic Patient admits to multiple episodes of vomiting Ordered serum osmolarity, urine osmolarity, urine sodium Continue with normal saline at 75 cc/hr Follow-up CMP #. Hypotension Hold antihypertensive medications due to low blood pressure Continue with normal saline at 75 cc/hr #. Chest pain Order EKG Order CXR proBNP unremarkable Troponins negative, continue to trend proBNP within normal limits Most likely anxiety induced #. Depression/Anxiety Consider resuming home antidepressants anti anxiety medication once reconciled F: Normal saline at 75 cc/hr E: Replete electrolytes as needed N: Regular diet A: Ambulatory, fall precautions DVT prophylaxis: Lovenox 40 SQ The patient is admitted with an anticipated greater than 2 midnight stay for evaluation of acute alcohol intoxication CODE STATUS: Full code Discussed with: Patient and mother Anticipated discharge place: Home Past Medical History Past Medical History: GERD/Reflux, Hypertension Additional Past Medical History / Comment(s): HX GASTRIC BLEED 2017, History of Any Multi-Drug Resistant Organisms: None Reported Past Surgical History: Breast Surgery, Section, Orthopedic Surgery Additional Past Surgical History / Comment(s): BREAT IMPLANTS AGE 19. RT KNEE SX X 3 Past Anesthesia/Blood Transfusion Reactions: No Reported Reaction Additional Past Anesthesia/Blood Transfusion Reaction / Comment(s): HAD BLOOD TRANSFUSION 08/2017 NO PROBLEMS Past Psychological History: Anxiety, Depression Smoking Status: Former smoker, Vaper Past Alcohol Use History: None Reported Past Drug Use History: None Reported - Past Family History Son(s) Additional Family Medical History / Comment(s): at AGE 20 years from crohns Medications and Allergies Home Medications Medication Instructions Recorded Confirmed Type Sucralfate [Carafate] 1 gm PO TID-W/MEALS 11/01/18 05/19/23 History Albuterol Sulfate [Albuterol 2 puff PO RT-Q4H PRN 02/04/23 05/19/23 History Sulfate Hfa] Fluticasone/Umeclidin/Vilanter 1 puff INHALATION RT-DAILY 02/04/23 05/19/23 History [Trelegy Ellipta 100-62.5-25] HYDROcodone/APAP 7.5-325MG [[place] 1 tab PO Q6HR PRN 3 Days #12 tab 02/22/23 05/19/23 Rx 7.5-325] Magnesium Oxide [Magox 400] 400 mg PO HS 05/24/23 05/24/23 History Cyclobenzaprine [Flexeril] 10 mg PO BID PRN 14 Days #14 tab 05/25/23 Rx DULoxetine HCL [Cymbalta] 60 mg PO BID 30 Days #60 cap 05/25/23 Rx Losartan [Cozaar] 100 mg PO HS 30 Days #60 tab 05/25/23 Rx Nicotine 14Mg/24Hr Patch [Habitrol] 1 patch TRANSDERM DAILY 14 Days 05/25/23 Rx #14 patch Pantoprazole [Protonix] 40 mg PO BID 30 Days #60 tab 05/25/23 Rx Propranolol [Inderal] 40 mg PO BID 30 Days #60 tab 05/25/23 Rx QUEtiapine [SEROquel] 50 mg PO HS 30 Days #30 tab 05/25/23 Rx hydrOXYzine pamoate [Vistaril] 50 mg PO BID PRN 30 Days #60 cap 05/25/23 Rx DULoxetine HCL [Cymbalta] 60 mg PO BID 7 Days #7 cap 06/25/23 Rx HYDROcodone/APAP 7.5-325MG [[place] 1 tab PO Q6HR PRN 3 Days #12 tab 06/25/23 Rx 7.5-325] LORazepam [Ativan] 1 mg PO TID 7 Days #21 tab 06/25/23 Rx HYDROcodone/APAP 7.5-325MG [[place] 1 tab PO Q6HR PRN 3 Days #12 tab 08/09/23 Rx 7.5-325] Losartan [Cozaar] 100 mg PO HS #30 tab 08/09/23 Rx Ipratropium-Albuterol Nebulize 3 ml INHALATION Q6HR PRN #90 ml 08/10/23 Rx [Duoneb 0.5 mg-3 mg/3 ml Soln] LORazepam [Ativan] 1 mg PO TID 3 Days #9 tab 10/25/23 Rx LORazepam [Ativan] 1 mg PO TID PRN 3 Days #9 tab 10/30/23 Rx Allergies Allergy/AdvReac Type Severity Reaction Status Date / Time brexpiprazole [From Rexulti] Allergy mouth sores Verified 01/09/24 22:27 bupropion [From Wellbutrin] Allergy fabian Verified 01/09/24 22:27 johnsons lamotrigine [From Lamictal] Allergy fabian Verified 01/09/24 22:27 johnsons lavender (Lavandula Allergy Itching Verified 01/09/24 22:27 angustifolia) Sulfa (Sulfonamide Allergy Fabian-Raad Verified 01/09/24 22:27 Antibiotics) syndrome sulfamethoxazole Allergy Fabian-Raad Verified 01/09/24 22:27 [From Bactrim] syndrome trimethoprim [From Bactrim] Allergy Fabian-Raad Verified 01/09/24 22:27 syndrome vortioxetine Allergy joint Verified 01/09/24 22:27 [From Trintellix] pain, rash/hives Physical Exam Vitals: Vital Signs Temp Pulse Resp BP Pulse Ox 01/10/24 00:08 73 18 87/51 100 01/09/24 23:28 96.9 F L 61 18 85/45 100 01/09/24 22:08 97.3 F L 78 16 71/43 98 Intake and Output 01/09/24 01/09/24 01/10/24 14:59 22:59 06:59 Other: Weight 46.72 kg Results CBC & Chem 7: 01/10/24 05:44 01/10/24 05:44 Labs: Abnormal Lab Results - Last 24 Hours (Table) 01/09/24 01/09/24 01/09/24 Range/Units 23:01 23:01 23:01 RBC 3.70 L (3.80-5.40) m/uL Sodium 126 L (137-145) mmol/L Chloride 91 L (98-107) mmol/L Glucose 105 H (74-99) mg/dL Plasma Lactic Acid Darrel 2.1 H* (0.7-2.0) mmol/L AST 54 H (14-36) U/L ALT 48 H (4-34) U/L Total Protein 6.1 L (6.3-8.2) g/dL Serum Alcohol 231 H* mg/dL Assessment and Plan Assessment: I have seen and evaluated the patient today. I Discussed the case with the resident and agree with the resident's findings I edited the assessment and pl an as necessary as documented in the resident's note.
[2024-01-10] MEDS: LORazepam 2 MG/ML INJ IV PRN ×3 (04:29→13:21)
[2024-01-10] MEDS: SODIUM CHLORIDE 0.9% 1,000 ML IV SCH (04:32)
[2024-01-10 05:56] LABS: Basophils % (A) 1 %; Eosinophils # (A) 0.1 k/uL (0-0.7); Eosinophils % (A) 1 %; HCT 35.5 % (34.0-46.0); HGB 11.5 gm/dL (11.4-16.0); Lymphocytes # (A) 1.7 k/uL (1.0-4.8); Lymphocytes % (A) 32 %; MCH 30.9 pg (25.0-35.0); MCHC 32.3 g/dL (31.0-37.0); MCV 95.8 fL (80.0-100.0); Mean Platelet Volume 7.1; Monocytes # (A) 0.2 k/uL (0-1.0); Monocytes % (A) 4 %; Neutrophils # (A) 3.1 k/uL (1.3-7.7); Neutrophils % (A) 60 %; Platelet Count 359 k/uL (150-450); RBC 3.71 m/uL (3.80-5.40); RDW 13.2 % (11.5-15.5); WBC 5.2 k/uL (3.8-10.6)
[2024-01-10 06:09] LABS: Potassium 3.8 mmol/L (3.5-5.1)
[2024-01-10 06:10] LABS: ALT 41 U/L (4-34); AST 35 U/L (14-36); African American GFR (CKD) >90 (>60 ml/min/1.73 sqM); Albumin 3.6 g/dL (3.5-5.0); Alkaline Phosphatase 82 U/L (38-126); Anion Gap 7 mmol/L; Blood Urea Nitrogen 6 mg/dL (7-17); Calcium 8.4 mg/dL (8.4-10.2); Carbon Dioxide 25 mmol/L (22-30); Chloride 102 mmol/L (98-107); Glucose 84 mg/dL (74-99); Magnesium 2.1 mg/dL (1.6-2.3); Non-African American GFR(CKD) >90 (>60 ml/min/1.73 sqM); Phosphorus 3.2 mg/dL (2.5-4.5); Sodium 134 mmol/L (137-145); Total Bilirubin 0.2 mg/dL (0.2-1.3); Total Protein 5.8 g/dL (6.3-8.2)
[2024-01-10] MEDS ORDERED: ALBUTEROL NEBULIZED 2.5 MG/3 ML INHALATION PRN (06:35)
[2024-01-10] MEDS: SODIUM CHLORIDE 0.9% 500 ML 500 ML IV STA (08:12)
[2024-01-10] MEDS: ENOXAPARIN 40 MG/0.4 ML SYRINGE SQ SCH (08:27)
[2024-01-10] MEDS: PANTOPRAZOLE 40 MG TABLET PO SCH (08:27)
--- NOTE | 2024-01-10 09:00 | XR ---
EXAMINATION TYPE: XR chest 1V portable DATE OF EXAM: 01/10/2024 COMPARISON: 08/09/2023 INDICATION: Short of breath TECHNIQUE: Single frontal view of the chest is obtained. FINDINGS: The heart size is normal. The pulmonary vasculature is normal. No suspicious focal consolidation evident. IMPRESSION: 1. No acute pulmonary process. [facility] Mora Irby, , 01/10/2024 8:58 AM
[2024-01-10] MEDS: LOPERAMIDE 2 MG CAP PO PRN (10:08)
[2024-01-10] MEDS: MORPHINE SULFATE 4 MG/ML SYRINGE IV PRN (10:25)
--- NOTE | 2024-01-10 11:46 | P.PN ---
Subjective Progress Note Date: 01/10/24 Hospital course Patient is a 53-year-old female with past medical history of anxiety, depression, hypertension who presents to the ED with leg cramps and benzodiazepine withdrawal. Patient states that she is to get 8 mg of Ativan from her PCP about 1 year ago. However he retired and then could not find another physician to prescribe her Ativan. She states that she finally did find a physician who is rapidly tapered her off Ativan. Patient states that she has not had Ativan since October. She states that since then she has been having withdrawal symptoms with charley horse in her legs. Patient believes that she is withdrawing from Ativan. In ED patient's alcohol level was also elevated. Patient's sodium was 126. Lactic acid 2.1. Alcohol level 231. The rest of pat ient's labs are unremarkable. Patient was started on fluids and then referred for admission. Patient was seen this morning. She states that she believes she is still withdrawing. Physical exam General examination - Alert and Oriented 3 in NAD Heart - + S1S2 no murmurs Lungs - Clear to auscultation Abdomen soft NT ND +ve BS Extremities - No edema PHYSICIST NUCLEAR - Moving all 4 extremities spontaneously Psych - Calm and cooperative Assessment and plan Alcoholic intoxication Resolved Possible benzodiazepine withdrawal Continue with CIWA protocol Hypovolemic hyponatremia Resolved Hypotension secondary dehydration Resolved Chest pain Most likely due to anxiety Troponin negative I independently reviewed patient's EKG that shows normal sinus rhythm and mild ST changes in 3 and aVF Consult cardiology Check echocardiogram Will check a second troponin Depression anxiety Will restart home meds once we have verified DVT prophylaxis: Lovenox Objective - Vital Signs Vital signs: Vital Signs Temp 97.6 F 01/10/24 03:25 Pulse 96 01/10/24 07:56 Resp 18 01/10/24 07:56 BP 123/74 01/10/24 07:56 Pulse Ox 96 01/10/24 07:56 FiO2 Intake & Output 01/09/24 01/10/24 01/10/24 18:59 06:59 18:59 Weight 46.72 kg Other: # Voids 6 - Labs CBC & Chem 7: 01/10/24 05:44 01/10/24 05:44 Labs: Abnormal Lab Results - Last 24 Hours (Table) 01/09/24 01/09/24 01/09/24 Range/Units 23:01 23:01 23:01 RBC 3.70 L (3.80-5.40) m/uL Sodium 126 L (137-145) mmol/L Chloride 91 L (98-107) mmol/L BUN (7-17) mg/dL Glucose 105 H (74-99) mg/dL Plasma Lactic Acid Darrel 2.1 H* (0.7-2.0) mmol/L AST 54 H (14-36) U/L ALT 48 H (4-34) U/L Total Protein 6.1 L (6.3-8.2) g/dL Serum Alcohol 231 H* mg/dL 01/10/24 01/10/24 01/10/24 Range/Units 02:17 05:44 05:44 RBC 3.71 L (3.80-5.40) m/uL Sodium 134 L (137-145) mmol/L Chloride (98-107) mmol/L BUN 6 L (7-17) mg/dL Glucose (74-99) mg/dL Plasma Lactic Acid Darrel 2.3 H* (0.7-2.0) mmol/L AST (14-36) U/L ALT 41 H (4-34) U/L Total Protein 5.8 L (6.3-8.2) g/dL Serum Alcohol mg/dL 01/10/24 Range/Units 05:44 RBC (3.80-5.40) m/uL Sodium (137-145) mmol/L Chloride (98-107) mmol/L BUN (7-17) mg/dL Glucose (74-99) mg/dL Plasma Lactic Acid Darrel 2.3 H* (0.7-2.0) mmol/L AST (14-36) U/L ALT (4-34) U/L Total Protein (6.3-8.2) g/dL Serum Alcohol mg/dL
[2024-01-10] MEDS ORDERED: tiZANidine 4 MG TAB PO PRN (14:05)
[2024-01-10] MEDS ORDERED: BUTALB/APAP/CAFF 50-325-40MG TAB PO PRN (14:05)
[2024-01-10] MEDS ORDERED: ZOLPIDEM 5 MG TAB PO PRN (14:05)
[2024-01-10] MEDS ORDERED: CYCLOBENZAPRINE 10 MG TAB PO PRN (14:05)
[2024-01-10] MEDS: hydroCHLOROthiazide 25 MG TAB PO SCH (15:33)
[2024-01-10] MEDS: PROPRANOLOL LA 80 MG CAP.SA.24H PO SCH (15:33)
[2024-01-10] MEDS: cloNIDine HCL 0.1 MG TAB PO SCH (15:49)
--- NOTE | 2024-01-10 18:03 | CA ---
Transthoracic Echo Report Name: Rita Moncada Age: 53 Gender: F : 1970 Exam Date: 01/10/2024 15:17 Exam Location: [facility] Echo Ht (in): 63 Wt (lb): 183 Ordering Physician: Kendy Hoang MD Attending/Referring Phys: Elevator Operator Service Sabina Norton RDCS Procedure CPT: Indications: Chest Pain Cardiac Hx: SOB Technical Quality: Fair Contrast 1: Total Dose (mL): Contrast 2: Total Dose (mL): MEASUREMENTS (Male / Female) Normal Values 2D ECHO LV Diastolic Diameter PLAX 3.3 cm 4.2 - 5.9 / 3.9 - 5.3 cm LV Systolic Diameter PLAX 2.4 cm IVS Diastolic Thickness 1.1 cm 0.6 - 1.0 / 0.6 - 0.9 cm LVPW Diastolic Thickness 1.0 cm 0.6 - 1.0 / 0.6 - 0.9 cm LV Relative Wall Thickness 0.6 RV Internal Dim ED PLAX 3.0 cm LA Systolic Diameter LX 3.0 cm 3.0 - 4.0 / 2.7 - 3.8 cm LV Diastolic Volume MOD 4C 74.8 cm??? LV Systolic Volume MOD 4C 29.5 cm??? LV Ejection Fraction MOD 4C 60.6 % LV Cardiac Index MOD 4C 2462.2 cm???/min???m??? LV Diastolic Length 4C 7.9 cm LV Systolic Length 4C 6.3 cm LV Diastolic Volume MOD 2C 88.8 cm??? LV Systolic Volume MOD 2C 34.2 cm??? LV Ejection Fraction MOD 2C 61.5 % LV Cardiac Index MOD 2C 2965.0 cm???/min???m??? LV Diastolic Length 2C 9.3 cm LV Systolic Length 2C 7.4 cm LA Volume 28.6 cm??? 18 - 58 / 22 - 52 cm??? LA Volume Index 14.6 cm???/m??? 16 - 28 cm???/m??? M-MODE Aortic Root Diameter MM 3.4 cm DOPPLER AV Peak Velocity 189.8 cm/s AV Peak Gradient 14.4 mmHg AV Mean Velocity 131.3 cm/s AV Mean Gradient 8.2 mmHg AV Velocity Time Integral 35.1 cm MV Area PHT 2.4 cm??? Mitral E Point Velocity 104.7 cm/s Mitral A Point Velocity 144.0 cm/s Mitral E to A Ratio 0.7 MV Deceleration Time 312.4 ms FINDINGS Left Ventricle Left ventricular ejection fraction is estimated at 60-65 %. Small left ventricular cavity. Mildly increased septal wall thickness. Right Ventricle Normal right ventricular size and function. Unable to estimate the right ventricular systolic pressure. Right Atrium Normal right atrial size. No right atrial thrombus or mass seen. Left Atrium Normal left atrial size. No left atrial thrombus or mass present. Mitral Valve Structurally normal mitral valve. No mitral stenosis, regurgitation or prolapse. Aortic Valve Trileaflet aortic valve. No aortic valve stenosis or regurgitation. Tricuspid Valve Structurally normal tricuspid valve. No tricuspid stenosis, regurgitation or prolapse. Pulmonic Valve Pulmonic valve not well visualized. No pulmonic regurgitation. Pericardium Small pericardial effusion loculated posteriorly to RA Aorta Normal size aortic root and proximal ascending aorta. CONCLUSIONS Diagnosis: Chest pain Preserved LV systolic function ejection fraction greater than 60%, hyperdynamic Previewed by: Dr. Jeronimo Weeks MD (Electronically Signed) Final Date: 10 January 2024 18:02
[2024-01-10] MEDS: hydrALAZINE HCL 50 MG TAB PO SCH (18:27)
--- NOTE | 2024-01-10 19:03 | P.CRDCN ---
History of Present Illness History of present illness: This is Dr. Weeks dictating a consult on this patient The patient was interviewed and examined IMPRESSION / ASSESSMENT: Atypical chest discomfort Drug and alcohol withdrawal Normal electrolytes normal twelve-lead EKG normal cardiac enzymes Normal 2D echo History of hypertension PLAN: No further cardiac workup indicated Stable from a cardiovascular standpoint for discharge whenever deemed appropriate by admitting team HPI Patient admitted with somnolence. Ongoing symptoms for quite some time. Patient feels weak and had low blood pressure in the ER Alcohol level elevated Patient was complaining of chest pain and cardiology was consulted on account of midsternal chest discomfort and an EKG that appeared abnormal to the internal medicine physician I reviewed the EKGs QT interval is normal Early repolarization abnormality in the inferior leads Normal troponins serially ROS: No fever chills or rigors, no cough, phlegm or expectoration, no nausea, vomiting or diarrhea, no hematuria, dysuria, no musculoskeletal complaints, no strokes or seizures, no skin lesions. EXAMINATION: Blood pressure 130/83 mmHg afebrile Pulse rate 82 beats a minute Normal heart sounds Normal breath sounds No murmurs Patient looks comfortable alert and oriented REVIEW OF LABS, ECG & MEDICAL DATA Sinus mechanism with baseline artifact, normal QT interval 9-second EKG is no rmal early repolarization abnormality 2D echo shows hyperdynamic LV function Chest x-ray is normal Past Medical History Past Medical History: GERD/Reflux, Hypertension Additional Past Medical History / Comment(s): HX GASTRIC BLEED 2017, History of Any Multi-Drug Resistant Organisms: None Reported Past Surgical History: Breast Surgery, Section, Orthopedic Surgery Additional Past Surgical History / Comment(s): BREAT IMPLANTS AGE 19. RT KNEE SX X 3 Past Anesthesia/Blood Transfusion Reactions: No Reported Reaction Additional Past Anesthesia/Blood Transfusion Reaction / Comment(s): HAD BLOOD TRANSFUSION 08/2017 NO PROBLEMS Past Psychological History: Anxiety, Depression Smoking Status: Former smoker, Vaper Past Alcohol Use History: None Reported Past Drug Use History: None Reported - Past Family History Son(s) Additional Family Medical History / Comment(s): at AGE 20 years from crohns Medications and Allergies Home Medications Medication Instructions Recorded Confirmed Type Sucralfate [Carafate] 1 gm PO BID 11/01/18 01/10/24 History Cyclobenzaprine [Flexeril] 10 mg PO BID PRN 14 Days #14 tab 05/25/23 01/10/24 Rx QUEtiapine [SEROquel] 50 mg PO HS 30 Days #30 tab 05/25/23 01/10/24 Rx Benztropine Mesylate [Cogentin] 1 mg PO BID 01/10/24 01/10/24 History Budesonide/Formoterol Fumarate 2 puff INHALATION RT-BID 01/10/24 01/10/24 His tory [Symbicort 160-4.5 Mcg Inhaler] Butalb/APAP/Caff 50-325-40Mg 1 tab PO BID PRN 01/10/24 01/10/24 History [Fioricet 50-325-40] FLUoxetine HCL [PROzac] 20 mg PO HS 01/10/24 01/10/24 History FLUoxetine HCL [PROzac] 40 mg PO HS 01/10/24 01/10/24 History HYDROcodone/APAP 7.5-325MG [[place] 1 tab PO TID PRN 01/10/24 01/10/24 History 7.5-325] Ipratropium-Albuterol Nebulize 3 ml INHALATION TID PRN 01/10/24 01/10/24 History [Duoneb 0.5 mg-3 mg/3 ml Soln] Losartan Potassium [Cozaar] 100 mg PO HS 01/10/24 01/10/24 History Montelukast [Singulair] 10 mg PO HS 01/10/24 01/10/24 History Ondansetron Odt [Zofran Odt] 4 mg PO Q8HR PRN 01/10/24 01/10/24 History Pantoprazole [Protonix] 40 mg PO DAILY 01/10/24 01/10/24 History Prazosin [Minipress] See Taper PO DIRECTED 01/10/24 01/10/24 History Propranolol HCl [Propranolol HCl 80 mg PO DAILY 01/10/24 01/10/24 History ER] Zolpidem [Ambien] 5 mg PO HS PRN 01/10/24 01/10/24 History cloNIDine HCL [Catapres] 0.1 mg PO BID 01/10/24 01/10/24 History hydrALAZINE HCL [Apresoline] 50 mg PO BID-W/MEALS 01/10/24 01/10/24 History hydroCHLOROthiazide [Hydrodiuril] 25 mg PO DAILY 01/10/24 01/10/24 History tiZANidine [Zanaflex] 2 mg PO Q8HR PRN 01/10/24 01/10/24 History Allergies Allergy/AdvReac Type Severity Reaction Status Date / Time brexpiprazole [From Rexulti] Allergy mouth sores Verified 01/09/24 22:27 bupropion [From Wellbutrin] Allergy fabian Verified 01/09/24 22:27 johnsons lamotrigine [From Lamictal] Allergy fabian Verified 01/09/24 22:27 johnsons lavender (Lavandula Allergy Itching Verified 01/09/24 22:27 angustifolia) Sulfa (Sulfonamide Allergy Fabian-Raad Verified 01/09/24 22:27 Antibiotics) syndrome sulfamethoxazole Allergy Rui-Raad Verified 01/09/24 22:27 [From Bactrim] syndrome trimethoprim [From Bactrim] Allergy Rui-Raad Verified 01/09/24 22:27 syndrome vortioxetine Allergy joint Verified 01/09/24 22:27 [From Trintellix] pain, rash/hives Physical Exam Vitals: Vital Signs Temp Pulse Pulse Pulse Resp BP BP 01/10/24 18:28 82 90/55 01/10/24 14:39 98.6 F 102 H 18 130/83 01/10/24 13:00 98.3 F 130 H 18 164/91 01/10/24 12:33 128 H 18 175/108 01/10/24 07:56 96 18 123/74 01/10/24 03:25 97.6 F 72 20 119/70 01/10/24 03:20 97.6 F 72 20 119/70 01/10/24 00:08 73 18 87/51 01/09/24 23:28 96.9 F L 61 18 85/45 01/09/24 22:08 97.3 F L 78 16 71/43 Pulse Ox 01/10/24 18:28 01/10/24 14:39 98 01/10/24 13:00 97 01/10/24 12:33 95 01/10/24 07:56 96 01/10/24 03:25 99 01/10/24 03:20 99 01/10/24 00:08 100 01/09/24 23:28 100 01/09/24 22:08 98 Intake and Output 01/10/24 01/10/24 01/10/24 06:59 14:59 22:59 Intake Total 200 118 Balance 200 118 Intake: Oral 200 118 Other: Voiding Method Toilet # Voids 6 4 # Bowel Movements 1 Weight 46.72 kg Results 01/10/24 05:44 01/10/24 05:44 Cardiac Enzymes 01/09/24 01/09/24 01/10/24 Range/Units 23:01 23:01 05:44 AST 54 H 35 (14-36) U/L Troponin I <0.012 (0.000-0.034) ng/mL 01/10/24 Range/Units 12:03 AST (14-36) U/L Troponin I <0.012 (0.000-0.034) ng/mL Coagulation 01/09/24 Range/Units 23:01 PT 10.4 (10.0-12.5) sec APTT 27.4 (22.0-30.0) sec CBC 01/09/24 01/10/24 Range/Units 23:01 05:44 WBC 7.1 5.2 (3.8-10.6) k/uL RBC 3.70 L 3.71 L (3.80-5.40) m/uL Hgb 11.7 11.5 (11.4-16.0) gm/dL Hct 35.0 35.5 (34.0-46.0) % Plt Count 352 359 (150-450) k/uL Comprehensive Metabolic Panel 01/09/24 01/10/24 Range/Units 23:01 05:44 Sodium 126 L 134 L (137-145) mmol/L Potassium 3.7 3.8 (3.5-5.1) mmol/L Chloride 91 L 102 (98-107) mmol/L Carbon Dioxide 23 25 (22-30) mmol/L BUN 7 6 L (7-17) mg/dL Creatinine 0.57 0.52 (0.52-1.04) mg/dL Glucose 105 H 84 (74-99) mg/dL Calcium 8.7 8.4 (8.4-10.2) mg/dL AST 54 H 35 (14-36) U/L ALT 48 H 41 H (4-34) U/L Alkaline Phosphatase 80 82 (38-126) U/L Total Protein 6.1 L 5.8 L (6.3-8.2) g/dL Albumin 4.0 3.6 (3.5-5.0) g/dL Current Medications Generic Name Dose Route Start Last Admin Trade Name Freq PRN Reason Stop Dose Admin Acetaminophen/Butalbital/Caffeine 1 each 01/10/24 14:05 Butalb/Apap/Caff 50-325-40mg Tab PO BID PRN Migraine Headache Hydrocodone Bitart/Acetaminophen 1 each 01/10/24 14:05 Hydrocodone/Apap 7.5-325mg 1 Each Tab PO TID PRN Pain Albuterol Sulfate 2.5 mg 01/10/24 06:35 Albuterol Nebulized 2.5 Mg/3 Ml INHALATION RT-Q4H PRN Shortness Of Breath Benztropine Mesylate 1 mg 01/10/24 21:00 Benztropine Mesylate 1 Mg Tab PO BID VANESSA Budesonide/Formoterol Fumarate 2 puff 01/10/24 20:00 Symbicort 160-4.5 Mcg Inhaler INHALATION RT-BID VANESSA Clonidine 0.1 mg 01/10/24 14:15 01/10/24 15:49 Clonidine Hcl 0.1 Mg Tab PO 0.1 mg BID VANESSA Administration Cyclobenzaprine HCl 10 mg 01/10/24 14:05 Cyclobenzaprine 10 Mg Tab PO BID PRN Muscle Pain Enoxaparin Sodium 40 mg 01/10/24 09:00 01/10/24 08:27 Enoxaparin 40 Mg/0.4 Ml Syringe SQ 40 mg DAILY VANESSA Administration Fluoxetine HCl 20 mg 01/10/24 21:00 Fluoxetine Hcl 20 Mg Cap PO HS VANESSA Fluoxetine HCl 40 mg 01/10/24 21:00 Fluoxetine Hcl 20 Mg Cap PO HS VANESSA Hydralazine HCl 50 mg 01/10/24 17:30 01/10/24 18:27 Hydralazine Hcl 50 Mg Tab PO Not Given BID-W/MEALS VANESSA Hydrochlorothiazide 25 mg 01/10/24 14:30 01/10/24 15:33 Hydrochlorothiazide 25 Mg Tab PO 25 mg DAILY VANESSA Administration Sodium Chloride 1,000 mls @ 75 mls/hr 01/09/24 23:45 01/10/24 15:49 Saline 0.9% IV 75 mls/hr .[id number] VANESSA Administration Loperamide HCl 2 mg 01/10/24 09:04 01/10/24 10:08 Loperamide 2 Mg Cap PO 2 mg QID PRN Administration Diarrhea Lorazepam 1 mg 01/10/24 03:59 01/10/24 04:29 Lorazepam 2 Mg/Ml Inj IV 1 mg ONCE PRN Administration Anxiety Lorazepam 1 mg 01/10/24 06:34 01/10/24 13:21 Lorazepam 2 Mg/Ml Inj IV 1 mg Q1HR PRN Administration CIWA 10 to 15 Lorazepam 1 mg 01/10/24 06:34 01/10/24 08:29 Lorazepam 2 Mg/Ml Inj IV 1 mg Q2HR PRN Administration CIWA 8 or 9 Lorazepam 0.5 mg 01/10/24 06:34 Lorazepam 0.5 Mg Tab PO Q4HR PRN [place] 4 To 5 Lorazepam 1 mg 01/10/24 06:34 Lorazepam 1 Mg Tab PO Q4HR PRN [place] 6 To 7 Losartan Potassium 100 mg 01/10/24 21:00 Losartan 50 Mg Tab PO HS VANESSA Montelukast Sodium 10 mg 01/10/24 21:00 Montelukast 10 Mg Tab PO HS VANESSA Morphine Sulfate 4 mg 01/09/24 23:33 01/10/24 10:25 Morphine Sulfate 4 Mg/Ml Syringe IV 4 mg Q4HR PRN Administration Severe Pain (Scale 7 to 10) Naloxone HCl 0.2 mg 01/09/24 23:33 Naloxone 0.4 Mg/Ml 1 Ml Vial IV Q2M PRN Opioid Reversal Ondansetron HCl 4 mg 01/09/24 23:33 Ondansetron 4 Mg/2 Ml Vial IVP Q8HR PRN Nausea And Vomiting Pantoprazole Sodium 40 mg 01/10/24 07:30 01/10/24 18:27 Pantoprazole 40 Mg Tablet PO 40 mg AC-BID VANESSA Administration Propranolol HCl 80 mg 01/10/24 14:30 01/10/24 15:33 Propranolol La 80 Mg Cap.Sa.24h PO 80 mg DAILY VANESSA Administration Quetiapine Fumarate 50 mg 01/10/24 21:00 Quetiapine 50 Mg Tab PO HS VANESSA Sucralfate 1 gm 01/10/24 21:00 Sucralfate 1 Gm Tab PO BID VANESSA Thiamine HCl 100 mg 01/11/24 09:00 Thiamine 100 Mg Tab PO DAILY VANESSA Tizanidine HCl 2 mg 01/10/24 14:05 Tizanidine 4 Mg Tab PO Q8HR PRN MUSCLE CRAMPS Zolpidem Tartrate 5 mg 01/10/24 14:05 Zolpidem 5 Mg Tab PO HS PRN Insomnia Intake and Output 01/10/24 01/10/24 01/10/24 06:59 14:59 22:59 Intake Total 200 118 Balance 200 118 Intake: Oral 200 118 Other: Voiding Method Toilet # Voids 6 4 # Bowel Movements 1 Weight 46.72 kg 01/10/24 05:44 01/10/24 05:44
[2024-01-10] MEDS: SYMBICORT 160-4.5 MCG INHALER INHALATION SCH (21:13)
[2024-01-10] MEDS: LORazepam 1 MG TAB PO PRN (21:27)
[2024-01-10] MEDS: FLUoxetine HCL 20 MG CAP PO SCH ×2 (21:28→21:33)
[2024-01-10] MEDS: MONTELUKAST 10 MG TAB PO SCH (21:29)
[2024-01-10] MEDS: SUCRALFATE 1 GM TAB PO SCH (21:29)
[2024-01-10] MEDS: QUEtiapine 50 MG TAB PO SCH (21:30)
[2024-01-10] MEDS: LOSARTAN 50 MG TAB PO SCH (21:30)
[2024-01-10] MEDS: BENZTROPINE MESYLATE 1 MG TAB PO SCH (21:31)
[2024-01-11] MEDS: HYDROcodone/APAP 7.5-325MG 1 EACH TAB PO PRN (05:56)
--- NOTE | 2024-01-11 07:41 | P.PN ---
Subjective Well. She has normal chest discomfort sitting comfortably in bed. Blood pressure is normal Heart sounds are normal lungs are clear No JVD Impression atypical chest discomfort Type 2 diabetes Awaiting stress testing this Tuesday Plan Discharge home Follow-up with Dr. Lucas Keep stress test appointment this Tuesday Patient will go home today Objective - Vital Signs Vital signs: Vital Signs Temp 98.4 F 01/11/24 02:44 Pulse 78 01/11/24 06:41 Resp 17 01/11/24 02:44 BP 105/74 01/11/24 06:41 Pulse Ox 96 01/11/24 02:44 FiO2 Intake & Output 01/10/24 01/11/24 01/11/24 18:59 06:59 18:59 Intake Total 318 Balance 318 Intake: Oral 318 Other: Voiding Method Toilet # Voids 4 1 # Bowel Movements 1 - Labs CBC & Chem 7: 01/10/24 05:44 01/10/24 05:44
[2024-01-11 07:44] VITALS: BP 125/79; PULSE 68; RESP 16; TEMP 98
[2024-01-11] MEDS: THIAMINE 100 MG TAB PO SCH (08:28)
[2024-01-11] MEDS: LORazepam 0.5 MG TAB PO PRN (08:41)
--- NOTE | 2024-01-11 11:03 | P.DS ---
Providers Date of admission: 01/09/24 23:36 Attending physician: Zoe Ball MD Consults: 01/10/24 11:44 Consult Physician Routine Consulting Provider: Jeronimo Weeks Consult Reason/Comments: chest pain Do you want consulting provider notified?: Yes Primary care physician: TOMMIE Zheng Hospital Course: Discharge Diagnosis: Alcohol intoxication: Resolved Benzodiazepine addiction Hypovolemic hyponatremia secondary to dehydration Hypotension secondary dehydration, resolved Chest pain likely due to anxiety. ACS resolved Depression and anxiety Hospital Course: Patient is a 53-year-old female with past medical history of anxiety, depression, hypertension who presents to the ED with leg cramps and possible benzodiazepine withdrawal. Patient states that she used to get 8 mg of Ativan f rom her PCP about 1 year ago. However PCP retired and then could not find another physician to prescribe her Ativan. She states that she finally did find a physician who was willing to prescribe her ativan but rapidly tapered her off Ativan. Patient states that she has not had Ativan since October. She states that since then she believes she has been having withdrawal symptoms. She did finally find a nurse practitioner who was willing to prescribe her benzodiazepine again. Patient states that she has been drinking alcohol to cope with her benzodiazepine addiction. In ED patient's alcohol level was also elevated. Patient's sodium was 126. Lactic acid 2.1. Alcohol level 231. The rest of patient's labs are unremarkable. Patient was started on fluids and then referred for admission. Patient sodium level improved to 134. Lactic acid normalized. Patient blood pressure also improved. Patient did have some mild ST changes in 2 3 and aVF and she also did complain of chest pain so cardiology was consulted. Patient had an echocardiogram that showed small pericardial effusion. Patient seen by cardiology and cleared for discharge. Cardiology instructed the patient to follow-up outpatient for stress test. Patient states that she is already established with a psychiatrist to help cope with her benzodiazepine addiction. I also provided some counseling for the patient. Patient will also continue follow-up with her PCP for slow tapering of benzodiazepine. Patient deemed stable for discharge. 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 Patient Condition at Discharge: Fair Plan - Discharge Summary New Discharge Prescriptions: Continue Sucralfate [Carafate] 1 gm PO BID QUEtiapine [SEROquel] 50 mg PO HS 30 Days #30 tab Zolpidem [Ambien] 5 mg PO HS PRN PRN Reason: Insomnia Montelukast [Singulair] 10 mg PO HS Pantoprazole [Protonix] 40 mg PO DAILY hydrALAZINE HCL [Apresoline] 50 mg PO BID-W/MEALS tiZANidine [Zanaflex] 2 mg PO Q8HR PRN PRN Reason: MUSCLE CRAMPS cloNIDine HCL [Catapres] 0.1 mg PO BID Ondansetron Odt [Zofran ODT] 4 mg PO Q8HR PRN PRN Reason: Nausea And Vomiting FLUoxetine HCL [PROzac] 20 mg PO HS Cyclobenzaprine [Flexeril] 10 mg PO BID PRN 14 Days #14 tab PRN Reason: Muscle Pain Benztropine Mesylate [Cogentin] 1 mg PO BID Propranolol HCl [Propranolol HCl ER] 80 mg PO DAILY Ipratropium-Albuterol Nebulize [Duoneb 0.5 mg-3 mg/3 ml Soln] 3 ml INHALATION TID PRN PRN Reason: Shortness Of Breath hydroCHLOROthiazide [Hydrodiuril] 25 mg PO DAILY Butalb/APAP/Caff 50-325-40Mg [Fioricet 50-325-40] 1 tab PO BID PRN PRN Reason: Migraine Headache Losartan Potassium [Cozaar] 100 mg PO HS HYDROcodone/APAP 7.5-325MG [[place] 7.5-325] 1 tab PO TID PRN PRN Reason: Pain Budesonide/Formoterol Fumarate [Symbicort 160-4.5 Mcg Inhaler] 2 puff INHALATION RT-BID Prazosin [Minipress] See Taper PO DIRECTED FLUoxetine HCL [PROzac] 40 mg PO HS Discharge Medication List Sucralfate [Carafate] 1 gm PO BID 11/01/18 [History] Cyclobenzaprine [Flexeril] 10 mg PO BID PRN 14 Days #14 tab 05/25/23 [Rx] QUEtiapine [SEROquel] 50 mg PO HS 30 Days #30 tab 05/25/23 [Rx] Benztropine Mesylate [Cogentin] 1 mg PO BID 01/10/24 [History] Budesonide/Formoterol Fumarate [Symbicort 160-4.5 Mcg Inhaler] 2 puff INHALATION RT-BID 01/10/24 [History] Butalb/APAP/Caff 50-325-40Mg [Fioricet 50-325-40] 1 tab PO BID PRN 01/10/24 [History] FLUoxetine HCL [PROzac] 20 mg PO HS 01/10/24 [History] FLUoxetine HCL [PROzac] 40 mg PO HS 01/10/24 [History] HYDROcodone/APAP 7.5-325MG [[place] 7.5-325] 1 tab PO TID PRN 01/10/24 [History] Ipratropium-Albuterol Nebulize [Duoneb 0.5 mg-3 mg/3 ml Soln] 3 ml INHALATION TID PRN 01/10/24 [History] Losartan Potassium [Cozaar] 100 mg PO HS 01/10/24 [History] Montelukast [Singulair] 10 mg PO HS 01/10/24 [History] Ondansetron Odt [Zofran ODT] 4 mg PO Q8HR PRN 01/10/24 [History] Pantoprazole [Protonix] 40 mg PO DAILY 01/10/24 [History] Prazosin [Minipress] See Taper PO DIRECTED 01/10/24 [History] Propranolol HCl [Propranolol HCl ER] 80 mg PO DAILY 01/10/24 [History] Zolpidem [Ambien] 5 mg PO HS PRN 01/10/24 [History] cloNIDine HCL [Catapres] 0.1 mg PO BID 01/10/24 [History] hydrALAZINE HCL [Apresoline] 50 mg PO BID-W/MEALS 01/10/24 [History] hydroCHLOROthiazide [Hydrodiuril] 25 mg PO DAILY 01/10/24 [History] tiZANidine [Zanaflex] 2 mg PO Q8HR PRN 01/10/24 [History] Follow up Appointment(s)/Referral(s): Jeronimo Weeks MD [STAFF PHYSICIAN] - As Needed (Follow-up with ) Patricia Garcia, TOMMIE [Primary Care Provider] - 1-2 days Patient Instructions/Handouts: Seizure/Epilepsy Discharge Instructions & Follow-Up Discharge/Stand Alone Forms: AA Meetings [facility], Who Do I Call?, Community Resources, Outpatient Counseling Discharge Disposition: HOME SELF-CARE
== END 2024-01-11 12:12 | disposition home or self-care (01) ==
LOC: EC 22:04 → 6NMEDSUR 23:36
PROVIDERS: ADMIT Internal Medicine; ATTEND Internal Medicine
DX: R07.89 Other chest pain (principal); E86.0 Dehydration; F32.A Depression, unspecified; F41.9 Anxiety disorder, unspecified; F10.139 Alcohol abuse with withdrawal, unspecified; F10.129 Alcohol abuse with intoxication, unspecified; F13.230 Sedative, hypnotic or anxiolytic dependence with withdrawal, uncomplicated; E87.1 Hypo-osmolality and hyponatremia; I95.89 Other hypotension; I10 Essential (primary) hypertension; K21.9 Gastro-esophageal reflux disease without esophagitis; E11.9 Type 2 diabetes mellitus without complications; F17.290 Nicotine dependence, other tobacco product, uncomplicated; Y90.7 Blood alcohol level of 200-239 mg/100 ml; Z79.51 Long term (current) use of inhaled steroids; Z79.899 Other long term (current) drug therapy; Z88.2 Allergy status to sulfonamides
CPT/HCPCS: 36415; 71045; 80053; 80143; 80179; 80320; 81003; 82550; 83605; 83690; 83735; 83880; 84100; 84443; 84484; 85025; 85379; 85610; 85730; 93005; 93306; 94640; 96361; 96372; 96374; 96375; 96376; 99285

== ENCOUNTER 2024-01-14 17:14 | Observation (INO) | payer OTHER ==
--- NOTE | 2024-01-14 17:28 | ED ---
SOB HPI - General Chief Complaint: Shortness of Breath Stated Complaint: SOB Time Seen by Provider: 01/14/24 17:16 Source: patient, RN notes reviewed, old records reviewed, Caregiver Mode of arrival: EMS Limitations: no limitations - History of Present Illness Initial Comments: This is a 53-year-old female to the ER. She presents today for evaluation of severe weakness and general not feeling well anxious nausea vomiting shortness of breath shaking MD Complaint: shortness of breath, "asthma attack", anxiety -: days(s) Severity: severe Consistency: constant Improves With: nothing Worsens With: nothing Known History Of: COPD Context: recent URI, anxiety, recent illness Associated Symptoms: denies other symptoms - Related Data Home Medications Medication Instructions Recorded Confirmed Sucralfate [Carafate] 1 gm PO BID 11/01/18 01/14/24 Benztropine Mesylate [Cogentin] 1 mg PO BID 01/10/24 01/14/24 Budesonide/Formoterol Fumarate 2 puff INHALATION RT-BID 01/10/24 01/14/24 [Symbicort 160-4.5 Mcg Inhaler] Butalb/APAP/Caff 50-325-40Mg 1 tab PO BID PRN 01/10/24 01/14/24 [Fioricet 50-325-40] FLUoxetine HCL [PROzac] 40 mg PO HS 01/10/24 01/14/24 HYDROcodone/APAP 7.5-325MG [[place] 1 tab PO TID PRN 01/10/24 01/14/24 7.5-325] Ipratropium-Albuterol Nebulize 3 ml INHALATION TID PRN 01/10/24 01/14/24 [Duoneb 0.5 mg-3 mg/3 ml Soln] Losartan Potassium [Cozaar] 100 mg PO HS 01/10/24 01/14/24 Montelukast [Singulair] 10 mg PO HS 01/10/24 01/14/24 Ondansetron Odt [Zofran ODT] 4 mg PO Q8HR PRN 01/10/24 01/14/24 Pantoprazole [Protonix] 40 mg PO DAILY 01/10/24 01/14/24 Propranolol HCl [Propranolol HCl 80 mg PO DAILY 01/10/24 01/14/24 ER] cloNIDine HCL [Catapres] 0.1 mg PO BID 01/10/24 01/14/24 hydroCHLOROthiazide [Hydrodiuril] 25 mg PO DAILY 01/10/24 01/14/24 tiZANidine [Zanaflex] 2 mg PO Q8HR PRN 01/10/24 01/14/24 hydrALAZINE HCL [Apresoline] 25 mg PO DAILY 01/14/24 01/14/24 Previous Rx's Medication Instructions Recorded Cyclobenzaprine [Flexeril] 10 mg PO BID PRN 14 Days #14 tab 05/25/23 QUEtiapine [SEROquel] 50 mg PO HS 30 Days #30 tab 05/25/23 Allergies Allergy/AdvReac Type Severity Reaction Status Date / Time brexpiprazole [From Rexulti] Allergy mouth sores Verified 01/14/24 19:03 bupropion [From Wellbutrin] Allergy fabian Verified 01/14/24 19:03 johnsons lamotrigine [From Lamictal] Allergy fabian Verified 01/14/24 19:03 johnsons lavender (Lavandula Allergy Itching Verified 01/14/24 19:03 angustifolia) Sulfa (Sulfonamide Allergy Fabian-Raad Verified 01/14/24 19:03 Antibiotics) syndrome sulfamethoxazole Allergy Fabian-Raad Verified 01/14/24 19:03 [From Bactrim] syndrome trimethoprim [From Bactrim] Allergy Fabian-Raad Verified 01/14/24 19:03 syndrome vortioxetine Allergy joint Verified 01/14/24 19:03 [From Trintellix] pain, rash/hives Review of Systems ROS Statement: Those systems with pertinent positive or pertinent negative responses have been documented in the HPI. ROS Other: All systems not noted in ROS Statement are negative. Past Medical History Past Medical History: GERD/Reflux, Hypertension Additional Past Medical History / Comment(s): HX GASTRIC BLEED 2017, History of Any Multi-Drug Resistant Organisms: None Reported Past Surgical History: Breast Surgery, Section, Orthopedic Surgery Additional Past Surgical History / Comment(s): BREAT IMPLANTS AGE 19. RT KNEE SX X 3 Past Anesthesia/Blood Transfusion Reactions: No Reported Reaction Additional Past Anesthesia/Blood Transfusion Reaction / Comment(s): HAD BLOOD TRANSFUSION 08/2017 NO PROBLEMS Past Psychological History: Anxiety, Depression Smoking Status: Former smoker, Vaper Past Alcohol Use History: None Reported Past Drug Use History: None Reported - Past Family History Son(s) Additional Family Medical History / Comment(s): at AGE 20 years from crohns General Exam Limitations: no limitations, altered mental status General appearance: alert, in no apparent distress, anxious, in distress Head exam: Present: atraumatic, normocephalic, normal inspection Eye exam: Present: normal appearance, PERRL, EOMI. Absent: scleral icterus, c onjunctival injection, periorbital swelling ENT exam: Present: normal exam, mucous membranes moist Neck exam: Present: normal inspection. Absent: tenderness, meningismus, lymphadenopathy Respiratory exam: Present: normal lung sounds bilaterally, respiratory distress, wheezes, decreased breath sounds, prolonged expiratory. Absent: rales, rhonchi, stridor Cardiovascular Exam: Present: regular rate, normal rhythm, normal heart sounds. Absent: systolic murmur, diastolic murmur, rubs, gallop, clicks GI/Abdominal exam: Present: soft, normal bowel sounds. Absent: distended, tenderness, guarding, rebound, rigid Extremities exam: Present: normal inspection, full ROM, normal capillary refill. Absent: tenderness, pedal edema, joint swelling, calf tenderness Back exam: Present: normal inspection Neurological exam: Present: alert, oriented X3, CN II-XII intact Psychiatric exam: Present: normal affect, normal mood Skin exam: Present: warm, dry, intact, normal color. Absent: rash Course Vital Signs 01/14/24 01/14/24 01/14/24 17:15 17:21 17:57 Temperature 98.3 F Pulse Rate 90 82 Pulse Rate [ Pulse Oximetery ] Respiratory 36 H 34 H Rate Blood Pressure 162/85 Blood Pressure [Right Arm Sitting] O2 Sat by Pulse 95 Oximetry 01/14/24 01/14/24 01/15/24 18:14 20:35 00:00 Temperature Pulse Rate 77 80 89 Pulse Rate [ Pulse Oximetery ] Respiratory 22 20 Rate Blood Pressure 158/104 173/113 Blood Pressure [Right Arm Sitting] O2 Sat by Pulse 97 97 Oximetry 01/15/24 01/15/24 01/15/24 01:00 03:00 06:00 Temperature Pulse Rate 93 92 88 Pulse Rate [ Pulse Oximetery ] Respiratory 18 17 17 Rate Blood Pressure 171/102 177/96 169/106 Blood Pressure [Right Arm Sitting] O2 Sat by Pulse 97 Oximetry 01/15/24 01/15/24 01/15/24 10:51 14:51 16:01 Temperature 98 F Pulse Rate 97 79 86 Pulse Rate [ Pulse Oximetery ] Respiratory 18 18 18 Rate Blood Pressure 187/104 152/76 139/80 Blood Pressure [Right Arm Sitting] O2 Sat by Pulse 98 97 97 Oximetry 01/15/24 17:43 Temperature 97.9 F Pulse Rate Pulse Rate [ 82 Pulse Oximetery ] Respiratory 16 Rate Blood Pressure Blood Pressure 184/102 [Right Arm Sitting] O2 Sat by Pulse 99 Oximetry - Reevaluation(s) Reevaluation #1: 01/14/24 18:57 Records reviewed Reevaluation #2: 01/14/24 18:57 Patient has no improvement in symptoms here in the ER Reevaluation #3: 01/14/24 18:57 Patient informed of results and questions answered Reevaluation #4: Was pt. sent in by a medical professional or institution (, PA, CRATE ICER, urgent care, hospital, or long term...) When possible be specific @ -no Did you speak to anyone other than the patient for history (EMS, parent, family, police, friend...)? What history was obtained from this source @ -no Did you review nursing and triage notes (agree or disagree)? Why? @ -agree Are old charts reviewed (outside hosp., previous admission, EMS record, old EKG, old radiological studies, urgent care reports/EKG's, long term records)? Report findings @ -yes Differential Diagnosis (chest pain, altered mental status, abdominal pain women, abdominal pain men, vaginal bleeding, weakness, fever, dyspnea, syncope, headache, dizziness, GI bleed, back pain, seizure, CVA, palpatations, mental health, musculoskeletal)? @ -prior EKG interpreted by me (3pts min.). @ -yes X-rays interpreted by me (1pt min.). @ -Yes negative for acute disease CT interpreted by me (1pt min.). @ -no U/S interpreted by me (1pt. min.). @ -no What testing was considered but not performed or refused? (CT, X-rays, U/S, labs)? Why? @ -none What meds were considered but not given or refused? Why? @ -none Did you discuss the management of the patient with other professionals (professionals i.e. , PA, CRATE ICER, lab, RT, psych nurse, social media marketing analyst, systems developer, teacher, chief digital officer, complex case manager)? Give summary @ -no Was smoking cessation discussed for >3mins.? @ -no Was critical care preformed (if so, how long)? @ -no Were there social determinants of health that impacted care today? How? (Homelessness, low income, unemployed, alcoholism, drug addiction, transportation, low edu. Level, literacy, decrease access to med. care, assisted, rehab)? @ -none Was there de-escalation of care discussed even if they declined (Discuss DNR or withdrawal of care, Hospice)? DNR status @ -no What co-morbidities impacted this encounter? (DM, HTN, Smoking, COPD, CAD, C ancer, CVA, ARF, Chemo, Hep., AIDS, mental health diagnosis, sleep apnea, morbid obesity)? @ -none Was patient admitted / discharged? Hospital course, mention meds given and route, prescriptions, significant lab abnormalities, going to OR and other pertinent info. @ - 53 Female to the ER for evaluation today. Patient presents today for evaluation of recurrent alcohol intoxication with recent hospital admission for alcohol and alcohol withdrawal. Patient will be need to admit for psychiatric evaluation and continued treatment of withdrawal symptoms Admitted Undiagnosed new problem with uncertain prognosis? @ -no Drug Therapy requiring intensive monitoring for toxicity (Heparin, Nitro, In sulin, Cardizem)? @ -no Were any procedures done? @ -no Diagnosis/symptom? @ -Acute withdrawal Acute, or Chronic, or Acute on Chronic? @ -Acute Uncomplicated (without systemic symptoms) or Complicated (systemic symptoms)? @ -Complicated Side effects of treatment? @ -no Exacerbation, Progression, or Severe Exacerbation? @ -exacerbation Poses a threat to life or bodily function? How? (Chest pain, [place], [place], pneumonia, PE, COPD, DKA, ARF, appy, cholecystitis, CVA, Diverticulitis, Homicidal, [place] icidal, threat to staff... and all critical care pts) @ -yes withdrawal symptoms Reevaluation #5: Differential Weakness: Hypoglycemia, shock, sepsis, hyponatremia, anemia, infection, [place], ETOH, adverse medicine reaction, overdose, stroke, this is not meant to be an all-inclusive list. - Consultations Consultation #1: Spoke with admitting who agrees to admit this patient Medical Decision Making - Medical Decision Making 53 Female to the ER for evaluation today. Patient presents today for evaluation of recurrent alcohol intoxication with recent hospital admission for alcohol and alcohol withdrawal. Patient will be need to admit for psychiatric evaluation and continued treatment of withdrawal symptoms - Lab Data Result diagrams: 01/16/24 11:18 01/16/24 11:18 Lab Results 01/14/24 01/14/24 01/14/24 Range/Units 17:31 17:31 17:31 WBC 8.4 (3.8-10.6) k/uL RBC 3.99 (3.80-5.40) m/uL Hgb 12.7 (11.4-16.0) gm/dL Hct 38.0 (34.0-46.0) % MCV 95.3 (80.0-100.0) fL MCH 31.7 (25.0-35.0) pg MCHC 33.3 (31.0-37.0) g/dL RDW 13.4 (11.5-15.5) % Plt Count 424 (150-450) k/uL MPV 7.3 Neutrophils % 60 % Lymphocytes % 34 % Monocytes % 3 % Eosinophils % 1 % Basophils % 1 % Neutrophils # 5.0 (1.3-7.7) k/uL Lymphocytes # 2.8 (1.0-4.8) k/uL Monocytes # 0.3 (0-1.0) k/uL Eosinophils # 0.1 (0-0.7) k/uL Basophils # 0.0 (0-0.2) k/uL PT 10.7 (10.0-12.5) sec INR 1.0 (<1.2) APTT 27.6 (22.0-30.0) sec Sodium 130 L (137-145) mmol/L Potassium 4.3 (3.5-5.1) mmol/L Chloride 100 (98-107) mmol/L Carbon Dioxide 18 L (22-30) mmol/L Anion Gap 12 mmol/L BUN 8 (7-17) mg/dL Creatinine 0.51 L (0.52-1.04) mg/dL Est GFR (CKD-EPI)AfAm >90 (>60 ml/min/1.73 sqM) Est GFR (CKD-EPI)NonAf >90 (>60 ml/min/1.73 sqM) Glucose 104 H (74-99) mg/dL Lactic Ac Sepsis Rflx Plasma Lactic Acid Darrel (0.7-2.0) mmol/L Calcium 9.4 (8.4-10.2) mg/dL Magnesium 2.2 (1.6-2.3) mg/dL Total Bilirubin 0.4 (0.2-1.3) mg/dL AST 43 H (14-36) U/L ALT 43 H (4-34) U/L Alkaline Phosphatase 97 (38-126) U/L Ammonia (<30) umol/L Troponin I (0.000-0.034) ng/mL NT-Pro-B Natriuret Pep 162 pg/mL Total Protein 6.9 (6.3-8.2) g/dL Albumin 4.7 (3.5-5.0) g/dL Serum Alcohol 194 mg/dL 01/14/24 01/14/24 01/14/24 Range/Units 17:31 17:31 18:12 WBC (3.8-10.6) k/uL RBC (3.80-5.40) m/uL Hgb (11.4-16.0) gm/dL Hct (34.0-46.0) % MCV (80.0-100.0) fL MCH (25.0-35.0) pg MCHC (31.0-37.0) g/dL RDW (11.5-15.5) % Plt Count (150-450) k/uL MPV Neutrophils % % Lymphocytes % % Monocytes % % Eosinophils % % Basophils % % Neutrophils # (1.3-7.7) k/uL Lymphocytes # (1.0-4.8) k/uL Monocytes # (0-1.0) k/uL Eosinophils # (0-0.7) k/uL Basophils # (0-0.2) k/uL PT (10.0-12.5) sec INR (<1.2) APTT (22.0-30.0) sec Sodium (137-145) mmol/L Potassium (3.5-5.1) mmol/L Chloride (98-107) mmol/L Carbon Dioxide (22-30) mmol/L Anion Gap mmol/L BUN (7-17) mg/dL Creatinine (0.52-1.04) mg/dL Est GFR (CKD-EPI)AfAm (>60 ml/min/1.73 sqM) Est GFR (CKD-EPI)NonAf (>60 ml/min/1.73 sqM) Glucose (74-99) mg/dL Lactic Ac Sepsis Rflx Y Plasma Lactic Acid Darrel 3.1 H* (0.7-2.0) mmol/L Calcium (8.4-10.2) mg/dL Magnesium (1.6-2.3) mg/dL Total Bilirubin (0.2-1.3) mg/dL AST (14-36) U/L ALT (4-34) U/L Alkaline Phosphatase (38-126) U/L Ammonia 20 (<30) umol/L Troponin I <0.012 (0.000-0.034) ng/mL NT-Pro-B Natriuret Pep pg/mL Total Protein (6.3-8.2) g/dL Albumin (3.5-5.0) g/dL Serum Alcohol mg/dL - EKG Data -: EKG Interpreted by Me (EKG is sinus 83 CT 166 QRS 85 QTc 415) Disposition Clinical Impression: Acute exacerbation of chronic obstructive pulmonary disease, Opioid withdrawal, Acute anxiety, Depression, Suicidal ideation, Major depressive disorder without psychotic features, Adjustment reaction of adult life, Attempted suicide, Benzodiazepine dependence Disposition: ADMITTED IP TO THIS HOSP Condition: Fair Is patient prescribed a controlled substance at d/c from ED?: No Time of Disposition: 18:50
[2024-01-14] MEDS: HYDROmorphone 1 MG/ML 1 ML SYRINGE IVP STA (17:38)
[2024-01-14] MEDS: SODIUM CHLORIDE 0.9% 500 ML 500 ML IV STA (17:42)
[2024-01-14] MEDS: SODIUM CHLORIDE 0.9% 1,000 ML IV STA ×2 (17:42)
[2024-01-14 17:45] LABS: Basophils % (A) 1 %; Eosinophils # (A) 0.1 k/uL (0-0.7); Eosinophils % (A) 1 %; HGB 12.7 gm/dL (11.4-16.0); Lymphocytes # (A) 2.8 k/uL (1.0-4.8); Lymphocytes % (A) 34 %; MCH 31.7 pg (25.0-35.0); MCHC 33.3 g/dL (31.0-37.0); MCV 95.3 fL (80.0-100.0); Mean Platelet Volume 7.3; Monocytes # (A) 0.3 k/uL (0-1.0); Monocytes % (A) 3 %; Neutrophils % (A) 60 %; Platelet Count 424 k/uL (150-450); RBC 3.99 m/uL (3.80-5.40); RDW 13.4 % (11.5-15.5); WBC 8.4 k/uL (3.8-10.6)
--- NOTE | 2024-01-14 17:49 | XR ---
EXAMINATION TYPE: XR chest 1V portable DATE OF EXAM: 01/14/2024 5:46 PM CLINICAL INDICATION: Female, 53 years old with history of sob; [facility] COMPARISON: Chest radiographs from 01/10/2024 TECHNIQUE: XR chest 1V portable Frontal view of the chest. FINDINGS: Lungs/Pleura: There is no evidence of pleural effusion, focal consolidation, or pneumothorax. Pulmonary vascularity: Unremarkable. Heart/mediastinum: Cardiomediastinal silhouette is unremarkable. Musculoskeletal: No acute osseous pathology. IMPRESSION: No acute cardiopulmonary disease/process. [facility], , 01/14/2024 5:47 PM
[2024-01-14 17:53] LABS: Partial Thromboplastin Time 27.6 sec (22.0-30.0); Prothrombin Time 10.7 sec (10.0-12.5)
[2024-01-14] MEDS: IPRATROPIUM-ALBUTEROL 3 ML NEB INHALATION STA (17:56)
[2024-01-14 18:09] LABS: Lactic Acid, Venous 3.1 mmol/L (0.7-2.0)
[2024-01-14 18:32] LABS: ALT 43 U/L (4-34); AST 43 U/L (14-36); African American GFR (CKD) >90 (>60 ml/min/1.73 sqM); Albumin 4.7 g/dL (3.5-5.0); Alkaline Phosphatase 97 U/L (38-126); Anion Gap 12 mmol/L; Blood Urea Nitrogen 8 mg/dL (7-17); Calcium 9.4 mg/dL (8.4-10.2); Carbon Dioxide 18 mmol/L (22-30); Chloride 100 mmol/L (98-107); Glucose 104 mg/dL (74-99); Magnesium 2.2 mg/dL (1.6-2.3); Non-African American GFR(CKD) >90 (>60 ml/min/1.73 sqM); Potassium 4.3 mmol/L (3.5-5.1); Sodium 130 mmol/L (137-145); Total Bilirubin 0.4 mg/dL (0.2-1.3); Total Protein 6.9 g/dL (6.3-8.2)
[2024-01-14 18:35] LABS: Alcohol 194 mg/dL
[2024-01-14 18:39] LABS: NT-Pro-B-Type Natriuretic Pept 162 pg/mL
[2024-01-14] MEDS ORDERED: LORazepam 1 MG TAB PO PRN ×3 (18:47)
[2024-01-14] MEDS ORDERED: LORazepam 2 MG/ML INJ IV PRN ×2 (18:47)
[2024-01-14] MEDS ORDERED: NALOXONE 0.4 MG/ML 1 ML VIAL IV PRN (18:47)
[2024-01-14] MEDS ORDERED: MORPHINE SULFATE 4 MG/ML SYRINGE IV PRN (18:47)
[2024-01-14] MEDS: LORazepam 1 MG TAB PO PRN (20:30)
[2024-01-14] MEDS: SODIUM CHLORIDE 0.9% 1,000 ML IV SCH (20:33)
[2024-01-14] MEDS: LORazepam 2 MG/ML INJ IV PRN (20:34)
[2024-01-15] MEDS: hydrALAZINE HCL 25 MG TAB PO SCH (00:15)
[2024-01-15] MEDS: HYDROmorphone 1 MG/ML 1 ML SYRINGE IVP PRN (05:37)
[2024-01-15 08:34] LABS: ALT 42 U/L (4-34); AST 41 U/L (14-36); African American GFR (CKD) >90 (>60 ml/min/1.73 sqM); Albumin 3.9 g/dL (3.5-5.0); Albumin/Globulin Ratio 1.7; Alkaline Phosphatase 93 U/L (38-126); Anion Gap 6 mmol/L; Blood Urea Nitrogen 6 mg/dL (7-17); Calcium 8.9 mg/dL (8.4-10.2); Carbon Dioxide 25 mmol/L (22-30); Chloride 105 mmol/L (98-107); Globulin 2.3 g/dL; Glucose 105 mg/dL (74-99); Magnesium 2.2 mg/dL (1.6-2.3); Non-African American GFR(CKD) >90 (>60 ml/min/1.73 sqM); Phosphorus 3.5 mg/dL (2.5-4.5); Potassium 4.3 mmol/L (3.5-5.1); Sodium 136 mmol/L (137-145); Total Bilirubin 0.7 mg/dL (0.2-1.3); Total Protein 6.2 g/dL (6.3-8.2)
[2024-01-15] MEDS: PANTOPRAZOLE 40 MG/10 ML VIAL IV SCH (08:38)
[2024-01-15] MEDS: THIAMINE 100 MG TAB PO SCH (08:39)
[2024-01-15] MEDS ORDERED: tiZANidine 4 MG TAB PO PRN (09:32)
[2024-01-15] MEDS ORDERED: IPRATROPIUM-ALBUTEROL 3 ML NEB INHALATION PRN (09:37)
[2024-01-15] MEDS ORDERED: CYCLOBENZAPRINE 10 MG TAB PO PRN (09:37)
[2024-01-15 10:18] LABS: Basophils % (A) 0 %; Eosinophils # (A) 0.1 k/uL (0-0.7); Eosinophils % (A) 2 %; HCT 37.2 % (34.0-46.0); HGB 12.1 gm/dL (11.4-16.0); Lymphocytes # (A) 1.4 k/uL (1.0-4.8); Lymphocytes % (A) 21 %; MCH 31.6 pg (25.0-35.0); MCHC 32.7 g/dL (31.0-37.0); MCV 96.8 fL (80.0-100.0); Mean Platelet Volume 7.8; Monocytes # (A) 0.3 k/uL (0-1.0); Monocytes % (A) 4 %; Neutrophils # (A) 4.7 k/uL (1.3-7.7); Neutrophils % (A) 71 %; Platelet Count 344 k/uL (150-450); RBC 3.84 m/uL (3.80-5.40); WBC 6.6 k/uL (3.8-10.6)
[2024-01-15] MEDS: cloNIDine HCL 0.1 MG TAB PO SCH (10:49)
[2024-01-15] MEDS: SUCRALFATE 1 GM TAB PO SCH (10:49)
[2024-01-15] MEDS: hydroCHLOROthiazide 25 MG TAB PO SCH (10:50)
[2024-01-15] MEDS: PROPRANOLOL LA 80 MG CAP.SA.24H PO SCH (11:42)
[2024-01-15] MEDS: BENZTROPINE MESYLATE 1 MG TAB PO SCH (11:42)
[2024-01-15] MEDS: HYDROcodone/APAP 7.5-325MG 1 EACH TAB PO PRN (13:36)
--- NOTE | 2024-01-15 13:58 | P.HPIM ---
History of Present Illness H&P Date: 01/15/24 History of present illness; patient is a 53-year-old lady with past medical history significant for hypertension, depression, GERD presented to the ER because of shortness of breath. Patient was admitted recently in the hospital for alcohol intoxication and detox and benzodiazepine withdrawal. Patient stated in the last couple of days she has been complaining of increasing shortness of breath. Shortness of breath present on rest as on exertion. Denies any chest pain. Patient is complaining of increasing alcohol usage. States she is anxious all the times. States that she gets muscle cramps which she attributes to her withdrawal from Ativan. Denies any auditory or visual hallucination. Denies any suicidal thoughts. There is no complaint of fever or chills. Denies any nausea or vomiting. Patient complains increasing lethargy and weakness. Because of the symptoms, patient presented to the ER Initial lab work done in the ER showed WBC 8.4, hemoglobin 12.7, platelet count 424, sodium 130, potassium 4.3, BUN 8, creatinine 0.51, lactate 3.1, AST 43, ALT 43 troponin 0.012, alcohol 194 EKG done in the ER showed heart rate of , no ST segment elevation or depression seen, no T-wave inversions seen. Chest x-ray done in the ER no acute cardiopulmonary process Patient admitted to internal medicine service REVIEW OF SYSTEMS: CONSTITUTIONAL: No fever, no malaise, no fatigue. HEENT: No recent visual problems or hearing problems. Denied any sore throat. CARDIOVASCULAR: No chest pain, orthopnea, PND, no palpitations, no syncope. PULMONARY: No shortness of breath, no cough, no hemoptysis. GASTROINTESTINAL: No diarrhea, no nausea, no vomiting, no abdominal pain. NEUROLOGICAL: No headaches, no weakness, no numbness. HEMATOLOGICAL: Denies any bleeding or petechiae. GENITOURINARY: Denies any burning micturition, frequency, or urgency. MUSCULOSKELETAL/RHEUMATOLOGICAL: Denies any joint pain, swelling, or any muscle pain. ENDOCRINE: Denies any polyuria or polydipsia. The rest of the 14-point review of systems is negative. PHYSICAL EXAMINATION: GENERAL: The patient is alert and oriented x3, not in any acute distress. Very anxious HEENT: Pupils are round and equally reacting to light. EOMI. No scleral icterus. No conjunctival pallor. Normocephalic, atraumatic. No pharyngeal erythema. No thyromegaly. CARDIOVASCULAR: S1 and S2 present. No murmurs, rubs, or gallops. PULMONARY: Chest is clear to auscultation, no wheezing or crackles. ABDOMEN: Soft, nontender, nondistended, normoactive bowel sounds. No palpable organomegaly. MUSCULOSKELETAL: No joint swelling or deformity. EXTREMITIES: No cyanosis, clubbing, or pedal edema. NEUROLOGICAL: Gross neurological examination did not reveal any focal deficits. SKIN: No rashes. Assessment and plan Alcohol intoxication Impending alcohol detox Alcohol abuse Depression Anxiety History of benzodiazepine dependence Monitor vital signs Monitor CBC Monitor CMP Continue telemetry monitoring Ordered CIWA protocol Ordered high-dose thiamine and folic acid Ordered breathing treatments Resume home meds Consult psychiatry Labs and medication were reviewed.. Continue same treatment. Continue with symptomatic treatment. Resume home medication. Monitor labs and vitals. DVT and GI prophylaxis. Further recommendations as per clinical course of the patient Dictation was produced using [employer] dictation software. please excuse any grammatical, word or spelling errors. Past Medical History Past Medical History: GERD/Reflux, Hypertension Additional Past Medical History / Comment(s): HX GASTRIC BLEED 2017, History of Any Multi-Drug Resistant Organisms: None Reported Past Surgical History: Breast Surgery, Section, Orthopedic Surgery Additional Past Surgical History / Comment(s): BREAT IMPLANTS AGE 19. RT KNEE SX X 3 Past Anesthesia/Blood Transfusion Reactions: No Reported Reaction Additional Past Anesthesia/Blood Transfusion Reaction / Comment(s): HAD BLOOD TRANSFUSION 08/2017 NO PROBLEMS Past Psychological History: Anxiety, Depression Smoking Status: Former smoker, Vaper Past Alcohol Use History: None Reported Past Drug Use History: None Reported - Past Family History Son(s) Additional Family Medical History / Comment(s): at AGE 20 years from crohns Medications and Allergies Home Medications Medication Instructions Recorded Confirmed Type Sucralfate [Carafate] 1 gm PO BID 11/01/18 01/14/24 History Cyclobenzaprine [Flexeril] 10 mg PO BID PRN 14 Days #14 tab 05/25/23 01/14/24 Rx QUEtiapine [SEROquel] 50 mg PO HS 30 Days #30 tab 05/25/23 01/14/24 Rx Benztropine Mesylate [Cogentin] 1 mg PO BID 01/10/24 01/14/24 History Budesonide/Formoterol Fumarate 2 puff INHALATION RT-BID 01/10/24 01/14/24 History [Symbicort 160-4.5 Mcg Inhaler] Butalb/APAP/Caff 50-325-40Mg 1 tab PO BID PRN 01/10/24 01/14/24 History [Fioricet 50-325-40] FLUoxetine HCL [PROzac] 40 mg PO HS 01/10/24 01/14/24 History HYDROcodone/APAP 7.5-325MG [[place] 1 tab PO TID PRN 01/10/24 01/14/24 History 7.5-325] Ipratropium-Albuterol Nebulize 3 ml INHALATION TID PRN 01/10/24 01/14/24 History [Duoneb 0.5 mg-3 mg/3 ml Soln] Losartan Potassium [Cozaar] 100 mg PO HS 01/10/24 01/14/24 History Montelukast [Singulair] 10 mg PO HS 01/10/24 01/14/24 History Ondansetron Odt [Zofran ODT] 4 mg PO Q8HR PRN 01/10/24 01/14/24 History Pantoprazole [Protonix] 40 mg PO DAILY 01/10/24 01/14/24 History Propranolol HCl [Propranolol HCl 80 mg PO DAILY 01/10/24 01/14/24 History ER] cloNIDine HCL [Catapres] 0.1 mg PO BID 01/10/24 01/14/24 History hydroCHLOROthiazide [Hydrodiuril] 25 mg PO DAILY 01/10/24 01/14/24 History tiZANidine [Zanaflex] 2 mg PO Q8HR PRN 01/10/24 01/14/24 History hydrALAZINE HCL [Apresoline] 25 mg PO DAILY 01/14/24 01/14/24 History Allergies Allergy/AdvReac Type Severity Reaction Status Date / Time brexpiprazole [From Rexulti] Allergy mouth sores Verified 01/14/24 19:03 bupropion [From Wellbutrin] Allergy fabian Verified 01/14/24 19:03 johnsons lamotrigine [From Lamictal] Allergy fabian Verified 01/14/24 19:03 johnsonian lavender (Lavandula Allergy Itching Verified 01/14/24 19:03 angustifolia) Sulfa (Sulfonamide Allergy Kay Verified 01/14/24 19:03 Antibiotics) syndrome sulfamethoxazole Allergy Fabian-Raad Verified 01/14/24 19:03 [From Bactrim] syndrome trimethoprim [From Bactrim] Allergy Kay Verified 01/14/24 19:03 syndrome vortioxetine Allergy joint Verified 01/14/24 19:03 [From Trintellix] pain, rash/hives Physical Exam Vitals: Vital Signs Temp Pulse Resp BP Pulse Ox 01/15/24 06:00 88 17 169/106 01/15/24 03:00 92 17 177/96 01/15/24 01:00 93 18 171/102 97 01/15/24 00:00 89 20 173/113 97 01/14/24 20:35 80 22 158/104 97 01/14/24 18:14 77 01/14/24 17:57 82 01/14/24 17:21 34 H 01/14/24 17:15 98.3 F 90 36 H 162/85 95 Intake and Output 01/14/24 01/15/24 01/15/24 22:59 06:59 14:59 Other: Weight 83.007 kg Results CBC & Chem 7: 01/15/24 09:58 01/15/24 06:56 Labs: Abnormal Lab Results - Last 24 Hours (Table) 01/14/24 01/14/24 01/14/24 Range/Units 17:31 17:31 20:37 Sodium 130 L (137-145) mmol/L Carbon Dioxide 18 L (22-30) mmol/L BUN (7-17) mg/dL Creatinine 0.51 L (0.52-1.04) mg/dL Glucose 104 H (74-99) mg/dL Plasma Lactic Acid Darrel 3.1 H* 2.8 H* (0.7-2.0) mmol/L AST 43 H (14-36) U/L ALT 43 H (4-34) U/L Total Protein (6.3-8.2) g/dL 01/14/24 01/15/24 Range/Units 23:15 06:56 Sodium 136 L (137-145) mmol/L Carbon Dioxide (22-30) mmol/L BUN 6 L (7-17) mg/dL Creatinine (0.52-1.04) mg/dL Glucose 105 H (74-99) mg/dL Plasma Lactic Acid Darrel 2.5 H* (0.7-2.0) mmol/L AST 41 H (14-36) U/L ALT 42 H (4-34) U/L Total Protein 6.2 L (6.3-8.2) g/dL
[2024-01-15] MEDS ORDERED: hydrALAZINE HCL 20 MG/ML 1 ML VIAL IVP PRN (18:27)
[2024-01-15] MEDS: LOSARTAN 50 MG TAB PO SCH (18:40)
[2024-01-15] MEDS: SYMBICORT 160-4.5 MCG INHALER INHALATION SCH (20:42)
[2024-01-15] MEDS: MONTELUKAST 10 MG TAB PO SCH (20:50)
[2024-01-15] MEDS: QUEtiapine 50 MG TAB PO SCH (20:50)
[2024-01-15] MEDS: FLUoxetine HCL 20 MG CAP PO SCH (20:50)
[2024-01-15] MEDS: LORazepam 0.5 MG TAB PO PRN (21:05)
[2024-01-15] MEDS ORDERED: hydrALAZINE HCL 25 MG TAB PO SCH (23:26)
[2024-01-16] MEDS: ONDANSETRON 4 MG/2 ML VIAL IVP PRN (08:58)
[2024-01-16] MEDS: PANTOPRAZOLE 40 MG TABLET PO SCH (08:58)
[2024-01-16 11:48] LABS: Albumin 4.1 g/dL (3.5-5.0); Anion Gap 2 mmol/L; Carbon Dioxide 30 mmol/L (22-30); Chloride 101 mmol/L (98-107); Glucose 112 mg/dL (74-99); Potassium 4.3 mmol/L (3.5-5.1); Sodium 133 mmol/L (137-145); Total Protein 6.3 g/dL (6.3-8.2)
[2024-01-16 11:49] LABS: ALT 37 U/L (4-34); AST 36 U/L (14-36); African American GFR (CKD) >90 (>60 ml/min/1.73 sqM); Alkaline Phosphatase 98 U/L (38-126); Blood Urea Nitrogen 4 mg/dL (7-17); Calcium 9.4 mg/dL (8.4-10.2); Non-African American GFR(CKD) >90 (>60 ml/min/1.73 sqM); Total Bilirubin 0.6 mg/dL (0.2-1.3)
[2024-01-16 11:51] LABS: HCT 36.1 % (34.0-46.0); HGB 12.1 gm/dL (11.4-16.0); MCHC 33.5 g/dL (31.0-37.0); MCV 95.6 fL (80.0-100.0); Mean Platelet Volume 7.9; Platelet Count 308 k/uL (150-450); RBC 3.78 m/uL (3.80-5.40); RDW 13.8 % (11.5-15.5); WBC 5.3 k/uL (3.8-10.6)
--- NOTE | 2024-01-16 12:19 | P.PN ---
Subjective Progress Note Date: 01/16/24 patient is a 53-year-old lady with past medical history significant for hypertension, depression, GERD presented to the ER because of shortness of breath. Patient was admitted recently in the hospital for alcohol intoxication and detox and benzodiazepine withdrawal. Patient stated in the last couple of days she has been complaining of increasing shortness of breath. Shortness of breath present on rest as on exertion. Denies any chest pain. Patient is complaining of increasing alcohol usage. States she is anxious all the times. States that she gets muscle cramps which she attributes to her withdrawal from Ativan. Denies any auditory or visual hallucination. Denies any suicidal thoughts. There is no complaint of fever or chills. Denies any nausea or vomiting. Patient complains increasing lethargy and weakness. Because of the symptoms, patient presented to the ER Initial lab work done in the ER showed WBC 8.4, hemoglobin 12.7, platelet count 424, sodium 130, potassium 4.3, BUN 8, creatinine 0.51, lactate 3.1, AST 43, ALT 43 troponin 0.012, alcohol 194 EKG done in the ER showed heart rate of , no ST segment elevation or depression seen, no T-wave inversions seen. Chest x-ray done in the ER no acute cardiopulmonary process Patient admitted to internal medicine service 01/15. Patient seen and examined. Continues to complain of anxiety. Complaining of lethargic and weakness REVIEW OF SYSTEMS: CONSTITUTIONAL: No fever, no malaise,. CARDIOVASCULAR: No chest pain, no palpitations, no syncope. PULMONARY: No shortness of breath, no cough, GASTROINTESTINAL: No diarrhea, no nausea, no vomiting, no abdominal pain. NEUROLOGICAL: No headaches, no weakness, PHYSICAL EXAMINATION: GENERAL: The patient is alert and oriented x3, not in any acute distress. Very anxious HEENT: Pupils are round and equally reacting to light. EOMI. No scleral icterus. No conjunctival pallor. Normocephalic, atraumatic. No pharyngeal erythema. No thyromegaly. CARDIOVASCULAR: S1 and S2 present. No murmurs, rubs, or gallops. PULMONARY: Chest is clear to auscultation, no wheezing or crackles. ABDOMEN: Soft, nontender, nondistended, normoactive bowel sounds. No palpable organomegaly. MUSCULOSKELETAL: No joint swelling or deformity. EXTREMITIES: No cyanosis, clubbing, or pedal edema. NEUROLOGICAL: Gross neurological examination did not reveal any focal deficits. SKIN: No rashes. Assessment and plan Alcohol intoxication Impending alcohol detox Alcohol abuse Depression Anxiety History of benzodiazepine dependence Monitor vital signs Monitor CBC Monitor CMP Continue telemetry monitoring Continue CIWA protocol Continue high-dose thiamine and folic acid Continue breathing treatments Continue home meds Consult psychiatry Labs and medication were reviewed.. Continue same treatment. Continue with symptomatic treatment. Resume home medication. Monitor labs and vitals. DVT and GI prophylaxis. Further recommendations as per clinical course of the patient Dictation was produced using [employer] dictation software. please excuse any grammatical, word or spelling errors. Objective - Vital Signs Vital signs: Vital Signs Temp 97.9 F 01/16/24 08:00 Pulse 70 01/16/24 08:00 Resp 16 01/16/24 08:00 BP 140/82 01/16/24 08:00 Pulse Ox 98 01/16/24 08:00 FiO2 Intake & Output 01/15/24 01/16/24 01/16/24 18:59 06:59 18:59 Intake Total 120 540 118 Balance 120 540 118 Weight 83.007 kg 83.2 kg Intake: Oral 120 540 118 Other: Voiding Method Toilet # Voids 1 2 - Labs CBC & Chem 7: 01/16/24 11:18 01/16/24 11:18
--- NOTE | 2024-01-16 16:24 | P.CN ---
Psychiatric Consult - . Consult date: 01/16/24 Consult:: 01/16/24 16:22 CONSULTATION Reason for consult: Anxiety, suicidality identifying Data: The patient is 53 years old, white female, who lives in [place] in a Reason for admission: Shortness of breath, nausea, vomiting. History of present illness: The patient was brought to the emergency department with symptoms of shortness of breath. After initial examination and other work- up, the patient was transferred to medical floor for further management. During this evaluation, the patient reported that she is having cramps, and pain all over her body. She was requesting to be treated for Ativan dependence. She is currently getting Ativan under [facility] protocol. She has h/o heavy drinking. She was placed on 1:1 sitter for suicide precautions. The patient has not expressed any suicidal thoughts since being on this floor. In the ER, she had mentioned that she would not want to be alive, if she has to face this degree of pain and cramps. She mentioned this jokingly, as per the nursing staff. There is no pet ition or cert. She reported having symptoms of depression and anxiety for a long time. She noted that she takes Prozac 40 mg with good benefits. She is not concern about the depression. She does not want her Prozac to be titrated. Her major focus is on Ativan. The patient wants to be weaned off Ativan prior to discharge. On leading questions patient admitted to depression, anxiety. Denied being hopeless, worthless, suicidal, or homicidal. The patient denied any symptoms of paranoia, or any other delusional thinking, A/V hallucinations. \History of past psychiatric illness: The patient has been under psychiatric treatment since age 13. She has been treated as an out-pt off and on since then. She has h/o 5-10 psychiatric admission. Mostly for depression and cutting behavior. She denied any h/o suicidal or homicidal ideations or behavior. Past medical history: HTN, GERD Substance abuse history: Alcohol dependence. Benzodiazepine dependence. MSE: Alert and attentive Orientation X3. Pleasant and cooperative. Psychomotor activity: Speech: Normal tone, quality, and quantity Mood: Anxious and depressed. Affect: Consistent with mood. SI or HI: None Thought content: Normal Thought process: Normal Perceptual disturbance: Normal Cognition: Intact Judgement and Insight: Fair. Diagnosis: Depressive disorder, NOS, Alcohol dependence Plan: D/c 1:1 sitter for suicide precautions. Medication recommendations: Continue Prozac and Seroquel. Suggest weaning patient off Ativan prior to discharge. She will benefit with in-pt rehab. The patient to be referred to out-pt psychiatric treatment within 5-7 days of discharge.
[2024-01-17] MEDS: BUTALB/APAP/CAFF 50-325-40MG TAB PO PRN (08:50)
[2024-01-17 11:35] VITALS: BP 127/78; PULSE 73; RESP 14; TEMP 98.2
--- NOTE | 2024-01-17 13:50 | P.DS ---
Providers Date of admission: 01/14/24 18:47 Expected date of discharge: 01/17/24 Attending physician: Jeremías Motta Consults: 01/14/24 18:47 Consult Physician Routine Consulting Provider: Rodolfo Coombs Reason/Comments: psych Do you want consulting provider notified?: Yes Primary care physician: Rodolfo Holland Hospital Course: Discharge diagnoses; Alcohol intoxication Impending alcohol detox Alcohol abuse Depression Anxiety History of benzodiazepine dependence Hospital course; patient is a 53-year-old lady with past medical history significant for hypertension, depression, GERD presented to the ER because of shortness of breath. Patient was admitted recently in the hospital for alcohol intoxication and detox and benzodiazepine withdrawal. Patient stated in the last couple of days she has been complaining of increasing shortness of breath. Shortness of breath present on rest as on exertion. Denies any chest pain. Patient is complaining of increasing alcohol usage. States she is anxious all the times. States that she gets muscle cramps which she attributes to her withdrawal from Ativan. Denies any auditory or visual hallucination. Denies any suicidal thoughts. There is no complaint of fever or chills. Denies any nausea or vomiting. Patient complains increasing lethargy and weakness. Because of the symptoms, patient presented to the ER Initial lab work done in the ER showed WBC 8.4, hemoglobin 12.7, platelet count 424, sodium 130, potassium 4.3, BUN 8, creatinine 0.51, lactate 3.1, AST 43, ALT 43 troponin 0.012, alcohol 194 EKG done in the ER showed heart rate of , no ST segment elevation or depression seen, no T-wave inversions seen. Chest x-ray done in the ER no acute cardiopulmonary process Patient admitted to internal medicine service 01/15. Patient seen and examined. Continues to complain of anxiety. Complaining of lethargic and weakness 01/16. Patient seen and examined. Psych eval the patient, recommend patient does not qualify for inpatient psych admission. Recommended outpatient follow- up with psychiatry. Being discharged in stable condition PHYSICAL EXAMINATION: GENERAL: The patient is alert and oriented x3, not in any acute distress. Well developed, well nourished. HEENT: Pupils are round and equally reacting to light. EOMI. No scleral icterus. No conjunctival pallor. Normocephalic, atraumatic. No pharyngeal erythema. No thyromegaly. CARDIOVASCULAR: S1 and S2 present. No murmurs, rubs, or gallops. PULMONARY: Chest is clear to auscultation, no wheezing or crackles. ABDOMEN: Soft, nontender, nondistended, normoactive bowel sounds. No palpable organomegaly. MUSCULOSKELETAL: No joint swelling or deformity. EXTREMITIES: No cyanosis, clubbing, or pedal edema. NEUROLOGICAL: Gross neurological examination did not reveal any focal deficits. SKIN: No rashes. Dictation was produced using [employer] dictation software. please excuse any grammatical, word or spelling errors. Patient Condition at Discharge: Fair Plan - Discharge Summary Discharge Rx Participant: No New Discharge Prescriptions: Continue Sucralfate [Carafate] 1 gm PO BID QUEtiapine [SEROquel] 50 mg PO HS 30 Days #30 tab Montelukast [Singulair] 10 mg PO HS Pantoprazole [Protonix] 40 mg PO DAILY tiZANidine [Zanaflex] 2 mg PO Q8HR PRN PRN Reason: MUSCLE CRAMPS cloNIDine HCL [Catapres] 0.1 mg PO BID Ondansetron Odt [Zofran ODT] 4 mg PO Q8HR PRN PRN Reason: Nausea And Vomiting Cyclobenzaprine [Flexeril] 10 mg PO BID PRN 14 Days #14 tab PRN Reason: Muscle Pain Benztropine Mesylate [Cogentin] 1 mg PO BID Propranolol HCl [Propranolol HCl ER] 80 mg PO DAILY Ipratropium-Albuterol Nebulize [Duoneb 0.5 mg-3 mg/3 ml Soln] 3 ml INHALATION TID PRN PRN Reason: Shortness Of Breath hydroCHLOROthiazide [Hydrodiuril] 25 mg PO DAILY Butalb/APAP/Caff 50-325-40Mg [Fioricet 50-325-40] 1 tab PO BID PRN PRN Reason: Migraine Headache Losartan Potassium [Cozaar] 100 mg PO HS HYDROcodone/APAP 7.5-325MG [[place] 7.5-325] 1 tab PO TID PRN PRN Reason: Pain Budesonide/Formoterol Fumarate [Symbicort 160-4.5 Mcg Inhaler] 2 puff INHALATION RT-BID FLUoxetine HCL [PROzac] 40 mg PO HS hydrALAZINE HCL [Apresoline] 25 mg PO DAILY Discharge Medication List Sucralfate [Carafate] 1 gm PO BID 11/01/18 [History] Cyclobenzaprine [Flexeril] 10 mg PO BID PRN 14 Days #14 tab 05/25/23 [Rx] QUEtiapine [SEROquel] 50 mg PO HS 30 Days #30 tab 05/25/23 [Rx] Benztropine Mesylate [Cogentin] 1 mg PO BID 01/10/24 [History] Budesonide/Formoterol Fumarate [Symbicort 160-4.5 Mcg Inhaler] 2 puff INHALATION RT-BID 01/10/24 [History] Butalb/APAP/Caff 50-325-40Mg [Fioricet 50-325-40] 1 tab PO BID PRN 01/10/24 [History] FLUoxetine HCL [PROzac] 40 mg PO HS 01/10/24 [History] HYDROcodone/APAP 7.5-325MG [[place] 7.5-325] 1 tab PO TID PRN 01/10/24 [History] Ipratropium-Albuterol Nebulize [Duoneb 0.5 mg-3 mg/3 ml Soln] 3 ml INHALATION TID PRN 01/10/24 [History] Losartan Potassium [Cozaar] 100 mg PO HS 01/10/24 [History] Montelukast [Singulair] 10 mg PO HS 01/10/24 [History] Ondansetron Odt [Zofran ODT] 4 mg PO Q8HR PRN 01/10/24 [History] Pantoprazole [Protonix] 40 mg PO DAILY 01/10/24 [History] Propranolol HCl [Propranolol HCl ER] 80 mg PO DAILY 01/10/24 [History] cloNIDine HCL [Catapres] 0.1 mg PO BID 01/10/24 [History] hydroCHLOROthiazide [Hydrodiuril] 25 mg PO DAILY 01/10/24 [History] tiZANidine [Zanaflex] 2 mg PO Q8HR PRN 01/10/24 [History] hydrALAZINE HCL [Apresoline] 25 mg PO DAILY 01/14/24 [History] Follow up Appointment(s)/Referral(s): Rodolfo Madison DO [Primary Care Provider] - 1-2 days Discharge/Stand Alone Forms: AA Meetings [place], Outpatient Counseling, In Substance Abuse Facilities Discharge Disposition: HOME SELF-CARE
== END 2024-01-17 15:52 | disposition home or self-care (01) ==
LOC: EC 17:14 → SUPCPDRO 17:14 → 6NMEDSUR 18:47 → 4SSUR 21:24 → 3SCARD 01-15 00:12
PROVIDERS: ADMIT Hospitalist; ATTEND Hospitalist
DX: F10.229 Alcohol dependence with intoxication, unspecified (principal); J44.1 Chronic obstructive pulmonary disease with (acute) exacerbation; F13.239 Sedative, hypnotic or anxiolytic dependence with withdrawal, unspecified; F11.23 Opioid dependence with withdrawal; F43.22 Adjustment disorder with anxiety; F32.9 Major depressive disorder, single episode, unspecified; R45.851 Suicidal ideations; Y90.6 Blood alcohol level of 120-199 mg/100 ml; I10 Essential (primary) hypertension; K21.9 Gastro-esophageal reflux disease without esophagitis; R53.1 Weakness; Z79.51 Long term (current) use of inhaled steroids; Z79.899 Other long term (current) drug therapy; Z88.1 Allergy status to other antibiotic agents; Z88.2 Allergy status to sulfonamides; Z88.8 Allergy status to other drugs, medicaments and biological substances; Z91.048 Other nonmedicinal substance allergy status; Z91.51 Personal history of suicidal behavior; Z87.891 Personal history of nicotine dependence
CPT/HCPCS: 36415; 71045; 80053; 80320; 82140; 83605; 83735; 83880; 84100; 84484; 85025; 85027; 85610; 85730; 93005; 94640; 96361; 96374; 96375; 96376; 99285

== ENCOUNTER 2024-07-20 12:39 | Day surgery (SDC) | payer OTHER ==
[2024-07-19 08:56] VITALS: BMI 30.9
[~2024-07-20 12:39] MED LIST changes: +LACTATED RINGERS 1,000 ML IV SCH; -LIDOCAINE 1% 20 ML VIAL (10MG/ML) FOR IV START INTRADERMA ONE; -LIDOCAINE 1% INJ 10MG/ML (20 ML MDV) ONE; -MIDAZOLAM 2 MG/2 ML VIAL ONE; -PROPOFOL 10 MG/ML 20 ML VIAL IV ONE
[2024-07-20] MEDS: LACTATED RINGERS 500 ML IV ONE (13:25)
[2024-07-20 13:30] VITALS: TEMP 97
[2024-07-20 13:34] LABS: Glucose,Whole Blood 126 mg/dL (70-110)
[2024-07-20] MEDS ORDERED: LIDOCAINE 2% (PF) 20 MG/ML 5 ML VIAL ONE (14:30)
[2024-07-20] MEDS ORDERED: fentaNYL (PF) 50 MCG/ML 2 ML AMP ONE (14:30)
[2024-07-20] MEDS ORDERED: PROPOFOL 10 MG/ML 20 ML VIAL IV ONE (14:30)
--- NOTE | 2024-07-20 14:42 | P.PCN ---
Date of Procedure: 07/20/24 Procedure(s) Performed: BRIEF HISTORY: Patient is a 53-year-old, pleasant, white female scheduled for an upper endoscopy as a part of evaluation of lungs and history of GERD. Lately has been having intermittent nausea but no emesis. Presently on Protonix 40 mg daily as well as Carafate 1 g 3 times daily.. PROCEDURE PERFORMED: Esophagogastroduodenoscopy with biopsy. PREOPERATIVE DIAGNOSIS: Longstanding history of GERD/intermittent nausea. IV sedation per anesthesia. PROCEDURE: After informed consent was obtained, the patient was brought into the endoscopy unit. IV sedation was administered by Anesthesia under continuous monitoring. Initially the Olympus GIF-140 video endoscope was inserted into the mouth. Esophagus intubated without any difficulty. It was gradually advanced into the stomach and duodenum and carefully examined. The bulb and the second part of the duodenum appeared normal. The scope at this time was withdrawn to the stomach, adequately insufflated with air, and upon careful examination, mucosa of the antrum had patchy areas of erythema consistent with gastritis and biopsies were done from this area. Mucosa of the, body, cardia and the fundus appeared normal. The scope was then withdrawn into the esophagus. Small sliding-type hiatal hernia noted. The GE junction was located at 39 cm from the incisors. There was a 3 mm island of Aguilar's appearing mucosa just proximal to the GE junction which was biopsied. The esophagus appeared normal. There were no erosions or ulcerations seen and the patient tolerated the procedure well. IMPRESSION: 1. Mild antral gastritis. 2. Short segment Aguilar's esophagus and small hiatal hernia. RECOMMENDATIONS: The findings of this examination were discussed with the patient as well as her family. She was advised to follow-up with the biopsy results.. If the biopsy confirms the presence of Aguilar's esophagus she can have repeat upper endoscopy in 3 years. In the meantime she was advised to continue with Protonix 40 mg daily and Carafate as needed.
[2024-07-20 15:13] VITALS: BP 146/73; PULSE 102; RESP 16
== END 2024-07-20 15:27 | disposition home or self-care (01) ==
LOC: ORWHC2ENDO 12:39
PROVIDERS: ATTEND Internal Medicine Gastroenterology
DX: K29.50 Unspecified chronic gastritis without bleeding (principal); K22.70 Barrett's esophagus without dysplasia; K21.9 Gastro-esophageal reflux disease without esophagitis; K44.9 Diaphragmatic hernia without obstruction or gangrene; I10 Essential (primary) hypertension; J44.9 Chronic obstructive pulmonary disease, unspecified; F41.9 Anxiety disorder, unspecified; F32.A Depression, unspecified; F17.200 Nicotine dependence, unspecified, uncomplicated; Z79.899 Other long term (current) drug therapy; Z79.51 Long term (current) use of inhaled steroids; Z88.2 Allergy status to sulfonamides; Z88.1 Allergy status to other antibiotic agents; Z88.8 Allergy status to other drugs, medicaments and biological substances
CPT/HCPCS: 88305; 88313; 43239; J3010; J2704; J2003

== ENCOUNTER 2024-08-26 19:40 | Emergency (ER) | payer OTHER ==
[2024-08-26 20:03] VITALS: RESP 18
[2024-08-26] MEDS: FUROSEMIDE 10 MG/ML 2 ML VIAL IV STA (21:08)
--- NOTE | 2024-08-26 21:30 | XR ---
EXAMINATION TYPE: XR chest 2V DATE OF EXAM: 08/26/2024 9:24 PM COMPARISON: 01/14/2024 CLINICAL INDICATION: Female, 54 years old with history of Chest Pain: Shortness of breath TECHNIQUE: XR chest 2V views of the chest are obtained. FINDINGS: Scattered senescent parenchymal changes noted. Hyperinflation compatible with COPD. No evidence for infiltrate. No evidence for atelectasis. Heart size is stable. Mediastinal structures are stable and grossly unremarkable. No evidence for hilar prominence. Degenerative changes dorsal spine. IMPRESSION: 1. No evidence for acute pulmonary disease. [facility], , 08/26/2024 9:27 PM
[2024-08-26 21:40] LABS: Basophils # (A) 0.01 10*3/uL (0.00-0.10); Basophils % (A) 0.1 %; Eosinophils # (A) 0.24 10*3/uL (0.04-0.35); Eosinophils % (A) 3.1 %; HCT 36.8 % (37.2-46.3); HGB 12.4 g/dL (12.0-15.0); Lymphocytes # (A) 2.21 10*3/uL (0.90-5.00); Lymphocytes % (A) 28.7 %; MCH 31.1 pg (27.0-32.0); MCHC 33.7 g/dL (32.0-37.0); MCV 92.2 fL (80.0-97.0); Mean Platelet Volume 9.9 fL (9.5-12.2); Monocytes # (A) 0.34 10*3/uL (0.20-1.00); Monocytes % (A) 4.4 %; Neutrophils # (A) 4.89 10*3/uL (1.80-7.70); Neutrophils % (A) 63.4 %; Platelet Count 435 10*3/uL (140-440); RBC 3.99 10*6/uL (4.10-5.20); RDW 12.7 % (11.5-14.5); WBC 7.71 10*3/uL (4.50-10.00)
[2024-08-26 21:46] LABS: INR 0.8 (<1.2); Partial Thromboplastin Time 23.9 sec (22.0-30.0); Prothrombin Time 9.5 sec (10.0-12.5)
--- NOTE | 2024-08-26 21:50 | CT ---
EXAMINATION TYPE: CT brain wo con DATE OF EXAM: 08/26/2024 COMPARISON: none CLINICAL INDICATION: Female, 54 years old with history of Dizziness; PHH, Pt presents to ED for c/o b ilateral lower extremity swelling starting 5 days ago. Pt also c/o dizziness and nausea TECHNIQUE: CT scan of the head is performed without contrast. CT DLP: 1080.[address] CTDI: mGy Automated exposure control for dose reduction was used. FINDINGS: There is no acute intracranial hemorrhage or midline shift identified. There is diffuse v entricular and sulcal prominence consistent with diffuse age-related cerebral atrophy. There is low- attenuation in the periventricular white matter consistent with chronic small vessel ischemic change. The globes are intact and the visualized sinuses are clear. IMPRESSION: No acute intracranial hemorrhage or midline shift. There is diffuse age-related cerebra l atrophy and chronic small vessel ischemic change noted. [facility], , 08/26/2024 9:48 PM
[2024-08-26 21:53] LABS: ALT 32 U/L (4-34); AST 28 U/L (14-36); African American GFR (CKD) >90 (>60 ml/min/1.73 sqM); Albumin 4.4 g/dL (3.5-5.0); Alkaline Phosphatase 80 U/L (38-126); Anion Gap 6 mmol/L; Blood Urea Nitrogen 7 mg/dL (7-17); Calcium 9.8 mg/dL (8.4-10.2); Carbon Dioxide 33 mmol/L (22-30); Chloride 97 mmol/L (98-107); Glucose 117 mg/dL (74-99); Non-African American GFR(CKD) >90 (>60 ml/min/1.73 sqM); Potassium 3.3 mmol/L (3.5-5.1); Sodium 136 mmol/L (137-145); Total Bilirubin 0.5 mg/dL (0.2-1.3)
--- NOTE | 2024-08-26 21:57 | ED ---
General Adult HPI - General Chief complaint: Dizziness Stated complaint: lower extremity swelling, nausa, light headed Time Seen by Provider: 08/26/24 20:10 Source: patient, RN notes reviewed, old records reviewed Mode of arrival: ambulatory Limitations: no limitations - History of Present Illness Initial comments: This a 54-year-old female who presents to the emergency department stating that she has been dizzy lately feeling like she cannot fall over she denies any sensation that she might pass out. Patient states she feels like she is cannot fall over forward and she has to grab onto something to hold her self up. Patient states she has a headache but is the same headache she gets every day. Patient also complains of bilateral leg edema patient denies any calf tenderness. Patient states the leg edema is better now than it was earlier. Patient denies any shortness of breath or difficulty breathing. Patient denies chest pain. Patient denies any abdominal pain patient has nausea vomiting diarrhea - Related Data Home Medications Medication Instructions Recorded Confirmed Sucralfate [Carafate] 1 gm PO TID 11/01/18 07/20/24 Budesonide/Formoterol Fumarate 2 puff INHALATION RT-BID 01/10/24 07/20/24 [Symbicort 160-4.5 Mcg Inhaler] Butalb/APAP/Caff 50-325-40Mg 1 tab PO BID PRN 01/10/24 07/20/24 [Fioricet 50-325-40] HYDROcodone/APAP 7.5-325MG [Stanton 1 tab PO TID PRN 01/10/24 07/20/24 7.5-325] Losartan Potassium [Cozaar] 100 mg PO QAM 01/10/24 07/20/24 Pantoprazole [Protonix] 40 mg PO DAILY 01/10/24 07/20/24 hydroCHLOROthiazide [Hydrodiuril] 25 mg PO DAILY 01/10/24 07/20/24 hydrALAZINE HCL [Apresoline] 25 mg PO QAM 01/14/24 07/20/24 Albuterol (Unknown Dose) 1 - 2 puff INHALATION DIRECTED 07/19/24 07/20/24 PRN DULoxetine HCL [Cymbalta] 60 mg PO HS 07/19/24 07/20/24 Fluconazole [Diflucan] 100 mg PO DAILY 07/19/24 07/20/24 OLANZapine [ZyPREXA] 7.5 mg PO HS 07/19/24 07/20/24 busPIRone HCL [Buspirone HCl] 5 mg PO TID 07/19/24 07/20/24 predniSONE [Deltasone] 20 mg PO DIRECTED 07/19/24 07/20/24 rOPINIRole HCL [Requip] 4 - 8 mg PO HS 07/19/24 07/20/24 Previous Rx's Medication Instructions Recorded Cyclobenzaprine [Flexeril] 10 mg PO BID PRN 14 Days #14 tab 05/25/23 Furosemide [Lasix] 20 mg PO DAILY #3 tablet 08/26/24 Allergies Allergy/AdvReac Type Severity Reaction Status Date / Time brexpiprazole [From Rexulti] Allergy mouth sores Verified 08/26/24 20:03 bupropion [From Wellbutrin] Allergy fabian Verified 08/26/24 20:03 johnsons lamotrigine [From Lamictal] Allergy fabian Verified 08/26/24 20:03 johnsons lavender (Lavandula Allergy Itching Verified 08/26/24 20:03 angustifolia) Sulfa (Sulfonamide Allergy Fabian-Raad Verified 08/26/24 20:03 Antibiotics) syndrome sulfamethoxazole Allergy Fabian-Raad Verified 08/26/24 20:03 [From Bactrim] syndrome trimethoprim [From Bactrim] Allergy Fabian-Raad Verified 08/26/24 20:03 syndrome vortioxetine Allergy joint Verified 08/26/24 20:03 [From Trintellix] pain, rash/hives Review of Systems ROS Statement: Those systems with pertinent positive or pertinent negative responses have been documented in the HPI. ROS Other: All systems not noted in ROS Statement are negative. Past Medical History Past Medical History: COPD, GERD/Reflux, GI Bleed, Hypertension Additional Past Medical History / Comment(s): HX GASTRIC BLEED 08/2017, still feels stomach irritation and nausea. Lung congestion X3 months, been on antibiotics and Prednisone and not improving. Possible migraines. History of Any Multi-Drug Resistant Organisms: None Reported Past Surgical History: Breast Surgery, Section, Orthopedic Surgery Additional Past Surgical History / Comment(s): BREAST IMPLANTS, RIGHT KNEE SURGERY X3. Past Anesthesia/Blood Transfusion Reactions: No Reported Reaction Additional Past Anesthesia/Blood Transfusion Reaction / Comment(s): HAD BLOOD TRANSFUSION 08/2017 WITH NO PROBLEMS. Past Psychological History: Anxiety, Depression Smoking Status: Former smoker, Vaper Past Alcohol Use History: None Reported Past Drug Use History: None Reported - Past Family History Son(s) Additional Family Medical History / Comment(s): at age 20 years from Crohns. General Exam - General Exam Comments Initial Comments: GENERAL: Patient is well-developed and well-nourished. Patient is nontoxic and well- hydrated and is in mild distress. ENT: Neck is soft and supple. No significant lymphadenopathy is noted. Oropharynx is clear. Moist mucous membranes. Neck has full range of motion without eliciting any pain. EYES: The sclera were anicteric and conjunctiva were pink and moist. Extraocular movements were intact and pupils were equal round and reactive to light. Eyelids were unremarkable. PULMONARY: Unlabored respirations. Good breath sounds bilaterally. No audible rales rhonchi or wheezing was noted. CARDIOVASCULAR: There is a regular rate and rhythm without any murmurs gallops or rubs. ABDOMEN: Soft and nontender with normal bowel sounds. SKIN: Skin is clear with no lesions or rashes and otherwise unremarkable. NEUROLOGIC: Patient is alert and oriented x3. Cranial nerves II through XII are grossly intact. Motor and sensory are also intact. Normal speech, volume and content. Symmetrical smile. Finger-nose testing is normal bilaterally MUSCULOSKELETAL: Normal extremities with adequate strength and full range of motion. No lower extremity swelling or edema. No calf tenderness. Patient has 1+ edema bilaterally LYMPHATICS: No significant lymphadenopathy is noted PSYCHIATRIC: Normal psychiatric evaluation. Limitations: no limitations Course Vital Signs 08/26/24 19:59 Temperature 98.2 F Pulse Rate 105 H Respiratory 18 Rate Blood Pressure 194/71 O2 Sat by Pulse 99 Oximetry Medical Decision Making - Medical Decision Making EKG is interpreted by myself. EKG shows a sinus rhythm at 82 bpm. 104 QRS 94 QT interval 387 QTc is 425. Patient's EKG shows no ST segment elevation or depression. Was pt. sent in by a medical professional or institution (, PA, MEAT TEAM MEMBER, urgent care, hospital, or [facility]...) When possible be specific @ -No Did you speak to anyone other than the patient for history (EMS, parent, family, police, friend...)? What history was obtained from this source @ -No Did you review nursing and triage notes (agree or disagree)? Why? @ -I reviewed and agree with nursing and triage notes Were old charts reviewed (outside hosp., previous admission, EMS record, old EKG, old radiological studies, urgent care reports/EKG's, [facility] records)? Report findings @ -No old charts were reviewed Differential Diagnosis? @ -Differential Dizziness: Benign paroxysmal positional Vertigo, Meniere's disease, otitis media, acoustic neuroma, vertebrobasilar insufficiency, cerebellar stroke, encephalitis, hypovolemic, arrhythmia, coronary artery syndrome, anemia, this is not meant to be an all-inclusive list EKG interpreted by me (3pts min.). @ -As above X-rays interpreted by me (1pt min.). @ -Chest x-ray shows no acute abnormality CT interpreted by me (1pt min.). @ -CT of the brain shows no acute dramality U/S interpreted by me (1pt. min.). @ -None done What testing was considered but not performed or refused? (CT, X-rays, U/S, labs)? Why? @ -None What meds were considered but not given or refused? Why? @ -None Did you discuss the management of the patient with other professionals (professionals i.e. , PA, MEAT TEAM MEMBER, lab, RT, psych nurse, nephrology social worker, employee communications coordinator, teacher, staff nuclear weapons officer, porter sample case)? Give summary @ -No Was smoking cessation discussed for >3mins.? @ -No Was critical care preformed (if so, how long)? @ -No Were there social determinants of health that impacted care today? How? (Homelessness, low income, unemployed, alcoholism, drug addiction, transportation, low edu. Level, literacy, decrease access to med. care, [facility], rehab)? @ -No Was there de-escalation of care discussed even if they declined (Discuss DNR or withdrawal of care, Hospice)? DNR status @ -No What co-morbidities impacted this encounter? (DM, HTN, Smoking, COPD, CAD, Cancer, CVA, ARF, Chemo, Hep., AIDS, mental health diagnosis, sleep apnea, morbi d obesity)? @ -None Was patient admitted / discharged? Hospital course, mention meds given and route , prescriptions, significant lab abnormalities, going to OR and other pertinent info. @ -I went back into the room patient was not dizzy. Patient potassium was mildly low so I did give her some K-Dur and because of the edema I did give her a dose of Lasix in the emergency department. Patient was asymptomatic at this point she will be discharged home Undiagnosed new problem with uncertain prognosis? @ -No Drug Therapy requiring intensive monitoring for toxicity (Heparin, Nitro, Insulin, Cardizem)? @ -No Were any procedures done? @ -No Diagnosis/symptom? @ -Vertigo Acute, or Chronic, or Acute on Chronic? @ -cute Uncomplicated (without systemic symptoms) or Complicated (systemic symptoms)? @ -Complicated Side effects of treatment? @ -No Exacerbation, Progression, or Severe Exacerbation? @ -No Poses a threat to life or bodily function? How? (Chest pain, [place], CA, pneumonia, PE, COPD, DKA, ARF, appy, cholecystitis, CVA, Diverticulitis, Homicidal, Suicidal, threat to staff... and all critical care pts) @ -No Diagnosis/symptom? @ -Hypokalemia Acute, or Chronic, or Acute on Chronic? @ -Acute Uncomplicated (without systemic symptoms) or Complicated (systemic symptoms)? @ -Uncomplicated Side effects of treatment? @ -None Exacerbation, Progression, or Severe Exacerbation] @ -No Poses a threat to life or bodily function? @ -No Diagnosis/symptom? @ -Pedal edema Acute, or Chronic, or Acute on Chronic? @ -Acute Uncomplicated (without systemic symptoms) or Complicated (systemic symptoms)? @ -Uncomplicated Side effects of treatment? @ -None Exacerbation, Progression, or Severe Exacerbation] @ -No Poses a threat to life or bodily function? @ -No - Lab Data Result diagrams: 08/26/24 21:04 08/26/24 21:04 Lab Results 08/26/24 08/26/24 08/26/24 Range/Units : 21: 21: WBC 7.71 (4.50-10.00) 10*3/uL RBC 3.99 L (4.10-5.20) 10*6/uL Hgb 12.4 (12.0-15.0) g/dL Hct 36.8 L (37.2-46.3) % MCV 92.2 (80.0-97.0) fL MCH 31.1 (27.0-32.0) pg MCHC 33.7 (32.0-37.0) g/dL Plt Count 435 (140-440) 10*3/uL MPV 9.9 (9.5-12.2) fL Immature Gran % (Auto) 0.3 % Neutrophils % 63.4 % Lymphocytes % 28.7 % Monocytes % 4.4 % Eosinophils % 3.1 % Basophils % 0.1 % Immature Gran # 0.02 (0.00-0.04) 10*3/uL Neutrophils # 4.89 (1.80-7.70) 10*3/uL Lymphocytes # 2.21 (0.90-5.00) 10*3/uL Monocytes # 0.34 (0.20-1.00) 10*3/uL Eosinophils # 0.24 (0.04-0.35) 10*3/uL Basophils # 0.01 (0.00-0.10) 10*3/uL PT 9.5 L (10.0-12.5) sec INR 0.8 (<1.2) APTT 23.9 (22.0-30.0) sec Sodium 136 L (137-145) mmol/L Potassium 3.3 L (3.5-5.1) mmol/L Chloride 97 L (98-107) mmol/L Carbon Dioxide 33 H (22-30) mmol/L Anion Gap 6 mmol/L BUN 7 (7-17) mg/dL Creatinine 0.68 (0.52-1.04) mg/dL Est GFR (CKD-EPI)AfAm >90 (>60 ml/min/1.73 sqM) Est GFR (CKD-EPI)NonAf >90 (>60 ml/min/1.73 sqM) Glucose 117 H (74-99) mg/dL Calcium 9.8 (8.4-10.2) mg/dL Magnesium 2.0 (1.6-2.3) mg/dL Total Bilirubin 0.5 (0.2-1.3) mg/dL AST 28 (14-36) U/L ALT 32 (4-34) U/L Alkaline Phosphatase 80 (38-126) U/L Troponin I (0.000-0.034) ng/mL NT-Pro-B Natriuret Pep 51 pg/mL Total Protein 7.0 (6.3-8.2) g/dL Albumin 4.4 (3.5-5.0) g/dL 08/26/24 Range/Units 21:04 WBC (4.50-10.00) 10*3/uL RBC (4.10-5.20) 10*6/uL Hgb (12.0-15.0) g/dL Hct (37.2-46.3) % MCV (80.0-97.0) fL MCH (27.0-32.0) pg MCHC (32.0-37.0) g/dL Plt Count (140-440) 10*3/uL MPV (9.5-12.2) fL Immature Gran % (Auto) % Neutrophils % % Lymphocytes % % Monocytes % % Eosinophils % % Basophils % % Immature Gran # (0.00-0.04) 10*3/uL Neutrophils # (1.80-7.70) 10*3/uL Lymphocytes # (0.90-5.00) 10*3/uL Monocytes # (0.20-1.00) 10*3/uL Eosinophils # (0.04-0.35) 10*3/uL Basophils # (0.00-0.10) 10*3/uL PT (10.0-12.5) sec INR (<1.2) APTT (22.0-30.0) sec Sodium (137-145) mmol/L Potassium (3.5-5.1) mmol/L Chloride (98-107) mmol/L Carbon Dioxide (22-30) mmol/L Anion Gap mmol/L BUN (7-17) mg/dL Creatinine (0.52-1.04) mg/dL Est GFR (CKD-EPI)AfAm (>60 ml/min/1.73 sqM) Est GFR (CKD-EPI)NonAf (>60 ml/min/1.73 sqM) Glucose (74-99) mg/dL Calcium (8.4-10.2) mg/dL Magnesium (1.6-2.3) mg/dL Total Bilirubin (0.2-1.3) mg/dL AST (14-36) U/L ALT (4-34) U/L Alkaline Phosphatase (38-126) U/L Troponin I <0.012 (0.000-0.034) ng/mL NT-Pro-B Natriuret Pep pg/mL Total Protein (6.3-8.2) g/dL Albumin (3.5-5.0) g/dL Disposition Clinical Impression: Pedal edema, Hypokalemia, Vertigo Disposition: HOME SELF-CARE Condition: Good Instructions (If sedation given, give patient instructions): Vertigo (ED), Leg Edema (ED) Additional Instructions: Patient should wear compression stocks. Patient should elevate her legs to at least her heart level. Patient should eat a low-sodium diet. Prescriptions: Furosemide [Lasix] 20 mg PO DAILY #3 tablet Is patient prescribed a controlled substance at d/c from ED?: No Referrals: Nonstaff,Physician [Primary Care Provider] - 1-2 days Time of Disposition: 22:40
[2024-08-26 21:59] LABS: NT-Pro-B-Type Natriuretic Pept 51 pg/mL
[2024-08-26] MEDS: POTASSIUM CHLORIDE ER 20 MEQ TAB.ER PO STA (22:45)
[2024-08-26 22:50] VITALS: BP 178/82; PULSE 95; TEMP 98.4
== END 2024-08-26 22:53 | disposition home or self-care (01) ==
LOC: EC 19:40
DX: R42 Dizziness and giddiness (principal); E87.6 Hypokalemia; R60.9 Edema, unspecified; F17.290 Nicotine dependence, other tobacco product, uncomplicated; Z88.1 Allergy status to other antibiotic agents; Z88.2 Allergy status to sulfonamides; Z88.8 Allergy status to other drugs, medicaments and biological substances
CPT/HCPCS: 36415; 93005; 83880; 80053; 83735; 84484; 85025; 85610; 85730; 71046; 70450; 99284; 96374; J1938